=== PATIENT | male | born 1960 | race Caucasian/White ===

== ENCOUNTER 2017-07-22 11:44 | Emergency (ER) | payer SELFPAY ==
[2017-07-22 11:45] VITALS: BP 174/112; PULSE 94; RESP 16; TEMP 36.6; O2SAT 96; BMI 39.9
[2017-07-22 11:47] VITALS: O2SAT 98
--- NOTE | 2017-07-22 12:12 | RAD_ITS ---
STUDY: X-RAY CHEST REASON FOR EXAM: Male, 57 years old. Chest pain. TECHNIQUE: Frontal and lateral views of the chest. COMPARISON: April 05, 2012 FINDINGS: There is stable hyperexpansion of the left lung. There is right pleural thickening/scarring unchanged. Normal size heart. Normal mediastinum and pillo. Normal visualized pulmonary arteries. Normal visualized aortic arch and descending thoracic aorta. Normal visualized thoracic spine. Normal visualized ribs, clavicles, and shoulders. There is no demonstrated abnormality of the visualized soft tissue structures of the upper abdomen. RAD/Chest PA and Lateral IMPRESSION: Stable appearance of the chest with no new or acute findings. Electronically Signed: Reji Hutchinson MD at 14:06 EST , Service support ,
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
[2017-07-22] MEDS: HYDROcodone Bitartrate/Apap 5/325 Tablet PO (12:21)
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
[2017-07-22 15:02] VITALS: PULSE 88; RESP 16; O2SAT 100
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
== END 2017-07-22 15:02 | disposition home or self-care (01) ==
PROVIDERS: Emergency Provider Emergency Medicine; Family Provider Family Medicine; PCP Family Medicine
DX: S40.012A Contusion of left shoulder, initial encounter (principal); S80.01XA Contusion of right knee, initial encounter; S80.212A Abrasion, left knee, initial encounter; S80.211A Abrasion, right knee, initial encounter; M19.012 Primary osteoarthritis, left shoulder; E66.9 Obesity, unspecified; V43.52XA Car driver injured in collision with other type car in traffic accident, initial encounter; Y93.9 Activity, unspecified; Y92.9 Unspecified place or not applicable; Z72.0 Tobacco use
CPT/HCPCS: 71046; 73030; 73564; 99285

== ENCOUNTER → 2018-06-01 07:46 | Outpatient (CLI) | payer MEDICAID, SELFPAY ==
[2018-05-26 07:31] VITALS: BMI 45.1
--- NOTE | 2018-06-01 14:16 | PFT ---
INTRODUCTION: The patient is a 57-year-old male that presents for pulmonary function studies secondary to a diagnosis of. Respiratory therapy reports good patient effort. Bronchodilators were used during testing. INTERPRETATION: Forced expiration spirometry demonstrates the presence of a severe large airways obstructive ventilatory defect. There was a significant response to aerosolized bronchodilators. Spirograms are of good quality and do not plateau indicating slow emptying of the lungs. Body plethysmography was performed and revealed evidence of a mild restrictive ventilatory defect, with a symmetric reduction in ERV, likely the consequence of the patient's body habitus. Diffusing capacity by single breath CO is mildly reduced at 60% of predicted. IMPRESSION: These pulmonary function studies demonstrate the presence of a partially reversible severe mixed ventilatory defect with an associated mild reduction in diffusing capacity. There are no previous pulmonary function studies available for comparison.
== END ==
PROVIDERS: Family Provider Physician Assistant; PCP Physician Assistant; Referring Provider Internal Medicine Critical Care Medicine; Visit Provider Internal Medicine Critical Care Medicine
DX: J44.9 Chronic obstructive pulmonary disease, unspecified (principal)
CPT/HCPCS: 94060; 94726; 94729

== ENCOUNTER → 2018-06-03 12:17 | Outpatient (CLI) | payer MEDICAID, SELFPAY ==
[2018-05-26 07:31] VITALS: BMI 45.1
[2018-06-03 12:40] VITALS: PULSE 100; PULSE 101; PULSE 102; PULSE 78; PULSE 82; PULSE 90; PULSE 94; O2SAT 89; O2SAT 90; O2SAT 93; O2SAT 95
--- NOTE | 2018-06-04 10:57 | PCM.PSN.6M ---
PSN 6 Minute Walk Test - 6 Minute Walk Test 6 Minute Walk Test: 6 Minute Walk Test PSN:6-Minute Walk Test Start: 06/03/18 13:00 Freq: Status: Active Protocol: [id number].6MINW Document 06/03/18 12:40 [facility] (Rec: 06/03/18 13:03 [facility] [id number]) 6 Minute Walk Test Date Performed 06/03/18 Time Performed 12:40 Height 5 ft 8 in Weight: 287 lb Weight in Pounds 287.[address]: Enrrique Rincon Assistive device used: None Pre-test Oxygen Delivery Method Room Air Pulse Ox (%) 93 Pulse Rate (60-100 beats/min) 78 Dyspnea Andrei Scale (0-10) 1 Exertion Andrei Scale (6-20) 6 1st minute Oxygen Delivery Method Room Air Pulse Ox (%) 93 Pulse Rate (60-100 beats/min) 90 Number of Rests Taken 0 2nd minute Oxygen Delivery Method Room Air Pulse Ox (%) 89 Pulse Rate (60-100 beats/min) 94 Number of Rests Taken 0 3rd minute Oxygen Delivery Method Room Air Pulse Ox (%) 89 Pulse Rate (60-100 beats/min) 101 H Number of Rests Taken 0 4th minute Oxygen Delivery Method Room Air Pulse Ox (%) 90 Pulse Rate (60-100 beats/min) 100 Number of Rests Taken 0 5th minute Oxygen Delivery Method Room Air Pulse Ox (%) 90 Pulse Rate (60-100 beats/min) 101 H Number of Rests Taken 0 6th minute Oxygen Delivery Method Room Air Pulse Ox (%) 90 Pulse Rate (60-100 beats/min) 102 H Number of Rests Taken 0 Reported Symptoms Increased Work of Breathing Post-test Oxygen Delivery Method Room Air Pulse Ox (%) 95 Pulse Rate (60-100 beats/min) 82 Dyspnea Andrei Scale (0-10) 3 Exertion Andrei Scale (6-20) 12 Full Laps Walked 15 Partial Lap, Number of Tiles Walked 20 Total Distance Walked (ft) 905 - Interpretation Interpretation: The patient ambulated 905 feet over the course of 6 minutes beginning on room air without assistive devices or breaks. Pretesting oxygen saturation was noted to be 93% on room air. With ambulation, the angelia oxygen saturation was 89%. This represents a significant exertional oxygen desaturation. - Recommendations Recommendations: There is no indication for the use of supplemental oxygen at this time. However, close interval follow-up is recommended, given the degree of oxygen desaturation noted during this study.
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
== END ==
PROVIDERS: Family Provider Physician Assistant; PCP Physician Assistant; Referring Provider Internal Medicine Critical Care Medicine; Visit Provider Internal Medicine Critical Care Medicine
DX: J44.9 Chronic obstructive pulmonary disease, unspecified (principal)
CPT/HCPCS: 94618

== ENCOUNTER → 2018-07-13 07:43 | Outpatient (CLI) | payer MEDICAID, SELFPAY ==
[2018-07-07 16:06] VITALS: BMI 43.7
--- NOTE | 2018-07-13 07:48 | CT_ITS ---
STUDY: LOW DOSE CT LUNG CANCER SCREENING REASON FOR EXAM: Male, 57 years old. 30 pack-year smoking history. 3 day history of cough. RADIATION DOSAGE (If Supplied By Facility): CTDIvol = ( 3.40 ) mGy, DLP = ( 116.98 ) mGycm TECHNIQUE: No contrast was administered. Low dose technique was utilized (average mAS-38 and kVp 120). 1.25 mm axial source images with a slice interval of 1.25-mm were reconstructed in lung windows. 2.5 mm axial source images with a slice interval of 2.5-mm were reconstructed in lung windows. 5.0 mm axial source images with a slice interval of 5.0-mm were reconstructed in soft tissue windows. Nodule measured using lung windows on PACS and/or independent workstation with automated measurement of minimum and maximum diameter. Nodule measurement reported as average diameter rounded to the nearest whole number. Growth is defined as an increase ins size of greater than 1.5 mm. COMPARISON: None. NODULES: No suspicious nodules are seen. Emphysema: Emphysematous changes worse in the upper lobes. There is elevation of the right hemidiaphragm more prominent along its lateral aspect. There is evidence of pleural parenchymal changes at the right lung base laterally. I also suspect an element of rounded atelectasis along the lateral peripheral aspect of the right lower lobe. Aorta: Dilatation of the descending thoracic aorta. Maximum transverse dimension of 4.6 cm. Coronary arteries: Coronary artery calcification. CT/Low Dose CT Lung Screening IMPRESSION: Lung-RADS category 2 - Continue annual screening with LDCT in 12 months. IMPORTANT NOTES FOR USE: ACR Lung-RADS Version 1.0 Assessment Categories Release Date: September 12, 2013 Category: Coded 0-4 bases on nodule(s) with highest degree of suspicion. Negative screen is defined as categories 1 and 2; a positive screen is defined as categories 3 and 4. Category 3 and 4A nodules that are unchanged on interval CT should be coded as category 2, and individuals returned to screening in 12 months. Category 4X: Category 3 or 4 nodules with additional imaging findings that increase the suspicion of lung cancer, such as spiculation, GGN that doubles in size in 1 year, enlarged lymph notes, etc. Category Modifiers: S (significant finding unrelated to lung cancer) and C (prior history of treated lung cancer) may be added to the 0-4 Lung-RADS Electronically Signed: Ilir Forman, at 13:44 EST , Service support ,
== END ==
PROVIDERS: Family Provider Physician Assistant; PCP Physician Assistant; Referring Provider Internal Medicine Critical Care Medicine; Visit Provider Internal Medicine Critical Care Medicine
DX: F17.211 Nicotine dependence, cigarettes, in remission (principal)
CPT/HCPCS: G0297

== ENCOUNTER 2018-07-20 09:50 | Observation (INO) | payer MEDICAID, SELFPAY ==
[2018-07-07 16:06] VITALS: BMI 43.7
[2018-07-20] VITALS (10 sets, daily range): BP systolic 129–203; BP diastolic 72–114; PULSE 88–102; RESP 16–20; TEMP 36.1–36.9; O2SAT 86–97; BMI 45.8; BMI 45.9
--- NOTE | 2018-07-20 10:16 | EKG12_ITS ---
Test Reason : SOB Blood Pressure : / mmHG Vent. Rate : 085 BPM Atrial Rate : 085 BPM P-R Int : 164 ms QRS Dur : 094 ms QT Int : 400 ms P-R-T Axes : 042 042 068 degrees QTc Int : 476 ms Normal sinus rhythm Nonspecific ST abnormality Abnormal ECG Confirmed by ZINA PINEDA ([id number]), offline editor SAMANTHA PERRY ([id number]) on 07/23/2018 1:21:57 PM Referred By: PRASHANT Confirmed By:ZINA PINEDA
--- NOTE | 2018-07-20 10:17 | RAD_ITS ---
STUDY: X-RAY CHEST REASON FOR EXAM: Male, 57 years old. 4 day history of productive cough with hypoxia and wheezing. TECHNIQUE: PA and lateral views of the chest. COMPARISON: Comparison is made with prior study dated July 22, 2017. FINDINGS: Since prior study, there has been progressive right lower lobe infiltrate and effusion. Blunting of the posterior left costophrenic angle. Normal size heart. Normal mediastinum and pillo. Normal visualized pulmonary arteries. Normal visualized aortic arch and descending thoracic aorta. There are degenerative changes of the visualized thoracic spine. Normal visualized ribs, clavicles, and shoulders. There is no demonstrated abnormality of the visualized soft tissue structures of the upper abdomen. RAD/Chest PA and Lateral IMPRESSION: Progressive pleural parenchymal changes at the right lung base. Electronically Signed: Ilir Forman, at 12:31 EST , Service support ,
--- NOTE | 2018-07-20 10:18 | ED.VIS.GEN ---
History of Present Illness Chief Complaint: Shortness of Breath Detail of Chief Complaint: Dyspnea on exertion, low pulse ox Informant: Patient Onset: Days - Onset 4 days ago with respiratory-like symptoms. Context: Gradual Onset Timing: Continuous Quality: Shortness of breath at rest and increased shortness of breath with activity Location: Home Current Severity: Mild Maximum Severity: Severe Worsened by: Activity Relieved by: Nothing Associated Symptoms: Respiratory symptoms that started 4 days ago Narrative: Patient is a middle-aged male who quit smoking August 2017 who presents from urgent care because of low pulse ox and wheezing. Onset of illness 4 days ago. He reported a productive cough of brown colored sputum initially. He states his sputum is now white. He does complain of nasal congestion. He denies sore throat or change in voice. He denies chest discomfort. He denies orthopnea or PND. He does complain of ankle swelling. He has never been tested for obstructive sleep apnea. He does have symptoms are suggestive of obstructive sleep apnea. He states he was not immunized for influenza or pneumococcal infection. He denies history of PE or DVT. He denies leg pain or discoloration. Past Medical History - Allergies and Home Meds Allergies/Adverse Reactions: Allergies No Known Allergies Allergy (Verified 07/20/18 09:50) Primary Care Physician: Jeffrey Jones PA [Primary Care Provider] - Prior records reviewed: Yes Past Medical History: - - COPD Surgical History: noncontributory Lives: Alone Smoking Status: Former smoker Drugs: None Review of Systems General: Reports: Malaise. Denies: Chills, Fever, Sweats Eyes: Denies: Visual changes - bilaterally, Blurred Vision - bilaterally, Diplopia ENT: Denies: Bilateral ear pain, Rhinorrhea, Sore throat Cardiovascular: Denies: Chest pain, Palpitations Respiratory: Reports: Dyspnea, Cough, Sputum, Dyspnea on exertion. Denies: Orthopnea, Paroxysmal nocturnal dyspnea Gastrointestinal: Denies: Abdominal pain, Nausea, Vomiting, Diarrhea, Melena, Hematochezia Genitourinary: Denies: Dysuria, Hematuria, Frequency Musculoskeletal: Denies: Back pain, Extremity Pain Skin: Denies: Rash, Wounds Neurological: Denies: Headache, Weakness, Numbness Endocrine: Denies: Polyuria, Polydipsia, Cold intolerance Allergy: Denies: Uticaria, Swelling of the mouth, Swelling of the tongue Physical Exam Vital Signs/Narrative: Vital Signs Temp Pulse Resp BP Pulse Ox 07/20/18 09:51 97.5 F L 89 20 H 203/101 H 86 Inital Vital Signs reviewed: Yes General: Well nourished, Well developed, Obese, No Acute Distress Head: Normocephalic, Atraumatic Eyes: Perrl, EOMI. Negative for: Pale conjunctiva, Scleral icterus ENT: Moist mucous membranes, No rhinorrhea, Nasal congestion Neck: Supple, Nontender, No lymphadenopathy, No JVD Cardiovascular: Regular rate, Regular rhythm, No murmurs, Normal S1, Normal S2 Respiratory: No distress, Wheezing, Diminished, Decreased Air Movement. Negative for: CTA bilaterally Abdomen: Soft, Nontender, Nondistended, Normal bowel sounds, No masses Back: Nontender, Normal Inspection Extremities: Nontender. Negative for: No edema, Calf Tenderness - Done here honest call Verna [place] 2 5 to be uncooperative because I have all these patients call Verna at the office or Claritza she has a mole I emailed all of them to her so she is us Skin: Normal color, Rash - There is evidence of eczema. Negative for: Cyanosis, Diaphoresis, Jaundice Neurological: Alert, Oriented x3, Cranial nerves II-XII grossly intact, Normal Strength, Normal Sensation Psychological: Normal affect, Normal Mood Diagnostic/Tx/Re-eval Chest X-Ray - ED: 2 View, Normal, Heart, Mediastinum, Bony Structures, No Acute Disease, Chronic Changes CBC is unremarkable. Basic metabolic panel is remarkable for an elevated CO2. ABG on 2 L reveals increased AA gradient. PH is 7.39, PCO2 48.2, PaO2 77 base excess +4 bicarb 29.2 with 95% saturation which correlates with pulse ox. - Rhythm Strip Rhythm Strip: Sinus Rhythm Rate: 89 Ectopy: None - Medical Decision Making Since patient is hypoxic concern for pneumonia. Chest x-ray and appropriate blood work was obtained. If x-ray is unremarkable will need to entertain possibility of PE. Doubt suspect this is exacerbation of his COPD. Since he is not tachycardic, febrile or tachypnic lactate was not obtained. He was treated with DuoNeb followed by albuterol and 60 mg of prednisone. Patient was informed since his pulse ox is only 86% he will need to be admitted to the hospital. Since patient is hypoxic still wheezing will treat as exacerbation of COPD. Because he reported initially brown colored sputum will treat with antibiotics. Since CO2 is elevated on basic metabolic panel and patient is hypoxic requiring oxygen will obtain ABG to evaluate acid base status and specifically PCO2. ED Disposition - Plan for ED Patient: Disposition: Acute Care Hospital [facility] Diagnosis: Acute exacerbation of chronic obstructive pulmonary disease (COPD), Respiratory failure with hypoxia, Bronchospasm, acute Referrals: Jeffrey Jones PA [Primary Care Provider] -
[2018-07-20] MEDS: Ipratropium/Albuterol Sulfate 3 ML AMPUL.NEB INHALATION ×4 (10:33→23:25)
[2018-07-20] MEDS: Albuterol 2.5 MG/3 ML VIAL.NEB. INHALATION (10:33)
[2018-07-20 11:32] LABS: Absolute Lymphocyte Count 1.64 X10^3/ul (0.83-4.51); Absolute Neutrophil Count 6.9 X10^3/uL (2.0-7.7); Basophil# 0.04 X10^3/uL; Basophil% 0.4 % (0-1); Eosinophil# 0.68 X10^3/uL; Eosinophils% 6.8 % (0-5); Hematocrit 48.5 % (40-54); Hemoglobin 15.4 g/dl (13.0-16.5); Lymphocyte # 1.64 X10^3/ul (4.0); Lymphocyte % 16.4 % (19-41); Mean Corp Hgb Conc 31.8 g/gl (32-36); Mean Corpuscular Hgb 30.6 pg (27.0-32.0); Mean Corpuscular Volume 96.2 fL (80-94); Mean Platelet Vol. 9.2 fl (6.2-12.0); Monocyte# 0.66 X10^3/uL; Monocyte% 6.6 % (0-10); Neutrophil # 6.94 X10^3/uL (2.7-7.7); Neutrophil % 69.6 % (47-70); Platelet Count 283 K/mm3 (150-450); RBC Distribution Width CV 13.7 % (11.6-14.6); Red Blood Count 5.04 M/mm3 (4.6-6.2)
[2018-07-20 11:37] LABS: POSITIVE COUNT NO; POSITIVE DIFFERENTIAL NO; POSITIVE MORPHOLOGY NO
[2018-07-20 11:44] LABS: Anion Gap 8 (5-15); BUN 9 mg/dL (7-18); BUN/Creat Ratio 12.5 RATIO (10-20); Chloride 101 mmol/L (98-107); Creatinine, Serum 0.72 mg/dL (0.70-1.30); EST Glomerular Filtration Rate 120 mL/min (>60); Est Glom Filt Rate - Afr Amer 146 mL/min (>60); Estimated Creatinine Clearance 104.61 ml/min; Glucose 102 mg/dL (74-106); Potassium 3.9 mmol/L (3.5-5.1); Sodium Level 142 mmol/L (136-145)
[2018-07-20] MEDS: predniSONE 20 MG Tablet 60 MG PO (11:47)
[2018-07-20 12:51] LABS: Allen Test POS; Base Excess 4 mmol/L (-2 to +2); Bicarbonate 29.2 mmol/L (22-26); Blood Gas Specimen Type ART; O2 Delivery Device Nasal Can; PO2 77 mmHG (75-100); SITE R Radial; SO2 95 % (95-99); Time Given 1240; Total Carbon Dioxide 31 mmol/L; pCO2 48.2 mmHg (35-45); pH 7.39 (7.35-7.45)
--- NOTE | 2018-07-20 13:16 | NURSING ---
DR MELARA IN ER
[2018-07-20] MEDS: levoFLOXacin 750 MG Tablet PO (13:17)
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
--- NOTE | 2018-07-20 13:39 | NURSING ---
MED SURG EXAC COPD WITH BROCHOSPASM AND RESP FAIALURE WITH HYPOXIA SARITHA
--- NOTE | 2018-07-20 13:40 | CASEMGMT ---
RN CM Assessment Introduced role of RN CM to patient. Patient is alert, oriented and able to participate in RN CM Assessment. Care providers, pharmacy, and demographics verified. Presentation: CC: SOB, SOB persistent after Tx at [facility], 86%RA, Increased to 94%2LNC. Not on Home O2. PCP: Dr Tien Jones Specialists: Pulm- Dr Rincon Preferred Pharmacy: [facility] Medical Insurance: [email or web address] Prescription Benefit: Yes LNOK: Fide/Art Ludwig Living Arrangements: Unemployed, Lives alone in a House Trailer, 2 steps. Independent with ambulation and ADL's. Transportation: Patient drives, drove self to hospital and plans to drive on [place]. DME: Nebulizer, DME Per Insurance. HHC: None in past, HH per insurance. SNF: None in past, SNF Per insurance. DC PLAN: Home with possible Home O2. No other anticipated needs identified. Abraham [facility] RNCM
[2018-07-20] MEDS: Lisinopril 10 MG Tablet PO (15:32)
[2018-07-20] MEDS: Acetaminophen 325 MG Tablet 650 MG PO (22:32)
[2018-07-21] VITALS (10 sets, daily range): BP systolic 117–135; BP diastolic 75–90; PULSE 79–91; RESP 16–20; TEMP 36.5–36.6; O2SAT 91–96
[2018-07-21] MEDS: guaiFENesin 10 ML UDC (200MG/10ML) PO (01:11)
[2018-07-21 05:54] LABS: Absolute Lymphocyte Count 0.86 X10^3/ul (0.83-4.51); Absolute Neutrophil Count 9.5 X10^3/uL (2.0-7.7); Eosinophil# 0.01 X10^3/uL; Eosinophils% 0.1 % (0-5); Hematocrit 45.5 % (40-54); Hemoglobin 14.5 g/dl (13.0-16.5); Lymphocyte # 0.86 X10^3/ul (4.0); Mean Corp Hgb Conc 31.9 g/gl (32-36); Mean Corpuscular Hgb 30.7 pg (27.0-32.0); Mean Corpuscular Volume 96.2 fL (80-94); Mean Platelet Vol. 9.5 fl (6.2-12.0); Monocyte# 0.32 X10^3/uL; Neutrophil # 9.49 X10^3/uL (2.7-7.7); Neutrophil % 88.6 % (47-70); Platelet Count 280 K/mm3 (150-450); RBC Distribution Width SD 49.4 fl (35.1-43.9); Red Blood Count 4.73 M/mm3 (4.6-6.2); White Blood Count 10.7 K/mm3 (4.4-11.0)
[2018-07-21 06:05] LABS: Anion Gap 8 (5-15); BUN 12 mg/dL (7-18); BUN/Creat Ratio 15.3 RATIO (10-20); Calcium,Total 9.1 mg/dL (8.5-10.1); Chloride 102 mmol/L (98-107); Creatinine, Serum 0.78 mg/dL (0.70-1.30); EST Glomerular Filtration Rate 109 mL/min (>60); Est Glom Filt Rate - Afr Amer 131 mL/min (>60); Estimated Creatinine Clearance 96.56 ml/min; Glucose 160 mg/dL (74-106); Potassium 4.1 mmol/L (3.5-5.1); Sodium Level 139 mmol/L (136-145)
[2018-07-21 06:11] LABS: POSITIVE COUNT NO; POSITIVE DIFFERENTIAL NO; POSITIVE MORPHOLOGY NO
[2018-07-21] MEDS: Ipratropium/Albuterol Sulfate 3 ML AMPUL.NEB INHALATION ×5 (06:52→23:33)
[2018-07-21] MEDS: Enoxaparin 40 MG/0.4 ML Syringe SC (08:49)
[2018-07-21] MEDS: Acetaminophen 325 MG Tablet 650 MG PO ×2 (08:52→23:55)
[2018-07-21] MEDS: Lisinopril 10 MG Tablet PO (08:52)
--- NOTE | 2018-07-21 10:12 | PCM.PN.HOSP ---
Patient Problems: Active and Suspected Problems (Last Updated 07/20/18 @ 13:40 by Twin Núñez DO) Acute exacerbation of chronic obstructive pulmonary disease (COPD) (Acute) Respiratory failure with hypoxia (Acute) Bronchospasm, acute (Acute) Subjective: Feeling better today than when he came in. Still little bit short of breath and requiring some oxygen. Denies any chest pain. Vitals/I&O's: Vital Signs Temp Pulse Resp BP Pulse Ox 97.7 F L 86 18 133/81 H 93 07/21/18 08:50 07/21/18 08:50 07/21/18 08:50 07/21/18 08:50 07/21/18 08:50 Oxygen Flow Rate (L/min) 2 Oxygen Delivery Method Nasal Cannula Weight: 284 lb Body Mass Index (BMI) 45.8 Intake and Output for Last 24 Hours 07/19/18 07/20/18 07/21/18 23:59 23:59 23:59 Intake Total 400 / 400 880 / 880 Balance 400 / 400 880 / 880 General: Alert, Oriented x3, Cooperative, No apparent distress HEENT: Atraumatic, PERRLA, EOMI, Normocephalic Oral: Moist Mucosa Neck: Supple, No JVD, Trachea Midline Lungs: No rhonchi, No rales, Diminished, Wheezes Cardiovascular: Regular rate, Regular Rhythm, Normal S1, Normal S2, No murmurs Abdomen: Soft, Non Tender, Non-Distended, No Hepato-splenomegaly Extremities: No edema, Capillary Refill Less than 3 Seconds Skin: - - Psoriasis on his lower extremities, clean without signs of infection Neurological: Neuro grossly intact, Sensory exam intact to light touch and pain Psych/Mental Status: Normal Affect, Appropriate Laboratory Results 07/20/18 11:25: WBC 10.0, RBC 5.04, Hgb 15.4, Hct 48.5, MCV 96.2 H, MCH 30.6, MCHC 31.8 L, RDW 13.7, RDW Differential 47.0 H, Plt Count 283, MPV 9.2, Immature Gran % (Auto) 0.200, Neut % (Auto) 69.6, Lymph % (Auto) 16.4 L, [place] % (Auto) 6.6, Eos % (Auto) 6.8 H, Baso % (Auto) 0.4, Absolute Neuts (auto) 6.9, Absolute Lymphs (auto) 1.64, Total Counted Not Reportable 07/20/18 11:25: Sodium 142, Potassium 3.9, Chloride 101, Carbon Dioxide 33.0 H, Anion Gap 8, BUN 9, Creatinine 0.72, Estim Creat Clear Calc 104.61, Est GFR (MDRD) Af Amer 146, Est GFR (MDRD) Non-Af 120, BUN/Creatinine Ratio 12.5, Glucose 102, Calcium 9.0 07/20/18 12:45: Specimen Type ART, Sample Site R Radial, pH 7.39, Bicarbonate Actual 29.2 H, POC Total CO2 31, Base Excess 4 H, O2 Saturation 95, ABG pCO2 48.2 H, ABG pO2 77, Silver Test POS, O2 Delivery Device Nasal Can, Liter Flow 3.0, Blood Gas Notified Whom ED MD, Blood Gas Notified Time 1240 07/21/18 05:30: WBC 10.7, RBC 4.73, Hgb 14.5, Hct 45.5, MCV 96.2 H, MCH 30.7, MCHC 31.9 L, RDW 14.0, RDW Differential 49.4 H, Plt Count 280, MPV 9.5, Immature Gran % (Auto) 0.300, Neut % (Auto) 88.6 H, Lymph % (Auto) 8.0 L, [place] % (Auto) 3.0, Eos % (Auto) 0.1, Baso % (Auto) 0.0, Absolute Neuts (auto) 9.5 H, Absolute Lymphs (auto) 0.86, Total Counted Not Reportable 07/21/18 05:30: Sodium 139, Potassium 4.1, Chloride 102, Carbon Dioxide 29.0, Anion Gap 8, BUN 12, Creatinine 0.78, Estim Creat Clear Calc 96.56, Est GFR (MDRD) Af Amer 131, Est GFR (MDRD) Non-Af 109, BUN/Creatinine Ratio 15.3, Glucose 160 H, Calcium 9.1 Current Medications Acetaminophen (Tylenol) 650 mg PO Q6H PRN PRN PRN Reason: Mild Pain (1-3)/Temp > 100.7 F Last Admin: 07/21/18 08:52 Dose: 650 mg Albuterol Sulfate (Ventolin Aerosols) 2.5 mg INHALATION Q2H PRN PRN PRN Reason: SHORTNESS OF BREATH Albuterol/Ipratropium (Duoneb) 3 ml INHALATION Q4H.RT [facility] Last Admin: 07/21/18 06:52 Dose: 3 ml Clonidine 0.1 mg/ Clonidine 0. (2 mg) 0.3 mg PO TID PRN PRN Reason: SBP > 180 Enoxaparin Sodium (Lovenox) 40 mg SC DAILY@1000 [facility] Last Admin: 07/21/18 08:49 Dose: 40 mg Guaifenesin (Robitussin) 10 ml PO Q6H PRN PRN PRN Reason: COUGH Last Admin: 07/21/18 01:11 Dose: 10 ml Lisinopril (Zestril) 10 mg PO DAILY [facility] Last Admin: 07/21/18 08:52 Dose: 10 mg Magnesium Hydroxide (Milk Of Magnesia) 30 ml PO DAILY PRN PRN PRN Reason: Constipation Methylprednisolone (Solu-Medrol) 40 mg IV Q8 [facility] Last Admin: 07/21/18 06:16 Dose: 40 mg Ondansetron HCl (Zofran) 4 mg IV Q8H PRN PRN PRN Reason: NAUSEA Sodium Chloride () 5 - 15 ml IV UD PRN PRN Reason: SALINE FLUSH Medical Necessity - Tobacco Use Smoking Status: Former smoker Tobacco Use: Non-smoker Assessment/Plan All Active Problems (Last Updated 07/20/18 @ 13:40 by Twin Núñez DO) Acute exacerbation of chronic obstructive pulmonary disease (COPD) (Acute) Respiratory failure with hypoxia (Acute) Bronchospasm, acute (Acute) 1. Acute COPD exacerbation with acute hypoxic respiratory failure -On admission in the ER his oxygen saturation was 86% requiring oxygen via nasal cannula -Currently his oxygen saturation is 91% on 2 L -Wheezing in both lungs, continue with steroids and nebulizer treatment 2. HTN -Can have this diagnosis an outpatient however on admission he was extremely hypertensive with systolics greater than 200 -Continue with his lisinopril and plan on discharging him with it and follow-up with his primary care physician. 3. Psoriasis -Does not seem to have any outpatient medications for the psoriasis -Will likely improve with the steroids -Appreciate wound care assistance DVT: Lovenox Code Visit Inpatient E&M: 48225 Subs Hosp L2
--- NOTE | 2018-07-21 10:16 | PN_ITS ---
Patient Problems: Active and Suspected Problems (Last Updated 07/20/18 @ 13:40 by Twin Núñez DO) Acute exacerbation of chronic obstructive pulmonary disease (COPD) (Acute) Respiratory failure with hypoxia (Acute) Bronchospasm, acute (Acute) Subjective: Feeling better today than when he came in. Still little bit short of breath and requiring some oxygen. Denies any chest pain. Vitals/I&O's: Vital Signs Temp Pulse Resp BP Pulse Ox 97.7 F L 86 18 133/81 H 93 07/21/18 08:50 07/21/18 08:50 07/21/18 08:50 07/21/18 08:50 07/21/18 08:50 Oxygen Flow Rate (L/min) 2 Oxygen Delivery Method Nasal Cannula Weight: 284 lb Body Mass Index (BMI) 45.8 Intake and Output for Last 24 Hours 07/19/18 07/20/18 07/21/18 23:59 23:59 23:59 Intake Total 400 / 400 880 / 880 Balance 400 / 400 880 / 880 General: Alert, Oriented x3, Cooperative, No apparent distress HEENT: Atraumatic, PERRLA, EOMI, Normocephalic Oral: Moist Mucosa Neck: Supple, No JVD, Trachea Midline Lungs: No rhonchi, No rales, Diminished, Wheezes Cardiovascular: Regular rate, Regular Rhythm, Normal S1, Normal S2, No murmurs Abdomen: Soft, Non Tender, Non-Distended, No Hepato-splenomegaly Extremities: No edema, Capillary Refill Less than 3 Seconds Skin: - - Psoriasis on his lower extremities, clean without signs of infection Neurological: Neuro grossly intact, Sensory exam intact to light touch and pain Psych/Mental Status: Normal Affect, Appropriate Laboratory Results 07/20/18 11:25: WBC 10.0, RBC 5.04, Hgb 15.4, Hct 48.5, MCV 96.2 H, MCH 30.6, MCHC 31.8 L, RDW 13.7, RDW Differential 47.0 H, Plt Count 283, MPV 9.2, Immature Gran % (Auto) 0.200, Neut % (Auto) 69.6, Lymph % (Auto) 16.4 L, [place] % (Auto) 6.6, Eos % (Auto) 6.8 H, Baso % (Auto) 0.4, Absolute Neuts (auto) 6.9, Absolute Lymphs (auto) 1.64, Total Counted Not Reportable 07/20/18 11:25: Sodium 142, Potassium 3.9, Chloride 101, Carbon Dioxide 33.0 H, Anion Gap 8, BUN 9, Creatinine 0.72, Estim Creat Clear Calc 104.61, Est GFR (MDRD) Af Amer 146, Est GFR (MDRD) Non-Af 120, BUN/Creatinine Ratio 12.5, Glucose 102, Calcium 9.0 07/20/18 12:45: Specimen Type ART, Sample Site R Radial, pH 7.39, Bicarbonate Actual 29.2 H, POC Total CO2 31, Base Excess 4 H, O2 Saturation 95, ABG pCO2 48.2 H, ABG pO2 77, Silver Test POS, O2 Delivery Device Nasal Can, Liter Flow 3.0, Blood Gas Notified Whom ED MD, Blood Gas Notified Time 1240 07/21/18 05:30: WBC 10.7, RBC 4.73, Hgb 14.5, Hct 45.5, MCV 96.2 H, MCH 30.7, MCHC 31.9 L, RDW 14.0, RDW Differential 49.4 H, Plt Count 280, MPV 9.5, Immature Gran % (Auto) 0.300, Neut % (Auto) 88.6 H, Lymph % (Auto) 8.0 L, [place] % (Auto) 3.0, Eos % (Auto) 0.1, Baso % (Auto) 0.0, Absolute Neuts (auto) 9.5 H, Absolute Lymphs (auto) 0.86, Total Counted Not Reportable 07/21/18 05:30: Sodium 139, Potassium 4.1, Chloride 102, Carbon Dioxide 29.0, Anion Gap 8, BUN 12, Creatinine 0.78, Estim Creat Clear Calc 96.56, Est GFR (MDRD) Af Amer 131, Est GFR (MDRD) Non-Af 109, BUN/Creatinine Ratio 15.3, Glucose 160 H, Calcium 9.1 Current Medications Acetaminophen (Tylenol) 650 mg PO Q6H PRN PRN PRN Reason: Mild Pain (1-3)/Temp > 100.7 F Last Admin: 07/21/18 08:52 Dose: 650 mg Albuterol Sulfate (Ventolin Aerosols) 2.5 mg INHALATION Q2H PRN PRN PRN Reason: SHORTNESS OF BREATH Albuterol/Ipratropium (Duoneb) 3 ml INHALATION Q4H.RT [facility] Last Admin: 07/21/18 06:52 Dose: 3 ml Clonidine 0.1 mg/ Clonidine 0. (2 mg) 0.3 mg PO TID PRN PRN Reason: SBP > 180 Enoxaparin Sodium (Lovenox) 40 mg SC DAILY@1000 [facility] Last Admin: 07/21/18 08:49 Dose: 40 mg Guaifenesin (Robitussin) 10 ml PO Q6H PRN PRN PRN Reason: COUGH Last Admin: 07/21/18 01:11 Dose: 10 ml Lisinopril (Zestril) 10 mg PO DAILY [facility] Last Admin: 07/21/18 08:52 Dose: 10 mg Magnesium Hydroxide (Milk Of Magnesia) 30 ml PO DAILY PRN PRN PRN Reason: Constipation Methylprednisolone (Solu-Medrol) 40 mg IV Q8 [facility] Last Admin: 07/21/18 06:16 Dose: 40 mg Ondansetron HCl (Zofran) 4 mg IV Q8H PRN PRN PRN Reason: NAUSEA Sodium Chloride () 5 - 15 ml IV UD PRN PRN Reason: SALINE FLUSH Medical Necessity - Tobacco Use Smoking Status: Former smoker Tobacco Use: Non-smoker Assessment/Plan All Active Problems (Last Updated 07/20/18 @ 13:40 by Twin Núñez DO) Acute exacerbation of chronic obstructive pulmonary disease (COPD) (Acute) Respiratory failure with hypoxia (Acute) Bronchospasm, acute (Acute) 1. Acute COPD exacerbation with acute hypoxic respiratory failure -On admission in the ER his oxygen saturation was 86% requiring oxygen via nasal cannula -Currently his oxygen saturation is 91% on 2 L -Wheezing in both lungs, continue with steroids and nebulizer treatment 2. HTN -Can have this diagnosis an outpatient however on admission he was extremely hypertensive with systolics greater than 200 -Continue with his lisinopril and plan on discharging him with it and follow-up with his primary care physician. 3. Psoriasis -Does not seem to have any outpatient medications for the psoriasis -Will likely improve with the steroids -Appreciate wound care assistance DVT: Lovenox Code Visit Inpatient E&M: 16217 Subs Hosp L2
--- NOTE | 2018-07-21 11:32 | NURSING ---
Was asked to see patient for scattered patched of psoriasis. patient states he has been to the [facility] and has tried numerous treatments. the areas do not appear infected. the worst areas are to bilateral feet. pt is currently getting steroids for his COPD which may help with the psoriasis as well. no signs of infection noted. will monitor as needed. no wounds at present just dry patchy areas.
[2018-07-21] MEDS: 0.9% NaCl Peripheral Flush Adult/Peds IV (14:54)
[2018-07-22] VITALS (8 sets, daily range): BP systolic 120–150; BP diastolic 68–89; PULSE 64–84; RESP 16–22; TEMP 36.1–36.8; O2SAT 88–96
[2018-07-22] MEDS: Ipratropium/Albuterol Sulfate 3 ML AMPUL.NEB INHALATION ×3 (03:37→10:29)
--- NOTE | 2018-07-22 04:01 | RAD_ITS ---
STUDY: X-RAY CHEST REASON FOR EXAM: Male, 58 years old. Dyspnea TECHNIQUE: Frontal and lateral views of the chest. COMPARISON: 07/20/2018 FINDINGS: Subsegmental atelectases in the right and left lung bases. There is no demonstrated pleural abnormality. Normal size heart. Normal mediastinum and pillo. Normal visualized pulmonary arteries. Normal visualized aortic arch and descending thoracic aorta. Normal visualized thoracic spine. Normal visualized ribs, clavicles, and shoulders. There is no demonstrated abnormality of the visualized soft tissue structures of the upper abdomen. RAD/Chest PA and Lateral IMPRESSION: No demonstrated acute cardiopulmonary process. Electronically Signed: Sandra oSriano, at 4:34 EST Tel , Service support ,
[2018-07-22] MEDS: Lisinopril 10 MG Tablet PO (08:10)
[2018-07-22] MEDS: Enoxaparin 40 MG/0.4 ML Syringe SC (08:10)
--- NOTE | 2018-07-22 11:57 | DCINST_ITS ---
- Discharge Diagnoses Current Active Problems: Current Active and Chronic Problems (Last Updated 07/20/18 @ 13:40 by Twin Núñez DO) Acute exacerbation of chronic obstructive pulmonary disease (COPD) (Acute) Respiratory failure with hypoxia (Acute) Bronchospasm, acute (Acute) You will use the following diet at home:: Regular Your food should be the consistency of: Regular Your liquids should be the consistency of: Regular/Thin Discharge Activity: Return to Normal Activity, No Restrictions Call your doctor if you observe: Fever of 101 or Higher, Shortness of breath, Dizziness, Fainting spells, Swelling in the ankles, Chest pain, Increased palpitations (irregular heartbeat) Allergies/Adverse Reactions: Allergies No Known Allergies Allergy (Verified 07/20/18 09:50) Medications to take at Discharge umeclidinium 62.5 mcg-vilanterol 25 mcg/actuation powdr for inhalation 1 inh INHALATION Q24H #1 device 06/23/18 Albuterol Sulfate [Ventolin Hfa] 2 puff INHALATION Q6H PRN PRN 07/20/18 Ibuprofen 400 mg PO Q6H PRN PRN 07/20/18 Ipratropium/Albuterol Sulfate [Duoneb] 3 ml INHALATION Q4H.RT PRN #20 ampul.neb 07/22/18 Lisinopril [Zestril] 10 mg PO DAILY #30 tablet 07/22/18 Prednisone [Deltasone] 40 mg PO DAILY #14 tablet 07/22/18 The following prescriptions were given: Ipratropium/Albuterol Sulfate [Duoneb] 3 ml INHALATION Q4H.RT PRN #20 ampul.neb PRN Reason: Sob &/Or Wheezing Lisinopril [Zestril] 10 mg PO DAILY #30 tablet Prednisone [Deltasone] 40 mg PO DAILY #14 tablet Primary Care Physician: Jeffrey Jones PA [Primary Care Provider] - Please follow up with your Primary Care Physician in: 3-5 days Test Results: Test results from this visit will be discussed in further detail at your follow- up appointment, if applicable. Please Follow Up With: Enrrique Rincon DO When: 2-4 weeks
--- NOTE | 2018-07-22 12:28 | PCM.DC.SUM ---
Discharge Date and Diagnosis - Problem List Patient Problems: Active and Suspected Problems (Last Updated 07/20/18 @ 13:40 by Twin Núñez DO) Acute exacerbation of chronic obstructive pulmonary disease (COPD) (Acute) Respiratory failure with hypoxia (Acute) Bronchospasm, acute (Acute) Date of Admission: 07/20/18 Date of Discharge: 07/22/18 - Primary Discharge Diagnosis Active and Suspected Problems (Last Updated 07/20/18 @ 13:40 by Twin Núñez DO) Acute exacerbation of chronic obstructive pulmonary disease (COPD) (Acute) Respiratory failure with hypoxia (Acute) Bronchospasm, acute (Acute) - Secondary Discharge Diagnosis Chronic Problems (Last Updated 07/20/18 @ 13:40 by Twin Núñez DO) Obesity (Chronic) Nicotine dependence, cigarettes, in remission (Chronic) Chronic obstructive pulmonary disease (Chronic) Hospital Course and Treatment Imaging Results: 07/22/18 04:01 Chest PA and Lateral [RAD] Stat IMPRESSION: No demonstrated acute cardiopulmonary process. 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 Symptoms persisted though his cough was productive but eventually became over time. No overt fever or chills. Presented to an urgent care center today and was noted to be hypoxic and directed to the emergency room. Patient presented with hypoxia at 86% on room air. Patient was placed on oxygen, received bronchodilators, prednisone and Levaquin currently feeling better at this time. Similar to prior episodes of COPD exacerbation. Hospital Course: 1. Acute hypoxic rotatory failure secondary to acute COPD [id number]old male with a history of psoriasis who was who was just recently diagnosed with COPD presented after for 5 days of shortness of breath and dyspnea on exertion. He presented to the ER with a oxygen saturation of 86% on room air. He did 90s on 2 or 3 L nasal cannula. For the last visit he has been receiving steroids and nebulizer treatment and today he was 93% on room air and wanted to go home. We will discharge him with a prednisone course of 7 days, as well as DuoNeb therapy for his nebulizer per his request he is on a maintenance medication at home. 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 2. Hypertensive urgency-on admission his systolic blood pressure was in the low 200s and he was started on lisinopril 10 mg daily which seems to controlled his blood pressure. On the day of discharge she was in the 130s. Unsure of this is chronic hypertension or just a reaction to his COPD exacerbation his hypoxia, however we will send him home with a 30-day prescription, until he follows up with his primary care doctor at which point they can determine whether or not he needs to continue on it. 3. His other medical diagnoses were evaluated and his home medications were continued where appropriate Patient Problems: Active and Suspected Problems (Last Updated 07/20/18 @ 13:40 by Twin Núñez DO) Acute exacerbation of chronic obstructive pulmonary disease (COPD) (Acute) Respiratory failure with hypoxia (Acute) Bronchospasm, acute (Acute) Objective: General: Alert, Oriented x3, Cooperative, No apparent distress HEENT: Atraumatic, PERRLA, EOMI, Normocephalic Oral: Moist Mucosa Neck: Supple, No JVD, Trachea Midline Lungs: No rhonchi, No rales, Diminished, Wheezes Cardiovascular: Regular rate, Regular Rhythm, Normal S1, Normal S2, No murmurs Abdomen: Soft, Non Tender, Non-Distended, No Hepato-splenomegaly Extremities: No edema, Capillary Refill Less than 3 Seconds Skin: - - Psoriasis on his lower extremities, clean without signs of infection Neurological: Neuro grossly intact, Sensory exam intact to light touch and pain Psych/Mental Status: Normal Affect, Appropriate - Physical Exam Vital Signs Temp Pulse Resp BP Pulse Ox 97.9 F 68 18 135/80 H 91 07/22/18 10:45 07/22/18 10:45 07/22/18 10:45 07/22/18 10:45 07/22/18 10:59 Oxygen Flow Rate (L/min) 2 Oxygen Delivery Method Room Air Weight: 283 lb 15.992 oz Body Mass Index (BMI) 45.8 Intake and Output for Last 24 Hours 07/20/18 07/21/18 07/22/18 23:59 23:59 23:59 Intake Total 400 / 400 1780 / 1780 1100 / 1100 Balance 400 / 400 1780 / 1780 1100 / 1100 Microbiology Past 72 Hours 07/21/18 06:35 Respiratory Panel (PCR) - Final Mucosa - Nasopharyngeal Discharge Activity: Return to Normal Activity, No Restrictions Call your doctor if you observe: Fever of 101 or Higher, Shortness of breath, Dizziness, Fainting spells, Swelling in the ankles, Chest pain, Increased palpitations (irregular heartbeat) Home Medications: Medications to take at Discharge umeclidinium 62.5 mcg-vilanterol 25 mcg/actuation powdr for inhalation 1 inh INHALATION Q24H #1 device 06/23/18 Albuterol Sulfate [Ventolin Hfa] 2 puff INHALATION Q6H PRN PRN 07/20/18 Ibuprofen 400 mg PO Q6H PRN PRN 07/20/18 Ipratropium/Albuterol Sulfate [Duoneb] 3 ml INHALATION Q4H.RT PRN #20 ampul.neb 07/22/18 Lisinopril [Zestril] 10 mg PO DAILY #30 tablet 07/22/18 Prednisone [Deltasone] 40 mg PO DAILY #14 tablet 07/22/18 Following Prescrptions Were Given to Patient: Ipratropium/Albuterol Sulfate [Duoneb] 3 ml INHALATION Q4H.RT PRN #20 ampul.neb PRN Reason: Sob &/Or Wheezing Lisinopril [Zestril] 10 mg PO DAILY #30 tablet Prednisone [Deltasone] 40 mg PO DAILY #14 tablet Primary Care Physician: Jeffrey Jones PA [Primary Care Provider] - Please follow up with your Primary Care Physician in: 3-5 days Please Follow Up With: Enrrique Rincon DO When: 2-4 weeks Disposition: Home Minutes spent on discharge:: 35 Patient Condition:: Good Medical Necessity - Tobacco Use Smoking Status: Former smoker Tobacco Use: Non-smoker Meaningful Use Info Meaningful Use Diagnoses (Choose all that apply): None applicable Code Visit OBSV E&M: 04583 Observation care discharge
[2018-07-22] MEDS: 0.9% NaCl Peripheral Flush Adult/Peds IV (14:07)
== END 2018-07-22 14:50 | disposition home or self-care (01) ==
LOC: ED 12:06 → MS2 14:22
PROVIDERS: Emergency Provider Emergency Medicine; Family Provider Physician Assistant; PCP Physician Assistant; Visit Provider Family Medicine
DX: J44.1 Chronic obstructive pulmonary disease with (acute) exacerbation (principal); J96.01 Acute respiratory failure with hypoxia; I16.0 Hypertensive urgency; Z23 Encounter for immunization; Z87.891 Personal history of nicotine dependence; L40.9 Psoriasis, unspecified; E66.9 Obesity, unspecified; Z68.42 Body mass index [BMI] 45.0-49.9, adult; Z71.3 Dietary counseling and surveillance; I10 Essential (primary) hypertension
CPT/HCPCS: 36415; 36600; 71046; 80048; 82803; 85025; 87633; 93005; 94640; 94667; 96372; 96374; 96376; 99218; 99283; 90686; A4216; G0378

== ENCOUNTER → 2018-10-18 | Outpatient (CLI) | payer MEDICAID, SELFPAY ==
[2018-10-18 10:36] VITALS: BMI 44.1
[2018-10-18 11:52] LABS: Absolute Lymphocyte Count 1.89 X10^3/ul (0.83-4.51); Absolute Neutrophil Count 6.7 X10^3/uL (2.0-7.7); Basophil# 0.04 X10^3/uL; Basophil% 0.4 % (0-1); Eosinophil# 0.67 X10^3/uL; Eosinophils% 6.7 % (0-5); Hematocrit 43.8 % (40-54); Hemoglobin 14.4 g/dl (13.0-16.5); Lymphocyte # 1.89 X10^3/ul (4.0); Lymphocyte % 18.8 % (19-41); Mean Corp Hgb Conc 32.9 g/gl (32-36); Mean Corpuscular Hgb 30.8 pg (27.0-32.0); Mean Corpuscular Volume 93.6 fL (80-94); Mean Platelet Vol. 9.3 fl (6.2-12.0); Monocyte# 0.74 X10^3/uL; Monocyte% 7.3 % (0-10); Neutrophil % 66.5 % (47-70); Platelet Count 265 K/mm3 (150-450); RBC Distribution Width CV 13.6 % (11.6-14.6); Red Blood Count 4.68 M/mm3 (4.6-6.2); White Blood Count 10.1 K/mm3 (4.4-11.0)
[2018-10-18 11:54] LABS: POSITIVE COUNT NO; POSITIVE DIFFERENTIAL NO; POSITIVE MORPHOLOGY NO
[2018-10-24 03:06] LABS: Alternaria alternata <0.10 kU/L (Class 0); Aspirgillus flavus Negative (Neg:<1:1); Aspirgillus fumigatus Negative (Neg:<1:1); Aspirgillus niger Negative (Neg:<1:1); Bermuda Grass <0.10 kU/L (Class 0); Bluegrass, Kentucky <0.10 kU/L (Class 0); Cat Hair/Dander, Standard 0.31 kU/L (Class 0/I); D farinae Mite 0.63 kU/L (Class II); D pteronyssinus 0.12 kU/L (Class 0/I); Dog Epithelia <0.10 kU/L (Class 0); Elm, American White <0.10 kU/L (Class 0); Oak, White <0.10 kU/L (Class 0); Plantain, English 0.11 kU/L (Class 0/I); Ragweed, Short/Common 3.65 kU/L (Class III)
[2018-10-24 13:59] LABS: Immunoglobulin E 805 IU/mL (6-495)
[2018-10-24 14:00] LABS: Mouse Urine <0.10 kU/L (Class 0)
== END | disposition home or self-care (01) ==
PROVIDERS: Nurse Practitioner Acute Care; Family Provider Physician Assistant; PCP Physician Assistant; Referring Provider Internal Medicine Critical Care Medicine; Visit Provider Internal Medicine Critical Care Medicine
DX: R05 Cough (principal)
CPT/HCPCS: 36415; 82785; 85025; 86003; 86606

== ENCOUNTER 2018-10-22 21:56 | Inpatient (IN) | payer MEDICAID, SELFPAY ==
[2018-10-18 10:36] VITALS: BMI 44.1
[2018-10-22 21:57] VITALS: BP 137/82; PULSE 92; RESP 16; TEMP 36.8; O2SAT 93; BMI 47.0
[2018-10-22 22:26] VITALS: RESP 20
--- NOTE | 2018-10-22 22:58 | US_ITS ---
STUDY: VENOUS DOPPLER ULTRASOUND - LEFT LOWER EXTREMITY REASON FOR EXAM: Male, 58 years old. Redness x1 week with palpable knot left calf TECHNIQUE: Ultrasound evaluation of the deep vein system to include zhang-scale imaging and compression was performed. Zhang-scale imaging and Doppler sonographic evaluation, including duplex spectral analysis and qualitative color flow sonography, was performed. COMPARISON: None. FINDINGS: Bilateral Common Femoral Vein: Normal compression, spontaneity and augmentation. Normal color Doppler. Common Femoral Vein/Greater Saphenous Junction: Normal compression, spontaneity and augmentation. Normal color Doppler. Femoral Proximal: Normal compression. No internal echoes. Femoral Middle: Normal compression, spontaneity and augmentation. Normal color Doppler. Femoral Distal: Normal compression. No internal echoes. Popliteal Vein: Normal compression, spontaneity and augmentation. Normal color Doppler. Posterior Tibial Vein: Normal compression. No internal echoes. Peroneal Vein: Present compression. Poorly visualized. The left saphenous vein contains internal thrombus with noncompression from mid calf to ankle level. US/Venous Duplex Imag/Limited/Uni IMPRESSION: No evidence of deep venous thrombosis on submitted images. Thrombosis of the left infrapopliteal saphenous vein from mid calf to ankle level. Electronically Signed: Beth Clark MD at 23:44 EDT , Service support ,
[2018-10-22 23:40] VITALS: PULSE 74; RESP 18; TEMP 36.8; O2SAT 93
[2018-10-22 23:45] LABS: Absolute Lymphocyte Count 2.15 X10^3/ul (0.83-4.51); Absolute Neutrophil Count 6.3 X10^3/uL (2.0-7.7); Basophil# 0.05 X10^3/uL; Basophil% 0.5 % (0-1); Eosinophil# 0.95 X10^3/uL; Eosinophils% 9.2 % (0-5); Hematocrit 40.9 % (40-54); Hemoglobin 13.3 g/dl (13.0-16.5); Lymphocyte # 2.15 X10^3/ul (4.0); Lymphocyte % 20.8 % (19-41); Mean Corp Hgb Conc 32.5 g/gl (32-36); Mean Corpuscular Hgb 30.6 pg (27.0-32.0); Mean Corpuscular Volume 94.2 fL (80-94); Mean Platelet Vol. 9.2 fl (6.2-12.0); Monocyte# 0.86 X10^3/uL; Monocyte% 8.3 % (0-10); Neutrophil # 6.32 X10^3/uL (2.7-7.7); Platelet Count 259 K/mm3 (150-450); RBC Distribution Width CV 13.4 % (11.6-14.6); RBC Distribution Width SD 46.5 fl (35.1-43.9); Red Blood Count 4.34 M/mm3 (4.6-6.2); White Blood Count 10.4 K/mm3 (4.4-11.0)
[2018-10-22 23:46] LABS: POSITIVE COUNT NO; POSITIVE DIFFERENTIAL NO; POSITIVE MORPHOLOGY NO
[2018-10-22 23:53] LABS: Anion Gap 6 (5-15); BUN 14 mg/dL (7-18); BUN/Creat Ratio 15.9 RATIO (10-20); Calcium,Total 8.8 mg/dL (8.5-10.1); Chloride 107 mmol/L (98-107); Creatinine, Serum 0.88 mg/dL (0.70-1.30); EST Glomerular Filtration Rate 95 mL/min (>60); Est Glom Filt Rate - Afr Amer 115 mL/min (>60); Estimated Creatinine Clearance 84.58 ml/min; Glucose 111 mg/dL (74-106); Sodium Level 143 mmol/L (136-145)
--- NOTE | 2018-10-22 23:58 | ED.VISSUMM ---
- ER Visit Summary Date of Service: 10/22/18 Chief Complaint: [Redness and swelling to left leg] History of Present Illness: The patient is a 58 M [presents the emergency department with redness and swelling to his left leg that initially started 5 days ago. Patient was seen 3 days ago at urgent care and started on amoxicillin. Patient continues to have increased redness and discomfort. Patient also noted a knot to the medial calf. Patient has history of prior DVT. Patient not currently on blood thinners. He denies any trauma to his leg. He denies any fevers or chills.] Physical Examination: [HEENT-PERRLA, EOMI. Cranial nerves II through XII grossly intact. TMs clear. Mucous membranes moist. No adenopathy. Cardiovascular-regular rate and rhythm without murmur or ectopy Lungs-clear to auscultation, chest wall stable without crepitus or subcu emphysema Abdomen-normoactive bowel sounds, soft, nontender, no rebound or rigidity, no peritoneal signs. Extremities-intact ?4, normal range of motion, normal pulses, atraumatic. Left leg-patient has diffuse erythema and warmth to the lower extremity from below the knee to the ankle. Area is warm to touch. Patient does have some firmness to the medial aspect of the calf but slightly tender to palpation.] Test Results: [CBC with differential obtained showing a 10.4, hemoglobin 13, hematocrit 41, placed 259. Chemistries unremarkable.] Venous duplex of the left leg obtained showed superficial thrombophlebitis but no evidence of DVT. Emergency Department Course and Treatment: [Patient was started on clindamycin.] Treatment Plan: [Admit for IV antibiotics.] Disposition: [Admit] Impression: [Left leg cellulitis-failed outpatient therapy] This note was generated with [employer] dictation software. It may contain incorrect words, spelling, and punctuation that were not noted in review of the chart prior to signing ED Disposition - Plan for ED Patient: Referrals: Jeffrey Jones PA [Primary Care Provider] -
[2018-10-23] VITALS (12 sets, daily range): BP systolic 127–137; BP diastolic 76–83; PULSE 68–87; RESP 16–22; TEMP 36.4–36.6; O2SAT 91–97; BMI 45.7
[2018-10-23 00:02] LABS: Lactic Acid 1.4 mmol/L (0.4-2.0)
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
[2018-10-23] MEDS: 0.9% Normal Saline 1,000 ML 100 ML IV ×2 (01:25→10:08)
[2018-10-23] MEDS: Cefazolin 1 GM/50 ML BAG IV ×3 (06:38→20:56)
[2018-10-23] MEDS: Ipratropium/Albuterol Sulfate 3 ML AMPUL.NEB INHALATION ×3 (06:43→19:03)
[2018-10-23 07:48] LABS: Absolute Lymphocyte Count 1.68 X10^3/ul (0.83-4.51); Absolute Neutrophil Count 4.7 X10^3/uL (2.0-7.7); Basophil# 0.05 X10^3/uL; Basophil% 0.6 % (0-1); Eosinophil# 0.89 X10^3/uL; Hemoglobin 13.4 g/dl (13.0-16.5); Lymphocyte # 1.68 X10^3/ul (4.0); Lymphocyte % 20.8 % (19-41); Mean Corp Hgb Conc 31.9 g/gl (32-36); Mean Corpuscular Hgb 30.2 pg (27.0-32.0); Mean Corpuscular Volume 94.8 fL (80-94); Mean Platelet Vol. 9.9 fl (6.2-12.0); Monocyte# 0.74 X10^3/uL; Monocyte% 9.2 % (0-10); Neutrophil # 4.68 X10^3/uL (2.7-7.7); Platelet Count 276 K/mm3 (150-450); RBC Distribution Width CV 13.5 % (11.6-14.6); RBC Distribution Width SD 45.5 fl (35.1-43.9); Red Blood Count 4.43 M/mm3 (4.6-6.2); White Blood Count 8.1 K/mm3 (4.4-11.0)
[2018-10-23 07:59] LABS: POSITIVE COUNT NO; POSITIVE DIFFERENTIAL NO; POSITIVE MORPHOLOGY NO
[2018-10-23 08:07] LABS: Anion Gap 2 (5-15); BUN 13 mg/dL (7-18); BUN/Creat Ratio 15.3 RATIO (10-20); Calcium,Total 8.7 mg/dL (8.5-10.1); Chloride 108 mmol/L (98-107); Creatinine, Serum 0.85 mg/dL (0.70-1.30); EST Glomerular Filtration Rate 99 mL/min (>60); Est Glom Filt Rate - Afr Amer 120 mL/min (>60); Estimated Creatinine Clearance 87.57 ml/min; Glucose 97 mg/dL (74-106); Sodium Level 140 mmol/L (136-145)
--- NOTE | 2018-10-23 09:29 | PCM.PN.HOSP ---
Patient Problems: Active and Suspected Problems (Last Reviewed 10/18/18 @ 10:42 by MARGOT Nagel) Cellulitis (Acute) Superficial thrombophlebitis of leg (Acute) Subjective: Seen and examined. He was admitted with a complaint of redness of his left lower extremity and is been managed for cellulitis of the left lower extremity. He has no complaints today. Pain is well controlled he says redness is getting better. He denies any fever chills, palpitations or dizziness, chest pain, diarrhea vomiting. Review of systems otherwise negative. Labs and vitals reviewed. Vitals/I&O's: Vital Signs Temp Pulse Resp BP Pulse Ox 97.5 F L 68 16 137/80 H 91 10/23/18 06:35 10/23/18 06:43 10/23/18 06:43 10/23/18 06:35 10/23/18 06:43 Oxygen Delivery Method Room Air Weight: 283 lb 4.704 oz Body Mass Index (BMI) 45.7 Intake and Output for Last 24 Hours 10/21/18 10/22/18 10/23/18 23:59 23:59 23:59 Intake Total 732 / 732 Balance 732 / 732 General: Alert, Oriented x3, Cooperative, No apparent distress HEENT: Atraumatic, PERRLA, EOMI, Normocephalic Oral: Moist Mucosa Neck: Supple, No JVD, Negative Carotid Bruits Lungs: Clear to auscultation, Normal air movement, No wheeze, No rales Cardiovascular: Regular rate, Regular Rhythm, Normal S1, Normal S2, No murmurs Abdomen: Bowel Sounds Present, Soft, Non Tender, Non-Distended, No Hepato-splenomegaly Extremities: No clubbing, No cyanosis, No edema, Capillary Refill Less than 3 Seconds Skin: - - redness of LLE has improved, no tenderness, slight induration over anterior matos, due to superficial thrombophlebitis Musculoskeletal: No Tenderness to Palpation of Joints or Extremities Lymphatic: No Cervical, Supraclavicular, or Inguinal Adenopathy Neurological: Cranial nerves II-XII grossly intact, Neuro grossly intact, Motor Exam 5/5 strength throughout Psych/Mental Status: Normal Affect, Appropriate, Alert and oriented to time, place, person, mood and affect Laboratory Results 10/22/18 23:32: WBC 10.4, RBC 4.34 L, Hgb 13.3, Hct 40.9, MCV 94.2 H, MCH 30.6, MCHC 32.5, RDW 13.4, RDW Differential 46.5 H, Plt Count 259, MPV 9.2, Immature Gran % (Auto) 0.200, Neut % (Auto) 61.0, Lymph % (Auto) 20.8, [place] % (Auto) 8.3, Eos % (Auto) 9.2 H, Baso % (Auto) 0.5, Absolute Neuts (auto) 6.3, Absolute Lymphs (auto) 2.15, Total Counted Not Reportable 10/22/18 23:32: Sodium 143, Potassium 4.0, Chloride 107, Carbon Dioxide 30.0, Anion Gap 6, BUN 14, Creatinine 0.88, Estim Creat Clear Calc 84.58, Est GFR (MDRD) Af Amer 115, Est GFR (MDRD) Non-Af 95, BUN/Creatinine Ratio 15.9, Glucose 111 H, Calcium 8.8 10/22/18 23:32: Lactic Acid 1.4 10/23/18 06:21: WBC 8.1, RBC 4.43 L, Hgb 13.4, Hct 42.0, MCV 94.8 H, MCH 30.2, MCHC 31.9 L, RDW 13.5, RDW Differential 45.5 H, Plt Count 276, MPV 9.9, Immature Gran % (Auto) 0.400, Neut % (Auto) 58.0, Lymph % (Auto) 20.8, [place] % (Auto) 9.2, Eos % (Auto) 11.0 H, Baso % (Auto) 0.6, Absolute Neuts (auto) 4.7, Absolute Lymphs (auto) 1.68, Total Counted Not Reportable 10/23/18 06:21: Sodium 140, Potassium 4.0, Chloride 108 H, Carbon Dioxide 30.0, Anion Gap 2 L, BUN 13, Creatinine 0.85, Estim Creat Clear Calc 87.57, Est GFR (MDRD) Af Amer 120, Est GFR (MDRD) Non-Af 99, BUN/Creatinine Ratio 15.3, Glucose 97, Calcium 8.7 Diagnostic Data Venous Duplex 10/22/18 22:58 IMPRESSION: No evidence of deep venous thrombosis on submitted images. Thrombosis of the left infrapopliteal saphenous vein from mid calf to ankle level. Electronically Signed: Beth Clark MD at 23:44 EDT , Service support , Current Medications Acetaminophen (Tylenol) 650 mg PO Q6H PRN PRN PRN Reason: Non-cardiac pain (mod-severe) Hydrocodone Bitart/Acetaminophen ([place] 5mg-325mg) 1 - 2 tablet PO Q6H PRN PRN PRN Reason: MOD-SEVERE PAIN (4-02/24) Al Hydroxide/Mg Hydroxide (Mylanta Ii) 15 - 30 ml PO Q4H PRN PRN PRN Reason: INDIGESTION Albuterol Sulfate (Ventolin Aerosols) 2.5 mg INHALATION Q2H PRN PRN PRN Reason: dyspnea, wheezing Albuterol/Ipratropium (Duoneb) 3 ml INHALATION Q6HWA.RT [facility] Last Admin: 10/23/18 06:43 Dose: 3 ml Dextrose (D50w Syringe) 0 gm IV X1 PRN; Protocol PRN Reason: Hypoglycemia Enoxaparin Sodium (Lovenox) 40 mg SC DAILY@1000 BELLO Glucagon () 1 mg IM .X1 PRN PRN Reason: Hypoglycemia Hydralazine HCl (Apresoline Iv) 10 mg IV Q4H PRN PRN PRN Reason: SBP > 160 Sodium Chloride () 1,000 mls @ 100 mls/hr IV .Q10H [facility] Last Admin: 10/23/18 01:25 Dose: 100 mls/hr Cefazolin Sodium () 1 gm in 50 mls @ 150 mls/hr IV Q8 [facility] Last Admin: 10/23/18 06:38 Dose: 150 mls/hr Lisinopril (Zestril) 10 mg PO DAILY [facility] Morphine Sulfate () 1 - 2 mg IV Q4H PRN PRN PRN Reason: PAIN Nutritional Formula (Lactose Free) (Ensure Enlive) 120 ml PO 4X/DAY [facility] Ondansetron HCl (Zofran) 4 mg IV Q8H PRN PRN PRN Reason: NAUSEA/VOMITING Sodium Chloride () 5 - 15 ml IV UD PRN PRN Reason: SALINE FLUSH Temazepam (Restoril) 15 mg PO QHS PRN PRN PRN Reason: INSOMNIA Medical Necessity - Tobacco Use Smoking Status: Former smoker - Patient quit cigarette tobacco usage approximately 1 year prior. Prior to this he smoked proximally 1 pack/day cigarette tobacco usage for about 25 years. Tobacco Use: Non-smoker Assessment/Plan All Active Problems (Last Reviewed 10/18/18 @ 10:42 by Gina Romero, HUSSAIN-C) Cellulitis (Acute) Superficial thrombophlebitis of leg (Acute) Candidiasis of mouth (Acute) Cough (Acute) Acute exacerbation of chronic obstructive pulmonary disease (COPD) (Acute) Respiratory failure with hypoxia (Acute) Bronchospasm, acute (Acute) 1. LLE cellulitis has no fever or leucocytosis on IV cefazolin blood cultures pending keep LLE elevated. 2. SUperficial thrombosis of left saphenous vein Duplex of LLE showed thrombosis of left infrapopliteal saphenous vein from mid calf to ankle level though he has has history of DVT in 1996, this superficial thrombosis is likely precipitated by cellulitis. since it is also not close to femoral vein, there is less likelihood of it propagating to DVT discussed on phone with hematology- Dr Myers; will hold off on anticoagulation and apply warm compresses. GIve ibuprofen to help wiht pain and inflammation keep LLE wrapped up. 3. Chronic hypoxic respiratory failure due to COPD uses oxygen prn at home. Continue breathing treatments titrate oxygen prn to maintain sats>90% 4. COPD: as under 3. stable. 5. Hypertension: controlled. On lisinopril and prn hydralazine DVT prophylaxis: lovenox Code Visit Inpatient E&M: 72771 Subs Hosp L3
--- NOTE | 2018-10-23 09:39 | PN_ITS ---
Patient Problems: Active and Suspected Problems (Last Reviewed 10/18/18 @ 10:42 by MARGOT Nagel) Cellulitis (Acute) Superficial thrombophlebitis of leg (Acute) Subjective: Seen and examined. He was admitted with a complaint of redness of his left lower extremity and is been managed for cellulitis of the left lower extremity. He has no complaints today. Pain is well controlled he says redness is getting better. He denies any fever chills, palpitations or dizziness, chest pain, diarrhea vomiting. Review of systems otherwise negative. Labs and vitals reviewed. Vitals/I&O's: Vital Signs Temp Pulse Resp BP Pulse Ox 97.5 F L 68 16 137/80 H 91 10/23/18 06:35 10/23/18 06:43 10/23/18 06:43 10/23/18 06:35 10/23/18 06:43 Oxygen Delivery Method Room Air Weight: 283 lb 4.704 oz Body Mass Index (BMI) 45.7 Intake and Output for Last 24 Hours 10/21/18 10/22/18 10/23/18 23:59 23:59 23:59 Intake Total 732 / 732 Balance 732 / 732 General: Alert, Oriented x3, Cooperative, No apparent distress HEENT: Atraumatic, PERRLA, EOMI, Normocephalic Oral: Moist Mucosa Neck: Supple, No JVD, Negative Carotid Bruits Lungs: Clear to auscultation, Normal air movement, No wheeze, No rales Cardiovascular: Regular rate, Regular Rhythm, Normal S1, Normal S2, No murmurs Abdomen: Bowel Sounds Present, Soft, Non Tender, Non-Distended, No Hepato- splenomegaly Extremities: No clubbing, No cyanosis, No edema, Capillary Refill Less than 3 Seconds Skin: - - redness of LLE has improved, no tenderness, slight induration over anterior matos, due to superficial thrombophlebitis Musculoskeletal: No Tenderness to Palpation of Joints or Extremities Lymphatic: No Cervical, Supraclavicular, or Inguinal Adenopathy Neurological: Cranial nerves II-XII grossly intact, Neuro grossly intact, Motor Exam 5/5 strength throughout Psych/Mental Status: Normal Affect, Appropriate, Alert and oriented to time, place, person, mood and affect Laboratory Results 10/22/18 23:32: WBC 10.4, RBC 4.34 L, Hgb 13.3, Hct 40.9, MCV 94.2 H, MCH 30.6, MCHC 32.5, RDW 13.4, RDW Differential 46.5 H, Plt Count 259, MPV 9.2, Immature Gran % (Auto) 0.200, Neut % (Auto) 61.0, Lymph % (Auto) 20.8, [place] % (Auto) 8.3, Eos % (Auto) 9.2 H, Baso % (Auto) 0.5, Absolute Neuts (auto) 6.3, Absolute Lymphs (auto) 2.15, Total Counted Not Reportable 10/22/18 23:32: Sodium 143, Potassium 4.0, Chloride 107, Carbon Dioxide 30.0, Anion Gap 6, BUN 14, Creatinine 0.88, Estim Creat Clear Calc 84.58, Est GFR (MDRD) Af Amer 115, Est GFR (MDRD) Non-Af 95, BUN/Creatinine Ratio 15.9, Glucose 111 H, Calcium 8.8 10/22/18 23:32: Lactic Acid 1.4 10/23/18 06:21: WBC 8.1, RBC 4.43 L, Hgb 13.4, Hct 42.0, MCV 94.8 H, MCH 30.2, MCHC 31.9 L, RDW 13.5, RDW Differential 45.5 H, Plt Count 276, MPV 9.9, Immature Gran % (Auto) 0.400, Neut % (Auto) 58.0, Lymph % (Auto) 20.8, [place] % (Auto) 9.2, Eos % (Auto) 11.0 H, Baso % (Auto) 0.6, Absolute Neuts (auto) 4.7, Absolute Lymphs (auto) 1.68, Total Counted Not Reportable 10/23/18 06:21: Sodium 140, Potassium 4.0, Chloride 108 H, Carbon Dioxide 30.0, Anion Gap 2 L, BUN 13, Creatinine 0.85, Estim Creat Clear Calc 87.57, Est GFR (MDRD) Af Amer 120, Est GFR (MDRD) Non-Af 99, BUN/Creatinine Ratio 15.3, Glucose 97, Calcium 8.7 Diagnostic Data Venous Duplex 10/22/18 22:58 IMPRESSION: No evidence of deep venous thrombosis on submitted images. Thrombosis of the left infrapopliteal saphenous vein from mid calf to ankle level. Electronically Signed: Beth Clark MD at 23:44 EDT , Service support , Current Medications Acetaminophen (Tylenol) 650 mg PO Q6H PRN PRN PRN Reason: Non-cardiac pain (mod-severe) Hydrocodone Bitart/Acetaminophen ([place] 5mg-325mg) 1 - 2 tablet PO Q6H PRN PRN PRN Reason: MOD-SEVERE PAIN (4-02/24) Al Hydroxide/Mg Hydroxide (Mylanta Ii) 15 - 30 ml PO Q4H PRN PRN PRN Reason: INDIGESTION Albuterol Sulfate (Ventolin Aerosols) 2.5 mg INHALATION Q2H PRN PRN PRN Reason: dyspnea, wheezing Albuterol/Ipratropium (Duoneb) 3 ml INHALATION Q6HWA.RT [facility] Last Admin: 10/23/18 06:43 Dose: 3 ml Dextrose (D50w Syringe) 0 gm IV X1 PRN; Protocol PRN Reason: Hypoglycemia Enoxaparin Sodium (Lovenox) 40 mg SC DAILY@1000 BELLO Glucagon () 1 mg IM .X1 PRN PRN Reason: Hypoglycemia Hydralazine HCl (Apresoline Iv) 10 mg IV Q4H PRN PRN PRN Reason: SBP > 160 Sodium Chloride () 1,000 mls @ 100 mls/hr IV .Q10H [facility] Last Admin: 10/23/18 01:25 Dose: 100 mls/hr Cefazolin Sodium () 1 gm in 50 mls @ 150 mls/hr IV Q8 [facility] Last Admin: 10/23/18 06:38 Dose: 150 mls/hr Lisinopril (Zestril) 10 mg PO DAILY [facility] Morphine Sulfate () 1 - 2 mg IV Q4H PRN PRN PRN Reason: PAIN Nutritional Formula (Lactose Free) (Ensure Enlive) 120 ml PO 4X/DAY [facility] Ondansetron HCl (Zofran) 4 mg IV Q8H PRN PRN PRN Reason: NAUSEA/VOMITING Sodium Chloride () 5 - 15 ml IV UD PRN PRN Reason: SALINE FLUSH Temazepam (Restoril) 15 mg PO QHS PRN PRN PRN Reason: INSOMNIA Medical Necessity - Tobacco Use Smoking Status: Former smoker - Patient quit cigarette tobacco usage approximately 1 year prior. Prior to this he smoked proximally 1 pack/day cigarette tobacco usage for about 25 years. Tobacco Use: Non-smoker Assessment/Plan All Active Problems (Last Reviewed 10/18/18 @ 10:42 by Gina Romero, HUSSAIN-C) Cellulitis (Acute) Superficial thrombophlebitis of leg (Acute) Candidiasis of mouth (Acute) Cough (Acute) Acute exacerbation of chronic obstructive pulmonary disease (COPD) (Acute) Respiratory failure with hypoxia (Acute) Bronchospasm, acute (Acute) 1. LLE cellulitis * has no fever or leucocytosis * on IV cefazolin * blood cultures pending * keep LLE elevated. * 2. SUperficial thrombosis of left saphenous vein * Duplex of LLE showed thrombosis of left infrapopliteal saphenous vein from mid calf to ankle level * though he has has history of DVT in 1996, this superficial thrombosis is likely precipitated by cellulitis. since it is also not close to femoral vein, there is less likelihood of it propagating to DVT * discussed on phone with hematology- Dr Myers; will hold off on anticoagulation and apply warm compresses. GIve ibuprofen to help wiht pain and inflammation * keep LLE wrapped up. * 3. Chronic hypoxic respiratory failure due to COPD * uses oxygen prn at home. Continue breathing treatments * titrate oxygen prn to maintain sats>90% * 4. COPD: as under 3. stable. 5. Hypertension: controlled. On lisinopril and prn hydralazine DVT prophylaxis: lovenox Code Visit Inpatient E&M: 19374 Subs Hosp L3
[2018-10-23] MEDS: Lisinopril 10 MG Tablet PO (10:08)
[2018-10-23] MEDS: Enoxaparin 40 MG/0.4 ML Syringe SC (10:08)
--- NOTE | 2018-10-23 11:52 | CM.UR ---
Addendum entered by Joanne Gabriel 10/23/18 14:34: Noted I didn't address Advance directives. Patient does not have AD and declined education/additional information. Cynthia Gabriel RN, CCM. Original Note: RN CM Assessment Introduced role of RN CM to patient. Patient is alert, oriented and able to participate in RN CM Assessment. Care providers, pharmacy, and demographics verified. Presentation: Seen in urgent care 3 days ago for redness on left leg. Given po antibiotics-->failed OP treatment as continued to worsen so presented to ER. PCP: Dr Tien Jones Specialists: Pulm- Dr Rincon Preferred Pharmacy: [facility] Insurance: [employer] Prescription Benefit: Yes LNOK: Fide/Art Munroe, parents. Living Arrangements: Unemployed, Lives alone in a House Trailer, 2 steps. Independent with ambulation and ADL's. Transportation: Patient drives DME: Nebulizer and recently obtained Oxygen from [employer]. HHC/SNF: Denies DC PLAN: Home. No needs anticipated. Patient denies any needs. Cynthia Gabriel RN, CCM.
[2018-10-23] MEDS: Ibuprofen 400 MG Tablet PO ×2 (14:26→17:51)
[2018-10-23] MEDS: Albuterol 2.5 MG/3 ML VIAL.NEB. INHALATION ×2 (17:01→22:40)
[2018-10-23] MEDS: Budesonide Respules 0.5 MG/2 ML AMPUL.NEB. INHALATION (19:03)
--- NOTE | 2018-10-23 22:56 | RAD_ITS ---
HISTORY: SOB Short of Breath/Dyspnea ADDITIONAL HISTORY: None provided. COMPARISON: 07/22/2018. CT 07/13/2018 TECHNIQUE: Frontal and lateral chest radiographs. Number of images including paperwork: 2 FINDINGS: LUNGS AND PLEURA: Left basilar opacities have resolved. Right hemidiaphragm elevation and pleuroparenchymal opacity at the right base appear similar. No definite new infiltrate. CARDIAC SILHOUETTE: Unremarkable. MEDIASTINUM AND ELPIDIO: Unremarkable. UPPER ABDOMEN: Unremarkable. SKELETON AND SOFT TISSUES: No acute findings. OTHER DEVICES AND HARDWARE: None. RAD/Chest PA and Lateral IMPRESSION: No acute cardiopulmonary abnormality. at 0048 Reported and signed by: Jessy Caballero MD Electronically Signed: Jessy Caballero MD at 0:48 EDT Tel , Service support ,
[2018-10-23] MEDS: LORazepam 0.5 MG Tablet PO (23:09)
[2018-10-24] MEDS: MethylPREDNISolone 125 MG/2 ML Vial IV (00:24)
[2018-10-24] MEDS: 0.9% Normal Saline 1,000 ML 100 ML IV (00:25)
[2018-10-24] MEDS: Ibuprofen 400 MG Tablet PO ×2 (00:54→05:15)
[2018-10-24 04:00] VITALS: BP 160/88; PULSE 94; RESP 18; TEMP 36.6; O2SAT 94
[2018-10-24] MEDS: Cefazolin 1 GM/50 ML BAG IV (05:15)
[2018-10-24 05:45] LABS: Absolute Lymphocyte Count 0.67 X10^3/ul (0.83-4.51); Absolute Neutrophil Count 9.8 X10^3/uL (2.0-7.7); Basophil# 0.02 X10^3/uL; Basophil% 0.2 % (0-1); Eosinophil# 0.08 X10^3/uL; Eosinophils% 0.7 % (0-5); Hematocrit 43.7 % (40-54); Hemoglobin 14.2 g/dl (13.0-16.5); Lymphocyte # 0.67 X10^3/ul (4.0); Lymphocyte % 6.3 % (19-41); Mean Corp Hgb Conc 32.5 g/gl (32-36); Mean Corpuscular Hgb 30.7 pg (27.0-32.0); Mean Corpuscular Volume 94.6 fL (80-94); Mean Platelet Vol. 9.3 fl (6.2-12.0); Monocyte# 0.14 X10^3/uL; Monocyte% 1.3 % (0-10); Neutrophil # 9.75 X10^3/uL (2.7-7.7); Platelet Count 274 K/mm3 (150-450); RBC Distribution Width CV 13.6 % (11.6-14.6); RBC Distribution Width SD 47.3 fl (35.1-43.9); Red Blood Count 4.62 M/mm3 (4.6-6.2); White Blood Count 10.7 K/mm3 (4.4-11.0)
[2018-10-24 05:50] LABS: POSITIVE COUNT NO; POSITIVE DIFFERENTIAL NO; POSITIVE MORPHOLOGY NO
[2018-10-24 05:57] LABS: Anion Gap 7 (5-15); BUN 11 mg/dL (7-18); BUN/Creat Ratio 14.2 RATIO (10-20); Calcium,Total 8.9 mg/dL (8.5-10.1); Chloride 108 mmol/L (98-107); Creatinine, Serum 0.77 mg/dL (0.70-1.30); EST Glomerular Filtration Rate 110 mL/min (>60); Est Glom Filt Rate - Afr Amer 134 mL/min (>60); Estimated Creatinine Clearance 96.67 ml/min; Glucose 162 mg/dL (74-106); Potassium 4.5 mmol/L (3.5-5.1); Sodium Level 142 mmol/L (136-145)
[2018-10-24 06:55] VITALS: PULSE 95; RESP 18; O2SAT 94
[2018-10-24] MEDS: Budesonide Respules 0.5 MG/2 ML AMPUL.NEB. INHALATION (06:55)
[2018-10-24] MEDS: Ipratropium/Albuterol Sulfate 3 ML AMPUL.NEB INHALATION (06:55)
--- NOTE | 2018-10-24 09:19 | DCINST_ITS ---
- Discharge Diagnoses Current Active Problems: Current Active and Chronic Problems (Last Reviewed 10/18/18 @ 10:42 by MARGOT Nagel) Cellulitis (Acute) Morbid obesity (Chronic) Chronic respiratory failure with hypoxia (Chronic) HTN (hypertension) (Chronic) History of DVT (deep vein thrombosis) (Chronic) Superficial thrombophlebitis of leg (Acute) You will use the following diet at home:: Cardiac Your food should be the consistency of: Regular Your liquids should be the consistency of: Regular/Thin Discharge Activity: Return to Normal Activity Weight Bearing Status: Weight bearing as tolerated Call your doctor if you observe: Fever of 101 or Higher, Shortness of breath, Dizziness, Swelling in the ankles, Calf discomfort, Uncontrolled pain Instructions: Discharge Instructions for Cellulitis, ED Phlebitis Superficial Additional Instructions: warm compresses and ISABELLE wraps to left leg. To follow up with PCP for repeat DUplex of left leg within one week to ensure superficial thrombosis of Left leg has resolved. Take ibuprofen to reduce inflammation from superficial thrombosis. Famotidine for gastric protection with ibuprofen. Allergies/Adverse Reactions: Allergies No Known Allergies Allergy (Verified 10/22/18 22:30) Medications to take at Discharge Ibuprofen 400 mg PO Q6H PRN PRN 07/20/18 Lisinopril [Zestril] 10 mg PO DAILY #30 tab 07/22/18 budesonide-formoterol HFA 160 mcg-4.5 mcg/actuation aerosol inhaler 2 puff INHALATION BID #1 device 09/16/18 tiotropium bromide 2.5 mcg/actuation mist for inhalation 2 puff INHALATION QDAY #4 g 09/16/18 albuterol sulfate 2.5 mg/3 mL (0.083 %) solution for nebulization 2.5 mg INHALATION Q4H PRN #180 vial 10/12/18 albuterol sulfate HFA 90 mcg/actuation aerosol inhaler 2 puff INHALATION Q4H PRN #18 g 10/18/18 Cephalexin [Keflex] 500 mg PO Q8 #15 capsule 10/24/18 Famotidine 20 mg PO DAILY #20 tablet 10/24/18 Ibuprofen [Motrin] 400 mg PO Q6 #20 tablet 10/24/18 The following prescriptions were given: Cephalexin [Keflex] 500 mg PO Q8 #15 capsule Famotidine 20 mg PO DAILY #20 tablet Ibuprofen [Motrin] 400 mg PO Q6 #20 tablet Primary Care Physician: Jeffrey Jones PA [Primary Care Provider] - Please follow up with your Primary Care Physician in: one week Test Results: Test results from this visit will be discussed in further detail at your follow- up appointment, if applicable. Proposed Discharge Date: 10/24/18
[2018-10-24 09:22] VITALS: BP 131/77; PULSE 88; RESP 18; TEMP 36.7; O2SAT 95
--- NOTE | 2018-10-24 09:23 | DS.PCM_ITS ---
Discharge Date and Diagnosis Date of Admission: 10/23/18 Date of Discharge: 10/24/18 - Primary Discharge Diagnosis Active and Suspected Problems (Last Reviewed 10/18/18 @ 10:42 by MARGOT Nagel) Cellulitis (Acute) Superficial thrombophlebitis of leg (Acute) - Secondary Discharge Diagnosis Chronic Problems (Last Reviewed 10/18/18 @ 10:42 by MARGOT Nagel) Morbid obesity (Chronic) Chronic respiratory failure with hypoxia (Chronic) HTN (hypertension) (Chronic) History of DVT (deep vein thrombosis) (Chronic) Obesity (Chronic) Nicotine dependence, cigarettes, in remission (Chronic) Chronic obstructive pulmonary disease (Chronic) Hospital Course and Treatment Imaging Results: Diagnostic Data Venous Duplex 10/22/18 22:58 IMPRESSION: No evidence of deep venous thrombosis on submitted images. Thrombosis of the left infrapopliteal saphenous vein from mid calf to ankle level. Electronically Signed: Beth Clark MD at 23:44 EDT , Service support , Operations: None Procedures: None Summary of Care Provided: The patient is a 58 year old M with a past medical history as listed. He was admitted through the ED on 10/23/2018 with a complaint of left lower extremity redness, and pain which was worsening despite outpatient antibiotic therapy. Symptoms are started about 3 days prior to onset. He had gone to an urgent care center where he was started on amoxicillin for cellulitis. However redness of his leg worsened and extended up the leg. He therefore came into the ED. He was not tachycardic or tachypneic nor had elevated white cell count on admission. Duplex of the left lower extremity done was significant only for thrombosis of the left infrapopliteal of saphenous vein from mid calf to ankle. He was started on IV cefazolin for cellulitis. Patient remained stable her white cell count readout. Of note, superficial thrombus of left saphenous vein was discussed with Dr. Myers of hematology on the phone. Decision was made to hold off on anticoagulation and apply warm compresses as per standard/superficial thrombosis. Patient was also given ibuprofen to help with pain and inflammation. He is to follow-up with his primary care doctor for repeat duplex ultrasound within 1 week to assess for resolution. If superficial clot has not resolved adn there is propagation to deep veins, decision to be made then about whether to start patient on oral anticoagulants or not. Patient remained stable and was discharged home on 10/24/2018 with a prescription for p.o. Keflex. He was also given a prescription for p.o. ibuprofen and famotidine for GI protection. He is to follow-up with his primary care doctor within 1 week. Patient seen and examined prior to discharge. He felt well and had no complaints. He did have some shortness of breath during the night but this resolved with administration of breathing treatments. Pain and swelling in his leg had improved significantly. Review of systems otherwise negative. Labs and vitals reviewed. Home medications reviewed and reconciled. o/e: Vital Signs Height 5 ft 6 in Weight: 283 lb 4.704 oz Weight in Pounds 283.3 lbs Pulse Ox 95 Temperature 98.0 F Pulse Rate 88 Respiratory Rate 18 Blood Pressure 131/77 Blood Pressure Position Sitting [] General: Alert, Oriented x3, Cooperative, No apparent distress HEENT: Atraumatic, PERRLA, EOMI, Normocephalic Oral: Moist Mucosa Neck: Supple, No JVD, Negative Carotid Bruits Lungs: Clear to auscultation, Normal air movement, No wheeze, No rales Cardiovascular: Regular rate, Regular Rhythm, Normal S1, Normal S2, No murmurs Abdomen: Bowel Sounds Present, Soft, Non Tender, Non-Distended, No Hepato- splenomegaly Extremities: No clubbing, No cyanosis, No edema, Capillary Refill Less than 3 Seconds Skin: - - redness of LLE has improved markedly, no tenderness, Musculoskeletal: No Tenderness to Palpation of Joints or Extremities Lymphatic: No Cervical, Supraclavicular, or Inguinal Adenopathy Neurological: Cranial nerves II-XII grossly intact, Neuro grossly intact, Motor Exam 5/5 strength throughout Psych/Mental Status: Normal Affect, Appropriate, Alert and oriented to time, place, person, mood and affect Plan as above. - Physical Exam Vital Signs Temp Pulse Resp BP Pulse Ox 97.9 F 95 18 160/88 H 94 10/24/18 04:00 10/24/18 06:55 10/24/18 06:55 10/24/18 04:00 10/24/18 06:55 Oxygen Flow Rate (L/min) 2 Oxygen Delivery Method Nasal Cannula Weight: 283 lb 4.704 oz Body Mass Index (BMI) 45.7 Intake and Output for Last 24 Hours 10/22/18 10/23/18 10/24/18 23:59 23:59 23:59 Intake Total 732 / 732 Balance 732 / 732 Laboratory Tests Past 24 Hrs 10/24/18 10/24/18 05:07 05:07 WBC 10.7 RBC 4.62 Hgb 14.2 Hct 43.7 MCV 94.6 H MCH 30.7 MCHC 32.5 RDW 13.6 RDW Differential 47.3 H Plt Count 274 MPV 9.3 Immature Gran % (Auto) 0.500 Neut % (Auto) 91.0 H Lymph % (Auto) 6.3 L [place] % (Auto) 1.3 Eos % (Auto) 0.7 Baso % (Auto) 0.2 Absolute Neuts (auto) 9.8 H Absolute Lymphs (auto) 0.67 L Total Counted Not Reportable Sodium 142 Potassium 4.5 Chloride 108 H Carbon Dioxide 27.0 Anion Gap 7 BUN 11 Creatinine 0.77 Estim Creat Clear Calc 96.67 Est GFR (MDRD) Af Amer 134 Est GFR (MDRD) Non-Af 110 BUN/Creatinine Ratio 14.2 Glucose 162 H Calcium 8.9 Diagnostic Data Venous Duplex 10/22/18 22:58 IMPRESSION: No evidence of deep venous thrombosis on submitted images. Thrombosis of the left infrapopliteal saphenous vein from mid calf to ankle level. Electronically Signed: Beth Clark MD at 23:44 EDT , Service support , Discharge Diet: Low fat/ Low Cholesterol Discharge Activity: Return to Normal Activity Weight Bearing Status: Weight bearing as tolerated Call your doctor if you observe: Fever of 101 or Higher, Shortness of breath, Dizziness, Swelling in the ankles, Calf discomfort, Uncontrolled pain Home Medications: Medications to take at Discharge Ibuprofen 400 mg PO Q6H PRN PRN 07/20/18 Lisinopril [Zestril] 10 mg PO DAILY #30 tab 07/22/18 budesonide-formoterol HFA 160 mcg-4.5 mcg/actuation aerosol inhaler 2 puff INHALATION BID #1 device 09/16/18 tiotropium bromide 2.5 mcg/actuation mist for inhalation 2 puff INHALATION QDAY #4 g 09/16/18 albuterol sulfate 2.5 mg/3 mL (0.083 %) solution for nebulization 2.5 mg INHALATION Q4H PRN #180 vial 10/12/18 albuterol sulfate HFA 90 mcg/actuation aerosol inhaler 2 puff INHALATION Q4H PRN #18 g 10/18/18 Cephalexin [Keflex] 500 mg PO Q8 #15 capsule 10/24/18 Famotidine 20 mg PO DAILY #20 tablet 10/24/18 Ibuprofen [Motrin] 400 mg PO Q6 #20 tablet 10/24/18 Following Prescrptions Were Given to Patient: Cephalexin [Keflex] 500 mg PO Q8 #15 capsule Famotidine 20 mg PO DAILY #20 tablet Ibuprofen [Motrin] 400 mg PO Q6 #20 tablet Primary Care Physician: Jeffrey Jones PA [Primary Care Provider] - Please follow up with your Primary Care Physician in: one week Patient Instructions: Discharge Instructions for Cellulitis, ED Phlebitis Superficial Disposition: Home Minutes spent on discharge:: 40 Patient Condition:: Stable Medical Necessity - Tobacco Use Smoking Status: Former smoker - Patient quit cigarette tobacco usage approximately 1 year prior. Prior to this he smoked proximally 1 pack/day cigarette tobacco usage for about 25 years. Tobacco Use: Non-smoker Meaningful Use Info Meaningful Use Diagnoses (Choose all that apply): None applicable Code Visit Inpatient E&M: 37401 Disch Hosp
[2018-10-24] MEDS: Enoxaparin 40 MG/0.4 ML Syringe SC (09:50)
[2018-10-24] MEDS: Lisinopril 10 MG Tablet PO (09:51)
--- NOTE | 2018-10-26 15:22 | CASEMGMT ---
CAM ALDRIDGE Discharge Follow-Up Phone Call. Jayne:Steve Strata: 3 Discharge Date: 10/24/18 Adm Dx: Cellulitis. Call to pt to inquire about how he has been doing since being discharged from the hospital. Pt stated, i've been doing pretty good. He states he was able to get all his prescriptions, and has no questions about the discharge instructions or medications. He states he has an appt with Tien Jones next Thursday. Pt denies any needs or concerns. Pt advised to make sure he takes the antibiotic/Keflex until all are gone. He states he will make sure to do that. CAM ALDRIDGE thanked pt for choosing [facility]. Lola ANDERSEN RN, CM
== END 2018-10-24 09:57 | disposition home or self-care (01) | DRG 197 ==
LOC: ED 23:00 → MS3 10-23 00:14
PROVIDERS: Admitting Provider Family Medicine; Emergency Provider Emergency Medicine; Family Provider Physician Assistant; PCP Physician Assistant; Visit Provider Student in an Organized Health Care Education/Training Program
DX: I82.812 Embolism and thrombosis of superficial veins of left lower extremity (principal); L03.116 Cellulitis of left lower limb; E66.01 Morbid (severe) obesity due to excess calories; Z68.42 Body mass index [BMI] 45.0-49.9, adult; I10 Essential (primary) hypertension; J96.11 Chronic respiratory failure with hypoxia; F17.211 Nicotine dependence, cigarettes, in remission; J44.9 Chronic obstructive pulmonary disease, unspecified; L40.9 Psoriasis, unspecified; Z86.718 Personal history of other venous thrombosis and embolism; Z71.3 Dietary counseling and surveillance
CPT/HCPCS: 36415; 71046; 80048; 83605; 85025; 93971; 94640; 97802; 99284; J7030; J7050

== ENCOUNTER → 2019-06-21 08:45 | Outpatient (CLI) | payer MEDICAID, SELFPAY ==
[2019-06-20 08:37] VITALS: BMI 42.1
[2019-06-21 09:02] LABS: Absolute Lymphocyte Count 1.44 X10^3/uL (0.83-4.51); Absolute Neutrophil Count 6.9 X10^3/uL (2.0-7.7); Basophil# 0.06 X10^3/uL; Basophil% 0.6 % (0-1); Eosinophil# 1.26 X10^3/uL; Hematocrit 40.2 % (40-54); Hemoglobin 13.2 g/dL (13.0-16.5); Lymphocyte # 1.44 X10^3/ul (4.0); Lymphocyte % 13.7 % (19-41); Mean Corp Hgb Conc 32.8 g/dL (32-36); Mean Corpuscular Hgb 30.9 pg (27.0-32.0); Mean Corpuscular Volume 94.1 fL (80-94); Mean Platelet Vol. 9.2 fl (6.2-12.0); Monocyte# 0.82 X10^3/uL; Monocyte% 7.8 % (0-10); NRBC Flagged by Analyzer 0 % (0-5); Neutrophil # 6.86 X10^3/uL (2.7-7.7); Neutrophil % 65.5 % (47-70); Platelet Count 260 K/mm3 (150-450); RBC Distribution Width CV 13.5 % (11.6-14.6); RBC Distribution Width SD 46.6 fl (35.1-43.9); Red Blood Count 4.27 M/mm3 (4.6-6.2); White Blood Count 10.5 K/mm3 (4.4-11.0)
[2019-06-24 15:12] LABS: Immunoglobulin E 909 IU/mL (6-495)
== END ==
PROVIDERS: PCP Physician Assistant; Referring Provider Internal Medicine Critical Care Medicine; Visit Provider Internal Medicine Critical Care Medicine
DX: J44.9 Chronic obstructive pulmonary disease, unspecified (principal)
CPT/HCPCS: 36415; 82785; 85025

== ENCOUNTER → 2019-07-05 09:22 | Outpatient (CLI) | payer MEDICAID, SELFPAY ==
[2019-07-05 08:24] VITALS: BMI 42.1
[2019-07-07 16:08] LABS: Cytoplasmic Ab (C-ANCA) <1:20 titer (Neg:<1:20)
[2019-07-08 12:02] LABS: Perinuclear Ab (P-ANCA) <1:20 titer (Neg:<1:20)
== END ==
PROVIDERS: Nurse Practitioner Acute Care; PCP Physician Assistant; Referring Provider Internal Medicine Critical Care Medicine; Visit Provider Internal Medicine Critical Care Medicine
DX: J44.9 Chronic obstructive pulmonary disease, unspecified (principal); R05 Cough
CPT/HCPCS: 36415; 86256; 87070; 87205

== ENCOUNTER → 2020-01-12 | Outpatient (CLI) | payer MEDICAID, SELFPAY ==
[2019-12-15 09:08] VITALS: BMI 42.1
== END | disposition home or self-care (01) ==
LOC: LABSPEC 01-13 09:52
PROVIDERS: PCP Physician Assistant; Referring Provider Nurse Practitioner Acute Care; Visit Provider Nurse Practitioner Acute Care
DX: J45.50 Severe persistent asthma, uncomplicated (principal)
CPT/HCPCS: 87070; 87205

== ENCOUNTER → 2020-01-25 10:48 | Outpatient (CLI) | payer MEDICAID, SELFPAY ==
[2019-12-15 09:08] VITALS: BMI 42.1
--- NOTE | 2020-01-25 10:49 | RAD_ITS ---
STUDY: X-RAY CHEST REASON FOR EXAM: Male, 59 years old. INCREASED SHORTNESS OF BREATH, PT ON O2, HX ASTHMA TECHNIQUE: PA and lateral views of the chest. COMPARISON: Comparison is made with prior examination dated 10/23/2018. FINDINGS: Stable pleuroparenchymal changes at the right lung base. Normal size heart. Normal mediastinum and pillo. Normal visualized pulmonary arteries. There is atherosclerotic tortuosity of the aortic arch and descending thoracic aorta. There are mild degenerative changes of the visualized thoracic spine. Normal visualized ribs, clavicles, and shoulders. There is no demonstrated abnormality of the visualized soft tissue structures of the upper abdomen. RAD/Chest PA and Lateral IMPRESSION: Stable pleural parenchymal changes at the right lung base. Electronically Signed: Ilir Forman, at 15:15 EDT , Service support ,
== END ==
PROVIDERS: PCP Physician Assistant; Referring Provider Nurse Practitioner Acute Care; Visit Provider Nurse Practitioner Acute Care
DX: R06.02 Shortness of breath (principal)
CPT/HCPCS: 71046

== ENCOUNTER → 2020-03-12 08:20 | Outpatient (CLI) | payer MEDICAID, SELFPAY ==
[2020-03-12 08:34] LABS: Absolute Lymphocyte Count 1.93 X10^3/uL (0.83-4.51); Absolute Neutrophil Count 7.6 X10^3/uL (2.0-7.7); Basophil# 0.05 X10^3/uL; Basophil% 0.5 % (0-1); Eosinophil# 0.45 X10^3/uL; Eosinophils% 4.1 % (0-5); Hematocrit 41.1 % (40-54); Hemoglobin 12.5 g/dL (13.0-16.5); Lymphocyte # 1.93 X10^3/ul (4.0); Lymphocyte % 17.5 % (19-41); Mean Corp Hgb Conc 30.4 g/dL (32-36); Mean Corpuscular Hgb 28.7 pg (27.0-32.0); Mean Corpuscular Volume 94.3 fL (80-94); Mean Platelet Vol. 8.5 fl (6.2-12.0); Monocyte# 0.96 X10^3/uL; Monocyte% 8.7 % (0-10); NRBC Flagged by Analyzer 0 % (0-5); Neutrophil # 7.56 X10^3/uL (2.7-7.7); Neutrophil % 68.3 % (47-70); Platelet Count 315 K/mm3 (150-450); RBC Distribution Width CV 14.7 % (11.6-14.6); RBC Distribution Width SD 51.2 fl (35.1-43.9); Red Blood Count 4.36 M/mm3 (4.6-6.2); White Blood Count 11.1 K/mm3 (4.4-11.0)
[2020-03-12 16:30] LABS: Xtra Tube EP Lab EXTRA TUBE
[2020-03-13 15:40] LABS: ANTINUCLEAR ANTIBODIES DIRECT Negative (Negative)
== END ==
PROVIDERS: PCP Physician Assistant; Referring Provider Nurse Practitioner Acute Care; Visit Provider Nurse Practitioner Acute Care
DX: J45.50 Severe persistent asthma, uncomplicated (principal)
CPT/HCPCS: 36415; 85025; 86038; 86225; 86235

== ENCOUNTER → 2020-04-24 07:39 | Outpatient (CLI) | payer MEDICAID, SELFPAY ==
[2020-02-09 13:39] VITALS: BMI 42.1
--- NOTE | 2020-04-24 07:41 | CT_ITS ---
STUDY: LOW DOSE CT LUNG CANCER SCREENING REASON FOR EXAM: Male, 59 years old. TOBACCO USE, PREV SMOKER-QUIT 4 YRS AGO, 30YR SMOKER X 1PPD, QZ=868, COPD RADIATION DOSAGE (If Supplied By Facility): CTDIvol = ( 4.02 ) mGy, DLP = ( 142.95 ) mGycm TECHNIQUE: No contrast was administered. Low dose technique was utilized (average mAS-38 and kVp 120). 1.25 mm axial source images with a slice interval of 1.25-mm were reconstructed in lung windows. 2.5 mm axial source images with a slice interval of 2.5-mm were reconstructed in lung windows. 5.0 mm axial source images with a slice interval of 5.0-mm were reconstructed in soft tissue windows. Nodule measured using lung windows on PACS and/or independent workstation with automated measurement of minimum and maximum diameter. Nodule measurement reported as average diameter rounded to the nearest whole number. Growth is defined as an increase ins size of greater than 1.5 mm. COMPARISON: Comparison is made with prior study dated 07/13/2018. NODULES: No suspicious nodules are seen. Emphysema: Stable emphysematous changes worse in the upper lobes. Stable elevation of the right hemidiaphragm. Stable pleural parenchymal changes at the right lung base. Mild scarring at both lung bases. Endobronchial lesion: None Aorta: Stable dilatation of the ascending thoracic aorta. Coronary arteries: Coronary artery calcification. Mediastinal nodes: Benign appearing mediastinal lymph nodes. Other chest and abdominal findings: CT/Low Dose CT Lung Screening IMPRESSION: Lung-RADS category 2 - Continue annual screening with LDCT in 12 months. IMPORTANT NOTES FOR USE: ACR Lung-RADS Version 1.0 Assessment Categories Release Date: September 12, 2013 Category: Coded 0-4 bases on nodule(s) with highest degree of suspicion. Negative screen is defined as categories 1 and 2; a positive screen is defined as categories 3 and 4. Category 3 and 4A nodules that are unchanged on interval CT should be coded as category 2, and individuals returned to screening in 12 months. Category 4X: Category 3 or 4 nodules with additional imaging findings that increase the suspicion of lung cancer, such as spiculation, GGN that doubles in size in 1 year, enlarged lymph notes, etc. Category Modifiers: S (significant finding unrelated to lung cancer) and C (prior history of treated lung cancer) may be added to the 0-4 Lung-RADS Electronically Signed: Ilir Forman, at 8:28 EST , Service support ,
== END ==
PROVIDERS: PCP Physician Assistant; Referring Provider Internal Medicine Critical Care Medicine; Visit Provider Internal Medicine Critical Care Medicine
DX: F17.211 Nicotine dependence, cigarettes, in remission (principal)
CPT/HCPCS: G0297

== ENCOUNTER → 2020-06-22 | Outpatient (CLI) | payer MEDICAID, SELFPAY | END | disposition home or self-care (01) | PROVIDERS: PCP Physician Assistant; Referring Provider Nurse Practitioner Acute Care; Visit Provider Nurse Practitioner Acute Care | DX: R05 Cough (principal) | CPT/HCPCS: 87070; 87205 ==

== ENCOUNTER → 2020-08-17 07:48 | Outpatient (CLI) | payer MEDICAID, SELFPAY ==
[2020-08-16 13:15] VITALS: BMI 53.6
== END ==
PROVIDERS: PCP Physician Assistant; Referring Provider Internal Medicine Critical Care Medicine; Visit Provider Internal Medicine Critical Care Medicine
DX: J44.9 Chronic obstructive pulmonary disease, unspecified (principal)
CPT/HCPCS: 87070; 87205

== ENCOUNTER 2020-10-15 07:41 | Emergency (ER) | payer MEDICAID, SELFPAY ==
[2020-09-28 13:43] VITALS: BMI 53.6
[2020-10-15 07:42] VITALS: BP 141/76; PULSE 81; RESP 20; TEMP 36.6; O2SAT 95; BMI 40.7
--- NOTE | 2020-10-15 07:53 | EKG12_ITS ---
Test Reason : EDEMA Blood Pressure : / mmHG Vent. Rate : 069 BPM Atrial Rate : 069 BPM P-R Int : 202 ms QRS Dur : 100 ms QT Int : 416 ms P-R-T Axes : 084 -11 045 degrees QTc Int : 445 ms Normal sinus rhythm Low voltage QRS (Limb Leads) Poor R wave progression Confirmed by POONAM JONES, NAYLA ([id number]), scientific editor JORGE LUIS CARDENAS ([id number]) on 10/17/2020 12:49:53 PM Referred By: CL Confirmed By:NAYLA LEVIN MD
--- NOTE | 2020-10-15 07:53 | RAD_ITS ---
STUDY: X-RAY CHEST REASON FOR EXAM: Male, 60 years old. Chest pain TECHNIQUE: Single AP portable view of the chest. COMPARISON: 01/25/2020 FINDINGS: Chronic elevation and eventration of the right hemidiaphragm. The lungs are otherwise clear and expanded. There is no demonstrated pleural abnormality. Normal size heart. Normal mediastinum and pillo. Normal visualized pulmonary arteries. Normal visualized aortic arch and descending thoracic aorta. Normal visualized thoracic spine. Normal visualized ribs, clavicles, and shoulders. There is no demonstrated abnormality of the visualized soft tissue structures of the upper abdomen. RAD/Chest 1 View (Portable) IMPRESSION: No acute pulmonary process, no interval change Electronically Signed: Darryl Freeman MD at 8:35 EDT , Service support ,
--- NOTE | 2020-10-15 08:01 | EDS_ITS ---
HPI History of Present Illness Chief Complaint: Edema Narrative Narrative: 60-year-old male presents with concern for lower extremity edema. States is been persisting over the past 1 week. States he typically does not have significant swelling of his lower extremities. States that usually if he elevates his legs they improved. Patient is on chronic oxygen for COPD and asthma. States he has not had to increase his amount of oxygen and only wears it intermittently. Denies any cough, chest pain, worsening shortness of breath, fever, chills, abdominal pain, nausea, vomiting, diaphoresis. Patient quit smoking approximately 5 years ago. Follow[address] with Dr. Rincon sampler and test preparer. [facility] Medical History (Updated 10/15/20 @ 08:[address] Nile Wilson, DO) Acute exacerbation of chronic obstructive pulmonary disease (COPD) Bronchospasm, acute Candidiasis of mouth Chronic obstructive pulmonary disease Cough Nicotine dependence, cigarettes, in remission Obesity Psoriasis Respiratory failure with hypoxia Home Medications lisinopril 10 mg PO DAILY #30 tab 07/22/18 [Rx Last Taken 10/22/18 07:00] famotidine 20 mg PO DAILY #20 tab 10/24/18 [Rx Last Taken Unknown] ibuprofen 400 mg PO Q6 #20 tab 10/24/18 [Rx Last Taken Unknown] aspirin 81 mg tablet,delayed release 81 mg PO DAILY 11/01/18 [History Last Taken Unknown] albuterol sulfate 2.5 mg INHALATION Q4H PRN #180 vial 03/26/20 [Rx Last Taken Unknown] dupilumab 300 mg/2 mL subcutaneous syringe 300 mg SC Q2W #4 ml 06/25/20 [Rx Last Taken Unknown] doxycycline hyclate 100 mg tablet 100 mg PO BID #20 tablet 08/08/20 [Rx Last Taken Unknown] prednisone 10 mg tablet 10 mg PO QDAY #30 tab 08/08/20 [Rx Last Taken Unknown] cetirizine 10 mg capsule 10 mg PO HS #30 cap 08/09/20 [Rx Last Taken Unknown] guaifenesin 1,200 mg tablet, extended release 12 hr 1,200 mg PO Q12H #60 tab 08/09/20 [Rx Last Taken Unknown] montelukast 10 mg tablet 10 mg PO QPM #30 tab 08/09/20 [Rx Last Taken Unknown] albuterol sulfate 90 mcg/actuation breath activated powder inhaler,sensor 90 mcg INHALATION Q6H PRN 05/14/21 [History Last Taken Unknown] fluticasone fur. 200 mcg-umeclid 62.5 mcg-vilant 25 mcg inhalat.powder 1 inh INHALATION DAILY 09/28/20 [History Last Taken Unknown] Allergy/AdvReac Type Severity Reaction Status Date / Time No Known Allergies Allergy Verified 10/15/20 07:44 Surgical History H/O chest tube placement Social History Smoking Status: Former smoker how long ago did patient quit smokin, 1ppd second hand exposure: Yes ROS ROS ED Constitutional Constitutional ED: Denies chills, fever(s) or sweats Eyes Eyes: Denies blurry vision, change in vision or diplopia ENT ENT ED: Denies rhinorrhea or sore throat Cardiovascular Cardiovascular: Denies chest pain, orthopnea, palpitations or racing heartbeat Respiratory/Chest Respiratory/Chest: Denies cough, dyspnea, dyspnea on exertion, orthopnea or sputum Gastrointestinal Gastrointestinal: Denies abdominal pain, constipation, diarrhea, melena, nausea or vomiting Genitourinary Genitourinary ED: Denies dysuria, hematuria or urinary frequency Musculoskeletal Musculoskeletal: Reports other Details: Lower extremity edema. ; Denies arthralgias, myalgias or neck pain Integumentary Denies rash Neurologic Neurologic: Denies headache(s), paresthesias or weakness Psychiatric Psychiatric: Denies anxiety or depression Hematologic/Lymphatic Hematologic/Lymphatic: Denies easy bleeding or easy bruising Allergic/Immunologic Allergic/Immunologic ED: Denies mouth swelling or tongue swelling EXAM Physical Exam Const Vital Signs: 10/15/20 07:42 10/15/20 08:14 Temperature 98 F Temperature Source Temporal Pulse Rate 81 Respiratory Rate 20 H Blood Pressure 141/76 H Blood Pressure Mean 97 Pulse Ox 95 Oxygen Delivery Method Nasal Cannula Nasal Cannula Oxygen Flow Rate (L/min) 2 2 Positive well nourished and well developed General Appearance ED: well developed HEENT Reports TM's clear and moist mucous membranes normocephalic and atraumatic Tympanic Membrane ED: Yes TM's clear Eyes PERRL and EOMs intact bilaterally Neck no lymphadenopathy, supple and no JVD Chest Wall inspection of chest normal Resp normal respiratory effort and clear to auscultation bilaterally Cardio regular rate, S1 normal heart sound, S2 normal heart sound and no murmurs Peripheral Pulses: pulses 2+ throughout GI soft to palpation, non-tender and non-distended Back/Spine no CVA tenderness and no thoracic nor lumbar tenderness Extremity normal to inspection Extremity Narrative: 2+ pitting edema in the bilateral lower extremities. Strong palpable pulses. Sensation intact. General Extremety ED: Negative for tenderness Neuro oriented x3, CN's II-XII intact bilaterally and no sensory deficits noted Sensorium / Orientation: alert Motor Exam: strength 5/5 throughout Psych mental status grossly normal Skin no rashes or lesions noted MDM MDM MDM Narrative Medical decision making narrative: Patient appears well and nontoxic. On his baseline oxygen. Pitting edema bilaterally with strong palpable pulses. Chest x-ray interpreted by myself shows no acute process. Radiology concurs. EKG nonischemic. Troponin BNP negative. Slightly elevated potassium of 5.2. Patient has no EKG changes. Patient states that his swelling improves while he is lying in bed. It is already improved just while he is here at the emergency department. Advised on using his compression stockings and following up with his primary care physician. Asked to return for new or worsening symptoms. Patient agreeable and discharged home in stable condition. Lab Data Attestation: I reviewed the patient's lab results. Labs: Laboratory Results - last 24 hr 10/15/20 10/15/20 10/15/20 08:10 08:10 08:10 WBC 9.2 RBC 4.44 L Hgb 13.0 Hct 41.4 MCV 93.2 MCH 29.3 MCHC 31.4 L RDW Std Deviation 49.5 H RDW Coeff of Angie 14.6 Plt Count 290 MPV 9.8 Immature Gran % (Auto) 0.400 Neut % (Auto) 68.1 Lymph % (Auto) 13.8 L [place] % (Auto) 7.5 Eos % (Auto) 9.5 H Baso % (Auto) 0.7 Absolute Neuts (auto) 6.2 Absolute Lymphs (auto) 1.26 Nucleated RBC % 0 Sodium 138 Potassium 5.2 H Chloride 104 Carbon Dioxide 29.0 Anion Gap 5 BUN 13 Creatinine 0.88 Estim Creat Clear Calc 88.52 Est GFR (MDRD) Af Amer 115 Est GFR (MDRD) Non-Af 95 BUN/Creatinine Ratio 14.8 Glucose 129 H Calcium 9.2 Troponin I < 0.015 B-Natriuretic Peptide 20.7 Radiography Chest X-Ray - ED: 1 View, Read by ED Physician, Read by Radiologist and Normal Diagnostic Testing: Radiology Impression Chest X-Ray 10/15/20 07:53 IMPRESSION: No acute pulmonary process, no interval change Electronically Signed: Darryl Freeman MD at 8:35 EDT , Service support , Rhythm Strip Rhythm Strip: Sinus Rhythm Rate: 69 Ectopy: None EKG Initial EKG: Attestation: I personally reviewed and interpreted this EKG as follows: Interpretation: Sinus Rhythm Comments: Normal sinus rhythm at 69 bpm. OR interval 202 ms. QTC of 445 ms. No evidence of ST elevation or depression at this time. Discharge Plan Triage Chief Complaint: Edema ED Provider: Nile Wilson Dx/Rx/DC Orders Clinical Impression: Bilateral edema of lower extremity Instructions: ED Peripheral Edema, Bilateral Prescriptions: No Action aspirin [Aspir-81] 81 mg tablet,delayed release (DR/EC) 81 mg PO DAILY RF: 0 Proair Digihaler 90 mcg/actuation aero powdr breath act w/sensor 90 mcg inhalation Q6H PRNRF: 0 Trelegy Ellipta 200-62.5-25 mcg blister with device 1 inh inhalation DAILY RF: 0 lisinopril 10 MG tablet 10 mg PO DAILY Qty: 30 RF: 0 ibuprofen 400 MG tablet 400 mg PO Q6 Qty: 20 RF: 0 famotidine 20 MG tablet 20 mg PO DAILY Qty: 20 RF: 0 albuterol sulfate 2.5 mg /3 mL (0.083 %) solution for nebulization 2.5 mg inhalation Q4H PRN (Reason: shortness of breath or wheezing) Qty: 180 RF: 6 Dupixent Syringe 300 mg/2 mL syringe 300 mg SC Q2W Qty: 4 RF: 12 prednisone 10 mg tablet 10 mg PO QDAY Qty: 30 RF: 0 doxycycline hyclate 100 mg tablet 100 mg PO BID Qty: 20 RF: 0 cetirizine 10 mg capsule 10 mg PO HS Qty: 30 RF: 6 guaifenesin 1,200 mg tablet extended release 12hr 1,200 mg PO Q12H Qty: 60 RF: 6 montelukast 10 mg tablet 10 mg PO QPM Qty: 30 RF: 6 Primary Care Provider: Jeffrey Jones Referrals: Jeffrey Jones, FLAVIO [Primary Care Provider] - 2 Days Disposition Disposition: Home, self care
[2020-10-15 08:16] LABS: Absolute Lymphocyte Count 1.26 X10^3/uL (0.83-4.51); Absolute Neutrophil Count 6.2 X10^3/uL (2.0-7.7); Basophil# 0.06 X10^3/uL; Basophil% 0.7 % (0-1); Eosinophil# 0.87 X10^3/uL; Eosinophils% 9.5 % (0-5); Hematocrit 41.4 % (40-54); Lymphocyte # 1.26 X10^3/ul (0.83-4.51); Lymphocyte % 13.8 % (19-41); Mean Corp Hgb Conc 31.4 g/dL (32-36); Mean Corpuscular Hgb 29.3 pg (27.0-32.0); Mean Corpuscular Volume 93.2 fL (80-94); Mean Platelet Vol. 9.8 fl (6.2-12.0); Monocyte# 0.69 X10^3/uL; Monocyte% 7.5 % (0-10); NRBC Flagged by Analyzer 0 % (0-5); Neutrophil # 6.23 X10^3/uL (2.7-7.7); Neutrophil % 68.1 % (47-70); Platelet Count 290 K/mm3 (150-450); RBC Distribution Width CV 14.6 % (11.6-14.6); RBC Distribution Width SD 49.5 fl (35.1-43.9); Red Blood Count 4.44 M/mm3 (4.6-6.2); White Blood Count 9.2 K/mm3 (4.4-11.0)
[2020-10-15 08:32] LABS: BNP,B-Type NATRIURETIC PEPTIDE 20.7 pg/mL (0-100)
[2020-10-15 08:42] LABS: Anion Gap 5 (5-15); BUN 13 mg/dL (7-18); BUN/Creat Ratio 14.8 RATIO (10-20); Calcium,Total 9.2 mg/dL (8.5-10.1); Chloride 104 mmol/L (98-107); Creatinine, Serum 0.88 mg/dL (0.70-1.30); EST Glomerular Filtration Rate 95 mL/min (>60); Est Glom Filt Rate - Afr Amer 115 mL/min (>60); Estimated Creatinine Clearance 88.52 ml/min; Glucose 129 mg/dL (74-106); Potassium 5.2 mmol/L (3.5-5.1); Sodium Level 138 mmol/L (136-145)
[2020-10-15 08:54] VITALS: BP 126/69; PULSE 73; RESP 18; O2SAT 97
[2020-10-15 08:59] VITALS: BP 126/69; PULSE 73; RESP 17; RESP 18; TEMP 36.8; O2SAT 97
== END 2020-10-15 09:09 | disposition home or self-care (01) ==
PROVIDERS: Emergency Provider Emergency Medicine; PCP Physician Assistant
DX: R60.0 Localized edema (principal); E66.9 Obesity, unspecified; Z87.891 Personal history of nicotine dependence
CPT/HCPCS: 71045; 80048; 83880; 84484; 85025; 93005; 99285; A4216

== ENCOUNTER → 2020-11-22 09:22 | Outpatient (CLI) | payer MEDICAID, SELFPAY ==
[2020-11-22 07:40] VITALS: BMI 50.0
--- NOTE | 2020-11-22 09:45 | RAD_ITS ---
STUDY: X-RAY CHEST REASON FOR EXAM: Male, 60 years old. Shortness of breath TECHNIQUE: PA and lateral views of the chest. COMPARISON: Comparison is made with prior study dated 10/15/2020. FINDINGS: Stable pleural parenchymal changes at the right lung base. There is no demonstrated pleural abnormality. Normal size heart. Normal mediastinum and pillo. Normal visualized pulmonary arteries. There is atherosclerotic calcification of the aortic arch with tortuosity. There are diffuse degenerative changes of the visualized thoracic spine. Normal visualized ribs, clavicles, and shoulders. There is no demonstrated abnormality of the visualized soft tissue structures of the upper abdomen. RAD/Chest PA and Lateral IMPRESSION: Stable pleural parenchymal changes at the right lung base. Electronically Signed: Ilir Forman MD at 14:47 EDT , Service support ,
[2020-11-22 09:48] LABS: BNP,B-Type NATRIURETIC PEPTIDE 19.7 pg/mL (0-100)
[2020-11-22 09:53] LABS: Anion Gap 5 (5-15); BUN 14 mg/dL (7-18); BUN/Creat Ratio 18.9 RATIO (10-20); Calcium,Total 9.1 mg/dL (8.5-10.1); Chloride 102 mmol/L (98-107); Creatinine, Serum 0.74 mg/dL (0.70-1.30); EST Glomerular Filtration Rate 115 mL/min (>60); Est Glom Filt Rate - Afr Amer 139 mL/min (>60); Glucose 141 mg/dL (74-106); Potassium 4.2 mmol/L (3.5-5.1); Sodium Level 140 mmol/L (136-145)
== END ==
PROVIDERS: PCP Physician Assistant; Referring Provider Nurse Practitioner Acute Care; Visit Provider Nurse Practitioner Acute Care
DX: J45.50 Severe persistent asthma, uncomplicated (principal); R06.00 Dyspnea, unspecified
CPT/HCPCS: 36415; 71046; 80048; 83880

== ENCOUNTER 2020-12-09 09:03 | Observation (INO) | payer MEDICAID, SELFPAY ==
[2020-12-04 08:52] VITALS: BMI 50.3
[2020-12-09] VITALS (12 sets, daily range): BP systolic 133–163; BP diastolic 60–89; PULSE 71–88; RESP 16–21; TEMP 36.3–36.8; O2SAT 93–97; BMI 51.5; BMI 47.9
--- NOTE | 2020-12-09 09:23 | RAD_ITS ---
STUDY: X-RAY CHEST REASON FOR EXAM: Male, 60 years old. Substernal chest pain TECHNIQUE: Single AP portable view of the chest. COMPARISON: 11/22/2020 FINDINGS: EKG leads overlie the chest Chronic interstitial changes in both lung mazariegos with stable blunting of the right costophrenic angle. No interval change since the previous study. There is no demonstrated pleural abnormality. Normal size heart. Normal mediastinum and pillo. Normal visualized pulmonary arteries. Normal visualized aortic arch and descending thoracic aorta. There are diffuse degenerative changes of the visualized thoracic spine. Normal visualized ribs, clavicles, and shoulders. There is no demonstrated abnormality of the visualized soft tissue structures of the upper abdomen. RAD/Chest 1 View (Portable) IMPRESSION: No interval change Electronically Signed: Darryl Freeman MD at 9:47 EDT , Service support ,
--- NOTE | 2020-12-09 09:23 | EKG12_ITS ---
Test Reason : CP Blood Pressure : / mmHG Vent. Rate : 085 BPM Atrial Rate : 085 BPM P-R Int : 176 ms QRS Dur : 102 ms QT Int : 388 ms P-R-T Axes : 045 010 068 degrees QTc Int : 461 ms Normal sinus rhythm Normal ECG Confirmed by SUE FISHER MD ([id number]), makeup editor JORGE LUIS CARDENAS ([id number]) on 12/11/2020 9:43:52 AM Referred By: RAMEZ Confirmed By:SUE FISHER MD
--- NOTE | 2020-12-09 09:24 | EDS_ITS ---
HPI History of Present Illness Chief Complaint: Chest Pain Informant: patient Onset/Context/Timing Onset: Yesterday Quality: Positive for Aching and Pressure Location: Left Chest Current Severity: Mild Maximum Severity: Moderate Narrative Narrative: Patient present secondary to left-sided chest pain or shortness of breath. Patient was seen by cardiology 1.5 weeks ago secondary to progressive shortness of breath. It was felt at that time the patient would benefit from a heart cath. That was scheduled, however patient states his insurance company is wanting a stress test to be performed first. Yesterday patient developed pain around the left breast. It does seem to be worse with exertion and better with rest. He states he has had some numbness down his left arm as well. [facility] Medical History Acute exacerbation of chronic obstructive pulmonary disease (COPD) Ascending aortic aneurysm Bronchospasm, acute Candidiasis of mouth Cellulitis Chronic obstructive pulmonary disease Chronic respiratory failure with hypoxia Cough Essential hypertension History of DVT (deep vein thrombosis) Nicotine dependence, cigarettes, in remission Psoriasis Respiratory failure with hypoxia Superficial thrombophlebitis of leg (10/2018) Home Medications lisinopril 10 mg PO DAILY #30 tab 07/22/18 [Rx Last Taken 10/22/18 07:00] ibuprofen 400 mg PO Q6 #20 tab 10/24/18 [Rx Last Taken Unknown] aspirin 81 mg tablet,delayed release 81 mg PO DAILY 11/01/18 [History Last Taken Unknown] cetirizine 10 mg capsule 10 mg PO HS #30 cap 08/09/20 [Rx Last Taken Unknown] montelukast 10 mg tablet 10 mg PO QPM #30 tab 08/09/20 [Rx Last Taken Unknown] albuterol sulfate 90 mcg/actuation breath activated powder inhaler,sensor 90 mcg INHALATION Q6H PRN 09/28/20 [History Last Taken Unknown] albuterol sulfate 2.5 mg INHALATION Q4H PRN #180 vial 11/09/20 [Rx Last Taken Unknown] fluticasone fur. 200 mcg-umeclid 62.5 mcg-vilant 25 mcg inhalat.powder 1 inh INHALATION DAILY #60 ea 11/22/20 [Rx Last Taken Unknown] Allergy/AdvReac Type Severity Reaction Status Date / Time No Known Allergies Allergy Verified 11/28/20 07:16 Family History Other Diabetes Surgical History H/O chest tube placement Social History Smoking Status: Former smoker quit date: 08/16/17 pack-years: 10 how long ago did patient quit smokin, 1ppd second hand exposure: Yes alcohol intake: current details: beer daily substance use type: marijuana and other details: daily marijuana use ROS ROS ED Constitutional Constitutional ED: Denies chills or fever(s) Eyes Eyes: Denies change in vision ENT ENT ED: Denies sore throat Cardiovascular Cardiovascular: Reports chest pain Respiratory/Chest Respiratory/Chest: Reports dyspnea; Denies cough Gastrointestinal Gastrointestinal: Denies abdominal pain, diarrhea, nausea or vomiting Genitourinary Genitourinary ED: Denies dysuria Musculoskeletal Musculoskeletal: Denies back pain Integumentary Denies rash Neurologic Neurologic: Denies headache(s) or weakness Psychiatric Psychiatric: Denies anxiety or depression Endocrine Endocrinology: Denies polydipsia or polyuria Allergic/Immunologic Allergic/Immunologic ED: Denies urticaria EXAM Physical Exam Const Vital Signs: 12/09/20 09:03 12/09/20 09:08 12/09/20 09:37 Temperature 97.5 F L Temperature Source Temporal Pulse Rate 88 Respiratory Rate 21 H Respiratory Effort Short of Breath Labored Blood Pressure 163/89 H Blood Pressure Mean 113 Pulse Ox 94 95 Oxygen Delivery Method Nasal Cannula Nasal Cannula Oxygen Flow Rate (L/min) 2 2 12/09/20 10:01 Temperature Temperature Source Pulse Rate 75 Respiratory Rate 16 Respiratory Effort Blood Pressure 133/71 H Blood Pressure Mean 91 Pulse Ox 95 Oxygen Delivery Method Nasal Cannula Oxygen Flow Rate (L/min) 2 Positive well nourished and well developed General Appearance ED: well developed HEENT Reports normocephalic and head/scalp atraumatic Eyes PERRL and EOMs intact bilaterally Neck supple Chest Wall inspection of chest normal and palpation of chest normal Resp normal respiratory effort and clear to auscultation bilaterally Cardio regular rate and regular rhythm GI normal to inspection, nondistended, normoactive bowel sounds and non-tender Palpation: soft Extremity normal to inspection General Extremety ED: Yes edema General Extremity: edema Neuro oriented x3 Sensorium / Orientation: alert Psych mental status grossly normal Skin no rashes or lesions noted Heart Score History: Moderately Suspicious ECG: Normal Age: >45 - <65 years Risk Factors: >/= 3 Risk Factors or History of CAD Troponin: </= Normal Limit Score: 4 MDM MDM MDM Narrative Medical decision making narrative: Patient was given aspirin on arrival. EKG, chest x-ray, labs obtained. Lab Data Attestation: I reviewed the patient's lab results. Labs: Laboratory Results - last 24 hr 12/09/20 12/09/20 09:10 09:10 WBC 10.5 RBC 4.32 L Hgb 12.7 L Hct 40.4 MCV 93.5 MCH 29.4 MCHC 31.4 L RDW Std Deviation 50.0 H RDW Coeff of Angie 14.4 Plt Count 275 MPV 9.3 Immature Gran % (Auto) 0.700 Neut % (Auto) 65.8 Lymph % (Auto) 15.3 L [place] % (Auto) 8.1 Eos % (Auto) 9.5 H Baso % (Auto) 0.6 Absolute Neuts (auto) 7.0 Absolute Lymphs (auto) 1.61 Nucleated RBC % 0 Sodium 139 Potassium 4.0 Chloride 104 Carbon Dioxide 30.0 Anion Gap 5 BUN 17 Creatinine 0.75 Estim Creat Clear Calc 103.87 Est GFR (MDRD) Af Amer 137 Est GFR (MDRD) Non-Af 114 BUN/Creatinine Ratio 22.7 H Glucose 119 H Calcium 9.2 Troponin I High Sens 6.9 Radiography Chest X-Ray - ED: 1 View, Read by ED Physician and Chronic Changes Diagnostic Testing: Radiology Impression Chest X-Ray 12/09/20 09:23 IMPRESSION: No interval change Electronically Signed: Darryl Freeman MD at 9:47 EDT , Service support , EKG Initial EKG: Attestation: I personally reviewed and interpreted this EKG as follows: Interpretation: Sinus Rhythm (Sinus at 85 with no acute ischemia.) Treatment and Re-Evaluation Comments:: On repeat evaluation patient sitting in bedside chair. Symptoms improved. Patient is high risk and cardiology was already planning on getting a heart cath. Patient will be admitted. Discharge Plan Dx/Rx/DC Orders Clinical Impression: Chest pain Disposition Disposition: Acute Care Hospital [facility]
[2020-12-09 09:38] LABS: Absolute Lymphocyte Count 1.61 X10^3/uL (0.83-4.51); Basophil# 0.06 X10^3/uL; Basophil% 0.6 % (0-1); Eosinophils% 9.5 % (0-5); Hematocrit 40.4 % (40-54); Hemoglobin 12.7 g/dL (13.0-16.5); Lymphocyte # 1.61 X10^3/ul (0.83-4.51); Lymphocyte % 15.3 % (19-41); Mean Corp Hgb Conc 31.4 g/dL (32-36); Mean Corpuscular Hgb 29.4 pg (27.0-32.0); Mean Corpuscular Volume 93.5 fL (80-94); Mean Platelet Vol. 9.3 fl (6.2-12.0); Monocyte# 0.85 X10^3/uL; Monocyte% 8.1 % (0-10); NRBC Flagged by Analyzer 0 % (0-5); Neutrophil # 6.95 X10^3/uL (2.7-7.7); Neutrophil % 65.8 % (47-70); Platelet Count 275 K/mm3 (150-450); RBC Distribution Width CV 14.4 % (11.6-14.6); Red Blood Count 4.32 M/mm3 (4.6-6.2); White Blood Count 10.5 K/mm3 (4.4-11.0)
[2020-12-09] MEDS: Aspirin 81 MG TAB.CHEW 243 MG PO (09:43)
[2020-12-09 09:58] LABS: Anion Gap 5 (5-15); BUN 17 mg/dL (7-18); BUN/Creat Ratio 22.7 RATIO (10-20); Calcium,Total 9.2 mg/dL (8.5-10.1); Chloride 104 mmol/L (98-107); Creatinine, Serum 0.75 mg/dL (0.70-1.30); EST Glomerular Filtration Rate 114 mL/min (>60); Est Glom Filt Rate - Afr Amer 137 mL/min (>60); Estimated Creatinine Clearance 103.87 ml/min; Glucose 119 mg/dL (74-106); Sodium Level 139 mmol/L (136-145); Troponin-I HS 6.9 pg/mL (3.0-78.5)
--- NOTE | 2020-12-09 14:08 | PCM.HP.STD ---
HPI - General General Date of Admission: 12/09/20 HPI Narrative GASTON CUNHA, is a 60 M who presents with recurrent chest pain, that occurred yesterday. Per report he was supposed to have an outpatient heart cath performed however his insurance denied and stated that they wanted a stress test done first, however he re-presents to the hospital with chest pain. His initial troponin was unremarkable. EKG was nonischemic. He states that his shortness of breath and chest pain is worse with exertion and better at rest. He also with this episode had some numbness going down his left arm as well. [facility], [facility] Medical History Acute exacerbation of chronic obstructive pulmonary disease (COPD) Ascending aortic aneurysm Bronchospasm, acute Candidiasis of mouth Cellulitis Chronic obstructive pulmonary disease Chronic respiratory failure with hypoxia Cough Essential hypertension History of DVT (deep vein thrombosis) Nicotine dependence, cigarettes, in remission Psoriasis Respiratory failure with hypoxia Superficial thrombophlebitis of leg (10/2018) Home Medications lisinopril 10 mg PO DAILY #30 tab 07/22/18 [Rx Last Taken 10/22/18 07:00] ibuprofen 400 mg PO Q6 #20 tab 10/24/18 [Rx Last Taken Unknown] aspirin 81 mg tablet,delayed release 81 mg PO DAILY 11/01/18 [History Last Taken Unknown] cetirizine 10 mg capsule 10 mg PO HS #30 cap 08/09/20 [Rx Last Taken Unknown] montelukast 10 mg tablet 10 mg PO QPM #30 tab 08/09/20 [Rx Last Taken Unknown] albuterol sulfate 90 mcg/actuation breath activated powder inhaler,sensor 90 mcg INHALATION Q6H PRN 09/28/20 [History Last Taken Unknown] albuterol sulfate 2.5 mg INHALATION Q4H PRN #180 vial 11/09/20 [Rx Last Taken Unknown] fluticasone fur. 200 mcg-umeclid 62.5 mcg-vilant 25 mcg inhalat.powder 1 inh INHALATION DAILY #60 ea 11/22/20 [Rx Last Taken Unknown] Allergy/AdvReac Type Severity Reaction Status Date / Time No Known Allergies Allergy Verified 11/28/20 07:16 Family History Other Diabetes Surgical History H/O chest tube placement Social History (Reviewed 12/09/20 @ 09: by Dr. Joanne Srivastava MD) Smoking Status: Former smoker quit date: 08/16/17 pack-years: 10 how long ago did patient quit smokin, 1ppd second hand exposure: Yes alcohol intake: current details: beer daily substance use type: marijuana and other details: daily marijuana use ROS Constitutional Constitutional: Denies chills, fatigue, fever(s) or malaise Eyes Eyes: Denies blurry vision ENT HEENT: Denies headache(s) or nasal discharge Cardiovascular Cardiovascular: Reports chest pain and dyspnea on exertion; Denies syncope Respiratory/Chest Respiratory/Chest: Denies cough, shortness of breath at rest or shortness of breath with exertion Gastrointestinal Gastrointestinal: Denies constipation, diarrhea, nausea or vomiting Genitourinary Genitourinary: Denies dysuria Neurologic Neurologic: Denies focal weakness, numbness or tremor(s) Psychiatric Psychiatric: Denies anxiety or depression Vital Signs Vital Signs Vital Signs: 12/09/20 09:03 12/09/20 09:08 12/09/20 09:37 Temperature 97.5 F L Temperature Source Temporal Pulse Rate 88 Respiratory Rate 21 H Respiratory Effort Short of Breath Labored Blood Pressure 163/89 H Blood Pressure [BP] Blood Pressure Mean 113 Blood Pressure Mean [BP] Blood Pressure Source [BP] Blood Pressure Position [BP] Blood Pressure Location [BP] Pulse Ox 94 95 Oxygen Delivery Method Nasal Cannula Nasal Cannula Oxygen Flow Rate (L/min) 2 2 12/09/20 10:01 12/09/20 12:22 12/09/20 13:42 Temperature 97.5 F L Temperature Source Oral Pulse Rate 75 78 71 Respiratory Rate 16 19 H 18 Respiratory Effort Blood Pressure 133/71 H 133/84 H Blood Pressure [BP] 136/71 H Blood Pressure Mean 91 100 Blood Pressure Mean [BP] 92 Blood Pressure Source [BP] Monitor Blood Pressure Position [BP] Sitting Blood Pressure Location [BP] Left Arm Pulse Ox 95 93 97 Oxygen Delivery Method Nasal Cannula Nasal Cannula Nasal Cannula Oxygen Flow Rate (L/min) 2 2 2 12/09/20 13:51 Temperature Temperature Source Pulse Rate 75 Respiratory Rate 18 Respiratory Effort Normal Blood Pressure Blood Pressure [BP] Blood Pressure Mean Blood Pressure Mean [BP] Blood Pressure Source [BP] Blood Pressure Position [BP] Blood Pressure Location [BP] Pulse Ox 97 Oxygen Delivery Method Nasal Cannula Oxygen Flow Rate (L/min) 2 Weight Weight: 315 lb Body Mass Index (BMI) 47.9 Physical Exam Const alert, oriented x3 and no apparent distress General Appearance: cooperative HEENT normocephalic and moist oral mucous membranes Eyes PERRL, EOMs intact bilaterally and conjunctivae normal Neck supple and no JVD Resp normal respiratory effort, no retractions, no use of accessory muscles and clear to auscultation bilaterally Auscultation: Negative for crackles, rales, rhonchi or wheezes Cardio regular rate, regular rhythm, S1 normal heart sound, S2 normal heart sound and no murmurs GI soft to palpation, non-tender and non-distended; Negative for hepatosplenomegaly Extremity General Extremity: edema; Negative for clubbing or cyanosis Skin no rashes or lesions noted Neuro no focal motor deficits and no sensory deficits noted Psych affect normal Appearance: appropriate Results Lab / Micro Data Result Diagrams: 12/09/20 09:10 12/09/20 09:10 Labs: Laboratory Results - last 24 hr 12/09/20 09:10: WBC 10.5, RBC 4.32 L, Hgb 12.7 L, Hct 40.4, MCV 93.5, MCH 29.4, MCHC 31.4 L, RDW Std Deviation 50.0 H, RDW Coeff of Angie 14.4, Plt Count 275, MPV 9.3, Immature Gran % (Auto) 0.700, Neut % (Auto) 65.8, Lymph % (Auto) 15.3 L, [place] % (Auto) 8.1, Eos % (Auto) 9.5 H, Baso % (Auto) 0.6, Absolute Neuts (auto) 7.0, Absolute Lymphs (auto) 1.61, Nucleated RBC % 0 12/09/20 09:10: Sodium 139, Potassium 4.0, Chloride 104, Carbon Dioxide 30.0, Anion Gap 5, BUN 17, Creatinine 0.75, Estim Creat Clear Calc 103.87, Est GFR (MDRD) Af Amer 137, Est GFR (MDRD) Non-Af 114, BUN/Creatinine Ratio 22.7 H, Glucose 119 H, Calcium 9.2, Troponin I High Sens 6.9 Radiology Impression Chest X-Ray 12/09/20 09:23 IMPRESSION: No interval change Electronically Signed: Darryl Freeman MD at 9:47 EDT , Service support , Assessment & Plan Assessment/Plan (1) Chest pain: PLAN: 1. Chest pain/hypertension/hyperlipidemia/morbid obesity/ascending aortic aneurysm -Initial troponin is unremarkable, will obtain a series -EKG was nonischemic -We will consult cardiology for heart cath -Continue with his home blood pressure medications -Discussed lifestyle modifications -BMI over 45 -I anticipate based on his body habitus and the symptoms that he describes that he has a combination of obstructive sleep apnea as well as pulmonary hypertension -On review of [facility] echo from 2019, his EF was normal and his RVSP was normal but he did have a 4.6cm ascending aorta 2. COPD?asthma overlap -Not in exacerbation -Continue with duo nebs while here, he can restart his home meds on discharge DVT: Ambulation Charges/Coding Visit Charges OBSV E&M: 75242 Initial observation care L3
[2020-12-09 14:53] LABS: Troponin-I HS 7.8 pg/mL (3.0-78.5)
--- NOTE | 2020-12-09 16:05 | CON.PCM.CA_ITS ---
Assessment & Plan Assessment/Plan (1) Chest pain: (2) Coronary artery calcification of [place] artery: PLAN: 60-year-old patient presented with dyspnea on minimal exertion and symptoms of chest pain Patient evidently scheduled for cardiac cath as an elective outpatient left and right heart cath and now presented over here to the hospital complaining of chest pain, he has multiple risk factor for CAD with history of hypertension, hyperlipidemia, history of smoking, morbidly obese with BMI 47.[address] chest showing evidence of coronary artery calcification and ascending aorta measuring 4.6 cm. Based on this clinical presentation recommendation is the following 1. I will schedule him for left and right heart catheterization by his primary roofing plant supervisor Dr. Maldonado 2. I reviewed and discussed all the current medication with the nursing staff and patient 3. Primary roofing plant supervisor Dr. Caal will resume care (3) Edema: (4) Dyspnea on minimal exertion: (5) Ascending aortic aneurysm: (6) Essential hypertension: (7) Bilateral edema of lower extremity: (8) Morbid obesity: (9) Asthma-chronic obstructive pulmonary disease overlap syndrome: (10) Nicotine dependence, cigarettes, in remission: (11) Smoking greater than 20 pack years: HPI Consult Data Date of Consult: 12/09/20 HPI Narrative Reason for Consultation: Dyspnea on minimal exertion with chest pain HPI Narrative: GASTON CUNHA, is a 60 M who presents [facility] Medical History Acute exacerbation of chronic obstructive pulmonary disease (COPD) Ascending aortic aneurysm Bronchospasm, acute Candidiasis of mouth Cellulitis Chronic obstructive pulmonary disease Chronic respiratory failure with hypoxia Cough Essential hypertension History of DVT (deep vein thrombosis) Nicotine dependence, cigarettes, in remission Psoriasis Respiratory failure with hypoxia Superficial thrombophlebitis of leg (10/2018) Home Medications lisinopril 10 mg PO DAILY #30 tab 07/22/18 [Rx Last Taken 10/22/18 07:00] ibuprofen 400 mg PO Q6 #20 tab 10/24/18 [Rx Last Taken Unknown] aspirin 81 mg tablet,delayed release 81 mg PO DAILY 11/01/18 [History Last Taken Unknown] cetirizine 10 mg capsule 10 mg PO HS #30 cap 08/09/20 [Rx Last Taken Unknown] montelukast 10 mg tablet 10 mg PO QPM #30 tab 08/09/20 [Rx Last Taken Unknown] albuterol sulfate 90 mcg/actuation breath activated powder inhaler,sensor 90 mcg INHALATION Q6H PRN 09/28/20 [History Last Taken Unknown] albuterol sulfate 2.5 mg INHALATION Q4H PRN #180 vial 11/09/20 [Rx Last Taken Unknown] fluticasone fur. 200 mcg-umeclid 62.5 mcg-vilant 25 mcg inhalat.powder 1 inh INHALATION DAILY #60 ea 11/22/20 [Rx Last Taken Unknown] Allergy/AdvReac Type Severity Reaction Status Date / Time No Known Allergies Allergy Verified 11/28/20 07:16 Family History Other Diabetes Surgical History H/O chest tube placement Social History Smoking Status: Former smoker quit date: 08/16/17 pack-years: 10 how long ago did patient quit smokin, 1ppd second hand exposure: Yes alcohol intake: current details: beer daily substance use type: marijuana and other details: daily marijuana use Physical Exam Narrative 60-year-old patient seen and evaluated today at bedside along with the nursing staff Sitting out in a chair, no active chest pain at time of evaluation His presentation is dyspnea on minimal exertion with chest pain egg caser showed underlying normal sinus Cardiovascular examination S1-S2 is normal, no murmur no systolic or diastolic murmur, no pericardial rub Chest exam; clear to auscultation bilateral Examination abdomen soft Examination lower extremity no clubbing no cyanosis no lower extremity edema Examination of central nervous system no focal neurological deficit. Objective Data Vital Signs: Vital Signs Temp Pulse Resp BP Pulse Ox 97.4 F L 77 18 138/60 H 96 12/09/20 15:49 12/09/20 15:49 12/09/20 15:49 12/09/20 15:49 12/09/20 15:49 Oxygen Flow Rate (L/min) 2 Oxygen Delivery Method Room Air Weight: 315 lb Body Mass Index (BMI) 47.9 Lab / Micro Data Result Diagrams: 12/09/20 09:10 12/09/20 09:10 Labs: Laboratory Results - last 24 hr 12/09/20 09:10: WBC 10.5, RBC 4.32 L, Hgb 12.7 L, Hct 40.4, MCV 93.5, MCH 29.4, MCHC 31.4 L, RDW Std Deviation 50.0 H, RDW Coeff of Angie 14.4, Plt Count 275, MPV 9.3, Immature Gran % (Auto) 0.700, Neut % (Auto) 65.8, Lymph % (Auto) 15.3 L, [place] % (Auto) 8.1, Eos % (Auto) 9.5 H, Baso % (Auto) 0.6, Absolute Neuts (auto) 7.0, Absolute Lymphs (auto) 1.61, Nucleated RBC % 0 12/09/20 09:10: Sodium 139, Potassium 4.0, Chloride 104, Carbon Dioxide 30.0, Anion Gap 5, BUN 17, Creatinine 0.75, Estim Creat Clear Calc 103.87, Est GFR (MDRD) Af Amer 137, Est GFR (MDRD) Non-Af 114, BUN/Creatinine Ratio 22.7 H, Glucose 119 H, Calcium 9.2, Troponin I High Sens 6.9 12/09/20 14:27: Troponin I High Sens 7.8 Cardiology Labs/Tests 12/09/20 09:10: WBC 10.5, RBC 4.32 L, Hgb 12.7 L, Hct 40.4, MCV 93.5, MCH 29.4, MCHC 31.4 L, Plt Count 275, MPV 9.3, Immature Gran % (Auto) 0.700, Neut % (Auto) 65.8, Lymph % (Auto) 15.3 L, [place] % (Auto) 8.1, Eos % (Auto) 9.5 H, Baso % (Auto) 0.6, Absolute Neuts (auto) 7.0, Nucleated RBC % 0 12/09/20 09:10: Sodium 139, Potassium 4.0, Chloride 104, Carbon Dioxide 30.0, Anion Gap 5, BUN 17, Creatinine 0.75, Est GFR (MDRD) Af Amer 137, Est GFR (MDRD) Non-Af 114, BUN/Creatinine Ratio 22.7 H, Glucose 119 H, Calcium 9.2 Rhythm: Normal sinus. EKG: Normal sinus rhythm nonspecific ST change in the lateral lead V4 to be 6 : Radiography Diagnostic Testing: Radiology Impression Chest X-Ray 12/09/20 09:23 IMPRESSION: No interval change Electronically Signed: Darryl Freeman MD at 9:47 EDT , Service support ,
[2020-12-09 16:10] LABS: Troponin-I HS 7.6 pg/mL (3.0-78.5)
[2020-12-09] MEDS: MELATONIN 3 MG TABLET PO (20:58)
[2020-12-09] MEDS: Loratadine 10 MG Tablet PO (20:58)
[2020-12-10] VITALS (9 sets, daily range): BP systolic 120–133; BP diastolic 67–80; PULSE 74–85; RESP 18; TEMP 36.9; O2SAT 93–95
[2020-12-10] MEDS: Aspirin E.C. 81 MG Tablet PO (05:39)
[2020-12-10] MEDS: Lisinopril 10 MG Tablet PO (05:39)
[2020-12-10 06:14] LABS: Absolute Lymphocyte Count 1.33 X10^3/uL (0.83-4.51); Absolute Neutrophil Count 6.3 X10^3/uL (2.0-7.7); Basophil# 0.04 X10^3/uL; Basophil% 0.4 % (0-1); Eosinophil# 0.83 X10^3/uL; Eosinophils% 9.1 % (0-5); Hematocrit 39.4 % (40-54); Hemoglobin 12.3 g/dL (13.0-16.5); Lymphocyte # 1.33 X10^3/ul (0.83-4.51); Lymphocyte % 14.5 % (19-41); Mean Corp Hgb Conc 31.2 g/dL (32-36); Mean Corpuscular Hgb 29.3 pg (27.0-32.0); Mean Corpuscular Volume 93.8 fL (80-94); Mean Platelet Vol. 9.1 fl (6.2-12.0); Monocyte# 0.66 X10^3/uL; Monocyte% 7.2 % (0-10); NRBC Flagged by Analyzer 0 % (0-5); Neutrophil # 6.26 X10^3/uL (2.7-7.7); Neutrophil % 68.3 % (47-70); Platelet Count 265 K/mm3 (150-450); RBC Distribution Width CV 14.8 % (11.6-14.6); RBC Distribution Width SD 51.2 fl (35.1-43.9); White Blood Count 9.2 K/mm3 (4.4-11.0)
[2020-12-10 06:41] LABS: Anion Gap 5 (5-15); BUN 16 mg/dL (7-18); BUN/Creat Ratio 22.3 RATIO (10-20); Calcium,Total 8.9 mg/dL (8.5-10.1); Chloride 102 mmol/L (98-107); Creatinine, Serum 0.72 mg/dL (0.70-1.30); EST Glomerular Filtration Rate 119 mL/min (>60); Est Glom Filt Rate - Afr Amer 144 mL/min (>60); Estimated Creatinine Clearance 108.19 ml/min; Glucose 131 mg/dL (74-106); Sodium Level 139 mmol/L (136-145)
--- NOTE | 2020-12-10 08:23 | CASEMGMT ---
According to the [employer] website, the following are in-network tertiary facilities: [facility], [facility], [facility], [facility], [facility], and . Kay LEVY CM
[2020-12-10 08:56] LABS: Blood Gas Specimen Type VEN; VBG BASE EXCESS 1 mmol/L (-1.0-3.5); VBG Bicarbonate 26 mmol/L (22-26); VBG PO2 38 mmHg (25-40); VBG SO2 71 % (50-70); VBG TCO2 27 mmol/L (23-33); VBG pCO2 43.4 mmHg (41-51); VBG pH 7.38 (7.32-7.42)
[2020-12-10 09:00] LABS: Blood Gas Specimen Type VEN; VBG BASE EXCESS 2 mmol/L (-1.0-3.5); VBG Bicarbonate 27 mmol/L (22-26); VBG PO2 38 mmHg (25-40); VBG SO2 71 % (50-70); VBG TCO2 29 mmol/L (23-33); VBG pCO2 44.9 mmHg (41-51); VBG pH 7.39 (7.32-7.42)
[2020-12-10 09:05] LABS: Blood Gas Specimen Type VEN; VBG BASE EXCESS 2 mmol/L (-1.0-3.5); VBG Bicarbonate 27 mmol/L (22-26); VBG PO2 36 mmHg (25-40); VBG SO2 68 % (50-70); VBG TCO2 28 mmol/L (23-33); VBG pCO2 43.5 mmHg (41-51)
--- NOTE | 2020-12-10 09:05 | CL.D_ITS ---
Patient Name: GASTON CUNHA Study Date: 12/10/2020 Performing: Booker Maldonado MD Ht: 68.11 inches 173 cm : 1960 Wt: 315.26 lbs 143 kg Age: 60 Gender: male BSA: 2.48 PROCEDURE(S) PERFORMED LA51-URF/LHC/COR/LV CLINICAL PROFILE AND INDICATIONS Indications: Suspected CAD Heart Failure: None Stress/Imaging Stress/Image Study Performed: No CAD Presentations: Other: SOB CONCLUSIONS Normal coronary arteries Normal LV size, wall motion,and systolic function Right heart pressures - mildly elevated RECOMMENDATIONS Medical therapy DESCRIPTION OF PROCEDURE The patient arrived to the procedure lab. The risks and benefits of the procedure as well as a full d escription of our services here and current unavailability of surgical backup were fully explained to the patient and/or their significant other prior to the catheterization. The Timeout was completed, verifying the correct patient and procedure. The patient's procedural site was prepped and draped in the usual fashion. Local anesthetic was given subcutaneously to right radial region with Lidocaine 2% . Using a modified Seldinger technique, arterial access was obtained via the right radial artery, a 6 Fr sheath was inserted. Left Coronary Artery selective angiography was performed in multiple views u sing a 5 Fr. 4.0 [place] catheter. Right Coronary Artery selective angiography was then performed in mu ltiple views using a 5 Fr. 4.0 [place] catheter. Left Ventriculography was performed in JAMES projection using a 5 Fr. Pig[place] catheter. LV to AO pullback pressures were then recorded. A 7Fr thermal dilution catheter was inserted and right heart pressures were recorded, it was then advanced to PA position for cardiac outputs. O2 saturations were then obtained. Thermal dilution cardiac outpu ts were then recorded. The Thermal dilution catheter was then removed.The arterial sheath was pulled and a TR Band was applied for hemostasis - 10cc air. The venous sheath was then pulled and manual com pression applied until hemostasis achieved CORONARY ANGIOGRAPHY DOMINANCE: Right Dominant LEFT HEART ASSESSMENT Left Ventricular Ejection Fraction: by LV Gram 60 % Normal LV wall motion Normal Left Ventricular systolic function RIGHT HEART ASSESSMENT Thermal CO: 11.56 Thermal CI: 4.66 PW: 14/13 13 PA: 31/12 25 RV: 41/0 7 RA: 6/9 4 PVR: 83 SVR: 706 Right Heart pressures - elevated LEFT MAIN: Angiographically normal LEFT ANTERIOR DESCENDING ARTERY: Angiographically normal CIRCUMFLEX ARTERY: Angiographically normal RIGHT CORONARY ARTERY: Angiographically normal AORTIC ROOT: Dilated COMPLICATIONS PROCEDURE MEDICATIONS Fentanyl 50 mcg IV Versed 1 mg IV Versed 1 mg IV Oxygen: 2 L/min via nasal cannula Oxygen: Discontinued Heparin given IA 12/10/2020 08:36:37 Verapamil 2.5mg, Ntg 100mcgs, 3000 units of Heparin given IA 12/10/2020 08:36:37 SUMMARY OF HEMODYNAMIC DATA Time AIR REST ECG 08:25:34 AO 126/90 (106) SA 08:39:18 LV 113/-1, 12 08:45:18 LV 113/0, 12 08:45:24 LV 97/3, 18 08:45:57 LV 102/5, 13 08:46:04 LVp 106/2, 22 08:46:09 AOp 109/66 (86) 08:46:14 PW 14/13 (13) PV 08:50:16 PA 31/12 (25) PA 08:50:32 RV 41/0, 7 08:55:08 RA 6/9 (4) SV 08:56:48 Type SV CO (l/m) CI (l/m/ HR Time AIR REST Thermal 142.70 11.56 4.66 81 08:16:18 Signed By Booker Maldonado MD On 12/10/2020 9:04:20 AM Booker Maldonado MD
--- NOTE | 2020-12-10 09:06 | PCM.PN.CARD ---
Subjective Subjective Patient seen and evaluated. Appears to be stable. Underwent cardiac catheterization today Objective Data Vital Signs: Vital Signs Temp Pulse Resp BP Pulse Ox 98.5 F 80 18 131/67 H 95 12/10/20 02:30 12/10/20 07:00 12/10/20 02:30 12/10/20 02:30 12/10/20 02:30 Oxygen Flow Rate (L/min) 2 Oxygen Delivery Method Room Air Weight: 315 lb Body Mass Index (BMI) 47.9 Intake & Output: Intake and Output for Last 24 Hours 12/08/20 12/09/20 12/10/20 23:59 23:59 23:59 Intake Total 300 / 400 100 / 100 Balance 300 / 400 100 / 100 Lab / Micro Data Result Diagrams: 12/10/20 05:55 12/10/20 05:55 Labs: Laboratory Results - last 24 hr 12/09/20 09:10: WBC 10.5, RBC 4.32 L, Hgb 12.7 L, Hct 40.4, MCV 93.5, MCH 29.4, MCHC 31.4 L, RDW Std Deviation 50.0 H, RDW Coeff of Angie 14.4, Plt Count 275, MPV 9.3, Immature Gran % (Auto) 0.700, Neut % (Auto) 65.8, Lymph % (Auto) 15.3 L, Routt % (Auto) 8.1, Eos % (Auto) 9.5 H, Baso % (Auto) 0.6, Absolute Neuts (auto) 7.0, Absolute Lymphs (auto) 1.61, Nucleated RBC % 0 12/09/20 09:10: Sodium 139, Potassium 4.0, Chloride 104, Carbon Dioxide 30.0, Anion Gap 5, BUN 17, Creatinine 0.75, Estim Creat Clear Calc 103.87, Est GFR (MDRD) Af Amer 137, Est GFR (MDRD) Non-Af 114, BUN/Creatinine Ratio 22.7 H, Glucose 119 H, Calcium 9.2, Troponin I High Sens 6.9 12/09/20 14:27: Troponin I High Sens 7.8 12/09/20 15:49: Troponin I High Sens 7.6 12/10/20 05:55: WBC 9.2, RBC 4.20 L, Hgb 12.3 L, Hct 39.4 L, MCV 93.8, MCH 29.3, MCHC 31.2 L, RDW Std Deviation 51.2 H, RDW Coeff of Angie 14.8 H, Plt Count 265, MPV 9.1, Immature Gran % (Auto) 0.500, Neut % (Auto) 68.3, Lymph % (Auto) 14.5 L, Routt % (Auto) 7.2, Eos % (Auto) 9.1 H, Baso % (Auto) 0.4, Absolute Neuts (auto) 6.3, Absolute Lymphs (auto) 1.33, Nucleated RBC % 0 12/10/20 05:55: Sodium 139, Potassium 4.0, Chloride 102, Carbon Dioxide 32.0, Anion Gap 5, BUN 16, Creatinine 0.72, Estim Creat Clear Calc 108.19, Est GFR (MDRD) Af Amer 144, Est GFR (MDRD) Non-Af 119, BUN/Creatinine Ratio 22.3 H, Glucose 131 H, Calcium 8.9 ABG Data ABG results: ABG 12/10/20 12/10/20 12/10/20 08:51 08:55 08:58 Specimen Type DAPHNIE DAPHNIE DAPHNIE VBG pH 7.38 7.39 7.40 VBG pO2 38 38 36 VBG HCO3 26 27 H 27 H VBG Total CO2 27 29 28 VBG O2 Sat (Calc) 71 H 71 H 68 VBG Base Excess 1 2 2 POC Mix VBG pCO2 Pt Tmp 43.4 44.9 43.5 Cardiology Labs/Tests 12/09/20 09:10: WBC 10.5, RBC 4.32 L, Hgb 12.7 L, Hct 40.4, MCV 93.5, MCH 29.4, MCHC 31.4 L, Plt Count 275, MPV 9.3, Immature Gran % (Auto) 0.700, Neut % (Auto) 65.8, Lymph % (Auto) 15.3 L, Routt % (Auto) 8.1, Eos % (Auto) 9.5 H, Baso % (Auto) 0.6, Absolute Neuts (auto) 7.0, Nucleated RBC % 0 12/09/20 09:10: Sodium 139, Potassium 4.0, Chloride 104, Carbon Dioxide 30.0, Anion Gap 5, BUN 17, Creatinine 0.75, Est GFR (MDRD) Af Amer 137, Est GFR (MDRD) Non-Af 114, BUN/Creatinine Ratio 22.7 H, Glucose 119 H, Calcium 9.2 12/10/20 05:55: WBC 9.2, RBC 4.20 L, Hgb 12.3 L, Hct 39.4 L, MCV 93.8, MCH 29.3, MCHC 31.2 L, Plt Count 265, MPV 9.1, Immature Gran % (Auto) 0.500, Neut % (Auto) 68.3, Lymph % (Auto) 14.5 L, Routt % (Auto) 7.2, Eos % (Auto) 9.1 H, Baso % (Auto) 0.4, Absolute Neuts (auto) 6.3, Nucleated RBC % 0 12/10/20 05:55: Sodium 139, Potassium 4.0, Chloride 102, Carbon Dioxide 32.0, Anion Gap 5, BUN 16, Creatinine 0.72, Est GFR (MDRD) Af Amer 144, Est GFR (MDRD) Non-Af 119, BUN/Creatinine Ratio 22.3 H, Glucose 131 H, Calcium 8.9 12/10/20 08:51: VBG pH 7.38, VBG pO2 38, VBG HCO3 26, VBG O2 Sat (Calc) 71 H, VBG Base Excess 1 12/10/20 08:55: VBG pH 7.39, VBG pO2 38, VBG HCO3 27 H, VBG O2 Sat (Calc) 71 H, VBG Base Excess 2 12/10/20 08:58: VBG pH 7.40, VBG pO2 36, VBG HCO3 27 H, VBG O2 Sat (Calc) 68, VBG Base Excess 2 Rhythm: EKG: ECHO: Stress Test: Cardiac Cath: PCI: CT Surgery: Holter monitor: EPS: PPM: CXR: Chest CT Scan: Radiography Diagnostic Testing: Radiology Impression Chest X-Ray 12/09/20 09:23 IMPRESSION: No interval change Electronically Signed: Darryl Freeman MD at 9:47 EDT , Service support , Physical Exam Const oriented x3 and healthy appearing Orientation / Consciousness: awake HEENT normocephalic Eyes PERRL and conjunctivae normal Neck supple, no JVD and no carotid bruits Chest inspection of chest normal Resp normal respiratory effort and clear to auscultation bilaterally Cardio Palpation: normal PMI Rate: regular rate Rhythm: regular rhythm Heart Sounds: S1 normal and S2 normal Peripheral Pulses: pulses 2+ throughout GI normal to inspection, nondistended, normoactive bowel sounds Extremity normal to inspection and no clubbing, cyanosis or edema Psych mental status grossly normal Assessment & Plan Assessment/Plan (1) Chest pain: PLAN: He presented with chest pain. His cardiac catheterization today demonstrated normal coronary arteries. His ejection fraction was also normal. I suspect the above is therefore noncoronary. (2) Dyspnea on minimal exertion: PLAN: He does have dyspnea on exertion. His right heart catheterization demonstrated only mildly elevated pulmonary pressures. It is likely that his dyspnea is secondary to his obesity and possibly obstructive sleep apnea. Would recommend measures to intervene thank you
[2020-12-10 09:11] LABS: Base Excess 2 mmol/L (-2 to +2); Bicarbonate 26.4 mmol/L (22-26); Blood Gas Specimen Type ART; PO2 56 mmHG (75-100); SO2 88 % (95-99); Total Carbon Dioxide 28 mmol/L; pCO2 42.5 mmHg (35-45)
--- NOTE | 2020-12-10 09:13 | DCINST_ITS ---
Discharge Instructions Diet Discharge Diet: Low fat / Low cholesterol and 1800 Calorie Control Diet Dressing / Incision Call your doctor if you observe: Fever of 101 or Higher, Shortness of breath, Dizziness, Swelling in the ankles, Chest pain and Increased palpitations (irreg ular heartbeat) Follow Up Care Test Results: Test results from this visit will be discussed in further detail at your follow-up appointment, if applicable. Discharge Plan Admission Admit Date/Time: 12/09/20 12:16 Attending Provider: Jhonatan Titus Primary Care Provider: Jeffrey Jones Consulting Providers: Iris Voss Discharge Orders/Prescriptions Prescriptions: New furosemide [Lasix] 20 mg tablet 20 mg PO DAILY Qty: 30 RF: 0 Continued aspirin [Aspir-81] 81 mg tablet,delayed release (DR/EC) 81 mg PO DAILY RF: 0 Trelegy Ellipta 200-62.5-25 mcg blister with device 1 inh inhalation DAILY Qty: 60 RF: 6 Proair Digihaler 90 mcg/actuation aero powdr breath act w/sensor 90 mcg inhalation Q6H PRN (Reason: Wheezing) RF: 0 lisinopril 10 MG tablet 10 mg PO DAILY Qty: 30 RF: 0 ibuprofen 400 MG tablet 400 mg PO Q6 Qty: 20 RF: 0 cetirizine 10 mg capsule 10 mg PO HS Qty: 30 RF: 6 montelukast 10 mg tablet 10 mg PO QPM Qty: 30 RF: 6 albuterol sulfate 2.5 mg /3 mL (0.083 %) solution for nebulization 2.5 mg inhalation Q4H PRN (Reason: shortness of breath or wheezing) Qty: 180 RF: 6 Referrals / Follow Up: Booker Maldonado MD [STAFF PHYSICIAN] - Enrrique Rincon DO [STAFF PHYSICIAN] - Jeffrey Jones PA [Primary Care Provider] - In 1 Week Disposition Disposition (needs filled in before D/C Order can be placed): Home, Self Care
[2020-12-10] MEDS: 0.9% Normal Saline 1,000 ML 60 ML IV (09:42)
--- NOTE | 2020-12-10 12:15 | PCM.DC.SUM ---
Providers Date of Admission: 12/09/20 Primary Care Physician: FLAVIO Jordan Consultations 12/09/20 13:41 Consult: Cardiology Routine Consulting Provider: Iris Voss Reason for Consult: Chest pain EMERGENT Consult: No MD Notified: Yes Date Notified: 12/09/20 Time Notified: 12:15 Method of Notification: Page Comments:: to have an outpatient cath but insurance demanded stres Reason For Visit: CHEST PAIN Diagnosis Discharge Diagnosis (1) Chest pain: Status: Acute Code(s): R07.9 - Chest pain, unspecified (2) Dyspnea on minimal exertion: Status: Acute Code(s): R06.00 - Dyspnea, unspecified Medications at Discharge Home Medications lisinopril 10 mg PO DAILY #30 tab 07/22/18 ibuprofen 400 mg PO Q6 #20 tab 10/24/18 aspirin 81 mg tablet,delayed release 81 mg PO DAILY 11/01/18 cetirizine 10 mg capsule 10 mg PO HS #30 cap 08/09/20 montelukast 10 mg tablet 10 mg PO QPM #30 tab 08/09/20 albuterol sulfate 90 mcg/actuation breath activated powder inhaler,sensor 90 mcg INHALATION Q6H PRN 09/28/20 albuterol sulfate 2.5 mg INHALATION Q4H PRN #180 vial 11/09/20 fluticasone fur. 200 mcg-umeclid 62.5 mcg-vilant 25 mcg inhalat.powder 1 inh INHALATION DAILY #60 ea 11/22/20 furosemide [Lasix] 20 mg PO DAILY #30 tab 12/10/20 Hospital Course Operations None Procedures Cardiac catheterization Summary of Care Provided Minutes Spent on Discharge: 45 Hospital Course: Per HPI: GASTON CUNHA, is a 60 M who presents with recurrent chest pain, that occurred yesterday. Per report he was supposed to have an outpatient heart cath performed however his insurance denied and stated that they wanted a stress test done first, however he re-presents to the hospital with chest pain. His initial troponin was unremarkable. EKG was nonischemic. He states that his shortness of breath and chest pain is worse with exertion and better at rest. He also with this episode had some numbness going down his left arm as well. Hospital Course: 1. Chest pain/mild pulmonary hypertension/HTN/HLD/morbid obesity/ascending aortic [id number]-old male with a BMI of 47 presented to the hospital with chest pain shortness of breath. He has chronically been shortness of breath because he has a COPD asthma overlap syndrome and is on chronic oxygen which she is not need to go up on. He was scheduled for an outpatient heart cath however his insurance denied it and said that he should have a stress test first however he had repeat episode of chest pain therefore he was admitted for monitoring and a heart cath while here in the hospital. Heart cath today demonstrated mild pulmonary hypertension with an elevation in the RVSP, he has normal coronary arteries. We will continue with his home asthma medications as well as his home blood pressure medications however will add Lasix 20 mg daily and monitor. 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 I would also suspect that he has a component of obstructive sleep apnea and would benefit from a sleep study and home CPAP. Discussed the plan for discharge today and he expressed understanding of the risk benefits of going home and would like to go home today. Physical Exam Const alert, oriented x3 and no apparent distress General Appearance: cooperative HEENT normocephalic and moist oral mucous membranes Eyes PERRL, EOMs intact bilaterally and conjunctivae normal Neck supple and no JVD Resp normal respiratory effort, no retractions and clear to auscultation bilaterally Auscultation: Negative for crackles, rales, rhonchi or wheezes Cardio regular rate, regular rhythm, S1 normal heart sound, S2 normal heart sound and no murmurs GI soft to palpation, non-tender and non-distended; Negative for hepatosplenomegaly Extremity General Extremity: edema; Negative for clubbing or cyanosis Skin no rashes or lesions noted Neuro no focal motor deficits and no sensory deficits noted Psych affect normal Appearance: appropriate Weight / BMI Weight Weight: 315 lb Body Mass Index (BMI) 47.9 ABG / Lab / Microbiology Data Result Diagrams: 12/10/20 05:55 12/10/20 05:55 Laboratory: Laboratory Results - last 24 hr 12/09/20 14:27: Troponin I High Sens 7.8 12/09/20 15:49: Troponin I High Sens 7.6 12/10/20 05:55: WBC 9.2, RBC 4.20 L, Hgb 12.3 L, Hct 39.4 L, MCV 93.8, MCH 29.3, MCHC 31.2 L, RDW Std Deviation 51.2 H, RDW Coeff of Angie 14.8 H, Plt Count 265, MPV 9.1, Immature Gran % (Auto) 0.500, Neut % (Auto) 68.3, Lymph % (Auto) 14.5 L, Gosper % (Auto) 7.2, Eos % (Auto) 9.1 H, Baso % (Auto) 0.4, Absolute Neuts (auto) 6.3, Absolute Lymphs (auto) 1.33, Nucleated RBC % 0 12/10/20 05:55: Sodium 139, Potassium 4.0, Chloride 102, Carbon Dioxide 32.0, Anion Gap 5, BUN 16, Creatinine 0.72, Estim Creat Clear Calc 108.19, Est GFR (MDRD) Af Amer 144, Est GFR (MDRD) Non-Af 119, BUN/Creatinine Ratio 22.3 H, Glucose 131 H, Calcium 8.9 ABG: ABG 12/10/20 12/10/20 12/10/20 08:51 08:55 08:58 Specimen Type DAPHNIE DAPHNIE DAPHNIE pH Bicarbonate Actual Total CO2 Base Excess O2 Saturation ABG pCO2 ABG pO2 VBG pH 7.38 7.39 7.40 VBG pO2 38 38 36 VBG HCO3 26 27 H 27 H VBG Total CO2 27 29 28 VBG O2 Sat (Calc) 71 H 71 H 68 VBG Base Excess 1 2 2 POC Mix VBG pCO2 Pt Tmp 43.4 44.9 43.5 12/10/20 09:03 Specimen Type ART pH 7.40 Bicarbonate Actual 26.4 H Total CO2 28 Base Excess 2 O2 Saturation 88 L ABG pCO2 42.5 ABG pO2 56 L VBG pH VBG pO2 VBG HCO3 VBG Total CO2 VBG O2 Sat (Calc) VBG Base Excess POC Mix VBG pCO2 Pt Tmp D/C Instructions Discharge Diet: Low fat / Low cholesterol and 1800 Calorie Control Diet Call your doctor if you observe: Fever of 101 or Higher, Shortness of breath, Dizziness, Swelling in the ankles, Chest pain and Increased palpitations (irregular heartbeat) Meaningful Use Info Meaningful Use Diagnoses (Choose all that apply): None applicable Discharge Plan Admission Admit Date/Time: 12/09/20 12:16 Attending Provider: Jhonatan Titus Primary Care Provider: Jeffrey Jones Consulting Providers: Iris Voss Discharge Orders/Prescriptions Prescriptions: New furosemide [Lasix] 20 mg tablet 20 mg PO DAILY Qty: 30 RF: 0 Continued aspirin [Aspir-81] 81 mg tablet,delayed release (DR/EC) 81 mg PO DAILY RF: 0 Trelegy Ellipta 200-62.5-25 mcg blister with device 1 inh inhalation DAILY Qty: 60 RF: 6 Proair Digihaler 90 mcg/actuation aero powdr breath act w/sensor 90 mcg inhalation Q6H PRN (Reason: Wheezing) RF: 0 lisinopril 10 MG tablet 10 mg PO DAILY Qty: 30 RF: 0 ibuprofen 400 MG tablet 400 mg PO Q6 Qty: 20 RF: 0 cetirizine 10 mg capsule 10 mg PO HS Qty: 30 RF: 6 montelukast 10 mg tablet 10 mg PO QPM Qty: 30 RF: 6 albuterol sulfate 2.5 mg /3 mL (0.083 %) solution for nebulization 2.5 mg inhalation Q4H PRN (Reason: shortness of breath or wheezing) Qty: 180 RF: 6 Referrals / Follow Up: Booker Maldonado MD [STAFF PHYSICIAN] - Enrrique Rincon DO [STAFF PHYSICIAN] - Jeffrey Jones PA [Primary Care Provider] - In 1 Week Disposition Disposition (needs filled in before D/C Order can be placed): Home, Self Care Charges/Coding Visit Charges OBSV E&M: 47527 Observation care discharge
== END 2020-12-10 09:17 | disposition home or self-care (01) ==
LOC: ED 12:09 → PCU 12:53
PROVIDERS: Admitting Provider Family Medicine; Emergency Provider Emergency Medicine; PCP Physician Assistant; Visit Provider Family Medicine
DX: R07.89 Other chest pain (principal); R20.0 Anesthesia of skin; J44.9 Chronic obstructive pulmonary disease, unspecified; J96.11 Chronic respiratory failure with hypoxia; I10 Essential (primary) hypertension; L40.9 Psoriasis, unspecified; E66.01 Morbid (severe) obesity due to excess calories; Z68.42 Body mass index [BMI] 45.0-49.9, adult; E78.5 Hyperlipidemia, unspecified; I27.20 Pulmonary hypertension, unspecified; Z86.718 Personal history of other venous thrombosis and embolism; Z79.82 Long term (current) use of aspirin; Z79.899 Other long term (current) drug therapy; Z87.891 Personal history of nicotine dependence
CPT/HCPCS: 36415; 71045; 80048; 82803; 84484; 85025; 93005; 93460; 99152; 99153; 99218; 99283; J7030; J7040; A4216; C1751; C1769; C1894; G0378; Q9967

== ENCOUNTER → 2020-12-25 09:35 | Outpatient (CLI) | payer MEDICAID, SELFPAY ==
[2020-12-13 07:45] VITALS: BMI 50.5
--- NOTE | 2020-12-26 09:42 | PFT ---
INTRODUCTION: The patient is a 60-year-old male who presents for pulmonary function studies secondary to a diagnosis of dyspnea. Respiratory therapy reported good patient effort. Bronchodilators were used during testing. INTERPRETATION: Forced expiration spirometry demonstrates the presence of a severe large airways obstructive ventilatory defect. There was a significant response to aerosolized bronchodilators noted. Spirograms are of good quality but do not plateau indicating slow emptying of the lungs. Body plethysmography was performed and revealed a decreased TLC to 4.59 L, 74% of predicted, indicative of a mild restrictive ventilatory impairment. Diffusing capacity by single breath CO is severely reduced at 35% of predicted. IMPRESSION: Partially reversible severe mixed ventilatory defect with symmetric reduction in diffusing capacity.
== END ==
PROVIDERS: PCP Physician Assistant; Referring Provider Nurse Practitioner Acute Care; Visit Provider Nurse Practitioner Acute Care
DX: R06.00 Dyspnea, unspecified (principal)
CPT/HCPCS: 94060; 94726; 94729

== ENCOUNTER → 2020-12-27 10:56 | Outpatient (CLI) | payer MEDICAID, SELFPAY ==
[2020-12-13 07:45] VITALS: BMI 50.5
[2020-12-27 09:03] VITALS: BMI 50.5
[2020-12-27 11:15] VITALS: PULSE 101; PULSE 102; PULSE 103; PULSE 106; PULSE 82; PULSE 93; PULSE 95; PULSE 96; O2SAT 87; O2SAT 89; O2SAT 90; O2SAT 91; O2SAT 92
--- NOTE | 2020-12-27 11:57 | CPS ---
Pt was placed on his 6lpm pulse dosed tank at 1 minute. At 3rd minute pt was placed on 3 lpm continuous oxygen. Pt was able to maintain his saturation on 3 lpm continuous for remainder of walk,
--- NOTE | 2020-12-28 13:35 | PCM.PSN.6M ---
PSN 6 Minute Walk Test 6 Minute Walk Test 6 Minute Walk Test: 6 Minute Walk Test PSN:6-Minute Walk Test Start: 12/27/20 11:50 Freq: Status: Active Protocol: [id number] Document 12/27/20 11:15 [facility] (Rec: 12/27/20 11:59 [facility] [id number]) 6 Minute Walk Test Date Performed 12/27/20 Time Performed 11:15 Height 5 ft 8 in Weight: 136.078 kg Weight in Pounds 300.[address]: HUSSAIN Silva Assistive device used: None Pre-test Oxygen Delivery Method Room Air Pulse Ox (%) 90 Pulse Rate (60-100 beats/min) 82 Dyspnea Andrei Scale (0-10) 2 Exertion Andrei Scale (6-20) 6 1st minute Oxygen Delivery Method Room Air Pulse Ox (%) 87 Pulse Rate (60-100 beats/min) 96 Dyspnea Andrei Scale (0-10) 3 Reported Symptoms Increased Work of Breathing 2nd minute Oxygen Flow Rate (L/min) (L/min) 6 Oxygen Delivery Method Nasal Cannula Pulse Ox (%) 89 Pulse Rate (60-100 beats/min) 102 H 3rd minute Oxygen Flow Rate (L/min) (L/min) 6 Oxygen Delivery Method Nasal Cannula Pulse Ox (%) 87 Pulse Rate (60-100 beats/min) 101 H Dyspnea Andrei Scale (0-10) 4 Reported Symptoms Increased Work of Breathing 4th minute Oxygen Flow Rate (L/min) (L/min) 3 Oxygen Delivery Method Nasal Cannula Pulse Ox (%) 92 Pulse Rate (60-100 beats/min) 95 5th minute Oxygen Flow Rate (L/min) (L/min) 3 Oxygen Delivery Method Nasal Cannula Pulse Ox (%) 91 Pulse Rate (60-100 beats/min) 106 H 6th minute Oxygen Flow Rate (L/min) (L/min) 3 Oxygen Delivery Method Nasal Cannula Pulse Ox (%) 90 Pulse Rate (60-100 beats/min) 103 H Dyspnea Andrei Scale (0-10) 5 Exertion Andrei Scale (6-20) 11 Reported Symptoms Increased Work of Breathing Post-test Oxygen Flow Rate (L/min) (L/min) 3 Oxygen Delivery Method Nasal Cannula Pulse Rate (60-100 beats/min) 93 Dyspnea Andrei Scale (0-10) 94 Full Laps Walked 13 Partial Lap, Number of Tiles Walked 21 Total Distance Walked (ft) 788 12/27/20 11:57 Cardiopulmonary Services by Dina Benitez Pt was placed on his 6lpm pulse dosed tank at 1 minute. At 3rd minute pt was placed on 3 lpm continuous oxygen. Pt was able to maintain his saturation on 3 lpm continuous for remainder of walk, Initialized on 12/27/20 11:57 - END OF NOTE Interpretation Interpretation: The patient ambulated 788 feet over the course of 6 minutes beginning on room air without assistive devices. Pretesting oxygen saturation was noted to be 90% on room air. With ambulation, the patient desaturated on several occasions requiring the initiation and subsequent escalation in flow rate to 3 L/min to maintain appropriate oxygen saturations with exertion. Recommendations Recommendations: 3 L/min of continuous flow supplemental oxygen should be utilized with exertion.
== END ==
PROVIDERS: PCP Physician Assistant; Referring Provider Nurse Practitioner Acute Care; Visit Provider Nurse Practitioner Acute Care
DX: R06.00 Dyspnea, unspecified (principal)
CPT/HCPCS: 94618

== ENCOUNTER → 2021-04-30 13:11 | Outpatient (CLI) | payer MEDICAID, SELFPAY ==
--- NOTE | 2021-04-30 13:13 | CT_ITS ---
STUDY: LOW DOSE CT LUNG CANCER SCREENING REASON FOR EXAM: Male, 60 years old. Tobacco use. Patient smoked 1 pack per day for 30 years. RADIATION DOSAGE (If Supplied By Facility): CTDIvol = ( 3.18 ) mGy, DLP = ( 114.37 ) mGycm TECHNIQUE: No contrast was administered. Low dose technique was utilized (average mAS-38 and kVp 120). 1.25 mm axial source images with a slice interval of 1.25-mm were reconstructed in lung windows. 2.5 mm axial source images with a slice interval of 2.5-mm were reconstructed in lung windows. 5.0 mm axial source images with a slice interval of 5.0-mm were reconstructed in soft tissue windows. Nodule measured using lung windows on PACS and/or independent workstation with automated measurement of minimum and maximum diameter. Nodule measurement reported as average diameter rounded to the nearest whole number. Growth is defined as an increase ins size of greater than 1.5 mm. COMPARISON: Comparison is made with prior examination dated 04/24/2020. NODULES: No suspicious nodules are seen. Emphysema: Mild degree of emphysematous changes. Stable elevation of the right hemidiaphragm. Stable mild degree of scarring at the lung bases. Endobronchial lesion: None Aorta: Stable dilatation of the ascending thoracic aorta. Coronary arteries: Coronary artery calcification. Heart: Unremarkable Pulmonary artery: Unremarkable Mediastinal nodes: Stable small benign-appearing mediastinal lymph nodes. Other chest and abdominal findings: CT/Low Dose CT Lung Screening IMPRESSION: Lung-RADS category 2 - Continue annual screening with LDCT in 12 months. IMPORTANT NOTES FOR USE: ACR Lung-RADS Version 1.1 Assessment Categories Release Date: 2018 Category: Coded 0-4 bases on nodule(s) with highest degree of suspicion. Negative screen is defined as categories 1 and 2; a positive screen is defined as categories 3 and 4. Category 3 and 4A nodules that are unchanged on interval CT should be coded as category 2, and individuals returned to screening in 12 months. Category 4X: Category 3 or 4 nodules with additional imaging findings that increase the suspicion of lung cancer, such as spiculation, GGN that doubles in size in 1 year, enlarged lymph notes, etc. Category Modifiers: S (significant finding unrelated to lung cancer) Electronically Signed: Ilir Forman MD at 14:06 EST , Service support ,
== END ==
PROVIDERS: PCP Physician Assistant; Referring Provider Nurse Practitioner Acute Care; Visit Provider Nurse Practitioner Acute Care
DX: F17.210 Nicotine dependence, cigarettes, uncomplicated (principal)
CPT/HCPCS: 71271

== ENCOUNTER → 2021-05-02 13:06 | Outpatient (CLI) | payer MEDICAID, SELFPAY | PROVIDERS: PCP Physician Assistant; Visit Provider Physician Assistant | DX: Z11.52 Encounter for screening for COVID-19 (principal) | CPT/HCPCS: 87635; U0005; U0003 ==

== ENCOUNTER → 2021-05-03 09:01 | Outpatient (CLI) | payer MEDICAID, SELFPAY ==
[2021-05-03 09:26] LABS: Anion Gap 4 (5-15); BUN 14 mg/dL (7-18); BUN/Creat Ratio 18.8 RATIO (10-20); Calcium,Total 9.5 mg/dL (8.5-10.1); Chloride 106 mmol/L (98-107); Creatinine, Serum 0.75 mg/dL (0.70-1.30); EST Glomerular Filtration Rate 114 mL/min (>60); Est Glom Filt Rate - Afr Amer 138 mL/min (>60); Glucose 135 mg/dL (74-106); Potassium 4.2 mmol/L (3.5-5.1); Sodium Level 141 mmol/L (136-145)
[2021-05-03 09:27] LABS: BNP,B-Type NATRIURETIC PEPTIDE 39.7 pg/mL (0-100)
== END ==
PROVIDERS: PCP Physician Assistant; Referring Provider Nurse Practitioner Acute Care; Visit Provider Nurse Practitioner Acute Care
DX: R06.00 Dyspnea, unspecified (principal)
CPT/HCPCS: 36415; 80048; 83880

== ENCOUNTER 2021-07-12 10:12 | Outpatient (CLI) | payer MEDICAID, SELFPAY ==
[2021-07-12 10:58] LABS: Anion Gap 4 (5-15); BUN 20 mg/dL (7-18); BUN/Creat Ratio 26.2 RATIO (10-20); Calcium,Total 9.4 mg/dL (8.5-10.1); Chloride 105 mmol/L (98-107); Creatinine, Serum 0.76 mg/dL (0.70-1.30); EST Glomerular Filtration Rate 111 mL/min (>60); Est Glom Filt Rate - Afr Amer 134 mL/min (>60); Glucose 122 mg/dL (74-106); Potassium 4.2 mmol/L (3.5-5.1); Sodium Level 138 mmol/L (136-145)
[2021-07-12 11:06] LABS: BNP,B-Type NATRIURETIC PEPTIDE 29.5 pg/mL (0-100)
== END 2021-07-12 23:59 | disposition home or self-care (01) ==
PROVIDERS: PCP Physician Assistant; Referring Provider Nurse Practitioner Family; Visit Provider Nurse Practitioner Family
DX: I71.2 Thoracic aortic aneurysm, without rupture (principal); I10 Essential (primary) hypertension; R60.0 Localized edema; R06.00 Dyspnea, unspecified
CPT/HCPCS: 36415; 80048; 83880

== ENCOUNTER 2021-07-26 12:54 | Outpatient (CLI) | payer MEDICAID, SELFPAY ==
--- NOTE | 2021-07-26 12:58 | ECHOCS_ITS ---
Reason For Study: Dyspnea/SOB Procedure This was a 2D Doppler, Color Flow transthoracic echocardiogram. Contrast injection was performed. Exam performed in department. Left Ventricle Normal LV size. Left ventricular systolic function is normal. The estimated ejection fraction is 55 %. Stage 1 diastolic dysfunction. No regional wall motion abnormalities noted. Right Ventricle Normal RV size. Normal systolic function. Atria Normal left atrium. Normal right atrium. Mitral Valve Normal mitral valve. Tricuspid Valve The tricuspid valve is not well visualized. Aortic Valve The aortic valve is not well visualized. Pulmonic Valve The pulmonic valve is not well visualized. Great Vessels Normal aortic root. Pericardium/Pleural No pericardial effusion. Medication Diluted definity 3ml given slow IV push to enhance endocardial definition. MMode/2D Measurements & Calculations LVIDd: 4.8 cm IVSd: 1.1 cm Ao root diam: 4.6 cm LVIDs: 3.0 cm LVPWd: 1.2 cm FS: 37.5 % LAV(MOD-sp4): 56.8 ml LVAd ap4: 38.1 cm2 LVAs ap2: 19.5 cm2 LVLd ap4: 8.2 cm LVLs ap2: 6.3 cm EDV(MOD-sp4): 146.9 ml ESV(MOD-sp2): 49.7 ml EDV(sp4-el): 150.4 ml ESV(sp2-el): 51.3 ml LVAs ap4: 21.8 cm2 LVLs ap4: 7.1 cm ESV(MOD-sp4): 54.8 ml ESV(sp4-el): 56.7 ml EF(MOD-sp4): 62.7 % EF(sp4-el): 62.3 % SV(MOD-sp4): 92.0 ml SV(sp4-el): 93.6 ml LA A4 area: 20.4 cm2 RA A4 area: 18.1 cm2 Doppler Measurements & Calculations MV E max manolo: 61.0 cm/sec Lat Peak E' Manolo: 4.3 cm/sec Med Peak E' Manolo: 6.9 cm/sec MV A max manolo: 79.5 cm/sec E/E' lat: 14.1 E/E' med: 8.8 MV E/A: 0.77 Ao V2 max: 133.4 cm/sec LV V1 max: 105.6 cm/sec PA V2 max: 93.9 cm/sec Ao max P.1 mmHg LV V1 max P.5 mmHg Ao V2 mean: 87.5 cm/sec Ao mean P.5 mmHg Ao V2 VTI: 23.4 cm ECHO/Echo Complete W/ Contrast Interpretation Summary Normal LV size. Left ventricular systolic function is normal. The estimated ejection fraction is 55 %. Stage 1 diastolic dysfunction. Contrast injection was performed. The study was technically limited. Ordering Physician: Cesar Mckinney Referring Physician: Tien Jones Performed By: Kanika Goss RDCS
== END 2021-07-26 23:59 | disposition home or self-care (01) ==
LOC: CVS 12:55
PROVIDERS: PCP Physician Assistant; Referring Provider Nurse Practitioner Family; Visit Provider Nurse Practitioner Family
DX: I71.2 Thoracic aortic aneurysm, without rupture (principal)
CPT/HCPCS: 93306; Q9957; A4216; C8929

== ENCOUNTER → 2023-03-24 | Outpatient (CLI) | payer MEDICAID, SELFPAY ==
--- NOTE | 2023-03-24 14:20 | CT_ITS ---
EXAM: CT CHEST, LUNG CANCER SCREENING WITHOUT INTRAVENOUS CONTRAST CLINICAL INDICATION: smoker and gt; 20 pack years quit 2014 TECHNIQUE: Helically acquired images were obtained of the chest without intravenous contrast using low dose (LDCT) lung cancer screening protocol. This CT exam was performed using one or more of the following dose reduction techniques: automated exposure control, adjustment of the mA and/or kV according to patient size, and/or use of iterative reconstruction technique. COMPARISON: 04/30/2021 FINDINGS: LUNGS AND PLEURAL SPACES: There is scarring in the lung bases. There are minimal emphysematous changes in the lung apices. No mass. No pleural effusion or thickening. No pneumothorax. HEART: There are minimal coronary artery calcifications. Heart size is normal. No pericardial effusion. MEDIASTINUM: Unremarkable. No mediastinal or hilar adenopathy. Esophagus is unremarkable. No hiatal hernia. THYROID: Unremarkable. No thyroid lesions. BONES/JOINTS: Unremarkable. No suspicious lytic or blastic abnormality. VASCULATURE: See above. LYMPH NODES: Unremarkable. No enlarged lymph nodes. CT/Low Dose CT Lung Screening IMPRESSION: No acute pulmonary abnormality. There are minimal emphysematous changes in lung apices with scarring bases. There has been no change from the reference exam. Lung-RADS score: 1 - Recommend continued annual screening with a low-dose CT (LDCT) in 12 months. Electronically Signed: John Holder MD at 23:[address] [facility] ,
== END | disposition home or self-care (01) ==
LOC: CT 14:13
PROVIDERS: PCP Physician Assistant; Visit Provider Nurse Practitioner Acute Care
DX: F17.210 Nicotine dependence, cigarettes, uncomplicated (principal)
CPT/HCPCS: 71271

== ENCOUNTER → 2024-03-30 | Outpatient (CLI) | payer MEDICAID, SELFPAY ==
--- NOTE | 2024-03-30 07:07 | CT_ITS ---
STUDY: LOW DOSE CT LUNG CANCER SCREENING REASON FOR EXAM: Male, 63 years old. Smoker, quit 2014. Patient smoked 1 pack per day for 30 years. RADIATION DOSAGE (If Supplied By Facility): CTDIvol = ( 4.02 ) mGy, DLP = ( 144.96 ) mGycm TECHNIQUE: No contrast was administered. Low dose technique was utilized (average mAS-38 and kVp 120). 1.25 mm axial source images with a slice interval of 1.25-mm were reconstructed in lung windows. 2.5 mm axial source images with a slice interval of 2.5-mm were reconstructed in lung windows. 5.0 mm axial source images with a slice interval of 5.0-mm were reconstructed in soft tissue windows. COMPARISON: Comparison is made with prior study of March 24, 2023. NODULES: No suspicious nodules are seen. Emphysema: Stable emphysematous changes. Stable pleural thickening along the right hemithorax. Stable linear densities at the lung bases suggestive of scarring. Endobronchial lesion: None Aorta: Atherosclerotic plaque formation of the aortic arch. CORONARY ARTERIES: Coronary artery calcification is seen. Heart: Unremarkable Pulmonary artery: Unremarkable Mediastinal nodes: Small mediastinal lymph nodes. Other chest and abdominal findings: CT/Low Dose CT Lung Screening IMPRESSION: Lung-RADS category 2 - Continue annual screening with LDCT in 12 months. IMPORTANT NOTES FOR USE: ACR Lung-RADS Version 1.1 Assessment Categories Release Date: 2018 Category: Coded 0-4 bases on nodule(s) with highest degree of suspicion. Negative screen is defined as categories 1 and 2; a positive screen is defined as categories 3 and 4. Category 3 and 4A nodules that are unchanged on interval CT should be coded as category 2, and individuals returned to screening in 12 months. Category 4X: Category 3 or 4 nodules with additional imaging findings that increase the suspicion of lung cancer, such as spiculation, GGN that doubles in size in 1 year, enlarged lymph notes, etc. Category Modifiers: S (significant finding unrelated to lung cancer) Electronically Signed: Ilir Forman MD at 10:45 EST ,
== END | disposition home or self-care (01) ==
LOC: CT 07:07
PROVIDERS: PCP Registered Nurse; Referring Provider Nurse Practitioner Acute Care; Visit Provider Nurse Practitioner Acute Care
DX: F17.210 Nicotine dependence, cigarettes, uncomplicated (principal)
CPT/HCPCS: 71271

== ENCOUNTER → 2024-06-28 | Outpatient (CLI) | payer MEDICAID, SELFPAY | END | disposition home or self-care (01) | PROVIDERS: PCP Registered Nurse; Referring Provider Nurse Practitioner Family; Visit Provider Nurse Practitioner Family | DX: R05.9 Cough, unspecified (principal) | CPT/HCPCS: 87070; 87205; 87631 ==

== ENCOUNTER → 2024-08-01 | Outpatient (CLI) | payer MEDICAID, SELFPAY ==
--- NOTE | 2024-08-01 10:01 | CPS ---
Pt attempted to do DLCO x 2. After second attempt but did not wish to try again. Pt was unable to perform proper technique either time. No data was obtainable.
== END | disposition home or self-care (01) ==
LOC: PSN 09:19
PROVIDERS: PCP Registered Nurse; Referring Provider Nurse Practitioner Family; Visit Provider Nurse Practitioner Family
DX: J45.50 Severe persistent asthma, uncomplicated (principal)
CPT/HCPCS: 94060; 94726; 94729

== ENCOUNTER → 2024-08-02 | Outpatient (CLI) | payer MEDICAID, SELFPAY ==
[2024-08-02 10:56] VITALS: PULSE 100; PULSE 103; PULSE 80; PULSE 94; PULSE 95; PULSE 98; O2SAT 85; O2SAT 87; O2SAT 89; O2SAT 90; O2SAT 91; O2SAT 92; O2SAT 96
--- NOTE | 2024-08-02 11:03 | CPS ---
pt was placed on room air. sats 90% walked for 1 min. Sats dropped to 85% placed on 2L nc . At min 3 was 87% so increased to 3L for the remainder of the walk.
--- NOTE | 2024-08-10 11:15 | PCM.PSN.6M ---
PSN 6 Minute Walk Test 6 Minute Walk Test 6 Minute Walk Test: 6 Minute Walk Test PSN:6-Minute Walk Test Start: 08/02/24 10:56 Freq: Status: Discharge Protocol: [id number] Document 08/02/24 10:56 EW (Rec: 08/02/24 11:09 EW [id number]) 6 Minute Walk Test Date Performed 08/02/24 Time Performed 10:30 Height 5 ft 6 in Weight: 320 lb Weight in Pounds 320.0 lbs Assistive device None used: Pre-test Oxygen Delivery Room Air Method Pulse Ox (%) 90 Pulse Rate (60-100 80 beats/min) Dyspnea Andrei Scale ( 1 0-10) Exertion Andrei Scale 6 (6-20) 1st minute Oxygen Delivery Room Air Method Pulse Ox (%) 85 Pulse Rate (60-100 100 beats/min) 2nd minute Oxygen Flow Rate (L/ 2 min) (L/min) Oxygen Delivery Nasal Cannula Method Pulse Ox (%) 92 Pulse Rate (60-100 95 beats/min) 3rd minute Oxygen Flow Rate (L/ 2 min) (L/min) Oxygen Delivery Nasal Cannula Method Pulse Ox (%) 87 Pulse Rate (60-100 98 beats/min) 4th minute Oxygen Flow Rate (L/ 3 min) (L/min) Oxygen Delivery Nasal Cannula Method Pulse Ox (%) 91 Pulse Rate (60-100 100 beats/min) 5th minute Oxygen Flow Rate (L/ 3 min) (L/min) Oxygen Delivery Nasal Cannula Method Pulse Ox (%) 90 Pulse Rate (60-100 103 H beats/min) 6th minute Oxygen Flow Rate (L/ 3 min) (L/min) Oxygen Delivery Nasal Cannula Method Pulse Ox (%) 89 Pulse Rate (60-100 100 beats/min) Post-test Oxygen Flow Rate (L/ 3 min) (L/min) Oxygen Delivery Nasal Cannula Method Pulse Ox (%) 96 Pulse Rate (60-100 94 beats/min) Dyspnea Andrei Scale ( 4 0-10) Exertion Andrei Scale 14 (6-20) Full Laps Walked 19 Partial Lap, Number 40 of Tiles Walked Total Distance 1161 Walked (ft) 08/02/24 11:03 Cardiopulmonary Services by Tayler Basilio pt was placed on room air. sats 90% walked for 1 min. Sats dropped to 85% placed on 2L nc . At min 3 was 87% so increased to 3L for the remainder of the walk. Initialized on 08/02/24 11:03 - END OF NOTE Interpretation Interpretation: The patient ambulated 1161 feet over the course of 6 minutes beginning on room air without assistive devices. Pretesting oxygen saturation was noted to be 90% on room air. With ambulation, the patient desaturated on several occasions, requiring the initiation of supplemental oxygen at 3 L/min to maintain appropriate saturations. Recommendations Recommendations: 3 L/min of supplemental oxygen should utilized with exertion.
== END | disposition home or self-care (01) ==
LOC: PSN 10:17
PROVIDERS: PCP Registered Nurse; Referring Provider Nurse Practitioner Family; Visit Provider Nurse Practitioner Family
DX: J45.50 Severe persistent asthma, uncomplicated (principal)
CPT/HCPCS: 94618

== ENCOUNTER → 2024-09-01 | Outpatient (CLI) | payer MEDICAID, SELFPAY ==
[2024-09-01 08:39] LABS: Basophil# 0.07 X10^3/uL; Basophil% 0.6 % (0-1); Eosinophil# 0.38 X10^3/uL; Eosinophils% 3.2 % (0-5); Hematocrit 39.4 % (40-54); Hemoglobin 12.7 g/dL (13.0-16.5); Lymphocyte % 19.4 % (19-41); Mean Corp Hgb Conc 32.2 g/dL (32-36); Mean Corpuscular Hgb 29.2 pg (27.0-32.0); Mean Corpuscular Volume 90.6 fL (80-94); Mean Platelet Vol. 9.1 fl (6.2-12.0); Monocyte% 8.4 % (0-10); NRBC Flagged by Analyzer 0 % (0-5); Neutrophil # 8.01 X10^3/uL (2.7-7.7); Neutrophil % 67.6 % (47-70); Platelet Count 310 K/mm3 (150-450); RBC Distribution Width CV 14.2 % (11.6-14.6); RBC Distribution Width SD 47.3 fl (35.1-43.9); Red Blood Count 4.35 M/mm3 (4.6-6.2); White Blood Count 11.9 K/mm3 (4.4-11.0)
[2024-09-01 09:18] LABS: Pro- Brain NATRIURETIC PEPTIDE 180 pg/mL (<=900)
== END | disposition home or self-care (01) ==
LOC: PAVLAB 08:25
PROVIDERS: PCP Registered Nurse; Referring Provider Nurse Practitioner Family; Visit Provider Nurse Practitioner Family
DX: R06.09 Other forms of dyspnea (principal)
CPT/HCPCS: 36415; 83880; 85025

== ENCOUNTER → 2024-09-07 | Outpatient (CLI) | payer MEDICAID, SELFPAY ==
--- NOTE | 2024-09-07 07:20 | CPS ---
In OP setting, this RT Explained Pep Therapy Device to patient, had him demonstrate. Explained how to use with his nebulized aerosol and how to clean and store device. Pt did not have any questions. Gave him a bag to take PEP home in.
== END | disposition home or self-care (01) ==
LOC: PSN 07:14
PROVIDERS: PCP Registered Nurse; Referring Provider Nurse Practitioner Family; Visit Provider Nurse Practitioner Family
DX: Z46.89 Encounter for fitting and adjustment of other specified devices (principal)

== ENCOUNTER → 2024-09-16 | Outpatient (CLI) | payer MEDICAID, SELFPAY ==
--- NOTE | 2024-09-16 06:44 | CT_ITS ---
PROCEDURE: CTA CHEST W/ CONTRAST, 09/16/2024 REASON FOR EXAM: DILATED AORTIC ROOT HISTORY TECHNIQUE: CTA chest was performed with IV contrast. Multiplanar reformats and on the fly post-processed MIP reconstructions were generated. IV contrast: Isovue 370 VOLUME: 100mL RADIATION DOSE SUMMARY: CTDlvol: 14.25+ 20.72 mGy DLP: 799.24 mGycm One or more dose reduction techniques were used (e.g., Automated exposure control, adjustment of the mA and/or kV according to patient size, use of iterative reconstruction technique). COMPARISON: 03/30/2024 FINDINGS: Heart/pericardium: Trace to mild aortic and mitral annular calcification.. Aorta: Similar fusiform ectasia of the ascending aorta to 4.4 x 4.3 cm. Mild atherosclerosis.. Pulmonary arteries: Enlarged, which may indicate pulmonary arterial hypertension.. Lymph nodes: No overt lymphadenopathy. Mediastinal lipomatosis.. Lungs/pleura: Elevated RIGHT hemidiaphragm. Similar bibasilar atelectasis/scarring. Similar 4 mm LEFT apical nodule since 04/30/2021 (series 2, image 28). Similar prominent epicardial fat pads and RIGHT extrapleural fat. Similar subpleural cystic changes along the paramediastinal lingula. Airways: Unremarkable. Chest wall: Similar gynecomastia.. Upper abdomen: Possible hepatic steatosis although the appearance may be related to the phase of contrast. Musculoskeletal: Multilevel spondylosis. Trace thoracolumbar levoscoliosis may be positional.. CT/CTA Chest W/WO Contrast IMPRESSION: 1. Similar fusiform ectasia of the ascending aorta to 4.4 cm. 2. Possible hepatic steatosis although the appearance may be technical. Correl ate for clinical and laboratory evidence of chronic liver disease. 3. Additional description as above. Reading Location: [id number]
[2024-09-16 07:12] LABS: CREATININE FINGERSTICK < 1.0 mg/dL (0.70-1.30); EGFR FINGERSTICK > 60.0000 mL/min (>60)
== END | disposition home or self-care (01) ==
LOC: CT 06:44
PROVIDERS: PCP Registered Nurse; Referring Provider Nurse Practitioner Family; Visit Provider Nurse Practitioner Family
DX: I71.20 Thoracic aortic aneurysm, without rupture, unspecified (principal)
CPT/HCPCS: 71275; Q9967

== ENCOUNTER 2024-10-19 08:16 | Outpatient (CLI) | payer MEDICAID, SELFPAY ==
[2024-10-19 08:26] VITALS: BP 145/66; PULSE 87; RESP 18; TEMP 35.9; O2SAT 94; BMI 56.5
[2024-10-19] MEDS: tezepelumab-ekko 210 MG/1.91 ML SYRINGE SC (08:41)
== END 2024-10-19 23:59 | disposition home or self-care (01) ==
LOC: MEDOUTP 08:17
PROVIDERS: PCP Registered Nurse; Referring Provider Nurse Practitioner Family; Visit Provider Nurse Practitioner Family
DX: J45.50 Severe persistent asthma, uncomplicated (principal)
CPT/HCPCS: 96372; J2356

== ENCOUNTER 2024-11-16 08:19 | Outpatient (CLI) | payer MEDICAID, SELFPAY ==
[2024-11-16 08:41] VITALS: BP 138/70; PULSE 78; RESP 18; TEMP 36.2; O2SAT 95; BMI 54.8
== END 2024-11-16 23:59 | disposition home or self-care (01) ==
LOC: MEDOUTP 08:20
PROVIDERS: PCP Registered Nurse; Referring Provider Nurse Practitioner Family; Visit Provider Nurse Practitioner Family
DX: J45.50 Severe persistent asthma, uncomplicated (principal)
CPT/HCPCS: 96372; J2356

== ENCOUNTER 2024-12-16 10:51 | Outpatient (CLI) | payer MEDICAID, SELFPAY ==
[2024-12-16 10:58] VITALS: BP 142/66; PULSE 85; RESP 16; TEMP 35.7; O2SAT 96; BMI 54.8
== END 2024-12-16 23:59 | disposition home or self-care (01) ==
LOC: MEDOUTP 10:51
PROVIDERS: PCP Registered Nurse; Referring Provider Nurse Practitioner Family; Visit Provider Nurse Practitioner Family
DX: J45.50 Severe persistent asthma, uncomplicated (principal)
CPT/HCPCS: 96372; J2356

== ENCOUNTER 2025-01-13 10:54 | Outpatient (CLI) | payer MEDICAID, SELFPAY ==
[2025-01-13 11:02] VITALS: BP 145/78; PULSE 89; RESP 18; TEMP 35.9; O2SAT 92; BMI 51.6
== END 2025-01-13 23:59 | disposition home or self-care (01) ==
LOC: MEDOUTP 10:54
PROVIDERS: PCP Registered Nurse; Referring Provider Nurse Practitioner Family; Visit Provider Nurse Practitioner Family
DX: J45.50 Severe persistent asthma, uncomplicated (principal)
CPT/HCPCS: 96372; J2356

== ENCOUNTER 2025-02-10 10:50 | Outpatient (CLI) | payer MEDICAID, SELFPAY ==
[2025-02-10 10:57] VITALS: BP 146/72; PULSE 83; RESP 18; TEMP 35.8; O2SAT 93; BMI 51.6
--- OUTSIDE RECORDS SUMMARY | 2025-02-10 11:17 | XMS RPT_ITS | CCD ---
Author Organization [facility] Care Team Providers Care First Coat Operator Name Role Phone Jeffrey Jones PA-C Primary Care Provider [phone] FLAVIO Da Silva Primary Care Provider FLAVIO Da Silva Referring Provider [phone] Nick NIXON BOAT CARPENTER MECHANIC-C Gina Attending Provider [phone] Dr. Darek Vences Attending Provider [phone] Jeffrey Jones PA-C Primary Care Provider [phone] Jeffrey Jones PA-C Primary Care Provider [phone] Haagen RECIPROCATING DRILL OPERATOR.Raquel HASTINGS Primary Care Provider Haagen RECIPROCATING DRILL OPERATOR.Raquel HASTINGS Primary Care Provider Haagen BOAT CARPENTER MECHANIC-C, Raquel Primary Care Provider Haagen BOAT CARPENTER MECHANIC-C, Raquel Referring Provider Nick NIXON-CGina Attending Provider Jeffrey Da Silva Referring Provider Tommy BOAT CARPENTER MECHANIC-CGaby Attending Provider Tommy NIXON-CGaby Referring Provider Suppan RECIPROCATING DRILL OPERATOR.Mary HASTINGS Unavailable Farhan Starr MD Unavailable Haagen BOAT CARPENTER MECHANIC-CRaquel Primary Care Provider Haagen BOAT CARPENTER MECHANIC-C, Raquel Referring Provider Tommy NIXON-CGaby Attending Provider Nick NIXON-C, Gina Attending Provider Rufener BOAT CARPENTER MECHANIC-C, Gaby Murphy Other Provider Dr. Enrrique Rincon DO Attending Provider Roof BOAT CARPENTER MECHANIC-C, Blanquita Jacome Attending Provider Roof BOAT CARPENTER MECHANIC-C, Blanquita Jacome Referring Provider Heart BOAT CARPENTER MECHANIC-C, Amber Attending Provider Haagen BOAT CARPENTER MECHANIC-C, Raquel Primary Care Provider Haagen BOAT CARPENTER MECHANIC-C, Raquel Referring Provider Rufener BOAT CARPENTER MECHANIC-C, Gaby Murphy Attending Provider Haagen BOAT CARPENTER MECHANIC-C, Raquel Primary Care Provider Haagen BOAT CARPENTER MECHANIC-C, Raquel Referring Provider Rufener BOAT CARPENTER MECHANIC-C, Gaby Murphy Attending Provider Haagen BOAT CARPENTER MECHANIC-C, Raquel Primary Care Provider Rufener BOAT CARPENTER MECHANIC-C, Gaby Murphy Attending Provider Rufener BOAT CARPENTER MECHANIC-C, Gaby Murphy Referring Provider Dr. Enrrique Rincon DO Attending Provider Haagen BOAT CARPENTER MECHANIC-C, Raquel Referring Provider Romero BOAT CARPENTER MECHANIC-C, Gina Attending Provider Haagen BOAT CARPENTER MECHANIC-C, Raquel Primary Care Provider Haagen BOAT CARPENTER MECHANIC-C, Raquel Referring Provider Romero BOAT CARPENTER MECHANIC-C, Gina Attending Provider Rufener BOAT CARPENTER MECHANIC-C, Gaby Murphy Attending Provider Tommy BOAT CARPENTER MECHANIC-C, Gaby Murphy Referring Provider Dr. Enrrique Rincon DO Attending Provider Haagen BOAT CARPENTER MECHANIC-C, Raquel Primary Care Provider Haagen BOAT CARPENTER MECHANIC-C, Raquel Referring Provider Rufener BOAT CARPENTER MECHANIC-C, Gaby M Attending Provider Nick BOAT CARPENTER MECHANIC-C, Gina Attending Provider Tommy BOAT CARPENTER MECHANIC-CGaby Referring Provider HAAGEN, RAQUEL Referring Unavailable HAAGEN, RAQUEL Primary Care Unavailable HAAGEN, RAQUEL Referring Unavailable HAAGEN, RAQUEL Primary Care Unavailable HAAGEN, RAQUEL Referring Unavailable HAAGEN, RAQUEL Primary Care Unavailable HAAGEN, RAQUEL Primary Care Unavailable HAAGEN, RAQUEL Referring Unavailable HAAGEN, RAQUEL Primary Care Unavailable HAAGEN, RAQUEL Attending Unavailable KAUSHALAGEN, RAQUEL Attending Unavailable HAAGEN, RAQUEL Primary Care Unavailable SCOUT PERRY Attending Unavailable HAAGEN, RAQUEL Primary Care Unavailable HAAGEN, RAQUEL Primary Care Unavailable CHERYL MEHTA Referring Unavailable HAAGEN, RAQUEL Primary Care Unavailable CHERYL MEHTA Attending Unavailable HAAGEN, RAQUEL Referring Unavailable HAAGEN, RAQUEL Primary Care Unavailable HAAGEN, RAQUEL Referring Unavailable HAAGEN, RAQUEL Primary Care Unavailable HAAGEN, RAQUEL Attending Unavailable HAAGEN, RAQUEL Primary Care Unavailable Gaby Sanders Attending Unavailable Haagen BOAT CARPENTER MECHANIC, Raquel Referring Unavailable Haagen BOAT CARPENTER MECHANIC, Raquel Primary Care Unavailable Haagen BOAT CARPENTER MECHANIC, Raquel Referring Unavailable Amber Heart Attending Unavailable Haagen BOAT CARPENTER MECHANIC, [facility] Primary Care Unavailable Gaby Sanders Attending Unavailable Haagen BOAT CARPENTER MECHANIC, Raquel Referring Unavailable Haagen BOAT CARPENTER MECHANIC, Raquel Primary Care Unavailable Gaby Sanders Consulting Unavailable Haagen BOAT CARPENTER MECHANIC, [facility] Primary Care Unavailable Enrrique Rincon Attending Unavailable Gaby Sanders Referring Unavailable Romero BOAT CARPENTER MECHANIC, Gina Attending Unavailable Haagen BOAT CARPENTER MECHANIC, Raquel Primary Care Unavailable Jeffrey Da Silva Referring Unavailable Haagen BOAT CARPENTER MECHANIC, Raquel Referring Unavailable Haagen BOAT CARPENTER MECHANIC, Raquel Primary Care Unavailable Nick NIXON, Gina Attending Unavailable Gaby Sanders Referring Unavailable Gaby Sanders Attending Unavailable Haagen BOAT CARPENTER MECHANIC, Raquel Primary Care Unavailable Gaby Sanders Referring Unavailable Haagen BOAT CARPENTER MECHANIC, Raquel Primary Care Unavailable Gaby Sanders Attending Unavailable Gaby Sanders Attending Unavailable Gaby Sanders Referring Unavailable Haagen BOAT CARPENTER MECHANIC, Raquel Primary Care Unavailable Haagen BOAT CARPENTER MECHANIC, Raquel Referring Unavailable Romero BOAT CARPENTER MECHANIC, Gina Attending Unavailable Haagen BOAT CARPENTER MECHANIC, [facility] Primary Care Unavailable Haagen BOAT CARPENTER MECHANIC, Raquel Referring Unavailable Nick BOAT CARPENTER MECHANIC, Gina Attending Unavailable Haagen BOAT CARPENTER MECHANIC, [facility] Primary Care Unavailable Nick BOAT CARPENTER MECHANIC, Gina Attending Unavailable Jeffrey Da Silva Referring Unavailable Jeffrey Da Silva [place] Primary Care Unavailable Jeffrey Da Silva [place] Primary Care Unavailable Jeffrey Da Silva Referring Unavailable Enrrique Rincon Attending Unavailable Nick BOAT CARPENTER MECHANIC, Gina Attending Unavailable Jeffrey Da Silva [place] Primary Care Unavailable Jeffrey Da Silva Referring Unavailable Gaby Sanders Attending Unavailable Haagen BOAT CARPENTER MECHANIC, Raquel Referring Unavailable Haagen BOAT CARPENTER MECHANIC, [facility] Primary Care Unavailable Gaby Sanders Attending Unavailable Haagen BOAT CARPENTER MECHANIC, Raquel Referring Unavailable Haagen BOAT CARPENTER MECHANIC, [facility] Primary Care Unavailable Gaby Sanders Attending Unavailable Gaby Sanders Referring Unavailable Haagen BOAT CARPENTER MECHANIC, [facility] Care Unavailable Gaby Sanders Referring Unavailable Haagen BOAT CARPENTER MECHANIC, [facility] Primary Care Unavailable Gaby Sanders Attending Unavailable Gaby Sanders Attending Unavailable Haagen BOAT CARPENTER MECHANIC, Raquel Referring Unavailable Haagen BOAT CARPENTER MECHANIC, [facility] Primary Care Unavailable Haagen BOAT CARPENTER MECHANIC, [facility] Primary Care Unavailable Nick BOAT CARPENTER MECHANIC, Gina Attending Unavailable Jeffrey Da Silva Referring Unavailable Haagen BOAT CARPENTER MECHANIC, Raquel Referring Unavailable Haagen BOAT CARPENTER MECHANIC, [facility] Primary Care Unavailable Nick BOAT CARPENTER MECHANIC, Gina Attending Unavailable Haagen BOAT CARPENTER MECHANIC, Raquel Referring Unavailable Nick BOAT CARPENTER MECHANIC, Gina Attending Unavailable Haagen BOAT CARPENTER MECHANIC, [facility] Primary Care Unavailable Gaby Sanders Attending Unavailable Haagen BOAT CARPENTER MECHANIC, [facility] Primary Care Unavailable Gaby Sanders Referring Unavailable Gaby Sanders Attending Unavailable Gaby Sanders Referring Unavailable Haagen BOAT CARPENTER MECHANIC, [facility] Primary Care Unavailable Gaby Sanders Referring Unavailable Enrrique Rincon Attending Unavailable Haagen BOAT CARPENTER MECHANIC, [facility] Primary Care Unavailable Gaby Sanders Attending Unavailable Haagen BOAT CARPENTER MECHANIC, [facility] Referring Unavailable Haagen BOAT CARPENTER MECHANIC, [facility] Primary Care Unavailable Gaby Sanders Attending Unavailable Haagen BOAT CARPENTER MECHANIC, [facility] Referring Unavailable Haagen BOAT CARPENTER MECHANIC, [facility] Primary Care Unavailable Gaby Sanders Attending Unavailable Haagen BOAT CARPENTER MECHANIC, Raquel Referring Unavailable Haagen BOAT CARPENTER MECHANIC, [facility] Primary Care Unavailable Haagen BOAT CARPENTER MECHANIC, Raquel Referring Unavailable Enrrique Rincon Attending Unavailable Haagen BOAT CARPENTER MECHANIC, [facility] Primary Care Unavailable Haagen BOAT CARPENTER MECHANIC, Raquel Referring Unavailable Haagen BOAT CARPENTER MECHANIC, [facility] Primary Care Unavailable Nick BOAT CARPENTER MECHANIC, Gnia Attending Unavailable Haagen BOAT CARPENTER MECHANIC, Raquel Referring Unavailable Haagen BOAT CARPENTER MECHANIC, [facility] Primary Care Unavailable Nick BOAT CARPENTER MECHANIC, Gina Attending Unavailable Gaby Sanders Attending Unavailable Jerman BOAT CARPENTER MECHANIC, [facility] Care Unavailable Gaby Sanders Referring Unavailable Haagen BOAT CARPENTER MECHANIC, [facility] Care Unavailable Roof, Blanquita H Attending Unavailable Roof, Blanquita H Referring Unavailable Romero BOAT CARPENTER MECHANIC, Gina Attending Unavailable Romero BOAT CARPENTER MECHANIC, Gina Referring Unavailable Haagen BOAT CARPENTER MECHANIC, [facility] Care Unavailable Gaby Sanders Attending Unavailable Gaby Sanders Referring Unavailable Haagen BOAT CARPENTER MECHANIC, [facility] Care Unavailable Gaby Sanders Attending Unavailable Gaby Sanders Referring Unavailable Haagen BOAT CARPENTER MECHANIC, [facility] Care Unavailable Haagen BOAT CARPENTER MECHANIC, Raquel Referring Unavailable Romero BOAT CARPENTER MECHANIC, Gina Attending Unavailable Haagen BOAT CARPENTER MECHANIC, [facility] Care Unavailable Allergies Allergy Classification Reported Allergen(s) Allergy Type Date of Onset Reaction(s) Facility (20 sources) Ragweed pollen; Translations: [RAGWEED POLLEN] Drug Allergy 0 Other: See Comments [facility] Work Phone: (20 sources) Cat Dander; Translations: [CAT DANDER] Drug Allergy 0 Other: See Comments [facility] Work Phone: Comment on above: allergy testing (11 sources) [place] pollen; Translations: [weed pollen] Allergy to substance 5 Other [facility] Comment on above: allergy testing Medications Current Medications Medication Drug Class(es) Dates Sig (Normalized) Sig (Original) Air Purifier (11 sources) Start: 04-28-2022 Air Purifier A ctive 0 .Route .MEDSUPPLY 1 0 April 28, 2022 1:00am As directed Start: 04-28-2022 Air Purifier A ctive 0 .Route .MEDSUPPLY April 28, 2022 1:00am As directed Start: 04-28-2022 Air Purifier A ctive 0 .Route .MEDSUPPLY April 28, 2022 12:00am As directed aspirin 81 mg delayed release oral tablet (20 sources) Platelet Aggregation Inhibitor, Nonsteroidal Anti-inflammatory Drug Start: 11-01-2018 take 1 tablet by mouth once daily Aspirin (Aspir-81) 81 mg tablet,delayed release (DR/EC) Active 81 mg PO DAILY November 01, 2018 12:00am aspirin (ASPIR-8 1 ORAL) Take by mouth. Active aspirin (ASPIR-8 1 ORAL) Take by mouth. 0 Active Comment on above: Take by mouth. Blood Glucose Control, Normal soln (2 sources) Start: 04-07-2023 End: 04-08-2023 Blood Glucose Control, Normal soln Indications: Uncontrolled type 2 diabetes mellitus with hyperglycemia (HCC) Check monitor as instructed with ppackaging 1 Each 0 04/07/2023 04/08/2023 Active Comment on above: Check monitor as ins tructed with ppackaging Blood-Glucose Meter (2 sources) Start: 04-07-2023 End: 04-08-2023 Blood-Glucose Meter Indications: Uncontrolled type 2 diabetes mellitus with hyperglycemia (HCC) Test Two times a day. Insulin Dep? Yes E11.9 DM 2 1 Each 0 04/07/2023 04/08/2023 Active Comment on above: Test Two times a day . Insulin Dep? Yes E11.9 DM 2 cetirizine hydrochloride 10 mg oral tablet (20 sources) Histamine-1 Receptor Antagonist Start: 11-01-2018 cetirizine (ZYRTEC) 10 mg tablet 11/01/2018 Active Start: 11-01-2018 End: 11-24-2024 take 1 capsule by mouth at bedtime Cetirizine 10 mg capsule Discontinued 10 mg PO BEDTIME 90 3 November 27, 2023 9:09am November 24, 2024 9:10am clobetasol propionate 0.0005 mg/mg topical ointment (1 source) Corticosteroid Start: 01-25-2025 clobetasol (TEMOVATE) 0.05 % ointment Indications: Psoriasis Apply 1 application to affected area two times a day. 60 g 1 01/25/2025 Active fluticasone propionate 0.05 mg/actuat metered dose nasal spray (20 sources) Corticosteroid Start: 06-21-2023 take 2 spray(s) by mouth once daily fluticasone (FLONASE) 50 mcg/actuation nasal spray Indications: Bacterial sinusitis Use 2 Sprays in each nostril once daily. Rinse mouth after use. 1 Each 06/21/2023 Active Start: 07-12-2021 End: 11-24-2024 Fluticasone Propionate 50 mc g/actuation spray,suspension Discontinued 2 NMA INTRANASAL DAILY 16 July 25, 2024 3:31pm November 24, 2024 9:10am Start: 07-12-2021 End: 02-17-2023 Fluticasone Propionate Activ e 2 SPRAY INTRANASAL DAILY February 17, 2023 9:40am Comment on above: Use 2 Sprays in each nostril once daily. Rinse mouth after use. Fluticasone-Umeclidin -Vilanter (20 sources) Start: 10-25-2024 Ddzsowsgiej-Kydzxfeve-Bmbay ter (Trelegy Ellipta) 200-62.5-25 mcg blister with device Active 1 NMA INHALATION DAILY 60 October 25, 2024 11:34am Severe persistent asthma Severe persistent asthma, uncomplicated Start: 05-16-2024 End: 10-25-2024 Rlvjmbakakb-Zcdtrsvej-Fchoum er (Trelegy Ellipta) 200-62.5-25 mcg blister with device Discontinued 1 NMA INHALATION DAILY 60 May 16, 2024 9:41am October 25, 2024 11:34am Severe persistent asthma Severe persistent asthma, uncomplicated Start: 05-16-2024 Fluticasone-Um eclidin-Vilanter (Trelegy Ellipta) 200-62.5-25 mcg blister with device Active 1 NMA INHALATION DAILY 60 May 16, 2024 9:41am Start: 10-28-2023 End: 05-16-2024 Vgybvegdxmf-Ezbbinltx-Xcaazy er (Trelegy Ellipta) 200-62.5-25 mcg blister with device Discontinued 1 NMA INHALATION DAILY 60 October 28, 2023 11:15am May 16, 2024 9:41am Severe persistent asthma Severe persistent asthma, uncomplicated Start: 10-28-2023 End: 05-16-2024 Uvleevvidpx-Lsgcbpxpw-Svfsrr er (Trelegy Ellipta) 200-62.5-25 mcg blister with device Discontinued 1 NMA INHALATION DAILY 60 October 28, 2023 11:15am May 16, 2024 9:41am Start: 03-31-2023 End: 10-28-2023 Lodzpvfbgia-Yhuddsgro-Pmoudq er (Trelegy Ellipta) 200-62.5-25 mcg blister with device Discontinued 1 NMA INHALATION DAILY 60 March 31, 2023 12:43pm October 28, 2023 11:15am Severe persistent asthma Severe persistent asthma, uncomplicated Start: 03-31-2023 End: 10-28-2023 Gxytojgeixd-Zhgdsvhfh-Ibnicg er (Trelegy Ellipta) 200-62.5-25 mcg blister with device Discontinued 1 NMA INHALATION DAILY 60 March 31, 2023 12:43pm October 28, 2023 11:15am Start: 09-02-2022 End: 03-31-2023 Dbxbpcatwxa-Nlhhyeeok-Tiwzdk er (Trelegy Ellipta) 200-62.5-25 mcg blister with device Discontinued 1 NMA INHALATION DAILY 60 September 02, 2022 4:34pm March 31, 2023 12:43pm Severe persistent asthma Severe persistent asthma, uncomplicated Start: 09-02-2022 End: 03-31-2023 Waufnmncpub-Mnkiluwmz-Muvsid er (Trelegy Ellipta) 200-62.5-25 mcg blister with device Discontinued 1 NMA INHALATION DAILY 60 September 02, 2022 4:34pm March 31, 2023 12:43pm Start: 09-02-2022 Fluticasone-Um eclidin-Vilanter (Trelegy Ellipta) 200-62.5-25 mcg blister with device Active 1 INH INHALATION DAILY 60 September 02, 2022 3:34pm Start: 02-07-2022 End: 09-02-2022 Donjivobtbq-Zuwlxexor-Otciaa er (Trelegy Ellipta) 200-62.5-25 mcg blister with device Discontinued 1 NMA INHALATION DAILY 60 February 07, 2022 1:29pm September 02, 2022 4:34pm Severe persistent asthma Severe persistent asthma, uncomplicated Start: 02-07-2022 End: 09-02-2022 Mizhjgbfsli-Kasdbxfbu-Whebhr er (Trelegy Ellipta) 200-62.5-25 mcg blister with device Discontinued 1 NMA INHALATION DAILY 60 February 07, 2022 1:29pm September 02, 2022 4:34pm Start: 02-07-2022 End: 09-02-2022 Jfipumvpnec-Actottsji-Zhqrny er (Trelegy Ellipta) 200-62.5-25 mcg blister with device Discontinued 1 INH INHALATION DAILY 60 February 07, 2022 12:29pm September 02, 2022 3:34pm Start: 07-05-2021 End: 02-07-2022 Lllimugiqpc-Umptjxhuv-Xlodts er (Trelegy Ellipta) 200-62.5-25 mcg blister with device Discontinued 1 NMA INHALATION DAILY 60 July 05, 2021 2:38pm February 07, 2022 1:29pm Severe persistent asthma Severe persistent asthma, uncomplicated Start: 07-05-2021 End: 02-07-2022 Wmoieovbxyu-Sunelsqhm-Odutzn er (Trelegy Ellipta) 200-62.5-25 mcg blister with device Discontinued 1 NMA INHALATION DAILY 60 July 05, 2021 2:38pm February 07, 2022 1:29pm Start: 07-05-2021 End: 02-07-2022 Fidqpkxyqzn-Xgzbkswvl-Nthrpy er (Trelegy Ellipta) 200-62.5-25 mcg blister with device Discontinued 1 INH INHALATION DAILY 60 July 05, 2021 1:38pm February 07, 2022 12:29pm Start: 11-22-2020 End: 07-05-2021 Bhcryrpwmuk-Yrldxpmyp-Dcxvqf er (Trelegy Ellipta) 200-62.5-25 mcg blister with device Discontinued 1 NMA INHALATION DAILY 60 November 22, 2020 9:10am July 05, 2021 2:38pm Severe persistent asthma Severe persistent asthma, uncomplicated Start: 11-22-2020 End: 07-05-2021 Qdgpwhbtkhl-Ngpvhjnjl-Grprxk er (Trelegy Ellipta) 200-62.5-25 mcg blister with device Discontinued 1 NMA INHALATION DAILY 60 November 22, 2020 9:10am July 05, 2021 2:38pm Start: 11-22-2020 End: 07-05-2021 Gcaxscailcm-Ypmdvbcwy-Slbfcy er (Trelegy Ellipta) 200-62.5-25 mcg blister with device Discontinued 1 INH INHALATION DAILY 60 November 22, 2020 8:10am July 05, 2021 1:38pm Start: 09-28-2020 End: 11-22-2020 Zfaihukjhxy-Beeaayqxn-Qdkavt er (Trelegy Ellipta) 200-62.5-25 mcg blister with device Discontinued 1 NMA INHALATION DAILY September 28, 2020 12:00am November 22, 2020 9:10am Start: 09-28-2020 End: 11-22-2020 Drpufopiscp-Wheqogipm-Cognfg er (Trelegy Ellipta) 200-62.5-25 mcg blister with device Discontinued 1 INH INHALATION DAILY September 27, 2020 11:00pm November 22, 2020 8:10am xdsrrkumbcp-mgngwrvgs-kbqmhk er (TRELEGY ELLIPTA) 200-62.5-25 mcg dsdv (20 sources) fluticasone-umec lidin-vilanter (TRELEGY ELLIPTA) 200-62.5-25 mcg dsdv Inhale as instructed. Active fluticasone-umec lidin-vilanter (TRELEGY ELLIPTA) 200-62.5-25 mcg dsdv Inhale as instructed. 0 Active Comment on above: Inhale as instructed . furosemide 40 mg oral tablet (20 sources) Loop Diuretic Start: 06-27-2024 take 1 tablet by mouth once furosemide (LASIX) 40 mg tablet Take 40 mg by mouth once daily. PER [facility] (CARDIOLOGY) 06/27/2024 Active Start: 05-27-2021 End: 04-22-2024 take 1 tablet by mouth once daily Furosemide 40 mg tablet Discontinued 40 mg PO DAILY April 30, 2023 5:10pm April 22, 2024 5:31pm Start: 05-14-2021 End: 05-27-2021 take 2 tablets by mouth once daily Furosemide (Lasix) 20 mg tablet Discontinued 20 mg PO .COMPLEX 90 May 14, 2021 1:57pm May 27, 2021 2:02pm 20 mg PO; 40 mg p.o. daily x3 days Start: 12-10-2020 End: 08-31-2024 take 1 tablet by mouth once daily Furosemide (Lasix) 20 mg tablet Discontinued 20 mg PO DAILY 90 January 09, 2021 8:48am May 14, 2021 1:58pm Comment on above: Take 1 tablet by madeleine th once daily. 12 hr guaiFENesin 1200 mg extended release oral tablet (20 sources) Start: 10-28-2022 take 1 tablet by mouth every twelve hours Guaifenesin 1,200 mg tablet extended release 12hr Active 1200 mg PO Q12H 60 October 28, 2022 12:00am Start: 04-15-2019 End: 11-28-2020 take 1 tablet by mouth every twelve hours Guaifenesin 1,200 mg tablet extended release 12hr Discontinued 1200 mg PO Q12H 60 August 09, 2020 10:01am November 28, 2020 9:18am Severe persistent asthma, uncomplicated lisinopril 40 mg oral tablet (20 sources) Angiotensin Converting Enzyme Inhibitor Start: 08-31-2024 take 1 tablet by mouth once daily lisinopril (ZESTRIL) 40 mg tablet Take 1 tablet by mouth once daily. 30 tablet 1 08/31/2024 Active Start: 04-24-2022 End: 09-01-2024 take 1 tablet by mouth once daily Lisinopril 20 mg tablet Discontinued 20 mg PO DAILY 90 April 22, 2024 5:31pm September 01, 2024 2:16pm Start: 07-12-2021 End: 04-24-2022 take 2 tablets by mouth once daily Lisinopril 20 mg tablet Discontinued 40 mg PO DAILY July 12, 2021 10:32am April 24, 2022 12:07pm Start: 07-12-2021 End: 04-24-2022 take 40 mg by mouth once daily Lisinopril Discontinued 40 MG PO DAILY July 12, 2021 9:32am April 24, 2022 11:07am Start: 05-27-2021 End: 07-12-2021 take 1 tablet by mouth once daily Lisinopril 20 mg tablet Discontinued 20 mg PO DAILY 90 May 27, 2021 1:00am July 12, 2021 10:33am Start: 05-14-2021 End: 05-27-2021 take 2 tablets by mouth once daily Lisinopril 10 mg tablet Discontinued 20 mg PO DAILY 30 May 14, 2021 1:56pm May 27, 2021 2:02pm blood pressure Start: 05-14-2021 End: 05-27-2021 take 20 mg by mouth once daily Lisinopril Discontinued 20 MG PO DAILY May 14, 2021 12:56pm May 27, 2021 1:02pm blood pressure Start: 2018 End: 08-31-2024 take 1 tablet by mouth once daily Lisinopril 10 MG tablet Discontinued 10 mg PO DAILY 2018 1:00am May 14, 2021 1:58pm blood pressure Comment on above: Take 1 tablet by madeleine th once daily. 24 hr metFORMIN hydrochloride 500 mg extended release oral tablet (20 sources) Biguanide Start: 4 End: 6 take 2 tablets by mouth twice daily metFORMIN ER (GLUCOPHAGE XR) 500 mg 24 hr tablet Take 2 tablets by mouth two times a day. 360 tablet 3 12/05/2024 12/05/2025 Active Start: 04-07-2023 End: 11-25-2023 take 1 tablet by mouth twice daily at mealtime metFORMIN ER (FORTAMET) 1,000 mg 24 hr tablet Take 1 tablet by mouth two times a day with meals. 180 tablet 1 04/07/2023 11/24/2023 Discontinued Comment on above: Take 1 tablet by madeleine th two times a day with meals. montelukast 10 mg oral tablet (20 sources) Leukotriene Receptor Antagonist Start: 9 End: 5 take 1 tablet by mouth once daily at bedtime montelukast (SINGULAIR) 10 mg tablet Take 1 tablet by mouth daily at bedtime. 08/06/2023 Active Comment on above: Take 1 tablet by madeleine th daily at bedtime. OXYGEN-AIR DELIVERY SYSTEMS MISC (20 sources) OXYGEN-AIR DELIV SHALA SYSTEMS MISC 2L Active OXYGEN-AIR DELIV SHALA SYSTEMS MISC 2L 0 Active Comment on above: 2L pep device with training (8 sources) Start: 09-06-2024 pep device wit h training Active 0 .ROUTE .MEDSUPPLY 1 0 September 06, 2024 12:00am As directed Start: 09-06-2024 pep device wit h training Active 0 .ROUTE .MEDSUPPLY 1 September 065 12:00am As directed predniSONE 10 mg oral tablet (20 sources) Start: 09-27-2024 take 4 tablets by mouth once daily, then take 3 tablets by mouth once daily, then take 2 tablets by mouth once daily, then take 1 tablet by mouth once daily predniSONE (DELTASONE) 10 mg tablet TAKE 4 TABLETS BY MOUTH DAILY FOR 3 DAYS, then TAKE 3 TABLETS DAILY FOR 3 DAYS, then TAKE 2 TABLETS DAILY FOR 3 DAYS, then TAKE 1 TABLET DAILY FOR 3 DAYS 09/27/2024 Active Start: 08-02-2024 End: 08-14-2024 Prednisone 10 mg tablet Disc ontinued 10 mg PO daily 30 August 02, 2024 12:00am August 13, 2024 12:00am August 14, 2024 6:34am take 4 tabs for three days, then 3 tabs for three days, then 2 tabs for three days, then 1 tab for 3 days Start: 06-28-2024 End: 07-19-2024 take 2 tablets by mouth once daily, then take 1 tablet by mouth once daily Prednisone 20 mg tablet Discontinued 20 mg PO daily 10 June 28, 2024 1:00am July 19, 2024 9:44am Stage 3 severe COPD by GOLD classification Chronic obstructive pulmonary disease, unspecified Take 2 tablets daily for 4 days then 1 tablet daily for 2 days. Start: 05-10-2024 End: 06-28-2024 Prednisone 10 mg tablet Disc ontinued 10 mg PO daily 30 May 10, 2024 1:00am June 28, 2024 10:16am take 4 tabs for three days, then 3 tabs for three days, then 2 tabs for three days, then 1 tab for 3 days Start: 07-01-2022 End: 07-06-2022 take 2 tablets by mouth once daily predniSONE (DELTASONE) 20 mg tablet Indications: Sinobronchitis Take 2 tablets by mouth once daily for 5 days. 10 tablet 0 07/01/2022 07/06/2022 Active Start: 05-13-2022 End: 05-25-2022 predniSONE (DELTASONE) 10 mg tablet Indications: COPD with exacerbation (HCC) Take 4 tabs daily x 3 days, then 3 tabs x 3 days, 2 tabs x 3 days, then 1 tab x3 days with food. 30 tablet 0 05/13/2022 05/25/2022 Active Start: 04-10-2020 End: 04-15-2020 take 2 tablets by mouth once daily Prednisone 20 mg tablet Discontinued 40 mg PO DAILY 10 5 April 10, 2020 1:00am April 14, 2020 1:00am April 15, 2020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 8:39AM [employer] - US THYROID/PARATHYROID / PROCEDURE REASON: Dysphagia, unspecified type * * * * Physician Interpretation * * * * EXAMINATION: THYROID ULTRASOUND CLINICAL HISTORY: 64 years old Male with Dysphagia, unspecified type TECHNIQUE: Sonography and Doppler imaging of the thyroid was performed. Images were obtained and stored in a permanent archive. MQ: UST_1 COMPARISON: None. RESULT: Suboptimal visualization due to poor acoustic penetration secondary to patient's body habitus. Right Lobe: 4.0 cm x 1.4 cm x 1.9 cm; homogeneous echogenicity, expected vascular flow. Left Lobe: 4.3 cm x 1.6 cm x 1.6 cm; homogeneous echogenicity, expected vascular flow. Isthmus: 0.4 cm The most suspicious thyroid nodule(s) (up to four) as below: Nodules: None DIVISION OF RADIOLOGY Provider, Boston Whittington - 09/07/2024 * * *Final Report* * * DATE OF EXAM: Sep 05 2024 8:39AM U 1048 - US THYROID/PARATHYROID / PROCEDURE REASON: Dysphagia, unspecified type * * * * Physician Interpretation * * * * EXAMINATION: THYROID ULTRASOUND CLINICAL HISTORY: 64 years old Male with Dysphagia, unspecified type TECHNIQUE: Sonography and Doppler imaging of the thyroid was performed. Images were obtained and stored in a permanent archive. MQ: UST_1 COMPARISON: None. RESULT: Suboptimal visualization due to poor acoustic penetration secondary to patient's body habitus. Right Lobe: 4.0 cm x 1.4 cm x 1.9 cm; homogeneous echogenicity, expected vascular flow. Left Lobe: 4.3 cm x 1.6 cm x 1.6 cm; homogeneous echogenicity, expected vascular flow. Isthmus: 0.4 cm The most suspicious thyroid nodule(s) (up to four) as below: Nodules: None IMPRESSION IMPRESSION: Suboptimal visualization. No apparent sonographic abnormality in the thyroid. Field Marketing Representative: WILY Transcribe Date/Time: Sep 07 2024 6:14A Dictated by : INA VILLARREAL DO This examination was interpreted and the report reviewed and electronically signed by: INA VILLARREAL DO on Sep 07 2024 6:16AM EST [facility] US Thyroid glandOrdered By: [place] Provider on 09-07-2024 [facility] Pulmonary Visit Reporton Pulmonary Visit Report [facility] of [address] [place] [address] OFFICE VISIT Date of Service: 09/06/24 MR#: [id number] Acct: [id number] Name: ABDOUL MUNROE Rep #: [id number] : 1960 Provider: Gaby Sanders NP Age/Sex: 64/M Location: [facility].PMW Status: Signed Assessment and Plan Assessment and Plan (1) Asthma-chronic obstructive pulmonary disease overlap syndrome: Status: Chronic Comment: On Dupixent Plan: Improved from last treatment for asthma COPD exacerbation. He still has suboptimal control of symptoms but I am not convinced that this is due to suboptimal control of asthma as his NIOX is within normal limits and he does not have significant reversibility with use of beta agonist seen on the recent PFT. I have recommended that he continue with his maintenance medications, which include Dupixent injections, Trelegy, cetirizine, Flonase and Singulair. I recommend pulmonary rehab as FEV1 is at 45% predicted. (2) Severe persistent asthma: Status: Acute Qualifiers: Asthma complication type: unspecified Qualified Code(s): J45.50 - Severe persistent asthma, uncomplicated Plan: In 2020 his total is eosinophilic count was 837. His recent eosinophil count has been significantly reduced when compared to the prior one from 2020 and is now at 380. For now continue with Dupixent. I believe that the patient would benefit from returning to ENT at this time for further management of what I am suspecting is chronic sinus disease. I have recommended that he continue with his pulmonary toilet regimen of albuterol nebulized and guaifenesin and that he also implement Pep therapy twice daily after nebulized therapy. (3) Chronic hypoxemic respiratory failure: Status: Chronic Plan: The patient understands that his goal is to maintain an oxygen saturation of 89-92%. He is using and benefiting from supplemental oxygen. The patient is now requiring 3 L/min supplemental oxygen consistently. Despite continued presence of orthopnea and pedal edema patient does not have an elevated BNP. There is a plan to obtain an echocardiogram and I have asked for the patient to fax these results to this practice. (4) Obesity: Status: Chronic Qualifiers: Body mass index: BMI 45.0-49.9 Obesity classification: adult class 3 (BMI gt;= 40) Obesity type: due to excess calories Serious obesity comorbidity presence: with serious comorbidity Qualified Code(s): E66.01 - Morbid (severe) obesity due to excess calories; Z68.42 - Body mass index [BMI] 45.0-49.9, adult Comment: STOP BANG = 6, high risk Plan: Complicates exam, plan, care and prognosis. Weight loss is warranted. I have recommended a PSG due to the worsening shortness of breath, poor sleep quality, respiratory symptoms, high STOPBANG. Patient reports I'm not doing that damn shit, I will not wear it. (5) Smoking greater than 20 pack years: Status: Chronic Comment: 25 pack year history, quit 08/16/2014 Plan: LDCT is due in March 2025, previously ordered. Continue with complete smoking cessation. Medications: New [pep device with training] As directed 1 ea 0RF Plan Details Follow Up: 8 Weeks (DMB) HPI HPI Comments Details: Patient is a 64-year-old male who presents to the office today for follow-up of his severe asthma/COPD overlap syndrome with chronic hypoxic respiratory failure and to follow-up for recent exacerbation. He is ambulatory and currently on supplemental oxygen. He denies ED visit or urgent care visit for any respiratory illness. He is seeing Raquel Abdi as PCP through [facility]. He reports she is following his LDCT scan. If you recall, he is utilizing Dupixent injections biweekly along with Trelegy 1 puff daily. He does report rinsing his mouth out after each use. He denies any medication side effect such as sore throat or thrush. He is also reporting use of Flonase, cetirizine and Singulair daily. Already in this calendar year has required 2 rounds of oral prednisone. It improved symptoms 90% and now he is worsening again. He can take prednisone and 8 hours later he can lay flat and is able to breath. He reports prednisone fixes everything. He is currently using 3 L/min of supplemental oxygen at all times. He does have shortness of breath on exertion, especially in the warmer weather. He feels like he cannot get his air in, like he is not able to move air. He also reports that he is unable to lay down for an hour. Then he begins to fill up and have wheeze and he will get up and do a nebulizer treatment. These are beneficial. He continues with a cough that is productive of very thick white sputum. He has chronic throat clearing today. He is unable to complete a sentence without clearing his throat. He denies any hemoptysis. He has not been having wheezing. He denies any chest pain, chest tightn (more content not included)... Normal [facility] US THYROID/PARATHYROIDon US THYROID/PARATHYROID * * *Final Report * * * DATE OF EXAM: Sep 05 2024 8:39AM [facility] 1048 - US THYROID/PARATHYROID / PROCEDURE REASON: Dysphagia, unspecified type * * * * Physician Interpretation * * * * EXAMINATION: THYROID ULTRASOUND CLINICAL HISTORY: 64 years old Male with Dysphagia, unspecified type TECHNIQUE: Sonography and Doppler imaging of the thyroid was performed. Images were obtained and stored in a permanent archive. MQ: UST_1 COMPARISON: None. RESULT: Suboptimal visualization due to poor acoustic penetration secondary to patient's body habitus. Right Lobe: 4.0 cm x 1.4 cm x 1.9 cm; homogeneous echogenicity, expected vascular flow. Left Lobe: 4.3 cm x 1.6 cm x 1.6 cm; homogeneous echogenicity, expected vascular flow. Isthmus: 0.4 cm The most suspicious thyroid nodule(s) (up to four) as below: Nodules: None IMPRESSION: Suboptimal visualization. No apparent sonographic abnormality in the thyroid. Field Marketing Representative: PSCB Transcribe Date/Time: Sep 07 2024 6:14A Dictated by : INA VILLARREAL DO This examination was interpreted and the report reviewed and electronically signed by: INA VILLARREAL DO on Sep 07 2024 6:16AM EST [id number] N Normal [facility] Thyroid glandon Radiology Study observation (narrative) [facility] Absolute lymphocyte countOrd ered By: HUSSAIN Sandres on 09-01-2024 Lymphocytes Auto (Unsp spec) [#/Vol] 2.30 10*3/uL 0.83-4.51 [facility] Absolute neutrophil countOrd ered By: HUSSAIN Sanders on 09-01-2024 Neutrophils (Bld) [#/Vol] 8.0 10*3/uL High 2.0-7.7 [facility] Automated lymphocyte count a s percentage of total leukocytesOrdered By: HUSSAIN Sanders on 09-01-2024 Lymphocytes/100 WBC Auto (Unsp spec) 19.4 % 19-41 [facility] Basophil percentageOrdered B y: HUSSAIN Sanders on 09-01-2024 Basophils/100 WBC (Bld) 0.6 % 0-1 [facility] CBC W/Diff, Automatedon 08-16 Absolute Lymph 2.30 X10 3/uL Normal 0.83-4.51 [facility] Comment on above: Performed By: #### L 503.7505, L100.0100 ####[facility] [address] [place], [place], [id number] Absolute Neut 8.0 X10 3/uL High 2.0-7.7 [facility] Comment on above: Performed By: #### L 503.7505, L100.0100 ####[facility] [address] [place], [address] Basophils/100 WBC (Bld) 0.6 % Normal 0-1 [facility] Comment on above: Performed By: #### L 503.7505, L100.0100 ####[facility] [address] [place], [address] Eosinophils/100 WBC (Bld) 3.2 % Normal 0-5 [facility] Comment on above: Performed By: #### L 503.7505, L100.0100 ####[facility] [address] [place], [address] Erythrocyte distribution width (RBC) [Ratio] 14.2 % Normal 11.6-14.6 [facility] Comment on above: Performed By: #### L 503.7505, L100.0100 ####[facility] [address] [place], [address] Hematocrit (Bld) [Volume fraction] 39.4 % Low 40-54 [facility] Comment on above: Performed By: #### L 503.7505, L100.0100 ####[facility] [address] [place], [address] Hemoglobin (Bld) [Mass/Vol] 12.7 g/dL Low 13.0-16.5 [facility] Comment on above: Performed By: #### L 503.7505, L100.0100 ####[facility] [address] [place], [address] IG% 0.800 Normal 0.0-0.9 [facility] Comment on above: Result Comment: IG% - Immature Granulocytes (promyelocytes, myelocytes and metamyelocytes) > 1% indicates that a LEFT SHIFT is Present. Performed By: #### L 503.7505, L100.0100 ####[facility] [address] [place], [address] Lymphocytes/100 WBC (Bld) 19.4 % Normal 19-41 [facility] Comment on above: Performed By: #### L 503.7505, L100.0100 ####[facility] [address] [place], [address] MCH (RBC) [Entitic mass] 29.2 pg Normal 27.0-32.0 [facility] Comment on above: Performed By: #### L 503.7505, L100.0100 ####[facility] [address] [place], [address] MCHC (RBC) [Mass/Vol] 32.2 g/dL Normal 32-36 [facility] Comment on above: Performed By: #### L 503.7505, L100.0100 ####[facility] [address] [place], [address] MCV (RBC) [Entitic vol] 90.6 fL Normal 80-94 [facility] Comment on above: Performed By: #### L 503.7505, L100.0100 ####[facility] [address] [place], [address] Monocytes/100 WBC (Bld) 8.4 % Normal 0-10 [facility] Comment on above: Performed By: #### L 503.7505, L100.0100 ####[facility] [address] [place], [address] Neutrophils/100 WBC (Bld) 67.6 % Normal 47-70 [facility] Comment on above: Performed By: #### L 503.7505, L100.0100 ####[facility] [address] [place], [address] Nucleated RBC (Bld) [#/Vol] 0 10*3/uL Normal 0-5 [facility] Comment on above: Performed By: #### L 503.7505, L100.0100 ####[facility] [address] [place], [address] Platelet mean volume (Bld) [Entitic vol] 9.1 fL Normal 6.2-12.0 [facility] Comment on above: Performed By: #### L 503.7505, L100.0100 ####[facility] [address] [place], [address] Platelets (Bld) [#/Vol] 310 10*3/uL Normal 150-450 [facility] Comment on above: Performed By: #### L 503.7505, L100.0100 ####[facility] [address] [place], [address] RBC (Bld) [#/Vol] 4.35 10*6/uL Low 4.6-6.2 [facility] Comment on above: Performed By: #### L 503.7505, L100.0100 ####[facility] [address] [place], [address] RDW SD 47.3 fl High 35.1-43.9 [facility] Comment on above: Performed By: #### L 503.7505, L100.0100 ####[facility] [address] [place], [address] WBC (Bld) [#/Vol] 11.9 10*3/uL High 4.4-11.0 [facility] Comment on above: Performed By: #### L 503.7505, L100.0100 ####[facility] [address] [place], [address] Eosinophil percentageOrdered By: HUSSAIN Sanders on 09-01-2024 Eosinophils/100 WBC (Bld) 3.2 % 0-5 [facility] Erythrocyte distribution wid th ratioOrdered By: HUSSAIN Sanders on 09-01-2024 Erythrocyte distribution width (RBC) [Ratio] 14.2 % 11.6-14.6 [facility] Erythrocyte distribution wid th standard deviationOrdered By: HUSSAIN Sanders on 09-01-2024 Erythrocyte distribution width (RBC) [Ratio] 47.3 fl High 35.1-43.9 [facility] Hematocrit Auto (Bld) [Volum e fraction]Ordered By: HUSSAIN Sanders on 09-01-2024 Hematocrit (Bld) [Volume fraction] 39.4 % Low 40-54 [facility] Hemoglobin measurementOrdere d By: HUSSAIN Sanders on 09-01-2024 Hemoglobin (Bld) [Mass/Vol] 12.7 g/dL Low 13.0-16.5 [facility] Immature granulocytes/100 WB C Auto (Bld)Ordered By: HUSSAIN Sanders on 09-01-2024 Immature granulocytes/100 WBC (Bld) 0.800 % 0.0-0.9 [facility] Comment on above: IG% - Immature Granu locytes (promyelocytes, myelocytes and metamyelocytes) > 1% indicates that a LEFT SHIFT is Present. L503.7505on 09-01-2024 Natriuretic peptide B (Bld) [Mass/Vol] 180 pg/mL Normal <=900 [facility] Comment on above: Result Comment: Hear t Failure Unlikely: < 300 pg/mL Heart Failure Likely < 50 Years: > 450 pg/mL 50-75 Years: > 900 pg/mL >75 Years: > 1800 pg/mL Performed By: #### L 503.7505, L100.0100 ####[facility] [address] [place], [address] MCV (mean corpuscular volume ) determinationOrdered By: HUSSAIN Sanders on 09-01-2024 MCV (RBC) [Entitic vol] 90.6 fL 80-94 [facility] Mean corpuscular hemoglobin (MCH) determinationOrdered By: HUSSAIN Sanders on 09-01-2024 MCH (RBC) [Entitic mass] 29.2 pg 27.0-32.0 [facility] Mean corpuscular hemoglobin concentration (MCHC) determinationOrdered By: HUSSAIN Sanders on 09-01-2024 MCHC (RBC) [Mass/Vol] 32.2 g/dL 32-36 [facility] Mean platelet volume determi nationOrdered By: HUSSAIN Sanders on 09-01-2024 Platelet mean volume (Bld) [Entitic vol] 9.1 fL 6.2-12.0 [facility] Monocyte percentageOrdered B y: HUSSAIN Sanders on 09-01-2024 Monocytes/100 WBC (Bld) 8.4 % 0-10 [facility] Natriuretic peptide.B prohor christopher N-Terminal [Mass/volume] in Serum or PlasmaOrdered By: HUSSAIN Sanders on 09-01-2024 Natriuretic peptide.B prohormone N-Terminal [Mass/Vol] 180 pg/mL <900 [facility] Comment on above: Heart Failure Unlike ly: < 300 pg/mLHeart Failure Likely< 50 Years: > 450 pg/mL50-75 Years: > 900 pg/mL>75 Years: > 1800 pg/mL Neutrophil percentageOrdered By: HUSSAIN Sanders on 09-01-2024 Neutrophils/100 WBC (Bld) 67.6 % 47-70 [facility] Nucleated red blood cell per centageOrdered By: HUSSAIN Sanders on 09-01-2024 Nucleated RBC/100 WBC (Bld) [Ratio] 0 % 0-5 [facility] Platelet countOrdered By: HUSSAIN Sanders on 09-01-2024 Platelets (Bld) [#/Vol] 310 10*3/uL 150-450 [facility] RBC Auto (Bld) [#/Vol]Ordere d By: HUSSAIN Sanders on 09-01-2024 RBC (Bld) [#/Vol] 4.35 10*6/uL Low 4.6-6.2 [facility] White blood cell (WBC) count Ordered By: HUSSAIN Sanders on 09-01-2024 WBC (Bld) [#/Vol] 11.9 10*3/uL High 4.4-11.0 [facility] CBC W Auto Differential pane l (Bld)on 08-31-2024 Basophils (Bld) [#/Vol] 0.06 10*3/uL [facility] Basophils/100 WBC (Bld) 0.6 % C [facility] Differential cell count method Nom (Bld) Auto [facility] Eosinophils (Bld) [#/Vol] 0.63 10*3/uL High [facility] Eosinophils/100 WBC (Bld) 6.4 % [facility] Erythrocyte distribution width (RBC) [Ratio] 14.5 % 11.5 - 15.0 % [facility] Hematocrit (Bld) [Volume fraction] 39.6 % 39.0 - 51.0 % [facility] Hemoglobin (Bld) [Mass/Vol] 12.4 g/dL Low 13.0 - 17.0 g/dL [facility] Immature granulocytes (Bld) [#/Vol] 0.05 10*3/uL [facility] Immature granulocytes/100 WBC (Bld) 0.5 % [facility] Interpretation and review of laboratory results Abnormal [facility] Lymphocytes (Bld) [#/Vol] 1.51 10*3/uL [facility] Lymphocytes/100 WBC (Bld) 15.3 % [facility] MCH (RBC) [Entitic mass] 28.8 pg 26. 0 - 34.0 pg [facility] MCHC (RBC) [Mass/Vol] 31.3 g/dL 30.5 - 36.0 g/dL [facility] MCV (RBC) [Entitic vol] 92.1 fL 80.0 - 100.0 fL [facility] Monocytes (Bld) [#/Vol] 0.74 10*3/uL [facility] Monocytes/100 WBC (Bld) 7.5 % C [facility] Neutrophils (Bld) [#/Vol] 6.91 10*3/uL [facility] Neutrophils/100 WBC (Bld) 69.7 % [facility] Nucleated RBC (Bld) [#/Vol] [facility] Nucleated RBC/100 WBC (Bld) [Ratio] 0 % /100 WBC [facility] Platelet mean volume (Bld) [Entitic vol] 9.8 fL 9.0 - 12.7 fL [facility] Platelets (Bld) [#/Vol] 315 10*3/uL [facility] RBC (Bld) [#/Vol] 4.3 10*6/uL 4.20 - 6.0 0 m/uL [facility] WBC (Bld) [#/Vol] 9.9 10*3/uL [facility] Basophils (Bld) [#/Vol] 0.06 10*3/uL Normal <0.11 [facility] Comment on above: Order Comment: Speci men Type: BLOOD SPECIMENOrdering Facility: [facility] Address: [address] [place] [address] Performed By: #### 5 7021-8 ####[facility] LABCLIA [id number] [place] [address] [place] Basophils/100 WBC (Bld) 0.6 % Normal C [facility] Comment on above: Order Comment: Speci men Type: BLOOD SPECIMENOrdering Facility: [facility] Address: [address] [place] [address] Performed By: #### 5 7021-8 ####[facility] LABCLIA [id number] [place] [address] [place] Differential cell count method Nom (Bld) Auto Normal [facility] Comment on above: Order Comment: Speci men Type: BLOOD SPECIMENOrdering Facility: [facility] Address: [address] [place] [address] Performed By: #### 5 7021-8 ####[facility] LABCLIA [id number] [place] [address] [place] Eosinophils (Bld) [#/Vol] 0.63 10*3/uL High <0.46 [facility] Comment on above: Order Comment: Speci men Type: BLOOD SPECIMENOrdering Facility: [facility] Address: [address] [place] [address] Performed By: #### 5 7021-8 ####[facility] LABCLIA [id number] [place] [id number] [place] Eosinophils/100 WBC (Bld) 6.4 % Normal [facility] Comment on above: Order Comment: Speci men Type: BLOOD SPECIMENOrdering Facility: [facility] Address: [address] [place] [address] Performed By: #### 5 7021-8 ####[facility] LABCLIA [id number] [place] [address] [place] Erythrocyte distribution width (RBC) [Ratio] 14.5 % Normal 11.5-15.0 [facility] Comment on above: Order Comment: Speci men Type: BLOOD SPECIMENOrdering Facility: [facility] Address: [address] [place] [address] Performed By: #### 5 7021-8 ####[facility] LABCLIA [id number] [place] [address] [place] Hematocrit (Bld) [Volume fraction] 39.6 % Normal 39.0-51.0 [facility] Comment on above: Order Comment: Speci men Type: BLOOD SPECIMENOrdering Facility: [facility] Address: [address] [place] [address] Performed By: #### 5 7021-8 ####[facility] LABCLIA [id number] [place] [address] [place] Hemoglobin (Bld) [Mass/Vol] 12.4 g/dL Low 13.0-17.0 [facility] Comment on above: Order Comment: Speci men Type: BLOOD SPECIMENOrdering Facility: [facility] Address: [address] [place] [address] Performed By: #### 5 7021-8 ####[facility] LABCLIA [id number] [place] [address] [place] Immature granulocytes (Bld) [#/Vol] 0.05 10*3/uL Normal <0.10 [facility] Comment on above: Order Comment: Speci men Type: BLOOD SPECIMENOrdering Facility: [facility] [facility] Address: [address] [place] [address] Performed By: #### 5 7021-8 ####[facility] LABCLIA [id number] [address] STATES [facility] Immature granulocytes/100 WBC (Bld) 0.5 % Normal [facility] Comment on above: Order Comment: Speci men Type: BLOOD SPECIMENOrdering Facility: [facility] Address: [address] [place] [address] Performed By: #### 5 7021-8 ####[facility] LABCLIA [id number] [place] [address] [place] Lymphocytes (Bld) [#/Vol] 1.51 10*3/uL Normal 1.00-4.00 [facility] Comment on above: Order Comment: Speci men Type: BLOOD SPECIMENOrdering Facility: [facility] Address: [address] [place] [address] Performed By: #### 5 7021-8 ####[facility] LABCLIA [id number] [address] [place] Lymphocytes/100 WBC (Bld) 15.3 % Normal [facility] Comment on above: Order Comment: Speci men Type: BLOOD SPECIMENOrdering Facility: [facility] Address: [address] [place] [address] Performed By: #### 5 7021-8 ####[facility] LABCLIA [id number] [place] [address] [place] MCH (RBC) [Entitic mass] 28.8 pg Normal 26.0-34.0 [facility] Comment on above: Order Comment: Speci men Type: BLOOD SPECIMENOrdering Facility: [facility] Address: [address] [place] [address] Performed By: #### 5 7021-8 ####[facility] LABCLIA [id number] [place] [address] [place] MCHC (RBC) [Mass/Vol] 31.3 g/dL Normal 30.5-36.0 [facility] Comment on above: Order Comment: Speci men Type: BLOOD SPECIMENOrdering Facility: [facility] Address: [address] [place] [address] Performed By: #### 5 7021-8 ####[facility] LABCLIA [id number] [place] [address] [place] MCV (RBC) [Entitic vol] 92.1 fL Normal 80.0-100.0 C [facility] Comment on above: Order Comment: Speci men Type: BLOOD SPECIMENOrdering Facility: [facility] Address: [address] [place] [address] Performed By: #### 5 7021-8 ####[facility] LABCLIA [id number] [place] [address] [place] Monocytes (Bld) [#/Vol] 0.74 10*3/uL Normal <0.87 [facility] Comment on above: Order Comment: Speci men Type: BLOOD SPECIMENOrdering Facility: [facility] Address: [address] [place] [address] Performed By: #### 5 7021-8 ####[facility] LABCLIA [id number] [place] [address] [place] Monocytes/100 WBC (Bld) 7.5 % Normal [facility] Comment on above: Order Comment: Speci men Type: BLOOD SPECIMENOrdering Facility: [facility] Address: [address] [place] [address] Performed By: #### 5 7021-8 ####[facility] LABCLIA [id number] [place] [address] [place] Neutrophils (Bld) [#/Vol] 6.91 10*3/uL Normal 1.45-7.50 [facility] Comment on above: Order Comment: Speci men Type: BLOOD SPECIMENOrdering Facility: [facility] Address: [address] [place] [address] Performed By: #### 5 7021-8 ####[facility] LABCLIA [id number] [place] [id number] [place] Neutrophils/100 WBC (Bld) 69.7 % Normal [facility] Comment on above: Order Comment: Speci men Type: BLOOD SPECIMENOrdering Facility: [facility] Address: [address] [place] [address] Performed By: #### 5 7021-8 ####[facility] LABCLIA [id number] [place] [address] [place] Nucleated RBC (Bld) [#/Vol] 10*3/uL Normal <0.01 [facility] Comment on above: Order Comment: Speci men Type: BLOOD SPECIMENOrdering Facility: [facility] Address: [address] [place] [address] Performed By: #### 5 7021-8 ####[facility] LABCLIA [id number] [place] [address] [place] Nucleated RBC/100 WBC (Bld) [Ratio] 0.0 /100 WBC Normal [facility] Comment on above: Order Comment: Speci men Type: BLOOD SPECIMENOrdering Facility: [facility] Address: [address] [place] [address] Performed By: #### 5 7021-8 ####[facility] LABCLIA [id number] [place] [id number] [place] Platelet mean volume (Bld) [Entitic vol] 9.8 fL Normal 9.0-12.7 [facility] Comment on above: Order Comment: Speci men Type: BLOOD SPECIMENOrdering Facility: [facility] Address: [address] [place] [address] Performed By: #### 5 7021-8 ####[facility] LABCLIA [id number] [place] [address] [place] Platelets (Bld) [#/Vol] 315 10*3/uL Normal 150-400 [facility] Comment on above: Order Comment: Speci men Type: BLOOD SPECIMENOrdering Facility: [facility] Address: [address] [place] [address] Performed By: #### 5 7021-8 ####[facility] [id number] [place] [address] [place] RBC (Bld) [#/Vol] 4.30 10*6/uL Normal 4.20-6.00 [facility] Comment on above: Order Comment: Speci men Type: BLOOD SPECIMENOrdering Facility: [facility] Address: [address] [place] [address] Performed By: #### 5 7021-8 ####[facility] [id number] [place] [address] [place] WBC (Bld) [#/Vol] 9.90 10*3/uL Normal 3.70-11.00 [facility] Comment on above: Order Comment: Speci men Type: BLOOD SPECIMENOrdering Facility: [facility] Address: [address] [place] [address] Performed By: #### 5 7021-8 ####[facility] [id number] [place] [id number] [place] CNOVon 08-31-2024 CNOV Office Visit (FAMPWS ) ABDOUL MUNROE ([id number]) 1960 Date Time Provider Department 08/31/24 8:20 AM RAQUEL STOLL During your visit today, we recorded the following information about you: Pulse Respiration Blood pressure Weight 88/minute 16/minute 158/77 162.4 kg Raquel Stoll APRN.CNP 08/31/2024 12:13 PM Signed This is a 64 year old male who presents today with: Abdoul is a 64-year-old male with a history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 J45.50 - Severe persistent asthma, uncomplicated 08/16/24 1004 Date Gina Romero NP [employer]CH[employer]IC-C Cosigner Signature: Date (if applicable) CC: Normal [facility] 6 Minute Walk Teston 08-10-2 025 6 Minute Walk Test y [facility]Neurology [address] [place] [address] MR#: [id number] Acct: [id number] Name: ABDOUL MUNROE Rep #: [id number] : 1960 64 From: Enrrique Rincon DO Referring Dr: Gaby Sanders [employer]PENTER MECH[employer]IC-C Status: REG CLI Location: PS Date: Sex: M C PSN 6 Minute Walk Test 6 Minute Walk Test 6 Minute Walk Test: 6 Minute Walk Test PSN:6-Minute Walk Test Start: 08/02/24 10:56 Freq: Status: Discharge Protocol: [id number] Document 08/02/24 10:56 EW (Rec: 08/02/24 11:09 EW [id number]) 6 Minute Walk Test Date Performed 08/02/24 Time Performed 10:30 Height 5 ft 6 in Weight: 320 lb Weight in Pounds 320.0 lbs Assistive device None used: Pre-test Oxygen Delivery Room Air Method Pulse Ox (%) 90 Pulse Rate (60-100 80 beats/min) Dyspnea Andrei Scale ( 1 0-10) Exertion Andrei Scale 6 (6-20) 1st minute Oxygen Delivery Room Air Method Pulse Ox (%) 85 Pulse Rate (60-100 100 beats/min) 2nd minute Oxygen Flow Rate (L/ 2 min) (L/min) Oxygen Delivery Nasal Cannula Method Pulse Ox (%) 92 Pulse Rate (60-100 95 beats/min) 3rd minute Oxygen Flow Rate (L/ 2 min) (L/min) Oxygen Delivery Nasal Cannula Method Pulse Ox (%) 87 Pulse Rate (60-100 98 beats/min) 4th minute Oxygen Flow Rate (L/ 3 min) (L/min) Oxygen Delivery Nasal Cannula Method Pulse Ox (%) 91 Pulse Rate (60-100 100 beats/min) 5th minute Oxygen Flow Rate (L/ 3 min) (L/min) Oxygen Delivery Nasal Cannula Method Pulse Ox (%) 90 Pulse Rate (60-100 103 H beats/min) 6th minute Oxygen Flow Rate (L/ 3 min) (L/min) Oxygen Delivery Nasal Cannula Method Pulse Ox (%) 89 Pulse Rate (60-100 100 beats/min) Post-test Oxygen Flow Rate (L/ 3 min) (L/min) Oxygen Delivery Nasal Cannula Method Pulse Ox (%) 96 Pulse Rate (60-100 94 beats/min) Dyspnea Andrei Scale ( 4 0-10) Exertion Andrei Scale 14 (6-20) Full Laps Walked 19 Partial Lap, Number 40 of Tiles Walked Total Distance 1161 Walked (ft) 08/02/24 11:03 Cardiopulmonary Services by Tayler Basilio pt was placed on room air. sats 90% walked for 1 min. Sats dropped to 85% placed on 2L nc . At min 3 was 87% so increased to 3L for the remainder of the walk. Initialized on 08/02/24 11:03 - END OF NOTE Interpretation Interpretation: The patient ambulated 1161 feet over the course of 6 minutes beginning on room air without assistive devices. Pretesting oxygen saturation was noted to be 90% on room air. With ambulation, the patient desaturated on several occasions, requiring the initiation of supplemental oxygen at 3 L/min to maintain appropriate saturations. Recommendations Recommendations: 3 L/min of supplemental oxygen should utilized with exertion. 08/10/24 1116 Date Enrrique Rincon DO CC: Date Dictated: 08/10/24 1115 Date Transcribed: 08/10/241114 Field Marketing Representative: Dr. Enrrique Rincon DO Signed Normal [facility] Office Visit Reporton 2024 Office Visit Report [facility] [address] [place] [address] OFFICE VISIT Date of Service: 08/02/24 MR#: [id number] Acct: [id number] Patient: ABDOUL MUNROE Rep #: [id number] : 1960 Provider: MARGOT Romero Age/Sex: 64/M Location: [facility] Status: Signed Intake Vital Signs 04/12/24 08:46 07/19/24 07:48 08/02/24 10:56 Height 5 ft 8 in 5 ft 8 in 5 ft 6 in BP 143/81 H Blood Pressure Location Lt brachial Position Sitting Respiration 20 H Pulse 81 Pulse Source Monitor Temp 97.7 F L Temp Source Temporal Pulse Oximetry (%) 94 Oxygen Delivery Method nasal canula Oxygen Flow Rate (L/min) 3 Intake Visit Reasons: Asthma- Severe Persistent Asthma Chief Complaint: Dupixent for Severe Persistent Asthma Allergies cat dander Allergy (Mild, Verified 08/02/24 11:47) Other weed pollen Allergy (Mild, Verified 08/02/24 11:47) Other Medications ???Medication ???Instructions ???Recorded ???Confirmed ???Type aspirin 81 mg tablet,delayed 81 mg PO DAILY 11/01/18 08/02/24 H istory release (Aspir-) Air Purifier #1 ea 04/28/22 08/02/24 Rx dupilumab 300 mg/2 mL subcutaneous 300 mg (2 mL) subcut Q2W #4 mL 0 09/02/22 08/02/24 Rx syringe (Dupixent) guaifenesin 1,200 mg tablet, 1,200 mg PO Q12H #60 tabs 10/28/22 08/02/24 Rx extended release 12 hr rosuvastatin 5 mg tablet 5 mg PO HS 05/26/23 08/02/24 Histo ry metformin 500 mg tablet,extended 1,000 mg PO BID 10/13/23 08/02/24 History release 24 hr cetirizine 10 mg capsule 10 mg PO HS #90 caps 11/27/2307/16 Rx montelukast 10 mg tablet 10 mg PO QPM #90 tabs 11/27/23 Rx albuterol sulfate 2.5 mg/3 mL 2.5 mg (3 mL) inhalation Q4H PRN 0 02/15/24 08/02/24 Rx (0.083 %) solution for nebulization shortness of breath or wheezing #180 vials albuterol sulfate 90 mcg/actuation 2 puff inhalation Q6H PRN 08/02/24 Rx aerosol inhaler shortness of breath or wheezing #8.5 grams furosemide 40 mg tablet 40 mg PO DAILY #90 tabs 04/22/24 0 08/02/24 Rx lisinopril 20 mg tablet 20 mg PO DAILY #90 tabs 04/22/24 0 08/02/24 Rx blood sugar diagnostic (True #10 ea 05/10/24 08/02/24 History Metrix Glucose Test Strip) lancets 33 gauge (Unilet Lancet) #100 ea 05/10/24 08/02/24 History fluticasone fur. 200 mcg-umeclid 1 inh inhalation DAILY #60 ea 04/1908/02/24 Rx 62.5 mcg-vilant 25 mcg inhalat.powder (Trelegy Ellipta) fluticasone propionate 50 2 spray intranasal DAILY #16 grams 07/25/24 08/02/24 Rx mcg/actuation nasal spray,suspension amoxicillin 875 mg-potassium 1 tab PO BID #20 tabs 08/02/24 Rx clavulanate 125 mg tablet prednisone 10 mg tablet 10 mg PO QDAY 12 days #30 tabs 08/02/24 Rx Office Procedures Asthma Injection Procedure: Details:: Patient presented for Dupixent injection. Patient tolerated treatment well. The patient was monitored for 15 minutes after treatment. Patient shows no signs of adverse reaction. Reviewed signs and symptoms of reaction. Patient instructed to call the office with new or worsening symptoms. Patient advised to report to the emergency department during after hours if necessary. Patient departed from the office with no signs of distress. Injections Is this a patient provided medication?: No Additional Details: Sample administered. Office Meds Dupixent Pen 300 mg/2 mL subcutaneous pen injector Performing Provider: Gina Romero BOAT CARPENTER MECHANIC, BOAT CARPENTER MECHANIC-C Performing Location: [facility] Administered by: Cheryl Brink on 08/02/24 11:48 Dose Route Admin Location Dispensed Lot Number Expiration Date [facility] ufacturer 300 mg subcut left arm 2 mL [id number] 01/15/26 8865-8046-83 [address] [employer] Assessment and Plan Assessment and Plan (1) Severe persistent asthma: Status: Acute Qualifiers: Asthma complication type: unspecified Qualified Code(s): J45.50 - Severe persistent asthma, uncomplicated Orders: Orders Dupixent Injection (Patient Provided) 08/02/24 J45.50 - Severe persistent asthma, uncomplicated Medications: New amoxicillin-pot clavulanate 875-125 mg 1 TAB PO BID 20 tabs 0RF prednisone take 4 tabs for three days, then 3 tabs for three days, then 2 tabs for three days, then 1 tab for 3 days 10 mg PO QDAY 30 tabs 0RF 12 days 08/03/24 0824 Date Gina Romero BOAT CARPENTER MECHANIC BOAT CARPENTER MECHANICWayne Montgomery Signature: Date (if applicable) CC: Normal [facility] Pulmonary Visit Reporton Pulmonary Visit Report [facility] [place] [address] [place] [address] OFFICE VISIT Date of Service: 07/19/24 MR#: [id number] Acct: [id number] Name: ABDOUL MUNROE Rep #: [id number] : 1960 Provider: Gaby Sanders NP Age/Sex: 63/M Location: [facility] Status: Signed Assessment and Plan Assessment and Plan (1) Asthma-chronic obstructive pulmonary disease overlap syndrome: Status: Chronic Comment: On Dupixent Plan: Improved from last treatment for asthma COPD exacerbation. He still has suboptimal control of symptoms. I have recommended repeating the PFT and 6-minute walk test. no change in maintenance medications, which include Dupixent injections, Trelegy, cetirizine, Flonase and Singulair. 4-week follow-up. (2) Severe persistent asthma: Status: Acute Qualifiers: Asthma complication type: unspecified Qualified Code(s): J45.50 - Severe persistent asthma, uncomplicated Plan: On follow-up I will consider transitioning him from Dupixent to Tezspire as he is not convinced that Dupixent has been beneficial to him. Already in this calendar year he has required 2 rounds of oral prednisone on Dupixent. In 2020 his total is eosinophilic count was 837. Repeat CBC with differential. (3) Chronic hypoxemic respiratory failure: Status: Chronic Plan: The patient understands that his goal is to maintain an oxygen saturation of 89-92%. He is using and benefiting from supplemental oxygen. The patient is now requiring 3 L/min supplemental oxygen consistently. I have recommended obtaining a BNP today as he does have pedal edema and orthopnea present. The patient does report that he has been following with [facility] for cardiology. I have asked for his recent echocardiogram and cardiac visit reports be released so that they can be reviewed for follow-up. (4) Obesity: Status: Chronic Qualifiers: Body mass index: BMI 45.0-49.9 Obesity classification: adult class 3 (BMI gt;= 40) Obesity type: due to excess calories Serious obesity comorbidity presence: with serious comorbidity Qualified Code(s): E66.01 - Morbid (severe) obesity due to excess calories; Z68.42 - Body mass index [BMI] 45.0-49.9, adult Plan: Complicates exam, plan, care and prognosis. Weight loss is warranted. (5) Smoking greater than 20 pack years: Status: Chronic Comment: 25 pack year history, quit 08/16/2014 Plan: LDCT is due in March 2025, previously ordered. Continue with complete smoking cessation. Orders: Orders NIOX Today J45.50 - Severe persistent asthma, uncomplicated, R05 - Cough CBC W/Diff, Automated Today R06.00 - Dyspnea, unspecified Pro- Brain NATRIURETIC PEPTIDE Today R06.00 - Dyspnea, unspecified PFT Complete - DLCO, Spirometry b/a bronchodilators, lung volumes Today J45.50 - Severe persistent asthma, uncomplicated Simple Pulmonary Exercise Test Today J45.50 - Severe persistent asthma, uncomplicated Dupixent Injection (Patient Provided) Today J45.50 - Severe persistent asthma, uncomplicated Plan Details Follow Up: 4 Weeks (LMR) HPI HPI Comments Details: Patient is a 63-year-old male who presents to the office today for follow-up of his severe asthma/COPD overlap syndrome with chronic hypoxic respiratory failure and to follow-up for recent exacerbation. He is ambulatory and currently on supplemental oxygen. He was given doxycycline and prednisone at last visit. It improved symptoms 90% and now he is worsening again. He can take prednisone and 8 hours later he can lay flat and is able to breath. He reports prednisone fixes everything. He denies ED visit or urgent care visit for any respiratory illness. He is seeing Raquel Abdi as PCP through [facility]. He reports she is following his LDCT scan. If you recall, he is utilizing Dupixent injections biweekly along with Trelegy 1 puff daily. He does report rinsing his mouth out after each use. He denies any medication side effect such as sore throat or thrush. He is also reporting use of Flonase, cetirizine and Singulair daily. He is currently using 3 L/min of supplemental oxygen at all times. He does have shortness of breath on exertion. He also reports that he is unable to lay down for an hour. Then he begins to have wheeze and he will get up and do a nebulizer treatment. These are beneficial. He continues with a cough that is productive of very thick white sputum. He denies any hemoptysis. He has been having wheezing. He denies any chest pain, chest tightness, or palpitations. He also denies any fever, chills or body aches. He continues with complete smoking cessation. If you recall, he quit smoking back in 2014. Low-dose CT lung screening completed on March 30, 2024. No suspicious nodules are seen. Stable emphysematous changes. Recommendation is continue screening with LDCT in 12 months. Niox 14 today (more content not included)... Normal [facility] Office Visit Reporton [address] [facility] [address] [place] [address] OFFICE VISIT Date of Service: 07/05/24 MR#: [id number] Acct: [id number] Patient: ABDOUL MUNROE Rep #: [id number] : 1960 Provider: MARGOT Romero Age/Sex: 63/M Location: [facility] Status: Signed Intake Vital Signs 04/12/24 08:46 07/05/24 07:53 Height 5 ft 8 in 5 ft 8 in BP 163/76 H Blood Pressure Location Rt brachial Position Sitting Respiration 20 H Pulse 89 Pulse Source Monitor Temp 97.4 F L Temp Source Temporal Pulse Oximetry (%) 95 Oxygen Delivery Method nasal canula Oxygen Flow Rate (L/min) 3 Intake Visit Reasons: Asthma- Severe Persistent Asthma Chief Complaint: Dupixent for Severe Persistent Asthma Plugman Required: No DME Vendor: [employer] Accompanied by: Self Is patient in pain?: No Allergies cat dander Allergy (Mild, Verified 07/05/24 07:53) Other weed pollen Allergy (Mild, Verified 07/05/24 07:53) Other Medications ???Medication ???Instructions ???Recorded ???Confirmed ???Type aspirin 81 mg tablet,delayed 81 mg PO DAILY 11/01/18 07/05/24 H istory release (Aspir-) Air Purifier #1 ea 04/28/22 07/05/24 Rx dupilumab 300 mg/2 mL subcutaneous 300 mg (2 mL) subcut Q2W #4 mL 0 09/02/22 07/05/24 Rx syringe (Dupixent) guaifenesin 1,200 mg tablet, 1,200 mg PO Q12H #60 tabs 10/28/22 07/05/24 Rx extended release 12 hr rosuvastatin 5 mg tablet 5 mg PO HS 05/26/23 07/05/24 Histo ry metformin 500 mg tablet,extended 1,000 mg PO BID 10/13/23 07/05/24 History release 24 hr cetirizine 10 mg capsule 10 mg PO HS #90 caps 11/27/2306/18 Rx montelukast 10 mg tablet 10 mg PO QPM #90 tabs 11/27/23 Rx albuterol sulfate 2.5 mg/3 mL 2.5 mg (3 mL) inhalation Q4H PRN 0 02/15/24 07/05/24 Rx (0.083 %) solution for nebulization shortness of breath or wheezing #180 vials albuterol sulfate 90 mcg/actuation 2 puff inhalation Q6H PRN 07/05/24 Rx aerosol inhaler shortness of breath or wheezing #8.5 grams fluticasone propionate 50 2 spray intranasal DAILY #16 grams 03/17/24 07/05/24 Rx mcg/actuation nasal spray,suspension furosemide 40 mg tablet 40 mg PO DAILY #90 tabs 04/22/24 0 07/05/24 Rx lisinopril 20 mg tablet 20 mg PO DAILY #90 tabs 04/22/24 0 07/05/24 Rx blood sugar diagnostic (True #10 ea 05/10/24 07/05/24 History Metrix Glucose Test Strip) lancets 33 gauge (Unilet Lancet) #100 ea 05/10/24 07/05/24 History fluticasone fur. 200 mcg-umeclid 1 inh inhalation DAILY #60 ea 12/3 07/05/24 Rx 62.5 mcg-vilant 25 mcg inhalat.powder (Trelegy Ellipta) prednisone 20 mg tablet 20 mg PO QDAY #10 tabs 06/28/24 Rx Office Procedures Asthma Injection Procedure: Details:: Patient presented for DUpixent injection. Patient tolerated treatment well. The patient was monitored for 15 minutes after treatment. Patient shows no signs of adverse reaction. Reviewed signs and symptoms of reaction. Patient instructed to call the office with new or worsening symptoms. Patient advised to report to the emergency department during after hours if necessary. Patient departed from the office with no signs of distress. Injections Is this a patient provided medication?: Yes Office Meds Dupixent Pen 300 mg/2 mL subcutaneous pen injector Performing Provider: Gina Romero NP, [employer]C Performing Location: [facility] Administered by: Faviola Cabezas on 07/05/24 08:55 Dose Route Admin Location Dispensed Lot Number Expiration Date [facility] Man ufacturer 300 mg subcut Right arm 2 mL [id number] 07/16/26 7715-8655-65 [employer] Assessment and Plan Assessment and Plan Orders: Orders Dupixent Injection (Patient Provided) Today J45.50 - Severe persistent asthma, uncomplicated Medications: New Dupixent Pen (dupilumab) 300 mg (2 mL) subcut Q2W 2 mL 0RF NS J45.50 - Severe persistent asthma, uncomplicated 07/05/24 1054 Date Gina Romero NP [employer] Cosigner Signature: Date (if applicable) CC: Normal [facility] Respiratory Cultureon 2024 RESPC Mixed normal respiratory eagle. No Haemophilus, Streptococcus pneumoniae, beta-hemolytic Streptococcus or Staphylococcus aureus isolated. Normal [facility] Comment on above: Performed By: #### M 100.2000, M100.5010 ####[facility] [address] [place], [place], [id number] Gram Stainon 06-29-2024 GS Acceptable Specimen? Yes (<25 Epithelial cells per/lpf) Gram Stain 3+ Gram positive cocci 2+ Gram positive rods 1+ Epithelial cells 3+ White Blood Cells 1+ Red Blood Cells Normal [facility] Comment on above: Performed By: #### M 100.2000, M100.2400 ####[facility] [address] [place], [place], [id number] Gram stainOrdered By: HUSSAIN Sanders on 06-28-2024 Microscopic observation Gram stain Nom (Unsp spec) [facility] Influenza virus A and B and SARS-CoV-2 (COVID-19) and Respiratory syncytial virus RNAOrdered By: HUSSAIN Sanders on 06-28-2024 SARS-CoV-2 (COVID-19) RNA ADDIS+probe Ql (Unsp spec) [facility] M100.678on 06-28-2024 M100.678 SARS-CoV-2 (COVID 19 ) Negative INFLUENZA A Negative INFLUENZA B Negative RSV PCR Negative Normal [facility] Comment on above: Performed By: #### M 100.678 ####[facility] [address] [place], [place], [id number] Microbial respiratory cultur eOrdered By: HUSSAIN Sanders on 06-28-2024 Microorganism identified Cx Nom (Unsp spec) [facility] Microorganism identified Cx Nom (Unsp spec)Ordered By: HUSSAIN Sanders on 06-28-2024 Respiratory Culture [facility] Pulmonary Visit Reporton Pulmonary Visit Report [facility] [address] [place] [address] OFFICE VISIT Date of Service: 06/28/24 MR#: [id number] Acct: [id number] Name: ABDOUL MUNROE Rep #: [id number] : 1960 Provider: Gaby Sanders NP Age/Sex: 63/M Location: [facility] Status: Signed Assessment and Plan Assessment and Plan (1) Asthma-chronic obstructive pulmonary disease overlap syndrome: Status: Chronic Comment: On Dupixent Plan: Deteriorated with signs of exacerbation of asthma/COPD overlap syndrome today. COVID, flu, RSV by PCR swab now. Sputum for smear and culture now. treating with doxycycline and prednisone burst as his symptoms have been present for 3 days. No change in maintenance medications, which include Dupixent injections, Trelegy, cetirizine, Flonase and Singulair. On follow-up I will consider repeating PFT. If his respiratory symptoms worsen he should report to the ER and/or notify this practice. follow-up in 3 to 4 weeks. (2) Severe persistent asthma: Status: Acute Qualifiers: Asthma complication type: unspecified Qualified Code(s): J45.50 - Severe persistent asthma, uncomplicated Plan: On follow-up I will consider transitioning him from Dupixent to Tezspire as he is not convinced that Dupixent has been beneficial to him. Already in this calendar year he has required 2 rounds of oral prednisone on Dupixent. In 2020 his total is eosinophilic count was 837. I will consider repeating a CBC with differential to reevaluate on follow-up once he has been off of oral prednisone for at least 2 weeks. (3) Chronic hypoxemic respiratory failure: Status: Chronic Plan: The patient understands that his goal is to maintain an oxygen saturation of 89-92%. He is using and benefiting from supplemental oxygen. (4) Obesity: Status: Chronic Qualifiers: Body mass index: BMI 45.0-49.9 Obesity classification: adult class 3 (BMI gt;= 40) Obesity type: due to excess calories Serious obesity comorbidity presence: with serious comorbidity Qualified Code(s): E66.01 - Morbid (severe) obesity due to excess calories; Z68.42 - Body mass index [BMI] 45.0-49.9, adult Plan: Complicates exam, plan, care and prognosis. Weight loss is warranted. (5) Smoking greater than 20 pack years: Status: Chronic Comment: 25 pack year history, quit 08/16/2014 Plan: LDCT is due in March 2025, previously ordered. Continue with complete smoking cessation. Orders: Orders COV + FLU + RSV PCR Today Culture, Sputum Today R05 - Cough Medications: New doxycycline hyclate 100 mg PO BID 14 caps 0RF prednisone Take 2 tablets daily for 4 days then 1 tablet daily for 2 days. 20 mg PO QDAY 10 tabs 0RF J44.9 - Chronic obstructive pulmonary disease, unspecified Plan Details Follow Up: 3-4 weeks (LMR) HPI HPI Comments Details: Patient is a 63-year-old male who presents to the office today for follow-up of his severe asthma/COPD overlap syndrome with chronic hypoxic respiratory failure and to discuss test results. He is ambulatory and currently on supplemental oxygen. He denies ED visit or urgent care visit for any respiratory illness. He has not required any antibiotics or prednisone for respiratory illness. If you recall, he is utilizing Dupixent injections biweekly along with Trelegy 1 puff daily. He does report rinsing his mouth out after each use. He denies any medication side effect such as sore throat or thrush. He is also reporting use of Flonase, cetirizine and Singulair daily. He is currently using 2-3 L/min of supplemental oxygen at all times. He does have shortness of breath on exertion. For the last 1.5 weeks he has had a cough productive of very thick white sputum. He denies any hemoptysis. He has been having wheezing and chest tightness for the past week and a half. He denies any chest pain or palpitations. He also denies any fever, chills or body aches. He continues with complete smoking cessation. If you recall, he quit smoking back in 2014. Low-dose CT lung screening completed on March 30, 2024. No suspicious nodules are seen. Stable emphysematous changes. Recommendation is continue screening with LDCT in 12 months. last moe eugene, nothing like this though... started in 2017 with bronchitis chest feels full covid was negatvie and no nausea or diarrhea sx started yang. sx worsen last 3 days. cough productive brown/yellow sputum, chest and sinus congestion, wheezing and SOB and headache. nebulizer every 3 hours and albuterol inhaler prior to nebs. Vicks chest rub. ribs and stomach muscle pain from cough. monster in chest no fever or chills. Former smoker. did neb and albuterol nurse yesterday and blood pressure was fine. Intake Vital Signs 05/10/24 07:36 06/28/24 07:29 Height 5 ft 8 in 5 ft 8 in Weight: 249 lb BMI 37 (more content not included)... Normal [facility] Office Visit Reporton [address] [facility] [address] [place] [address] OFFICE VISIT Date of Service: 06/21/24 MR#: [id number] Acct: [id number] Patient: ABDOUL MUNROE Rep #: [id number] : 1960 Provider: Gaby Sanders NP Age/Sex: 63/M Location: [facility] Status: Signed Intake Vital Signs 04/12/24 08:46 06/07/24 09:00 06/21/24 09:03 Height 5 ft 8 in 5 ft 8 in 5 ft 8 in BP 134/78 H 145/78 H Blood Pressure Location Lt brachial Rt brachial Position Sitting Sitting Respiration 22 H 22 H Pulse 78 75 Pulse Source Monitor Monitor Temp 97.4 F L 97.4 F L Temp Source Temporal Temporal Pulse Oximetry (%) 95 90 Oxygen Delivery Method nasal canula nasal canula Oxygen Flow Rate (L/min) 3 3 Intake Visit Reasons: Asthma- Severe Persistent Asthma Chief Complaint: Dupixent for Severe Persistent Asthma Plugman Required: No DME Vendor: [employer] Accompanied by: Self Is patient in pain?: No Allergies cat dander Allergy (Mild, Verified 06/21/24 09:04) Other weed pollen Allergy (Mild, Verified 06/21/24 09:04) Other Have you fallen in the past year?: No Office Procedures Asthma Injection Procedure: Details:: Patient presented for Dupixent injection. Patient tolerated treatment well. The patient was monitored for 15 minutes after treatment. Patient shows no signs of adverse reaction. Reviewed signs and symptoms of reaction. Patient instructed to call the office with new or worsening symptoms. Patient advised to report to the emergency department during after hours if necessary. Patient departed from the office with no signs of distress. Injections Is this a patient provided medication?: Yes Office Meds Dupixent Pen 300 mg/2 mL subcutaneous pen injector Performing Provider: YENNI HallC Performing Location: [facility] Administered by: Faviola Cabezas on 06/21/24 09:00 Dose Route Admin Location Dispensed Lot Number Expiration Date [place] Man ufacturer 300 mg subcut right arm 2 mL [id number] 06/18/26 7959-7904-42 [employer]ANC[employer] Assessment and Plan Assessment and Plan Orders: Orders Dupixent Injection (Patient Provided) Today J45.50 - Severe persistent asthma, uncomplicated Clinical Quality Measures Falls Risk Screening/Assistive Devices Have you fallen in the past year?: No 06/21/24 1640 Date Gaby Montgomery Signature: Date (if applicable) CC: Normal [facility] Office Visit Reporton 2024 Office Visit Report [facility] [address] [place] [address] OFFICE VISIT Date of Service: 06/07/24 MR#: [id number] Acct: [id number] Patient: ABDOUL MUNROE Rep #: [id number] : 1960 Provider: Gaby Sanders NP Age/Sex: 63/M Location: [facility] Status: Signed Intake Vital Signs 04/12/24 08:46 05/10/24 07:36 06/07/24 09:00 Height 5 ft 8 in 5 ft 8 in 5 ft 8 in BP 134/78 H Blood Pressure Location Lt brachial Position Sitting Respiration 22 H Pulse 78 Pulse Source Monitor Temp 97.4 F L Temp Source Temporal Pulse Oximetry (%) 95 Oxygen Delivery Method nasal canula Oxygen Flow Rate (L/min) 3 Intake Visit Reasons: Asthma- Severe Persistent Asthma Chief Complaint: Dupixent for Severe Persistent Asthma Plugman Required: No DME Vendor: [employer] Accompanied by: Self Is patient in pain?: No Allergies cat dander Allergy (Mild, Verified 06/07/24 09:00) Other weed pollen Allergy (Mild, Verified 06/07/24 09:00) Other Office Procedures Asthma Injection Procedure: Details:: Patient presented for Dupixent injection. Patient tolerated treatment well. The patient was monitored for 15 minutes after treatment. Patient shows no signs of adverse reaction. Reviewed signs and symptoms of reaction. Patient instructed to call the office with new or worsening symptoms. Patient advised to report to the emergency department during after hours if necessary. Patient departed from the office with no signs of distress. Injections Is this a patient provided medication?: Yes Office Meds Dupixent Pen 300 mg/2 mL subcutaneous pen injector Performing Provider: MARGOT Hall Performing Location: [facility] Administered by: Faviola Cabezas on 06/07/24 08:45 Dose Route Admin Location Dispensed Lot Number Expiration Date [facility] Man ufacturer 300 mg subcut left arm 2 mL [id number] 06/18/26 2108-1338-09 [employer]ENTIS Assessment and Plan Assessment and Plan Orders: Orders Dupixent Injection (Patient Provided) Today J45.50 - Severe persistent asthma, uncomplicated 06/07/24 1439 Date Gaby Montgomery Signature: Date (if applicable) CC: Normal [facility] Office Visit Reporton 2024 Office Visit Report [facility] [address] [place] [address] OFFICE VISIT Date of Service: 05/24/24 MR#: [id number] Acct: [id number] Patient: ABDOUL MUNROE Rep #: [id number] : 1960 Provider: Gaby Sanders NP Age/Sex: 63/M Location: [facility] Status: Signed Intake Vital Signs 04/12/24 08:46 05/10/24 07:36 05/24/24 09:06 Height 5 ft 8 in 5 ft 8 in Weight: 337 lb 8 oz BMI 51.2 BP 148/76 H 152/85 H Blood Pressure Location Lt brachial Rt brachial Position Sitting Sitting Respiration 18 20 H Pulse 78 78 Pulse Source Monitor Monitor Temp 97.5 F L 97.5 F L Temp Source Temporal Pulse Oximetry (%) 96 94 Oxygen Delivery Method nasal canula nasal canula Oxygen Flow Rate (L/min) 3 3 Intake Visit Reasons: Asthma- Severe Persistent Asthma Chief Complaint: Dupixent for Severe Persistent Asthma Accompanied by: Self Allergies cat dander Allergy (Mild, Verified 05/24/24 09:07) Other weed pollen Allergy (Mild, Verified 05/24/24 09:07) Other Medications ???Medication ???Instructions ???Recorded ???Confirmed ???Type aspirin 81 mg tablet,delayed 81 mg PO DAILY 11/01/18 05/24/24 History release (Aspir-) Air Purifier #1 ea 04/28/22 05/24/24 Rx dupilumab 300 mg/2 mL subcutaneous 300 mg (2 mL) subcut Q2W #4 mL 09/02/22 05/24/24 Rx syringe (Dupixent) guaifenesin 1,200 mg tablet, 1,200 mg PO Q12H #60 tabs 10/28/22 05/24/24 Rx extended release 12 hr rosuvastatin 5 mg tablet 5 mg PO HS 05/26/23 05/24/24 History metformin 500 mg tablet,extended 1,000 mg PO BID 10/13/23 05/24/24 History release 24 hr cetirizine 10 mg capsule 10 mg PO HS #90 caps 11/27/23 05/24/24 Rx montelukast 10 mg tablet 10 mg PO QPM #90 tabs 11/27/23 05/24/24 Rx albuterol sulfate 2.5 mg/3 mL 2.5 mg (3 mL) inhalation Q4H PRN 02/15/24 05/24/24 Rx (0.083 %) solution for nebulization shortness of breath or wheezing #180 vials albuterol sulfate 90 mcg/actuation 2 puff inhalation Q6H PRN 03/07/24 05/24/24 Rx aerosol inhaler shortness of breath or wheezing #8.5 grams fluticasone propionate 50 2 spray intranasal DAILY #16 grams 03/17/24 05/24/24 Rx mcg/actuation nasal spray,suspension furosemide 40 mg tablet 40 mg PO DAILY #90 tabs 04/22/24 05/24/24 Rx lisinopril 20 mg tablet 20 mg PO DAILY #90 tabs 04/22/24 05/24/24 Rx azithromycin 250 mg tablet See Rx Instructions PO .COMPLEX #6 05/10/24 05/24/24 Rx tabs blood sugar diagnostic (True #10 ea 05/10/24 05/24/24 History Metrix Glucose Test Strip) lancets 33 gauge (Unilet Lancet) #100 ea 05/10/24 05/24/24 History prednisone 10 mg tablet 10 mg PO QDAY #30 tabs 05/10/24 05/24/24 Rx fluticasone fur. 200 mcg-umeclid 1 inh inhalation DAILY #60 ea 05/16/24 05/24/24 Rx 62.5 mcg-vilant 25 mcg inhalat.powder (Trelegy Ellipta) Have you fallen in the past year?: No Office Procedures Asthma Injection Procedure: Details:: Patient presented for Dupixent injection. Patient tolerated treatment well. The patient was monitored for 15 minutes after treatment. Patient shows no signs of adverse reaction. Reviewed signs and symptoms of reaction. Patient instructed to call the office with new or worsening symptoms. Patient advised to report to the emergency department during after hours if necessary. Patient departed from the office with no signs of distress. Injections Procedure performed by: Christy Cormier Is this a patient provided medication?: Yes Office Meds Dupixent Pen 300 mg/2 mL subcutaneous pen injector Performing Provider: MARGOT Hall Performing Location: [facility] Administered by: Christy Cormier on 05/24/24 09:10 Dose Route Admin Location Dispensed Lot Number Expiration Date [facility] Man ufacturer 300 mg subcut 2 mL [id number] 04/16/26 4871-9030-56 SANOFI/REGENERO Assessment and Plan Assessment and Plan Orders: Orders Dupixent Injection (Patient Provided) Today J45.50 - Severe persistent asthma, uncomplicated Clinical Quality Measures Falls Risk Screening/Assistive Devices Have you fallen in the past year?: No 05/24/24 1632 Date Gaby FROST Cosigner Signature: Date (if applicable) CC: Normal [facility] Pulmonary Visit Reporton Pulmonary Visit Report [facility] [address] [place] [address] OFFICE VISIT Date of Service: 05/10/24 MR#: [id number] Acct: [id number] Name: ABDOUL MUNROE Rep #: [id number] : 1960 Provider: MARGOT Romero Age/Sex: 63/M Location: [facility] Status: Signed Assessment and Plan Assessment and Plan (1) Asthma-chronic obstructive pulmonary disease overlap syndrome: Status: Chronic Comment: On Dupixent Plan: Deteriorated with signs of exacerbation of asthma/COPD overlap syndrome today. Treating with azithromycin and prednisone taper. No change in maintenance medications, which include Dupixent injections, Trelegy, cetirizine, Flonase and Singulair. No additional testing at this time. Contact the office with any signs of new or worsening symptoms, or if he does not improve after 3 days of steroids. Follow-up in 6 months. (2) Chronic hypoxemic respiratory failure: Status: Chronic Plan: The patient is using and benefiting from oxygen. Continue to utilize to maintain a saturation of 89-92%. (3) Obesity: Status: Chronic Qualifiers: Body mass index: BMI 45.0-49.9 Obesity classification: adult class 3 (BMI gt;= 40) Obesity type: due to excess calories Serious obesity comorbidity presence: with serious comorbidity Qualified Code(s): E66.01 - Morbid (severe) obesity due to excess calories; Z68.42 - Body mass index [BMI] 45.0-49.9, adult Plan: Complicates exam, plan, care and prognosis. Continue to encourage weight loss. (4) Smoking greater than 20 pack years: Status: Chronic Comment: 25 pack year history, quit 08/16/2014 Plan: Encourage ongoing smoking cessation. This patient remains appropriate for repeat LDCT which will be due in March 2025. Ordered accordingly. Orders: Orders Low Dose CT Lung Screening 03/18/25 F17.200 - Nicotine dependence, unspecified, uncomplicated, F17.210 - Nicotine dependence, cigarettes, uncomplicated Dupixent Injection (Patient Provided) Today J44.9 - Chronic obstructive pulmonary disease, unspecified Medications: New azithromycin take 500 mg today (day 1), then 250 mg for 4 days (days 2-5) PO 6 tabs 0RF prednisone take 4 tabs for three days, then 3 tabs for three days, then 2 tabs for three days, then 1 tab for 3 days 10 mg PO QDAY 30 tabs 0RF Dupixent Pen (dupilumab) 300 mg (2 mL) subcut Q2W 2 mL 0RF NS J44.9 - Chronic obstructive pulmonary disease, unspecified Plan Details Follow Up: 6 Months ([facility]) HPI 11 m fu/Injection Chief Complaint: cough HPI Comments Details: This patient presents to the office today for follow-up of his severe asthma/COPD overlap syndrome with chronic hypoxic respiratory failure and to discuss test results. He is ambulatory and currently on supplemental oxygen. He has not recently been seen in the ED or urgent care for any respiratory illness. He has not required any antibiotics or prednisone for any breathing problems. He is compliant with the use of Dupixent injections biweekly. He continues with Trelegy 1 puff daily. He does report rinsing his mouth out after each use. He denies any medication side effect such as sore throat or thrush. He is also compliant with Flonase, cetirizine and Singulair daily. He is currently using 2-3 L/min of supplemental oxygen at all times. He does have shortness of breath on exertion. For the last 1.5 weeks he has had a cough productive of very thick white sputum. He denies any hemoptysis. He has been having wheezing and chest tightness for the past week and a half. He denies any chest pain or palpitations. He also denies any fever, chills or body aches. He continues with complete smoking cessation. If you recall, he quit smoking back in 2014. Test results personally reviewed with patient: Low-dose CT lung screening completed on March 30, 2024. No suspicious nodules are seen. Stable emphysematous changes. Recommendation is continue screening with LDCT in 12 months. Intake Vital Signs 05/26/23 07:59 02/17/24 14:09 04/26/24 08:58 05/10/24 07:36 Height 5 ft 8 in 5 ft 8 in 5 ft 8 in 5 ft 8 in Weight: 337 lb 8 oz BMI 51.2 BP 148/76 H Blood Pressure Location Lt brachial Position Sitting Respiration 18 Pulse 78 Pulse Source Monitor Temp 97.5 F L Temperature Source Temporal Artery Pulse Oximetry (%) 96 Oxygen Delivery Method nasal canula Oxygen Flow Rate (L/min) 3 Intake Visit Reasons: 11 m fu/Injection Chief Complaint: Dupixent for Severe Persistent Asthma DME Vendor: [employer] Accompanied by: Self Allergies cat dander Allergy (Mild, Verified 05/10/24 08:12) Other weed pollen Allergy (Mild, Verified 05/10/24 08:12) Other Medications ???Medication ???Instructions ???Recorded ???Confirmed ???Type aspirin 81 mg tablet,del (more content not included)... Normal [facility] Office Visit Reporton 2023 Office Visit Report [facility] [address] [place] [address] OFFICE VISIT Date of Service: 04/26/24 MR#: [id number] Acct: [id number] Patient: ABDOUL MUNROE Rep #: [id number] : 1960 Provider: MARGOT Romero Age/Sex: 63/M Location: [facility] Status: Signed Intake Vital Signs 03/29/24 08:47 04/12/24 08:46 04/26/24 08:58 Height 5 ft 8 in 5 ft 8 in 5 ft 8 in Weight: 337 lb BMI 51.2 BP 145/82 H Blood Pressure Location Rt brachial Position Sitting Respiration 20 H Pulse 80 Pulse Source Monitor Temp 97.5 F L Temp Source Temporal Pulse Oximetry (%) 92 Oxygen Delivery Method nasal canula Oxygen Flow Rate (L/min) 3 Intake Visit Reasons: Asthma- Severe Persistent Asthma Chief Complaint: Dupixent for Severe Persistent Asthma Plugman Required: No DME Vendor: [employer] Accompanied by: Self Is patient in pain?: No Allergies No Known Allergies Allergy (Verified 04/12/24 08:46) Office Procedures Asthma Injection Procedure: Details:: Patient presented for Dupixent injection. Patient tolerated treatment well. The patient was monitored for 15 minutes after treatment. Patient shows no signs of adverse reaction. Reviewed signs and symptoms of reaction. Patient instructed to call the office with new or worsening symptoms. Patient advised to report to the emergency department during after hours if necessary. Patient departed from the office with no signs of distress. Injections Is this a patient provided medication?: Yes Office Meds Dupixent Pen 300 mg/2 mL subcutaneous pen injector Performing Provider: MARGOT Nagel NP Performing Location: [facility] Administered by: Faviola Cabezas on 04/26/24 09:00 Dose Route Admin Location Dispensed Lot Number Expiration Date [facility] Man ufacturer 300 mg subcut left arm 2 mL [id number] 04/17/26 5237-0297-88 [facility]ENPop[employer] [facility] [employer] Assessment and Plan Assessment and Plan Orders: Orders Dupixent Injection (Patient Provided) Today J45.50 - Severe persistent asthma, uncomplicated Medications: New Dupixent Pen (dupilumab) 300 mg (2 mL) subcut Q2W 2 mL 0RF NS J45.50 - Severe persistent asthma, uncomplicated 04/26/24 1142 Date Gina FROST Cosigner Signature: Date (if applicable) [facility] [facility] Office Visit Reporton 2023 Office Visit Report [facility] [address] [place] [address] OFFICE VISIT Date of Service: 04/12/24 MR#: [id number] Acct: [id number] Patient: ABDOUL MUNROE Rep #: [id number] : 1960 Provider: MARGOT Romero Age/Sex: 63/M Location: [facility].PMW Status: Signed Intake Vital Signs 03/15/24 09:05 03/29/24 08:47 04/12/24 08:46 Height 5 ft 8 in 5 ft 8 in 5 ft 8 in BP 156/76 H Blood Pressure Location Rt brachial Position Sitting Respiration 20 H Pulse 76 Pulse Source Monitor Temp 97.3 F L Temp Source Temporal Pulse Oximetry (%) 92 Oxygen Delivery Method nasal canula Oxygen Flow Rate (L/min) 3 Intake Visit Reasons: Asthma- Severe Persistent Asthma Chief Complaint: Dupixent for Severe Persistent Asthma Plugman Required: No DME Vendor: [employer] Accompanied by: Self Is patient in pain?: No Allergies No Known Allergies Allergy (Verified 04/12/24 08:46) Office Procedures Asthma Injection Procedure: Details:: Patient presented for Dupixent injection. Patient tolerated treatment well. The patient was monitored for 15 minutes after treatment. Patient shows no signs of adverse reaction. Reviewed signs and symptoms of reaction. Patient instructed to call the office with new or worsening symptoms. Patient advised to report to the emergency department during after hours if necessary. Patient departed from the office with no signs of distress. Injections Is this a patient provided medication?: Yes Office Meds Dupixent Pen 300 mg/2 mL subcutaneous pen injector Performing Provider: Gina Romero NP, HUSSAIN-C Performing Location: [facility] Administered by: Faviola Cabezas on 04/12/24 09:05 Dose Route Admin Location Dispensed Lot Number Expiration Date NDC Man ufacturer 300 mg subcut left arm 2 mL [id number] 04/17/26 1720-3561-18 [employer]ACE[employer] Assessment and Plan Assessment and Plan Orders: Orders Dupixent Injection (Patient Provided) Today J45.50 - Severe persistent asthma, uncomplicated 04/12/24 1443 Date Gina FROST Cosigner Signature: Date (if applicable) CC: [facility] 04-06-2024 [facility]OM[facility] Telephone ([facility]) ABDOUL MUNROE ([id number]) 1960 M Date Time Provider Department 04/06/24 RAQUEL STOLL During your visit today, we recorded the following information about you: Raquel Stoll APRN.VENKATA 04/06/2024 10:36 PM Signed Can please let patient know that I received his lab results. He is still just minimally anemic, but it is stable. He iron stores is normal, but his intake was on the lower side. Please increase the iron rich foods in the diet. Lets have him recheck his blood count in another 1-2 months. The order is in. Raquel Stoll APRN.Julia Shetty LPN 04/07/2024 3:01 PM Signed Phoned patient went over results, notes from Raquel Stoll [employer] with understanding. Allergies As of Date: 04/06/2024 Noted Allergy Reaction CAT DANDER 06/03/2019 14 - Other: See Comments Comments: sneezing nasal congestion RAGWEED POLLEN 06/03/2019 14 - Other: See Comments Comments: sneezing nasal congestion Date Reviewed: 03/02/2024 Reviewed by: Rosa Maria Villa LPN - Fully Assessed Reason for Visit: Results [95] Primary Visit Diagnosis:Anemia, unspecified type [D64.9] Order(s):COMPLETE BLOOD COUNT AND DIFFERENTIAL [SQCBCDIF] Order #: [id number] FUTURE Prescriptions as of 04/07/2024 - blood sugar diagnostic (BLOOD GLUCOSE TEST) test strip Test blood sugar(s) 4 times daily. Dx: Type 2 DM - Uncontrolled E11.65 Insulin: Yes - Lancets Test blood sugar(s) 4 times daily. Dx: Type 2 DM - Uncontrolled E11.65 Insulin: Yes - rosuvastatin (CRESTOR) 5 mg tablet Take 1 tablet by mouth daily at bedtime. - metFORMIN ER (GLUCOPHAGE XR) 500 mg 24 hr tablet Take 2 tablets by mouth two times a day. - montelukast (SINGULAIR) 10 mg tablet Take 1 tablet by mouth daily at bedtime. - fluticasone (FLONASE) 50 mcg/actuation nasal spray Use 2 Sprays in each nostril once daily. Rinse mouth after use. - OXYGEN-AIR DELIVERY SYSTEMS MISC 2L - DUPIXENT SYRINGE 300 mg/2 mL injection - furosemide (LASIX) 20 mg tablet Take 1 tablet by mouth once daily. - albuterol (PROVENTIL) 2.5 mg /3 mL (0.083 %) nebulizer solution Use 3 mL via nebulizer every 4 hours as needed for wheezing/shortness of breath. Use over 5-15minutes. - lisinopril (ZESTRIL, PRINIVIL) 10 mg tablet Take 1 tablet by mouth once daily. - fluticasone-umeclidin -vilanter (TRELEGY ELLIPTA) 200-62.5-25 mcg dsdv Inhale as instructed. - cetirizine (ZYRTEC) 10 mg tablet - aspirin (ASPIR-81 ORAL) Take by mouth. - albuterol HFA (PROAIR HFA) 90 mcg/actuation inhaler Inhale 2 Puffs as instructed every 4 hours as needed for Wheezing/Shortness of Breath. Problem List As Of Date 04/06/2024 Noted Resolved Abdominal pain [R10.9] 04/09/2011 03/01/2018 Abdominal pain, unspecified site [R10.9] 04/17/2011 03/01/2018 Trauma [T14.90XA] 09/02/2011 03/01/2018 Depression [F32.A] 09/02/2011 03/01/2018 Onychia and paronychia of toe [L03.039] 01/09/2012 03/01/2018 COPD with hypoxia (HCC) [J44.9] 10/30/2017 Mild concentric left ventricular hypertrophy (L*11/05/2017 Stasis edema of both lower extremities [I87.303]03/15/2018 Venous stasis dermatitis of both lower extremit*03/15/2018 Psoriasis [L40.9] 06/02/2018 Encounter for screening for lung cancer [Z12.2] 07/14/2018 Acute mastoiditis of right side [H70.001] 06/10/2019 Sensorineural hearing loss (SNHL) of both ears *06/10/2019 Elevated IgE level [R76.8] 06/30/2019 Perinuclear antineutrophil cytoplasmic antibody*07/12/2019 Thrombophlebitis of superficial veins of lower *03/13/2020 Tobacco dependence in remission [F17.201] 07/14/2018 Morbid obesity (HCC) [E66.01] 03/13/2020 Hypertensive disorder [I10] 03/13/2020 Cough [R05.9] 03/13/2020 Cellulitis [L03.90] 03/13/2020 Candidiasis of mouth [B37.0] 03/13/2020 Bronchospasm, acute [J98.01] 03/13/2020 Pulmonary fibrosis (HCC) [J84.10] 03/13/2020 Severe persistent asthma, uncomplicated [J45.50]10/07/2020 Encounter for support and coordination of trans*12/12/2020 Aortic root dilation (HCC) [I77.810] 12/28/2020 Other chest pain [R07.89] 07/13/2021 Encounter Status:Closed by JULIA PEREZ on 04/07/24 Normal [facility] CBC W Auto Differential pane l (Bld)on 04-04-2024 Basophils (Bld) [#/Vol] 0.06 10*3/uL Normal <0.11 [facility] Comment on above: Order Comment: Speci men Type: BLOOD SPECIMENOrdering Facility: [facility] Address: [address] [place] [address] Performed By: #### 1 4196-0, 73260-3 ####[facility] LABCLIA [id number] [place] [address] [place] Basophils/100 WBC (Bld) 0.7 % Normal C [facility] Comment on above: Order Comment: Speci men Type: BLOOD SPECIMENOrdering Facility: [facility] Address: [address] [place] [address] Performed By: #### 1 4196-0, 43137-5 ####[facility] LABCLIA [id number] [place] [address] [place] Differential cell count method Nom (Bld) Auto Normal [facility] Comment on above: Order Comment: Speci men Type: BLOOD SPECIMENOrdering Facility: [facility] Address: [address] [place] [address] Performed By: #### 1 4196-0, 58532-8 ####[facility] LABCLIA [id number] [place] [address] [place] Eosinophils (Bld) [#/Vol] 0.71 10*3/uL High <0.46 [facility] Comment on above: Order Comment: Speci men Type: BLOOD SPECIMENOrdering Facility: [facility] Address: [address] [place] [address] Performed By: #### 1 4196-0, 23090-1 ####[facility] LABCLIA [id number] [place] [address] [place] Eosinophils/100 WBC (Bld) 7.8 % Normal [facility] Comment on above: Order Comment: Speci men Type: BLOOD SPECIMENOrdering Facility: [facility] Address: [address] [place] [address] Performed By: #### 1 4196-0, 93390-5 ####[facility] LABCLIA [id number] [place] [address] [place] Erythrocyte distribution width (RBC) [Ratio] 14.9 % Normal 11.5-15.0 [facility] Comment on above: Order Comment: Speci men Type: BLOOD SPECIMENOrdering Facility: [facility] Address: [address] [place] [address] Performed By: #### 1 4196-0, 61683-5 ####[facility] LABCLIA [id number] [place] [address] [place] Hematocrit (Bld) [Volume fraction] 38.7 % Low 39.0-51.0 [facility] Comment on above: Order Comment: Speci men Type: BLOOD SPECIMENOrdering Facility: [facility] Address: [address] [place] [address] Performed By: #### 1 4196-0, 02965-7 ####[facility] LABCLIA [id number] [place] [address] [place] Hemoglobin (Bld) [Mass/Vol] 12.1 g/dL Low 13.0-17.0 [facility] Comment on above: Order Comment: Speci men Type: BLOOD SPECIMENOrdering Facility: [facility] Address: [address] [place] [address] Performed By: #### 1 4196-0, 72534-7 ####[facility] LABCLIA [id number] [place] [address] [place] Immature granulocytes (Bld) [#/Vol] 0.03 10*3/uL Normal <0.10 [facility] Comment on above: Order Comment: Speci men Type: BLOOD SPECIMENOrdering Facility: [facility] Address: [address] [place] [address] Performed By: #### 1 4196-0, 19187-3 ####[facility] LABCLIA [id number] [place] [address] [place] Immature granulocytes/100 WBC (Bld) 0.3 % Normal [facility] Comment on above: Order Comment: Speci men Type: BLOOD SPECIMENOrdering Facility: [facility] Address: [address] [place] [address] Performed By: #### 1 4196-0, 62856-0 ####[facility] LABCLIA [id number] [place] [address] [place] Lymphocytes (Bld) [#/Vol] 1.79 10*3/uL Normal 1.00-4.00 [facility] Comment on above: Order Comment: Speci men Type: BLOOD SPECIMENOrdering Facility: [facility] Address: [address] [place] [address] Performed By: #### 1 4196-0, 58477-0 ####[facility] LABCLIA [id number] [place] [address] [place] Lymphocytes/100 WBC (Bld) 19.8 % Normal [facility] Comment on above: Order Comment: Speci men Type: BLOOD SPECIMENOrdering Facility: [facility] Address: [address] [place] [address] Performed By: #### 1 4196-0, 98397-5 ####[facility] LABIA [id number] [place] [address] [place] MCH (RBC) [Entitic mass] 29.5 pg Normal 26.0-34.0 [facility] Comment on above: Order Comment: Speci men Type: BLOOD SPECIMENOrdering Facility: [facility] Address: [address] [place] [address] Performed By: #### 1 4196-0, 84644-8 ####[facility] [id number] [place] [address] [place] MCHC (RBC) [Mass/Vol] 31.3 g/dL Normal 30.5-36.0 [facility] Comment on above: Order Comment: Speci men Type: BLOOD SPECIMENOrdering Facility: [facility] Address: [address] [place] [address] Performed By: #### 1 4196-0, 52265-3 ####[facility] LABIA [id number] [place] [address] [place] MCV (RBC) [Entitic vol] 94.4 fL Normal 80.0-100.0 [facility] Comment on above: Order Comment: Speci men Type: BLOOD SPECIMENOrdering Facility: [facility] Address: [address] [place] [address] Performed By: #### 1 4196-0, 34827-2 ####[facility] LABIA [id number] [place] [address] [place] Monocytes (Bld) [#/Vol] 0.81 10*3/uL Normal <0.87 [facility] Comment on above: Order Comment: Speci men Type: BLOOD SPECIMENOrdering Facility: [facility] Address: [address] [place] [address] Performed By: #### 1 4196-0, 27815-1 ####[facility] LABCLIA [id number] [place] [address] [place] Monocytes/100 WBC (Bld) 9.0 % Normal [facility] Comment on above: Order Comment: Speci men Type: BLOOD SPECIMENOrdering Facility: [facility] Address: [address] [place] [address] Performed By: #### 1 4196-0, 88482-0 ####[facility] LABCLIA [id number] [place] [address] [place] Neutrophils (Bld) [#/Vol] 5.65 10*3/uL Normal 1.45-7.50 [facility] Comment on above: Order Comment: Speci men Type: BLOOD SPECIMENOrdering Facility: [facility] Address: [address] [place] [address] Performed By: #### 1 4196-0, 29521-7 ####[facility] LABCLIA [id number] [place] [address] [place] Neutrophils/100 WBC (Bld) 62.4 % Normal [facility] Comment on above: Order Comment: Speci men Type: BLOOD SPECIMENOrdering Facility: [facility] Address: [address] [place] [address] Performed By: #### 1 4196-0, 88202-4 ####[facility] LABCLIA [id number] [place] [address] [place] Nucleated RBC (Bld) [#/Vol] 10*3/uL Normal <0.01 [facility] Comment on above: Order Comment: Speci men Type: BLOOD SPECIMENOrdering Facility: [facility] Address: [address] [place] [address] Performed By: #### 1 4196-0, 10230-1 ####[facility] LABIA [id number] [place] [address] [place] Nucleated RBC/100 WBC (Bld) [Ratio] 0.0 /100 WBC Normal [facility] Comment on above: Order Comment: Speci men Type: BLOOD SPECIMENOrdering Facility: [facility] Address: [address] [place] [address] Performed By: #### 1 4196-0, 63082-4 ####[facility] LABIA [id number] [place] [address] [place] Platelet mean volume (Bld) [Entitic vol] 9.4 fL Normal 9.0-12.7 [facility] Comment on above: Order Comment: Speci men Type: BLOOD SPECIMENOrdering Facility: [facility] Address: [address] [place] [address] Performed By: #### 1 4196-0, 47297-8 ####[facility] LABIA [id number] [place] [address] [place] Platelets (Bld) [#/Vol] 249 10*3/uL Normal 150-400 [facility] Comment on above: Order Comment: Speci men Type: BLOOD SPECIMENOrdering Facility: [facility] Address: [address] [place] [address] Performed By: #### 1 4196-0, 13775-3 ####[facility] LABIA [id number] [place] [address] [place] RBC (Bld) [#/Vol] 4.10 10*6/uL Low 4.20-6.00 [facility] Comment on above: Order Comment: Speci men Type: BLOOD SPECIMENOrdering Facility: [facility] Address: [address] [place] [address] Performed By: #### 1 4196-0, 41967-9 ####[facility] LABIA [id number] [place] [id number] [place] WBC (Bld) [#/Vol] 9.05 10*3/uL Normal 3.70-11.00 [facility] Comment on above: Order Comment: Speci men Type: BLOOD SPECIMENOrdering Facility: [facility] Address: [address] [place] [address] Performed By: #### 1 4196-0, 43912-3 ####[facility] LABCLIA [id number] [address] [place] CNPClarissa [facility]-04-[facility] ABDOUL MUNROE ([id number]) 1960 M Date Time Provider Department 04/04/24 RAQUEL STOLL [facility] During your visit today, we recorded the following information about you: Shauna Ramos RN 04/04/2024 9:00 AM Signed Pt called in to get his DM testing strips and lancets reordered to [facility] in [place]. I let him know they were ordered on 03/02/24. I let him know he needs to call the pharmacy and have them refill them for him. Allergies As of Date: 04/04/2024 Noted Allergy Reaction CAT DANDER 06/03/2019 14 - Other: See Comments Comments: sneezing nasal congestion RAGWEED POLLEN 06/03/2019 14 - Other: See Comments Comments: sneezing nasal congestion Date Reviewed: 03/02/2024 Reviewed by: Rosa Maria Villa LPN - Fully Assessed Reason for Visit: Patient Question [4287] Prescriptions as of 04/04/2024 - blood sugar diagnostic (BLOOD GLUCOSE TEST) test strip Test blood sugar(s) 4 times daily. Dx: Type 2 DM - Uncontrolled E11.65 Insulin: Yes - Lancets Test blood sugar(s) 4 times daily. Dx: Type 2 DM - Uncontrolled E11.65 Insulin: Yes - rosuvastatin (CRESTOR) 5 mg tablet Take 1 tablet by mouth daily at bedtime. - metFORMIN ER (GLUCOPHAGE XR) 500 mg 24 hr tablet Take 2 tablets by mouth two times a day. - montelukast (SINGULAIR) 10 mg tablet Take 1 tablet by mouth daily at bedtime. - fluticasone (FLONASE) 50 mcg/actuation nasal spray Use 2 Sprays in each nostril once daily. Rinse mouth after use. - OXYGEN-AIR DELIVERY SYSTEMS MIS 2L - DUPIXENT SYRINGE 300 mg/2 mL injection - furosemide (LASIX) 20 mg tablet Take 1 tablet by mouth once daily. - albuterol (PROVENTIL) 2.5 mg /3 mL (0.083 %) nebulizer solution Use 3 mL via nebulizer every 4 hours as needed for wheezing/shortness of breath. Use over 5-15minutes. - lisinopril (ZESTRIL, PRINIVIL) 10 mg tablet Take 1 tablet by mouth once daily. - fluticasone-umeclidin -vilanter (TRELEGY ELLIPTA) 200-62.5-25 mcg dsdv Inhale as instructed. - cetirizine (ZYRTEC) 10 mg tablet - aspirin (ASPIR-81 ORAL) Take by mouth. - albuterol HFA (PROAIR HFA) 90 mcg/actuation inhaler Inhale 2 Puffs as instructed every 4 hours as needed for Wheezing/Shortness of Breath. Problem List As Of Date 04/04/2024 Noted Resolved Abdominal pain [R10.9] 04/09/2011 03/01/2018 Abdominal pain, unspecified site [R10.9] 04/17/2011 03/01/2018 Trauma [T14.90XA] 09/02/2011 03/01/2018 Depression [F32.A] 09/02/2011 03/01/2018 Onychia and paronychia of toe [L03.039] 01/09/2012 03/01/2018 COPD with hypoxia (HCC) [J44.9] 10/30/2017 Mild concentric left ventricular hypertrophy (L*11/05/2017 Stasis edema of both lower extremities [I87.303]03/15/2018 Venous stasis dermatitis of both lower extremit*03/15/2018 Psoriasis [L40.9] 06/02/2018 Encounter for screening for lung cancer [Z12.2] 07/14/2018 Acute mastoiditis of right side [H70.001] 06/10/2019 Sensorineural hearing loss (SNHL) of both ears *06/10/2019 Elevated IgE level [R76.8] 06/30/2019 Perinuclear antineutrophil cytoplasmic antibody*07/12/2019 Thrombophlebitis of superficial veins of lower *03/13/2020 Tobacco dependence in remission [F17.201] 07/14/2018 Morbid obesity (HCC) [E66.01] 03/13/2020 Hypertensive disorder [I10] 03/13/2020 Cough [R05.9] 03/13/2020 Cellulitis [L03.90] 03/13/2020 Candidiasis of mouth [B37.0] 03/13/2020 Bronchospasm, acute [J98.01] 03/13/2020 Pulmonary fibrosis (HCC) [J84.10] 03/13/2020 Severe persistent asthma, uncomplicated [J45.50]10/07/2020 Encounter for support and coordination of trans*12/12/2020 Aortic root dilation (HCC) [I77.810] 12/28/2020 Other chest pain [R07.89] 07/13/2021 Encounter Status:Closed by SHAUNA RAMOS on 04/04/24 Normal [facility] Ferritin SerPl-mCncon 2023 Ferritin [Mass/Vol] 470.0 ng/mL Normal 30.3-565.7 [facility] Comment on above: Order Comment: Speci men Type: BLOOD SPECIMENOrdering Facility: [facility] Address: [address] [place] [address] Performed By: #### 5 0190-8, 2276-4, 2132-9, 2284-8 ####[facility] LABCLIA [id number] [place] [address] [place] Folate SerPl-mCncon 04-04-20 24 Folate [Mass/Vol] ng/mL Normal >4.7 [facility] Comment on above: Order Comment: Speci men Type: BLOOD SPECIMENOrdering Facility: [facility] Address: [address] [place] [address] Result Comment: A re sult of > 20 ng/mL is not necessarily indicative of a pathologic or treatable condition: it reflects a limitation of the test methodology. Assay reference range: 4.8 to 24.2 ng/mL. Suitable for detection of folate deficiency. Reference: Folate III (Folate III) [package insert V 1.0 Pakistani]. [facility], [place], [place]: March 2015. Performed By: #### 5 0190-8, 2275-4, 2132-01, 2283-12 ####[facility] LABCLIA [id number] [place] [address] [place] Hemoccult Stl Ql IAon 2023 Lower GI hemoglobin IA Ql (Stl) Negative Normal Negative [facility] Comment on above: Order Comment: Speci men Type: STOOL SPECIMENOrdering Facility: [facility] Address: [address] [place] [address] Performed By: #### 2 9771-3 ####[facility] LABIA [id number] [place] [address] [place] Iron and Iron binding capaci ty panelon 04-04-2024 Iron [Mass/Vol] 48 ug/dL Normal 41-186 [facility] Comment on above: Order Comment: Speci men Type: BLOOD SPECIMENOrdering Facility: [facility] Address: [address] [place] [address] Performed By: #### 5 0190-8, 2275-08, 2132-01, 2283-12 ####[facility] LABCLIA [id number] [place] [address] [place] Iron binding capacity [Mass/Vol] 263 ug/dL Normal 232-386 [facility] Comment on above: Order Comment: Speci men Type: BLOOD SPECIMENOrdering Facility: [facility] Address: [address] [place] [address] Performed By: #### 5 0190-8, 4, 2132-01, 2283-12 ####[facility]CLIA [id number] [place] [address] [place] Iron/TIBC [Molar ratio] 18.3 % Normal 15.0-57.0 C [facility] Comment on above: Order Comment: Speci men Type: BLOOD SPECIMENOrdering Facility: [facility] Address: [address] [place] [address] Performed By: #### 5 0190-8, 2275-08, 2132-01, 2283-12 ####[facility] LABCLIA [id number] [place] [address] [place] Retics #on 04-04-2024 Reticulocytes (Bld) [#/Vol] 0.89108 10*3/uL Normal 0.018-0.100 [facility] Comment on above: Order Comment: Speci men Type: BLOOD SPECIMENOrdering Facility: [facility] Address: [address] [place] [address] Performed By: #### 1 4196-0, 25489-7 ####[facility] LABCLIA [id number] [place] [address] [place] Reticulocytes (Bld) [#/Vol]o n 04-04-2024 Reticulocytes/100 RBC (Bld) 1.8 % Normal 0.4-2.0 [facility] Comment on above: Order Comment: Speci men Type: BLOOD SPECIMENOrdering Facility: [facility] Address: [address] [place] [address] Performed By: #### 1 4196-0, 24441-6 ####[facility] LABCLIA [id number] [address] [place] Vit B12 SerPl-mCncon 11-18-2 024 Cobalamin (Vitamin B12) [Mass/Vol] 346 pg/mL Normal 232-1245 [facility] Comment on above: Order Comment: Speci men Type: BLOOD SPECIMENOrdering Facility: [facility] Address: [address] [place] [address] Performed By: #### 5 0190-8, 2276-4, 2132-9, 2284-8 ####[facility] LABCLIA [id number] [facility] [address] [facility] Low Dose CT Lung Screeningon 03-30-[address] Lung Screening [facility] [address] [place] [id number] Lung Screening MR#: [id number] Acct: [id number] Name: ABDOUL MUNROE Rep #: [id number] : 1960 M 63 From: Ilir jimenez MD PCP: MARGOT Bustillo Status: [facility] Study: Low Dose CT Lung Screening Date of Exam: 03/30 Exam# [id number] Ordering Dr: Gina Romero NP [employer]-C [id number] STUDY: LOW DOSE CT LUNG CANCER SCREENING REASON FOR EXAM: Male, 63 years old. Smoker, quit 2014. Patient smoked 1 pack per day for 30 years. RADIATION DOSAGE (If Supplied By Facility): CTDIvol = ( 4.02 ) mGy, DLP = ( 144.96 ) mGycm TECHNIQUE: No contrast was administered. Low dose technique was utilized (average mAS-38 and kVp 120). 1.25 mm axial source images with a slice interval of 1.25-mm were reconstructed in lung windows. 2.5 mm axial source images with a slice interval of 2.5-mm were reconstructed in lung windows. 5.0 mm axial source images with a slice interval of 5.0-mm were reconstructed in soft tissue windows. COMPARISON: Comparison is made with prior study of March 24, 2023. NODULES: No suspicious nodules are seen. Emphysema: Stable emphysematous changes. Stable pleural thickening along the right hemithorax. Stable linear densities at the lung bases suggestive of scarring. Endobronchial lesion: None Aorta: Atherosclerotic plaque formation of the aortic arch. CORONARY ARTERIES: Coronary artery calcification is seen. Heart: Unremarkable Pulmonary artery: Unremarkable Mediastinal nodes: Small mediastinal lymph nodes. Other chest and abdominal findings: CT/Low Dose CT Lung Screening IMPRESSION: Lung-RADS category 2 - Continue annual screening with LDCT in 12 months. IMPORTANT NOTES FOR USE: ACR Lung-RADS Version 1.1 Assessment Categories Release Date: 2018 Category: Coded 0-4 bases on nodule(s) with highest degree of suspicion. Negative screen is defined as categories 1 and 2; a positive screen is defined as categories 3 and 4. Category 3 and 4A nodules that are unchanged on interval CT should be coded as category 2, and individuals returned to screening in 12 months. Category 4X: Category 3 or 4 nodules with additional imaging findings that increase the suspicion of lung cancer, such as spiculation, GGN that doubles in size in 1 year, enlarged lymph notes, etc. Category Modifiers: S (significant finding unrelated to lung cancer) Electronically Signed: Ilir Forman MD at 10:45 EST Reading Location ID and State: [address] [place] [address] , Service support , CC: MARGOT Romero; MARGOT Stoll Field Marketing Representative: Signed Normal [facility] Office Visit Reporton 2023 Office Visit Report [facility] [address] [place] [address] OFFICE VISIT Date of Service: 03/29/24 MR#: [id number] Acct: [id number] Patient: ABDOUL MUNROE Rep #: [id number] : 1960 Provider: MARGOT Romero Age/Sex: 63/M Location: [facility].PMW Status: Signed Intake Vital Signs 03/01/24 08:57 03/15/24 09:05 03/29/24 08:47 Height 5 ft 8 in 5 ft 8 in 5 ft 8 in Weight: 330 lb BMI 50.1 BP 140/76 H 144/70 H 141/71 H Blood Pressure Location Rt brachial Rt brachial Lt radial Position Sitting Sitting Sitting Respiration 20 H 20 H 22 H Pulse 83 77 74 Pulse Source Monitor Monitor Monitor Temp 97.4 F L 97.3 F L 97.4 F L Temp Source Temporal Temporal Temporal Pulse Oximetry (%) 95 93 92 Oxygen Delivery Method nasal canula nasal canula nasal canula Oxygen Flow Rate (L/min) 2 2 2 Intake Visit Reasons: Asthma- Severe Persistent Asthma, Injection Administration Chief Complaint: Dupixent for Severe Persistent Asthma Plugman Required: No Accompanied by: Self Allergies No Known Allergies Allergy (Verified 03/29/24 08:50) Medications ???Medication ???Instructions ???Recorded ???Confirmed ???Type aspirin 81 mg tablet,delayed 81 mg PO DAILY 11/01/18 03/29/24 History release (Aspir-) Air Purifier #1 ea 04/28/22 03/29/24 Rx dupilumab 300 mg/2 mL subcutaneous 300 mg (2 mL) subcut Q2W #4 mL 09/02/22 03/29/24 Rx syringe (Dupixent) guaifenesin 1,200 mg tablet, 1,200 mg PO Q12H #60 tabs 10/28/22 03/29/24 Rx extended release 12 hr furosemide 40 mg tablet 40 mg PO DAILY #90 tabs 04/30/23 03/29/24 Rx lisinopril 20 mg tablet 20 mg PO DAILY #90 tabs 04/30/23 03/29/24 Rx rosuvastatin 5 mg tablet 5 mg PO HS 05/26/23 03/29/24 History metformin 500 mg tablet,extended 1,000 mg PO BID 10/13/23 03/29/24 History release 24 hr fluticasone fur. 200 mcg-umeclid 1 inh inhalation DAILY #60 ea 10/28/23 03/29/24 Rx 62.5 mcg-vilant 25 mcg inhalat.powder (Trelegy Ellipta) cetirizine 10 mg capsule 10 mg PO HS #90 caps 11/27/23 03/29/24 Rx montelukast 10 mg tablet 10 mg PO QPM #90 tabs 11/27/23 03/29/24 Rx albuterol sulfate 2.5 mg/3 mL 2.5 mg (3 mL) inhalation Q4H PRN 02/15/24 03/29/24 Rx (0.083 %) solution for nebulization shortness of breath or wheezing #180 vials albuterol sulfate 90 mcg/actuation 2 puff inhalation Q6H PRN 03/07/24 03/29/24 Rx aerosol inhaler shortness of breath or wheezing #8.5 grams fluticasone propionate 50 2 spray intranasal DAILY #16 grams 03/17/24 03/29/24 Rx mcg/actuation nasal spray,suspension Office Procedures Asthma Injection Procedure: Details:: Patient presented for Dupixent injection. Patient tolerated treatment well. The patient was monitored for 15 minutes after treatment. Patient shows no signs of adverse reaction. Reviewed signs and symptoms of reaction. Patient instructed to call the office with new or worsening symptoms. Patient advised to report to the emergency department during after hours if necessary. Patient departed from the office with no signs of distress. Patient provided medication via specialty pharmacy. Injections Procedure performed by: Kajal Buitrago Lot number: [id number] Employment Assistant: [employer] date: 04/16/26 Dose of injection: 2 mL Site of injection: Sub-Q Medication Given: Yes Is this a patient provided medication?: Yes Office Meds Dupixent Pen 300 mg/2 mL subcutaneous pen injector Performing Provider: Gina Romero NP, YENNIC Performing Location: [facility] Administered by: Kajal Buitrago LPN on 03/29/24 08:58 Dose Route Admin Location Dispensed Lot Number Expiration Date [facility] Man ufacturer 300 mg subcut left arm 2 mL [id number] 04/16/26 6688-3568-68 [facility] Assessment and Plan Assessment and Plan Orders: Orders Dupixent Injection (Patient Provided) Today J45.50 - Severe persistent asthma, uncomplicated 03/29/24 1020 Date Gina HYMANC Cosigner Signature: Date (if applicable) CC: [facility] 03-25-2024 VENKATAN Telephone ([place]) ABDOUL MUNROE ([id number]) 1960 M Date Time Provider Department 03/25[facility] your visit today, we recorded the following information about you: Raquel Stoll APRN.CNP 03/25/2024 5:27 PM Signed Can please let patient know that I received his lab results. His blood count is stable, but still just minimally anemia. I went ahead and put in some additional labs and an ifob (I know he did a cologuard back in August, but we need to make sure that the stool sample continues to be negative for blood since this mild anemia is a newer finding). Raquel Stoll APRN.Joie Pennington MA 03/28/2024 10:00 AM Signed Pt notified. TITA Rubio Cheyenne Lee 03/28/2024 10:02 AM Signed Patient calling in, under the impression he is supposed to see cardiology. I do not see an order for this, I did inform patient of the labs he needs to complete. Please review. Leesa Carmichael March 28, 2024 10:02 AM Mary Jimenez APRN.CNP 03/28/2024 11:47 AM Signed It looks like Aaliyah wanted to get the echo (ultrasound) of heart and check his valves first. Allergies As of Date: 03/25/2024 Noted Allergy Reaction CAT DANDER 06/03/2019 14 - Other: See Comments Comments: sneezing nasal congestion RAGWEED POLLEN 06/03/2019 14 - Other: See Comments Comments: sneezing nasal congestion Date Reviewed: 03/02/2024 Reviewed by: Rosa Maria Villa LPN - Fully Assessed Reason for Visit: Results [95] Orders [681] Primary Visit Diagnosis:Anemia, unspecified type [D64.9] Order(s):FERRITIN [SQFERR] Order #: [id number] FUTURE IRON AND TIBC [SQIRON] Order #: [id number] FUTURE VITAMIN B12 [SQB12] Order #: [id number] FUTURE IMMUNOCHEMICAL FECAL OCCULT BLOOD TEST [SQIFOBT] Order #: [id number] FUTURE FOLATE, SERUM [SQSERFOL] Order #: [id number] FUTURE RETICULOCYTE COUNT [SQRETIC] Order #: [id number] FUTURE COMPLETE BLOOD COUNT AND DIFFERENTIAL [SQCBCDIF] Order #: [id number] FUTURE Prescriptions as of 03/28/2024 - blood sugar diagnostic (BLOOD GLUCOSE TEST) test strip Test blood sugar(s) 4 times daily. Dx: Type 2 DM - Uncontrolled E11.65 Insulin: Yes - Lancets Test blood sugar(s) 4 times daily. Dx: Type 2 DM - Uncontrolled E11.65 Insulin: Yes - rosuvastatin (CRESTOR) 5 mg tablet Take 1 tablet by mouth daily at bedtime. - metFORMIN ER (GLUCOPHAGE XR) 500 mg 24 hr tablet Take 2 tablets by mouth two times a day. - montelukast (SINGULAIR) 10 mg tablet Take 1 tablet by mouth daily at bedtime. - fluticasone (FLONASE) 50 mcg/actuation nasal spray Use 2 Sprays in each nostril once daily. Rinse mouth after use. - OXYGEN-AIR DELIVERY SYSTEMS MISC 2L - DUPIXENT SYRINGE 300 mg/2 mL injection - furosemide (LASIX) 20 mg tablet Take 1 tablet by mouth once daily. - albuterol (PROVENTIL) 2.5 mg /3 mL (0.083 %) nebulizer solution Use 3 mL via nebulizer every 4 hours as needed for wheezing/shortness of breath. Use over 5-15minutes. - lisinopril (ZESTRIL, PRINIVIL) 10 mg tablet Take 1 tablet by mouth once daily. - fluticasone-umeclidin -vilanter (TRELEGY ELLIPTA) 200-62.5-25 mcg dsdv Inhale as instructed. - cetirizine (ZYRTEC) 10 mg tablet - aspirin (ASPIR-81 ORAL) Take by mouth. - albuterol HFA (PROAIR HFA) 90 mcg/actuation inhaler Inhale 2 Puffs as instructed every 4 hours as needed for Wheezing/Shortness of Breath. Problem List As Of Date 03/25/2024 Noted Resolved Abdominal pain [R10.9] 04/09/2011 03/01/2018 Abdominal pain, unspecified site [R10.9] 04/17/2011 03/01/2018 Trauma [T14.90XA] 09/02/2011 03/01/2018 Depression [F32.A] 09/02/2011 03/01/2018 Onychia and paronychia of toe [L03.039] 01/09/2012 03/01/2018 COPD with hypoxia (HCC) [J44.9] 10/30/2017 Mild concentric left ventricular hypertrophy (L*11/05/2017 Stasis edema of both lower extremities [I87.303]03/15/2018 Venous stasis dermatitis of both lower extremit*03/15/2018 Psoriasis [L40.9] 06/02/2018 Encounter for screening for lung cancer [Z12.2] 07/14/2018 Acute mastoiditis of right side [H70.001] 06/10/2019 Sensorineural hearing loss (SNHL) of both ears *06/10/2019 Elevated IgE level [R76.8] 06/30/2019 Perinuclear antineutrophil cytoplasmic antibody*07/12/2019 Thrombophlebitis of superficial veins of lower *03/13/2020 Tobacco dependence in remission [F17.201] 07/14/2018 Morbid obesity (HCC) [E66.01] 03/13/2020 Hypertensive disorder [I10] 03/13/2020 Cough [R05.9] 03/13/2020 Cellulitis [L03.90] 03/13/2020 Candidiasis of mouth [B37.0] 03/13/2020 Bronchospasm, acute [J98.01] 03/13/2020 Pulmonary fibrosis (HCC) [J84.10] 03/13/2020 Severe persistent asthma, uncomplicated [J45.50]10/07/2020 Encounter for support and coordination of trans*12/12/2020 Aortic root dilation (HCC) [I77.810] 12/28/2020 Other chest pain [R07.89] 07/13/2021 (more content not included)... Normal [facility] CBC W Auto Differential pane l (Bld)on 03-22-2024 Basophils (Bld) [#/Vol] 0.06 10*3/uL [facility] Basophils/100 WBC (Bld) 0.5 % C [facility] Differential cell count method Nom (Bld) Auto [facility] Eosinophils (Bld) [#/Vol] 0.78 10*3/uL High [facility] Eosinophils/100 WBC (Bld) 6.8 % [facility] Erythrocyte distribution width (RBC) [Ratio] 15.7 % High 11.5 - 15.0 % [facility] Hematocrit (Bld) [Volume fraction] 39.6 % 39.0 - 51.0 % [facility] Hemoglobin (Bld) [Mass/Vol] 12.3 g/dL Low 13.0 - 17.0 g/dL [facility] Immature granulocytes (Bld) [#/Vol] 0.04 10*3/uL [facility] Immature granulocytes/100 WBC (Bld) 0.3 % [facility] Interpretation and review of laboratory results Abnormal [facility] Lymphocytes (Bld) [#/Vol] 2.08 10*3/uL [facility] Lymphocytes/100 WBC (Bld) 18 % [facility] MCH (RBC) [Entitic mass] 28.9 pg 26. 0 - 34.0 pg [facility] MCHC (RBC) [Mass/Vol] 31.1 g/dL 30.5 - 36.0 g/dL [facility] MCV (RBC) [Entitic vol] 93.2 fL 80.0 - 100.0 fL [facility] Monocytes (Bld) [#/Vol] 0.81 10*3/uL [facility] Monocytes/100 WBC (Bld) 7 % C [facility] Neutrophils (Bld) [#/Vol] 7.77 10*3/uL High [facility] Neutrophils/100 WBC (Bld) 67.4 % [facility] Nucleated RBC (Bld) [#/Vol] [facility] Nucleated RBC/100 WBC (Bld) [Ratio] 0 % /100 WBC [facility] Platelet mean volume (Bld) [Entitic vol] 9.3 fL 9.0 - 12.7 fL [facility] Platelets (Bld) [#/Vol] 276 10*3/uL [facility] RBC (Bld) [#/Vol] 4.25 10*6/uL 4.20 - 6.0 0 m/uL [facility] WBC (Bld) [#/Vol] 11.54 10*3/uL High [facility] Basophils (Bld) [#/Vol] 0.06 10*3/uL Normal <0.11 [facility] Comment on above: Order Comment: Speci men Type: BLOOD SPECIMENOrdering Facility: [facility] Address: [address] [place] [address] Performed By: #### 5 7021-8 ####[facility] LABCLIA [id number] [place] [address] [place] Basophils/100 WBC (Bld) 0.5 % Normal C [facility] Comment on above: Order Comment: Speci men Type: BLOOD SPECIMENOrdering Facility: [facility] Address: [address] [place] [address] Performed By: #### 5 7021-8 ####[facility] LABCLIA [id number] [place] [address] [place] Differential cell count method Nom (Bld) Auto Normal [facility] Comment on above: Order Comment: Speci men Type: BLOOD SPECIMENOrdering Facility: [facility] Address: [address] [place] [address] Performed By: #### 5 7021-8 ####[facility] LABCLIA [id number] [place] [address] [place] Eosinophils (Bld) [#/Vol] 0.78 10*3/uL High <0.46 [facility] Comment on above: Order Comment: Speci men Type: BLOOD SPECIMENOrdering Facility: [facility] Address: [address] [place] [address] Performed By: #### 5 7021-8 ####[facility] LABCLIA [id number] [place] [address] [place] Eosinophils/100 WBC (Bld) 6.8 % Normal [facility] Comment on above: Order Comment: Speci men Type: BLOOD SPECIMENOrdering Facility: [facility] Address: [address] [place] [address] Performed By: #### 5 7021-8 ####[facility] LABCLIA [id number] [place] [address] [place] Erythrocyte distribution width (RBC) [Ratio] 15.7 % High 11.5-15.0 [facility] Comment on above: Order Comment: Speci men Type: BLOOD SPECIMENOrdering Facility: [facility] Address: [address] [place] [address] Performed By: #### 5 7021-8 ####[facility] LABIA [id number] [place] [address] [place] Hematocrit (Bld) [Volume fraction] 39.6 % Normal 39.0-51.0 [facility] Comment on above: Order Comment: Speci men Type: BLOOD SPECIMENOrdering Facility: [facility] Address: [address] [place] [address] Performed By: #### 5 7021-8 ####[facility] LABIA [id number] [place] [address] [place] Hemoglobin (Bld) [Mass/Vol] 12.3 g/dL Low 13.0-17.0 [facility] Comment on above: Order Comment: Speci men Type: BLOOD SPECIMENOrdering Facility: [facility] Address: [address] [place] [address] Performed By: #### 5 7021-8 ####[facility] LABCLIA [id number] [place] [address] [place] Immature granulocytes (Bld) [#/Vol] 0.04 10*3/uL Normal <0.10 [facility] Comment on above: Order Comment: Speci men Type: BLOOD SPECIMENOrdering Facility: [facility] Address: [address] [place] [address] Performed By: #### 5 7021-8 ####[facility] LABCLIA [id number] [place] [address] [place] Immature granulocytes/100 WBC (Bld) 0.3 % Normal [facility] Comment on above: Order Comment: Speci men Type: BLOOD SPECIMENOrdering Facility: [facility] Address: [address] [place] [address] Performed By: #### 5 7021-8 ####[facility] LABCLIA [id number] [place] [address] [place] Lymphocytes (Bld) [#/Vol] 2.08 10*3/uL Normal 1.00-4.00 [facility] Comment on above: Order Comment: Speci men Type: BLOOD SPECIMENOrdering Facility: [facility] Address: [address] [place] [address] Performed By: #### 5 7021-8 ####[facility] LABCLIA [id number] [place] [address] [place] Lymphocytes/100 WBC (Bld) 18.0 % Normal [facility] Comment on above: Order Comment: Speci men Type: BLOOD SPECIMENOrdering Facility: [facility] Address: [address] [place] [address] Performed By: #### 5 7021-8 ####[facility] LABCLIA [id number] [place] [address] [place] MCH (RBC) [Entitic mass] 28.9 pg Normal 26.0-34.0 [facility] Comment on above: Order Comment: Speci men Type: BLOOD SPECIMENOrdering Facility: [facility] Address: [address] [place] [address] Performed By: #### 5 7021-8 ####[facility] LABCLIA [id number] [place] [address] [place] MCHC (RBC) [Mass/Vol] 31.1 g/dL Normal 30.5-36.0 [facility] Comment on above: Order Comment: Speci men Type: BLOOD SPECIMENOrdering Facility: [facility] Address: [address] [place] [address] Performed By: #### 5 7021-8 ####[facility] LABCLIA [id number] [place] [address] [place] MCV (RBC) [Entitic vol] 93.2 fL Normal 80.0-100.0 C [facility] Comment on above: Order Comment: Speci men Type: BLOOD SPECIMENOrdering Facility: [facility] Address: [address] [place] [address] Performed By: #### 5 7021-8 ####[facility] LABIA [id number] [place] [address] [place] Monocytes (Bld) [#/Vol] 0.81 10*3/uL Normal <0.87 [facility] Comment on above: Order Comment: Speci men Type: BLOOD SPECIMENOrdering Facility: [facility] Address: [address] [place] [address] Performed By: #### 5 7021-8 ####[facility] LABCLIA [id number] [place] [address] [place] Monocytes/100 WBC (Bld) 7.0 % Normal C [facility] Comment on above: Order Comment: Speci men Type: BLOOD SPECIMENOrdering Facility: [facility] Address: [address] [place] [address] Performed By: #### 5 7021-8 ####[facility] LABIA [id number] [place] [address] [place] Neutrophils (Bld) [#/Vol] 7.77 10*3/uL High 1.45-7.50 [facility] Comment on above: Order Comment: Speci men Type: BLOOD SPECIMENOrdering Facility: [facility] Address: [address] [place] [address] Performed By: #### 5 7021-8 ####[facility] LABCLIA [id number] [place] [address] [place] Neutrophils/100 WBC (Bld) 67.4 % Normal [facility] Comment on above: Order Comment: Speci men Type: BLOOD SPECIMENOrdering Facility: [facility] Address: [address] [place] [address] Performed By: #### 5 7021-8 ####[facility] LABCLIA [id number] [place] [address] [place] Nucleated RBC (Bld) [#/Vol] 10*3/uL Normal <0.01 [facility] Comment on above: Order Comment: Speci men Type: BLOOD SPECIMENOrdering Facility: [facility] Address: [address] [place] [address] Performed By: #### 5 7021-8 ####[facility] LABCLIA [id number] [place] [address] [place] Nucleated RBC/100 WBC (Bld) [Ratio] 0.0 /100 WBC Normal [facility] Comment on above: Order Comment: Speci men Type: BLOOD SPECIMENOrdering Facility: [facility] Address: [address] [place] [address] Performed By: #### 5 7021-8 ####[facility] LABCLIA [id number] [place] [address] [place] Platelet mean volume (Bld) [Entitic vol] 9.3 fL Normal 9.0-12.7 [facility] Comment on above: Order Comment: Speci men Type: BLOOD SPECIMENOrdering Facility: [facility] Address: [address] [place] [address] Performed By: #### 5 7021-8 ####[facility] LABCLIA [id number] [place] [id number] [place] Platelets (Bld) [#/Vol] 276 10*3/uL Normal 150-400 [facility] Comment on above: Order Comment: Speci men Type: BLOOD SPECIMENOrdering Facility: [facility] Address: [address] [place] [address] Performed By: #### 5 7021-8 ####[facility] LABIA [id number] [place] [address] [place] RBC (Bld) [#/Vol] 4.25 10*6/uL Normal 4.20-6.00 [facility] Comment on above: Order Comment: Speci men Type: BLOOD SPECIMENOrdering Facility: [facility] Address: [address] [place] [address] Performed By: #### 5 7021-8 ####[facility] LABIA [id number] [place] [address] [place] WBC (Bld) [#/Vol] 11.54 10*3/uL High 3.70-11.00 [facility] Comment on above: Order Comment: Speci men Type: BLOOD SPECIMENOrdering Facility: [facility] Address: [address] [place] [address] Performed By: #### 5 7021-8 ####[facility] LABIA [id number] [place] [id number] [place] Office Visit Reporton 2023 Office Visit Report [facility] [address] [place] [address] OFFICE VISIT Date of Service: 03/15/24 MR#: [id number] Acct: [id number] Patient: ABDOUL MUNROE RUCHI Rep #: [id number] : 1960 Provider: MARGOT Romero Age/Sex: 63/M Location: [facility].PMW Status: Signed Intake Vital Signs 02/17/24 14:09 03/01/24 08:57 03/15/24 09:05 Height 5 ft 8 in 5 ft 8 in 5 ft 8 in Weight: 328 lb BMI 49.8 BP 129/79 H 140/76 H 144/70 H Blood Pressure Location Rt brachial Rt brachial Rt brachial Position Sitting Sitting Sitting Respiration 20 H 20 H 20 H Pulse 89 83 77 Pulse Source Monitor Monitor Monitor Temp 96.0 F L 97.4 F L 97.3 F L Temp Source Temporal Temporal Temporal Pulse Oximetry (%) 94 95 93 Oxygen Delivery Method nasal canula nasal canula nasal canula Oxygen Flow Rate (L/min) 3 2 2 Intake Visit Reasons: Asthma- Severe Persistent Asthma Chief Complaint: Dupixent for Severe Persistent Asthma Plugman Required: No DME Vendor: [employer] Accompanied by: Self Is patient in pain?: No Allergies No Known Allergies Allergy (Verified 03/15/24 08:34) Office Procedures Asthma Injection Procedure: Details:: Patient presented for dupixent injection. Patient tolerated treatment well. The patient was monitored for 15 minutes after treatment. Patient shows no signs of adverse reaction. Reviewed signs and symptoms of reaction. Patient instructed to call the office with new or worsening symptoms. Patient advised to report to the emergency department during after hours if necessary. Patient departed from the office with no signs of distress. Injections Is this a patient provided medication?: Yes Office Meds Dupixent Pen 300 mg/2 mL subcutaneous pen injector Performing Provider: Gina Romero [employer] MECHANIC, BOAT CARPENTER MECHANIC-C Performing Location: [facility] Administered by: Faviola Cabezas on 03/15/24 09:06 Dose Route Admin Location Dispensed Lot Number Expiration Date NDC Man ufacturer 300 mg subcut left arm 2 mL [id number] 03/18/26 [id number] [facility] Assessment and Plan Assessment and Plan Orders: Orders Dupixent Injection (Patient Provided) Today J45.50 - Severe persistent asthma, uncomplicated Medications: New Dupixent Pen (dupilumab) 300 mg (2 mL) subcut Q2W 2 mL 0RF NS J45.50 - Severe persistent asthma, uncomplicated 03/15/24 1309 Date Gina Montgomery Signature: Date (if applicable) CC: [facility] 03-09-2024 [facility] ABDOUL MUNROE ([id number]) 1960 M Date Time Provider Department 03/09/24 RAQUEL STOLL [facility] During your visit today, we recorded the following information about you: Raquel Stoll APRN.VENKATA 03/09/2024 4:17 PM Signed Can please let patient know that I received his labs. His labwork looked okay, except he was just mildly anemic. I would like to have him recheck this in 1-2 weeks to ensure that it is stable and not continuing to drop. The order is in. His echo showed that the aortic dilation is just a little larger than previously. I would like to have him see vascular to get their input on this. I put the referral in. Can we please get him scheduled? Rosa Maria Villa LPN 03/09/2024 4:30 PM Signed Pt notified. He verbalized understanding. Please assist pt with scheduling appt with Vascular. EDUAR Ibarra Christy, APRN.CMO & PRESIDENT 08/15/2024 7:17 PM Signed Has he ever set up with vascular? Marina Burleson 08/18/2024 8:55 AM Signed Spoke with patient and scheduled appt on 08/23/24. Raquel Stoll APRN.CNP 08/19/2024 9:43 AM Signed Can please let patient know that I heard from vascular and they recommend that she follows with cardiology for the dilated aorta. Does he still follow with cardiology? I went ahead and put a new referral in. Can we please get him set up. Raquel Stoll APRN.CMO & PRESIDENT 08/19/2024 9:43 AM Signed Addended by: RAQUEL STOLL on: 08/19/2024 09:43 AM Modules accepted: Orders Rosa Maria Villa LPN 08/19/2024 9:55 AM Signed Phoned pt, notified of providers response. Pt states he does not follow with Cardiology. Pt prefers to stay local. He would like referral to go to [facility]. Referral faxed per pt request. Allergies As of Date: 03/09/2024 Noted Allergy Reaction CAT DANDER 06/03/2019 14 - Other: See Comments Comments: sneezing nasal congestion RAGWEED POLLEN 06/03/2019 14 - Other: See Comments Comments: sneezing nasal congestion Date Reviewed: 03/02/2024 Reviewed by: Rosa Maria Villa LPN - Fully Assessed Reason for Visit: Results [95] Primary Visit Diagnosis:Anemia, unspecified type [D64.9] Other Visit Diagnosis:Aortic root dilation (HCC) [I77.810] Order(s):[] COMPLETE BLOOD COUNT AND DIFFERENTIAL [SQCBCDIF] Order #: [id number] FUTURE CONSULT TO VASCULAR SURGERY [9042] Order #: [id number]: 1 FUTURE CONSULT TO CARDIOLOGY [9004] Order #: [id number]: 1 FUTURE Prescriptions as of 08/19/2024 - blood sugar diagnostic (BLOOD GLUCOSE TEST) test strip Test blood sugar(s) 4 times daily. Dx: Type 2 DM - Uncontrolled E11.65 Insulin: Yes - Lancets Test blood sugar(s) 4 times daily. Dx: Type 2 DM - Uncontrolled E11.65 Insulin: Yes - rosuvastatin (CRESTOR) 5 mg tablet Take 1 tablet by mouth daily at bedtime. - metFORMIN ER (GLUCOPHAGE XR) 500 mg 24 hr tablet Take 2 tablets by mouth two times a day. - montelukast (SINGULAIR) 10 mg tablet Take 1 tablet by mouth daily at bedtime. - fluticasone (FLONASE) 50 mcg/actuation nasal spray Use 2 Sprays in each nostril once daily. Rinse mouth after use. - OXYGEN-AIR DELIVERY SYSTEMS MISC 2L - DUPIXENT SYRINGE 300 mg/2 mL injection - furosemide (LASIX) 20 mg tablet Take 1 tablet by mouth once daily. - albuterol (PROVENTIL) 2.5 mg /3 mL (0.083 %) nebulizer solution Use 3 mL via nebulizer every 4 hours as needed for wheezing/shortness of breath. Use over 5-15minutes. - lisinopril (ZESTRIL, PRINIVIL) 10 mg tablet Take 1 tablet by mouth once daily. - fluticasone-umeclidin -vilanter (TRELEGY ELLIPTA) 200-62.5-25 mcg dsdv Inhale as instructed. - cetirizine (ZYRTEC) 10 mg tablet - aspirin (ASPIR-81 ORAL) Take by mouth. - albuterol HFA (PROAIR HFA) 90 mcg/actuation inhaler Inhale 2 Puffs as instructed every 4 hours as needed for Wheezing/Shortness of Breath. Problem List As Of Date 03/09/2024 Noted Resolved Abdominal pain [R10.9] 04/09/2011 03/01/2018 Abdominal pain, unspecified site [R10.9] 04/17/2011 03/01/2018 Trauma [T14.90XA] 09/02/2011 03/01/2018 Depression [F32.A] 09/02/2011 03/01/2018 Onychia and paronychia of toe [L03.039] 01/09/2012 03/01/2018 COPD with hypoxia (HCC) [J44.9] 10/30/2017 Mild concentric left ventricular hypertrophy (L*11/05/2017 Stasis edema of both lower extremities [I87.303]03/15/2018 Venous stasis dermatitis of both lower extremit*03/15/2018 Psoriasis [L40.9] 06/02/2018 Encounter for screening for lung cancer [Z12.2] 07/14/2018 Acute mastoiditis of right side [H70.001] 06/10/2019 Sensorineural hearing loss (SNHL) of both ears *06/10/2019 Elevated IgE level [R76.8] 06/30/2019 Perinuclear antineutrophil cytoplasmic antibody*07/12/2019 Thrombophlebitis of superficial veins of lower *03/13/2020 Tobacco dependence in remission [F17.201] 07/14/2018 Morbid obesity (HCC) [E66.01] 03/13/2020 Hypertensive disorder [I10] 03/13/2020 Cough [R05 (more content not included)... Normal [facility] ALBUMIN/CREATININE RATIO, UR INEon 03-07-2024 Albumin DL <= 20 mg/L (U) [Mass/Vol] mg/dL Normal [facility] Comment on above: Order Comment: Speci men Type: URINE SPECIMENOrdering Facility: [facility] Address: [address] [place] [address] Performed By: #### U ACR ####[facility] LABCLIA [id number] [place] [address] [place] Albumin/Creatinine (U) [Mass ratio] <26 Normal <30 [facility] Comment on above: Order Comment: Speci men Type: URINE SPECIMENOrdering Facility: [facility] Address: [address] [place] [address] Result Comment: Adul t Male and Female Nephrotic Criteria: <30 mg/g is considered normal to mildly increased 30-300 mg/g is considered moderately increased >300 mg/g is considered severely increased KDIGO. (2013). KDIGO 2012 Clinical Practice Guideline for the Evaluation and Management of Chronic Kidney Disease. Official Journal of the International Society of Nephrology, 3(1), 1-150. Performed By: #### U ACR ####[facility] LABCLIA [id number] [place] [address] [place] Creatinine (U) [Mass/Vol] 45.6 mg/dL Normal 20.0-300.0 [facility] Comment on above: Order Comment: Speci men Type: URINE SPECIMENOrdering Facility: [facility] Address: [address] [place] [address] Performed By: #### U ACR ####[facility] LABCLIA [id number] [place] [address] [place] CBC W Auto Differential pane l (Bld)on 03-07-2024 Basophils (Bld) [#/Vol] 0.06 10*3/uL Normal <0.11 [facility] Comment on above: Order Comment: Speci men Type: BLOOD SPECIMENOrdering Facility: [facility] Address: [address] [place] [address] Performed By: #### 5 7021-8 ####[facility] LABCLIA [id number] [facility] [place] [address] [place] Basophils/100 WBC (Bld) 0.6 % Normal C [facility] Comment on above: Order Comment: Speci men Type: BLOOD SPECIMENOrdering Facility: [facility] Address: [address] [place] [address] Performed By: #### 5 7021-8 ####[facility] LABCLIA [id number] [place] [address] [place] Differential cell count method Nom (Bld) Auto Normal [facility] Comment on above: Order Comment: Speci men Type: BLOOD SPECIMENOrdering Facility: [facility] Address: [address] [place] [address] Performed By: #### 5 7021-8 ####[facility] LABCLIA [id number] [place] [address] [place] Eosinophils (Bld) [#/Vol] 0.77 10*3/uL High <0.46 [facility] Comment on above: Order Comment: Speci men Type: BLOOD SPECIMENOrdering Facility: [facility] Address: [address] [place] [address] Performed By: #### 5 7021-8 ####[facility] LABCLIA [id number] [place] [address] [place] Eosinophils/100 WBC (Bld) 8.3 % Normal [facility] Comment on above: Order Comment: Speci men Type: BLOOD SPECIMENOrdering Facility: [facility] Address: [address] [place] [address] Performed By: #### 5 7021-8 ####[facility] LABIA [id number] [place] [address] [place] Erythrocyte distribution width (RBC) [Ratio] 15.4 % High 11.5-15.0 [facility] Comment on above: Order Comment: Speci men Type: BLOOD SPECIMENOrdering Facility: [facility] Address: [address] [place] [address] Performed By: #### 5 7021-8 ####[facility] LABIA [id number] [place] [address] [place] Hematocrit (Bld) [Volume fraction] 39.3 % Normal 39.0-51.0 [facility] Comment on above: Order Comment: Speci men Type: BLOOD SPECIMENOrdering Facility: [facility] Address: [address] [place] [address] Performed By: #### 5 7021-8 ####[facility] LABIA [id number] [place] [address] [place] Hemoglobin (Bld) [Mass/Vol] 12.0 g/dL Low 13.0-17.0 [facility] Comment on above: Order Comment: Speci men Type: BLOOD SPECIMENOrdering Facility: [facility] Address: [address] [place] [address] Performed By: #### 5 7021-8 ####[facility] LABIA [id number] [place] [address] [place] Immature granulocytes (Bld) [#/Vol] 0.05 10*3/uL Normal <0.10 [facility] Comment on above: Order Comment: Speci men Type: BLOOD SPECIMENOrdering Facility: [facility] Address: [address] [place] [address] Performed By: #### 5 7021-8 ####[facility] LABIA [id number] [place] [address] [place] Immature granulocytes/100 WBC (Bld) 0.5 % Normal [facility] Comment on above: Order Comment: Speci men Type: BLOOD SPECIMENOrdering Facility: [facility] Address: [address] [place] [address] Performed By: #### 5 7021-8 ####[facility] LABCLIA [id number] [place] [address] [place] Lymphocytes (Bld) [#/Vol] 1.81 10*3/uL Normal 1.00-4.00 [facility] Comment on above: Order Comment: Speci men Type: BLOOD SPECIMENOrdering Facility: [facility] Address: [address] [place] [address] Performed By: #### 5 7021-8 ####[facility] LABCLIA [id number] [place] [address] [place] Lymphocytes/100 WBC (Bld) 19.5 % Normal [facility] Comment on above: Order Comment: Speci men Type: BLOOD SPECIMENOrdering Facility: [facility] Address: [address] [place] [address] Performed By: #### 5 7021-8 ####[facility] LABCLIA [id number] [place] [address] [place] MCH (RBC) [Entitic mass] 28.2 pg Normal 26.0-34.0 [facility] Comment on above: Order Comment: Speci men Type: BLOOD SPECIMENOrdering Facility: [facility] Address: [address] [place] [address] Performed By: #### 5 7021-8 ####[facility] LABCLIA [id number] [place] [address] [place] MCHC (RBC) [Mass/Vol] 30.5 g/dL Normal 30.5-36.0 [facility] Comment on above: Order Comment: Speci men Type: BLOOD SPECIMENOrdering Facility: [facility] Address: [address] [place] [address] Performed By: #### 5 7021-8 ####[facility] LABCLIA [id number] [place] [address] [place] MCV (RBC) [Entitic vol] 92.5 fL Normal 80.0-100.0 C [facility] Comment on above: Order Comment: Speci men Type: BLOOD SPECIMENOrdering Facility: [facility] Address: [address] [place] [address] Performed By: #### 5 7021-8 ####[facility] LABCLIA [id number] [place] [address] [place] Monocytes (Bld) [#/Vol] 0.72 10*3/uL Normal <0.87 [facility] Comment on above: Order Comment: Speci men Type: BLOOD SPECIMENOrdering Facility: [facility] Address: [address] [place] [address] Performed By: #### 5 7021-8 ####[facility] LABCLIA [id number] [place] [address] [place] Monocytes/100 WBC (Bld) 7.8 % Normal C [facility] Comment on above: Order Comment: Speci men Type: BLOOD SPECIMENOrdering Facility: [facility] Address: [address] [place] [address] Performed By: #### 5 7021-8 ####[facility] LABCLIA [id number] [place] [address] [place] Neutrophils (Bld) [#/Vol] 5.88 10*3/uL Normal 1.45-7.50 [facility] Comment on above: Order Comment: Speci men Type: BLOOD SPECIMENOrdering Facility: [facility] Address: [address] [place] [address] Performed By: #### 5 7021-8 ####[facility] LABCLIA [id number] [place] [address] [place] Neutrophils/100 WBC (Bld) 63.3 % Normal [facility] Comment on above: Order Comment: Speci men Type: BLOOD SPECIMENOrdering Facility: [facility] Address: [address] [place] [address] Performed By: #### 5 7021-8 ####[facility] LABCLIA [id number] [place] [address] [place] Nucleated RBC (Bld) [#/Vol] 10*3/uL Normal <0.01 [facility] Comment on above: Order Comment: Speci men Type: BLOOD SPECIMENOrdering Facility: [facility] Address: [address] [place] [address] Performed By: #### 5 7021-8 ####[facility] LABCLIA [id number] [place] [address] [place] Nucleated RBC/100 WBC (Bld) [Ratio] 0.0 /100 WBC Normal [facility] Comment on above: Order Comment: Speci men Type: BLOOD SPECIMENOrdering Facility: [facility] Address: [address] [place] [address] Performed By: #### 5 7021-8 ####[facility] LABCLIA [id number] [place] [address] [place] Platelet mean volume (Bld) [Entitic vol] 9.7 fL Normal 9.0-12.7 [facility] Comment on above: Order Comment: Speci men Type: BLOOD SPECIMENOrdering Facility: [facility] Address: [address] [place] [address] Performed By: #### 5 7021-8 ####[facility] LABCLIA [id number] [place] [address] [place] Platelets (Bld) [#/Vol] 261 10*3/uL Normal 150-400 [facility] Comment on above: Order Comment: Speci men Type: BLOOD SPECIMENOrdering Facility: [facility] Address: [address] [place] [address] Performed By: #### 5 7021-8 ####[facility] LABIA [id number] [place] [address] [place] RBC (Bld) [#/Vol] 4.25 10*6/uL Normal 4.20-6.00 [facility] Comment on above: Order Comment: Speci men Type: BLOOD SPECIMENOrdering Facility: [facility] Address: [address] [place] [address] Performed By: #### 5 7021-8 ####[facility] LABIA [id number] [place] [address] [place] WBC (Bld) [#/Vol] 9.29 10*3/uL Normal 3.70-11.00 [facility] Comment on above: Order Comment: Speci men Type: BLOOD SPECIMENOrdering Facility: [facility] Address: [address] [place] [address] Performed By: #### 5 7021-8 ####[facility] LABIA [id number] [place] [address] [place] CNOVon 03-07-2024 CNOV Office Visit (CARDWS ) ABDOUL MUNROE ([id number]) 1960 M Date Time Provider Department 03/07/24 8:50 AM ECHOCARDIOGRAM WSTR CARDWS During your visit today, we recorded the following information about you: Marlen Tate, CAM 03/07/2024 9:41 AM Signed 24 ga angio started to Right AC. Good blood return. Flushed easily with NSS. Dressing applied. Pt tolerated procedure well. No C/o's, Hep lock D/c'd and dressing applied. Patient discharged ambulatory with Engineering Tech. Marlen Tate RN Referring Provider: RAQUEL STOLL [[id number]] Allergies As of Date: 03/07/2024 Noted Allergy Reaction CAT TESSIE 06/03/2019 14 - Other: See Comments Comments: sneezing nasal congestion RAGWEED POLLEN 06/03/2019 14 - Other: See Comments Comments: sneezing nasal congestion Date Reviewed: 03/02/2024 Reviewed by: Rosa Maria Villa LPN - Fully Assessed Visit Diagnosis:Aortic root dilation (HCC) [I77.810] Order(s):ECHO [656323] Order #: [id number]: 1 [] perflutren lipid microspheres 1.3 mL in NaCl (PF) 0.9% 10 mL injection (DEFINITY)Disp: Rfl: [] sodium chloride 0.9 % (flush) 10 mL (BD POSIFLUSH)Disp: Rfl: Prescriptions as of 03/07/2024 - blood sugar diagnostic (BLOOD GLUCOSE TEST) test strip Test blood sugar(s) 4 times daily. Dx: Type 2 DM - Uncontrolled E11.65 Insulin: Yes - Lancets Test blood sugar(s) 4 times daily. Dx: Type 2 DM - Uncontrolled E11.65 Insulin: Yes - rosuvastatin (CRESTOR) 5 mg tablet Take 1 tablet by mouth daily at bedtime. - metFORMIN ER (GLUCOPHAGE XR) 500 mg 24 hr tablet Take 2 tablets by mouth two times a day. - montelukast (SINGULAIR) 10 mg tablet Take 1 tablet by mouth daily at bedtime. - fluticasone (FLONASE) 50 mcg/actuation nasal spray Use 2 Sprays in each nostril once daily. Rinse mouth after use. - OXYGEN-AIR DELIVERY SYSTEMS [facility] 2L - DUPIXENT SYRINGE 300 mg/2 mL injection - furosemide (LASIX) 20 mg tablet Take 1 tablet by mouth once daily. - albuterol (PROVENTIL) 2.5 mg /3 mL (0.083 %) nebulizer solution Use 3 mL via nebulizer every 4 hours as needed for wheezing/shortness of breath. Use over 5-15minutes. - lisinopril (ZESTRIL, PRINIVIL) 10 mg tablet Take 1 tablet by mouth once daily. - fluticasone-umeclidin -vilanter (TRELEGY ELLIPTA) 200-62.5-25 mcg dsdv Inhale as instructed. - cetirizine (ZYRTEC) 10 mg tablet - aspirin (ASPIR-81 ORAL) Take by mouth. - albuterol HFA (PROAIR HFA) 90 mcg/actuation inhaler Inhale 2 Puffs as instructed every 4 hours as needed for Wheezing/Shortness of Breath. Problem List As Of Date 03/07/2024 Noted Resolved Abdominal pain [R10.9] 04/09/2011 03/01/2018 Abdominal pain, unspecified site [R10.9] 04/17/2011 03/01/2018 Trauma [T14.90XA] 09/02/2011 03/01/2018 Depression [F32.A] 09/02/2011 03/01/2018 Onychia and paronychia of toe [L03.039] 01/09/2012 03/01/2018 COPD with hypoxia (HCC) [J44.9] 10/30/2017 Mild concentric left ventricular hypertrophy (L*11/05/2017 Stasis edema of both lower extremities [I87.303]03/15/2018 Venous stasis dermatitis of both lower extremit*03/15/2018 Psoriasis [L40.9] 06/02/2018 Encounter for screening for lung cancer [Z12.2] 07/14/2018 Acute mastoiditis of right side [H70.001] 06/10/2019 Sensorineural hearing loss (SNHL) of both ears *06/10/2019 Elevated IgE level [R76.8] 06/30/2019 Perinuclear antineutrophil cytoplasmic antibody*07/12/2019 Thrombophlebitis of superficial veins of lower *03/13/2020 Tobacco dependence in remission [F17.201] 07/14/2018 Morbid obesity (HCC) [E66.01] 03/13/2020 Hypertensive disorder [I10] 03/13/2020 Cough [R05.9] 03/13/2020 Cellulitis [L03.90]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 Persistent Asthma Plugman Required: No DME Vendor: [employer] Accompanied by: Self Is patient in pain?: No Allergies No Known Allergies Allergy (Verified 03/01/24 08:56) Office Procedures Asthma Injection Procedure: Details:: Patient presented for Dupixent injection. Patient tolerated treatment well. The patient was monitored for 15 minutes after treatment. Patient shows no signs of adverse reaction. Reviewed signs and symptoms of reaction. Patient instructed to call the office with new or worsening symptoms. Patient advised to report to the emergency department during after hours if necessary. Patient departed from the office with no signs of distress. Injections Is this a patient provided medication?: Yes Office Meds Dupixent Pen 300 mg/2 mL subcutaneous pen injector Performing Provider: Enrrique Rincon DO Performing Location: [facility] Administered by: Faviola Cabezas on 03/01/24 08:57 Dose Route Admin Location Dispensed Lot Number Expiration Date NDC [employer] 300 mg subcut left arm 2 mL [id number] 12/16/25 6169-9178-29 [employer] [employer] Assessment and Plan Assessment and Plan Orders: Orders Dupixent Injection (Patient Provided) Today J45.50 - Severe persistent asthma, uncomplicated Medications: New Dupixent Pen (dupilumab) 300 mg (2 mL) subcut Q2W 2 mL 0RF NS J45.50 - Severe persistent asthma, uncomplicated 03/01/24 0901 Date Enrrique Boucher Signature: Date (if applicable) CC: Normal [facility] Office Visit Reporton 2023 Office Visit Report [facility] [address] [place] [address] OFFICE VISIT Date of Service: 02/17/24 MR#: [id number] Acct: [id number] Patient: ABDOUL MUNROE Rep #: [id number] : 1960 Provider: MARGOT Romero Age/Sex: 63/M Location: [facility] Status: Signed Intake Vital Signs 01/05/24 08:51 02/02/24 09:10 02/17/24 14:09 Height 5 ft 8 in 5 ft 8 in 5 ft 8 in Weight: 328 lb BMI 49.8 BP 142/74 H 129/79 H Blood Pressure Location Lt brachial Rt brachial Position Sitting Sitting Respiration 20 H 20 H Pulse 85 89 Pulse Source Monitor Monitor Temp 97.4 F L 96.0 F L Temp Source Temporal Temporal Pulse Oximetry (%) 95 94 Oxygen Delivery Method nasal canula nasal canula Oxygen Flow Rate (L/min) 3 3 Intake Visit Reasons: Asthma- Severe Persistent Asthma Chief Complaint: Dupixent for Severe Persistent Asthma Plugman Required: No DME Vendor: [employer] Accompanied by: Self Is patient in pain?: No Allergies No Known Allergies Allergy (Verified 02/17/24 13:57) Office Procedures Asthma Injection Procedure: Details:: Patient presented for Dupixent injection. Patient tolerated treatment well. The patient was monitored for 15 minutes after treatment. Patient shows no signs of adverse reaction. Reviewed signs and symptoms of reaction. Patient instructed to call the office with new or worsening symptoms. Patient advised to report to the emergency department during after hours if necessary. Patient departed from the office with no signs of distress. Injections Is this a patient provided medication?: Yes Office Meds Dupixent Pen 300 mg/2 mL subcutaneous pen injector Performing Provider: Gina Romero NP, [employer]AT [employer] MECHANICDavidC Performing Location: [facility] Administered by: Faviola Cabezas on 02/17/24 14:13 Dose Route Admin Location Dispensed Lot Number Expiration Date [facility] Man ufacturer 300 mg subcut left arm 2 mL [id number] 12/16/25 0588-0208-80 [facility] Assessment and Plan Assessment and Plan Orders: Orders Dupixent Injection (Patient Provided) Today J45.50 - Severe persistent asthma, uncomplicated Medications: New Dupixent Pen (dupilumab) 300 mg (2 mL) subcut Q2W 2 mL 0RF NS J45.50 - Severe persistent asthma, uncomplicated 02/18/24 0846 Date Gina Romero NP [employer] Cosigner Signature: Date (if applicable) CC: Normal [facility] XR Foot - left AP and Latera l and obliqueon 10-19-2023 IMPRESSION: Nondisplaced fracture of the base of the distal phalanx of the left first toe Field Marketing Representative: WILY Transcribe Date/Time: Oct 19 2023 8:28A Dictated by : KAJAL BILLS MD This examination was interpreted and the report reviewed and electronically signed by: KAJAL BILLS MD on Oct 19 2023 8:30AM EST DIVISION OF RADIOLOGY * * *Final Report* * * DATE OF EXAM: Oct 19 2023 8:18AM WOX [id number] - XR FOOT 3V AP/LAT/OBL LT / PROCEDURE REASON: multiple diagnoses * * * * Physician Interpretation * * * * EXAMINATION: XR FOOT 3V AP/LAT/OBL LT CLINICAL HISTORY: Pain in left toes after fall Technique: XR FOOT 3V AP/LAT/OBL LT -- LEFT with 3 views on 3 images Comparison: None RESULT: Nondisplaced fracture of the base of the distal phalanx of the left first toe. No dislocation. Joint spaces are maintained. Plantar calcaneal spur. DIVISION OF RADIOLOGY Provider, [facility] - 10/19/2023 * * *Final Report* * * DATE OF EXAM: Oct 19 2023 8:18AM WOX [id number] - XR FOOT 3V AP/LAT/OBL LT / PROCEDURE REASON: multiple diagnoses * * * * Physician Interpretation * * * * EXAMINATION: XR FOOT 3V AP/LAT/OBL LT CLINICAL HISTORY: Pain in left toes after fall Technique: XR FOOT 3V AP/LAT/OBL LT -- LEFT with 3 views on 3 images Comparison: None RESULT: Nondisplaced fracture of the base of the distal phalanx of the left first toe. No dislocation. Joint spaces are maintained. Plantar calcaneal spur. IMPRESSION IMPRESSION: Nondisplaced fracture of the base of the distal phalanx of the left first toe Field Marketing Representative: [facility] Transcribe Date/Time: Oct 19 2023 8:28A Dictated by : KAJAL BILLS MD This examination was interpreted and the report reviewed and electronically signed by: KAJAL BILLS MD on Oct 19 2023 8:30AM [facility] Radiology Study observation (narrative) [facility] XR Foot - left AP and Latera l and obliqueOrdered By: Ccf Provider on 10-19-2023 [facility] US LEG VEIN DVT UNL VAS LABo n 04-02-2023 [facility] GLUCOSE, BLOOD (POC)on 03-31 Glucose [Mass/Vol] 323 mg/dL Abnormal 74 - 99 mg/dL [facility] UA DIP, URINE (POC)on 2022 BILIRUBIN UA (POCT) Negative Negative [facility] CLARITY UA (POCT) Clear [facility] COLOR UA (POCT) Yellow [facility] GLUCOSE UA (POCT) >=1000 Abnormal Negative mg/dL [facility] Hemoglobin Ql (U) Negative [facility] KETONE UA (POCT) Negative Negative mg/dL [facility] LEUKOCYTES UA (POCT) Negative Negative [facility] NITRITE UA (POCT) Negative Negative [facility] PH UA (POCT) 6.0 4.5 - 8.0 [facility] Protein Ql (U) Negative Negative mg/dL [facility] SPECIFIC GRAVITY UA (POCT) 1.015 1.005 - 1.030 [facility] UROBILINOGEN UA (POCT) 0.2 E.U./dL Raina l E.U./dL [facility] XR RIBS/CHEST 3V AP RIB/OBLS /CXR RIGHTon 03-31-2023 [facility] XR Ribs - right Views and Ch est PAon 03-31-2023 IMPRESSION: No acute radiographic abnormality. Field Marketing Representative: WILY Transcribe Date/Time: Mar 31 2023 10:40A Dictated by : KAJAL BILLS MD This examination was interpreted and the report reviewed and electronically signed by: KAJAL BILLS MD on Mar 31 2023 10:44AM [facility] DIVISION OF RADIOLOGY * * *Final Report* * * DATE OF EXAM: Mar 31 2023 10:36AM WOX [id number] - XR RIB/CHST 3V AP RIB/OBL/CHST R / PROCEDURE REASON: Pain in rib * * * * Physician Interpretation * * * * EXAMINATION: X-ray chest and right ribs Clinical History: Pain in rib M: XC1_4 Comparison: Chest x-ray 05/06/2019 RESULT: Lines, tubes, and devices: None. Lungs and pleura: No acute airspace disease. Stable scarring in the right lung base. No lung mass. No pleural effusion. Cardiomediastinal silhouette: Stable cardiomediastinal silhouette Musculoskeletal: No acute fracture DIVISION OF RADIOLOGY Provider, [facility] * * *Final Report* * * DATE OF EXAM: Mar 31 2023 10:36AM WOX [id number] - XR RIB/CHST 3V AP RIB/OBL/CHST R / PROCEDURE REASON: Pain in rib * * * * Physician Interpretation * * * * EXAMINATION: X-ray chest and right ribs Clinical History: Pain in rib M: XC1_4 Comparison: Chest x-ray 05/06/2019 RESULT: Lines, tubes, and devices: None. Lungs and pleura: No acute airspace disease. Stable scarring in the right lung base. No lung mass. No pleural effusion. Cardiomediastinal silhouette: Stable cardiomediastinal silhouette Musculoskeletal: No acute fracture IMPRESSION IMPRESSION: No acute radiographic abnormality. Field Marketing Representative: [facility] Transcribe Date/Time: Mar 31 2023 10:40A Dictated by : KAJAL BILLS MD This examination was interpreted and the report reviewed and electronically signed by: KAJAL BILLS MD on Mar 31 2023 10:44AM EST [facility] Radiology Study observation (narrative) [facility] XR Ribs - right Views and Ch est PAOrdered By: Ccf Provider on 03-31-2023 [facility] STREP A MOLECULAR (POC)on Procedural Control Valid [facility] Strep A (POCT) Negative Negative [facility] Vital Signs Date Time Vital Sign Value Performing Clinician Facility 01-25-2025 08:45-0400 Diastolic blood pressure 72 mm[Hg] Raquel Stoll APRN.CNP Work Phone: [facility] 01-25-2025 08:45-0400 Heart rate 84 /min Raquel Stoll APRN.CNP Work Phone: [facility] 01-25-2025 08:45-0400 Respiratory rate 16 /min Raquel Stoll APRN.CNP Work Phone: [facility] 01-25-2025 08:45-0400 SaO2% (BldA) [Mass fraction] 93 % Raquel Stoll APRN.CNP Work Phone: [facility] Comment on above: O2 @ 3lpm via [place] 01-25-2025 08:45-0400 Systolic blood pressure 138 mm[Hg] Raqule Stoll APRN.CMO & PRESIDENT Work Phone: [facility] 01-13-2025 11:02-0400 Body height 167.64 cm Raquel Stoll BO[employer]PENTER MECH[employer]IC-C Work Phone: [facility] 01-13-2025 11:02-0400 Body mass index (BMI) [Ratio] 51.6 kg/m2 Raquel Habelinda [employer]ENTER MECH[employer]IC-C Work Phone: [facility] 01-13-2025 11:02-0400 Body temperature 96.7 [degF] Raquel Stoll BOAT CARPENTER MECHANIC-C Work Phone: 9(702)765-765344 [place] [address] 01-13-2025 11:02-0400 Body weight 145.14 kg Raquel Stoll BOAT CARPENTER MECHANIC-C Work Phone: [facility] 01-13-2025 11:02-0400 Diastolic blood pressure 78 mm[Hg] Raquel Stoll BOAT CARPENTER MECHANIC-C Work Phone: 9(400)109-689844 [place] [address] 01-13-2025 11:02-0400 Heart rate 89 /min Raquel Stoll BO[employer] CARPENTER MECHANIC-C Work Phone: 3(080)411-017144 [place] [address] 01-13-2025 11:02-0400 Inhaled oxygen flow rate 2 L/min Raquel Stoll BOAT CARPENTER MECHANIC-C Work Phone: [facility] 01-13-2025 11:02-0400 Respiratory rate 18 /min Raquel Stoll BOAT CARPENTER MECHANIC-C Work Phone: [facility] 01-13-2025 11:02-0400 SaO2% (BldA) [Mass fraction] 92 % Raquel Stoll BO[employer] CARPENTER MECHANIC-C Work Phone: [facility] 01-13-2025 11:02-0400 Systolic blood pressure 145 mm[Hg] Raquel Stoll BOAT CARPENTER MECHANIC-C Work Phone: 1(051)451-858044 [place] [address] 12-16-2024 10:58-0400 Body height 167.64 cm Raquel Stoll BO[employer] CARPENTER MECHANIC-C Work Phone: 1(618)117-826694 [place] [address] 12-16-2024 10:58-0400 Body mass index (BMI) [Ratio] 54.8 kg/m2 Raquel Stoll [employer]PENTER MECHANIC-C Work Phone: 8(396)192-449694 [place] [address] 12-16-2024 10:58-0400 Body temperature 96.3 [degF] Raquel Haagen [employer]PENTER MECHANIC-C Work Phone: 3(928)665-760094 [place] [address] 12-16-2024 10:58-0400 Body weight 154.22 kg Raquel Haagen BOAT CARPENTER MECHANIC-C Work Phone: 9(936)018-687444 [place] [address] 12-16-2024 10:58-0400 Diastolic blood pressure 66 mm[Hg] Raquel Haagen BOAT CARPENTER MECHANIC-C Work Phone: 5(447)367-550444 [place] [address] 12-16-2024 10:58-0400 Heart rate 85 /min Raquel Haagen BO[employer] CARPENTER MECHANIC-C Work Phone: 2(128)658-513844 [place] [address] 12-16-2024 10:58-0400 Inhaled oxygen flow rate 2 L/min Raquel Habelinda BOAT CARPENTER MECHANIC-C Work Phone: 5(771)258-717044 [place] [address] 12-16-2024 10:58-0400 Respiratory rate 16 /min Raquel Kaushalbelinda [employer] CARPENTER MECHANIC-C Work Phone: 2(697)395-772144 [place] [address] 12-16-2024 10:58-0400 SaO2% (BldA) [Mass fraction] 96 % Raquel Habelinda [employer]PENTER MECHANIC-C Work Phone: 3(316)595-502944 [place] [address] 12-16-2024 10:58-0400 Systolic blood pressure 142 mm[Hg] Raquel Stoll BOAT CARPENTER MECHANIC-C Work Phone: 1(156)175-289344 [place] [address] 11-24-2024 07:01-0400 Body mass index (BMI) [Ratio] 55.7 kg/m2 Raquel Stoll BO[employer] CARPENTER MECHANIC-C Work Phone: 8(426)967-733344 [place] [address] 11-24-2024 07:01-0400 Body temperature 97.6 [degF] Raquel Haagen BOAT CARPENTER MECHANIC-C Work Phone: 2(228)048-729044 [place] [address] 11-24-2024 07:01-0400 Body weight 156.48 kg Raquel Stoll BOAT CARPENTER MECHANIC-C Work Phone: 8(394)208-037644 [place] [address] 11-24-2024 07:01-0400 Diastolic blood pressure 79 mm[Hg] Raquel Stoll BOAT CARPENTER MECHANIC-C Work Phone: 2(743)190-496944 [place] [address] 11-24-2024 07:01-0400 Heart rate 87 /min Raquel Stoll BO[employer] CARPENTER MECHANIC-C Work Phone: 8(577)055-669344 [place] [address] 11-24-2024 07:01-0400 Inhaled oxygen flow rate 2 L/min Raquel Easleyagen [employer]PENTER MECHANIC-C Work Phone: 4(107)742-050344 [place] [address] 11-24-2024 07:01-0400 Respiratory rate 18 /min Raquel Stoll BO[employer] CARPENTER MECHANIC-C Work Phone: 7(243)385-823344 [place] [address] 11-24-2024 07:01-0400 SaO2% (BldA) [Mass fraction] 94 % Raquel Stoll BO[employer] CARPENTER MECHANIC-C Work Phone: 9(924)626-083144 [place] [address] 11-24-2024 07:01-0400 Systolic blood pressure 152 mm[Hg] Raquel Stoll BOAT CARPENTER MECHANIC-C Work Phone: 3(204)793-190744 [place] [address] 11-16-2024 08:41-0400 Body height 167.64 cm Raquel Stoll BO[employer] CARPENTER MECHANIC-C Work Phone: 4(793)167-267844 [place] [address] 11-16-2024 08:41-0400 Body mass index (BMI) [Ratio] 54.8 kg/m2 Raquel Easleyagen [employer]ENTER MECHANIC-C Work Phone: 8(858)501-890144 [place] [address] 11-16-2024 08:41-0400 Body temperature 97.2 [degF] Raquel Stoll BO[employer] CARPENTER MECHANIC-C Work Phone: 1(868)551-312744 [place] [address] 11-16-2024 08:41-0400 Body weight 154.22 kg Raquel Stoll [employer]PENTER MECHANIC-C Work Phone: 5(297)219-831544 [place] [address] 11-16-2024 08:41-0400 Diastolic blood pressure 70 mm[Hg] Raquel Easleyagen [employer]PENTER MECHANIC-C Work Phone: 5(448)899-517844 [place] [address] 11-16-2024 08:41-0400 Heart rate 78 /min Raquel Stoll [employer]ENTER MECH[employer]IC-C Work Phone: 8(080)772-256044 [place] [address] 11-16-2024 08:41-0400 Inhaled oxygen flow rate 2 L/min Raquel Haagen [employer]ENTER MECH[employer]IC-C Work Phone: 4(182)279-791544 [place] [address] 11-16-2024 08:41-0400 Respiratory rate 18 /min Raquel Haagen [employer]ENTER MECH[employer]IC-C Work Phone: 8(959)262-701244 [place] [address] 11-16-2024 08:41-0400 SaO2% (BldA) [Mass fraction] 95 % Raquel Haagen [employer]PENTER MECHANIC-C Work Phone: 8(541)965-577144 [place] [address] 11-16-2024 08:41-0400 Systolic blood pressure 138 mm[Hg] Raquel Haagen BO[employer] CARPENTER MECHANIC-C Work Phone: 4(909)908-711644 [place] [address] 10-19-2024 08:26-0400 Body height 167.64 cm Raquel Haagen [employer]PENTER MECHANIC-C Work Phone: 9(831)888-027344 [place] [address] 10-19-2024 08:26-0400 Body mass index (BMI) [Ratio] 56.5 kg/m2 Raquel Haagen [employer]PENTER MECHANIC-C Work Phone: 2(580)050-592444 [place] [address] 10-19-2024 08:26-0400 Body temperature 96.6 [degF] Raquel Haagen BOAT CARPENTER MECHANIC-C Work Phone: 4(502)126-579244 [place] [address] 10-19-2024 08:26-0400 Body weight 158.75 kg Raquel Haagen BOAT CARPENTER MECHANIC-C Work Phone: 6(794)771-866544 [place] [address] 10-19-2024 08:26-0400 Diastolic blood pressure 66 mm[Hg] Raquel Haagen BOAT CARPENTER MECHANIC-C Work Phone: 2(502)558-027344 [place] [address] 10-19-2024 08:26-0400 Heart rate 87 /min Raquel Haagen BO[employer]PENTER MECHANIC-C Work Phone: 4(765)949-415344 [place] [address] 10-19-2024 08:26-0400 Inhaled oxygen flow rate 3 L/min Raquel Haagen [employer]PENTER MECHANIC-C Work Phone: 5(620)910-030544 [place] [address] 10-19-2024 08:26-0400 Respiratory rate 18 /min Raquel Haagen [employer]PENTER MECHANIC-C Work Phone: 2(028)491-776544 [place] [address] 10-19-2024 08:26-0400 SaO2% (BldA) [Mass fraction] 94 % Raquel Stoll BOAT CARPENTER MECHANIC-C Work Phone: [facility] 10-19-2024 08:26-0400 Systolic blood pressure 145 mm[Hg] Raquel Stoll BO[employer] CARPENTER MECHANIC-C Work Phone: [facility] 10-17-2024 07:12-0400 Body mass index (BMI) [Ratio] 54.45 kg/m2 Scout Perry APRN.CMO & PRESIDENT Work Phone: [facility] 10-17-2024 07:12-0400 Body temperature 97.81 [degF] Scout Perry APRN.[employer] & PRESIDENT Work Phone: [facility] 10-17-2024 07:12-0400 Body weight 157.7 kg Scout Perry APRN.[employer] & PRESIDENT Work Phone: [facility] 10-17-2024 07:12-0400 Diastolic blood pressure 88 mm[Hg] Scout Perry APRN.[employer]O & PRESIDENT Work Phone: [facility] 10-17-2024 07:12-0400 Heart rate 98 /min Scout Perry APRN.[employer]O & PRESIDENT Work Phone: [facility] 10-17-2024 07:12-0400 Respiratory rate 18 /min Scout Perry APRN.[employer] PRESIDENT Work Phone: [facility] 10-17-2024 07:12-0400 SaO2% (BldA) [Mass fraction] 90 % Scout Perry APRN.[employer] PRESIDENT Work Phone: [facility] 10-17-2024 07:12-0400 Systolic blood pressure 142 mm[Hg] Scout Perry APRN.[employer] & PRESIDENT Work Phone: [facility] 10-11-2024 09:25-0400 Body temperature 97.3 [degF] Raquel Stoll BO[employer]PENTER MECHANIC-C Work Phone: [facility] 10-11-2024 09:25-0400 Diastolic blood pressure 75 mm[Hg] Raquel Stoll BOAT CARPENTER MECHANIC-C Work Phone: [facility] 10-11-2024 09:25-0400 Heart rate 93 /min Raquel Haagen BO[employer] CARPENTER MECHANIC-C Work Phone: [facility] 10-11-2024 09:25-0400 Respiratory rate 22 /min Raquel Haagen BOAT CARPENTER MECHANIC-C Work Phone: [facility] 10-11-2024 09:25-0400 SaO2% (BldA) [Mass fraction] 95 % Raquel Haagen BO[employer] CARPENTER MECHANIC-C Work Phone: 5(429)561-876194 [place] [address] 10-11-2024 09:25-0400 Systolic blood pressure 148 mm[Hg] Raquel Haagen [employer] CARPENTER MECHANIC-C Work Phone: 0(833)103-225444 [place] [address] 09-27-2024 09:53-0400 Body height 167.64 cm Raquel Haagen BOAT CARPENTER MECHANIC-C Work Phone: 2(985)548-971144 [place] [address] 09-27-2024 09:53-0400 Body temperature 97.4 [degF] Arquel Haagen BO[employer]PENTER MECHANIC-C Work Phone: 3(790)122-314644 [place] [address] 09-27-2024 09:53-0400 Diastolic blood pressure 88 mm[Hg] Raquel Haagen BO[employer] CARPENTER MECHANIC-C Work Phone: 9(078)595-110144 [place] [address] 09-27-2024 09:53-0400 Heart rate 83 /min Raquel Haagen [employer]PENTER MECHANIC-C Work Phone: 2(661)048-412144 [place] [address] 09-27-2024 09:53-0400 Inhaled oxygen flow rate 3 L/min Raquel Haagen [employer]PENTER MECHANIC-C Work Phone: 1(633)472-231044 [place] [address] 09-27-2024 09:53-0400 Respiratory rate 20 /min Raquel Haagen BO[employer]PENTER MECHANIC-C Work Phone: 0(391)199-195744 [place] [address] 09-27-2024 09:53-0400 SaO2% (BldA) [Mass fraction] 95 % Raquel Haagen BO[employer] CARPENTER MECHANIC-C Work Phone: 4(377)187-390544 [place] [address] 09-27-2024 09:53-0400 Systolic blood pressure 151 mm[Hg] Raquel Haagen BOAT CARPENTER MECHANIC-C Work Phone: 0(104)846-950694 [place] [address] 09-20-2024 09:53-0400 Diastolic blood pressure 79 mm[Hg] Raquel Haagen BOAT CARPENTER MECHANIC-C Work Phone: 7(438)113-797844 [place] [address] 09-20-2024 09:53-0400 Systolic blood pressure 136 mm[Hg] Raquel Haagen BOAT CARPENTER MECHANIC-C Work Phone: 3(738)619-530344 [place] [address] 09-20-2024 06:19-0400 Body mass index (BMI) [Ratio] 56.6 kg/m2 Raquel Haagen BO[employer] CARPENTER MECHANIC-C Work Phone: 8(507)074-537044 [place] [address] 09-20-2024 06:19-0400 Body weight 159.21 kg Raquel Haagen BOAT CARPENTER MECHANIC-C Work Phone: 6(116)474-636444 [place] [address] 09-20-2024 06:19-0400 Heart rate 69 /min Raquel Haagen [employer]PENTER MECHANIC-C Work Phone: 3(916)627-171544 [place] [address] 09-20-2024 06:19-0400 Respiratory rate 22 /min Raquel Haagen BOAT CARPENTER MECHANIC-C Work Phone: 6(942)709-015144 [place] [address] 09-20-2024 06:19-0400 SaO2% (BldA) [Mass fraction] 94 % Raquel Haagen BO[employer]PENTER MECHANIC-C Work Phone: 1(538)454-264444 [place] [address] 09-13-2024 09:23-0400 Body height 167.64 cm Raquel Haagen BOAT [employer]PENTER MECHANIC-C Work Phone: 8(150)382-647844 [place] [address] 09-13-2024 09:23-0400 Body temperature 97.6 [degF] Raquel Haagen BO[employer] CARPENTER MECHANIC-C Work Phone: 2(843)491-120144 [place] [address] 09-13-2024 09:23-0400 Diastolic blood pressure 81 mm[Hg] Raquel Haagen BOAT CARPENTER MECHANIC-C Work Phone: 0(167)885-894344 [place] [address] 09-13-2024 09:23-0400 Heart rate 80 /min Raquel Haagen BO[employer]PENTER MECHANIC-C Work Phone: 7(833)259-478444 [place] [address] 09-13-2024 09:23-0400 Inhaled oxygen flow rate 3 L/min Raquel Haagen BOAT CARPENTER MECHANIC-C Work Phone: [facility] 09-13-2024 09:23-0400 Respiratory rate 20 /min Raquel Stoll BOAT CARPENTER MECHANIC-C Work Phone: 7(963)814-086344 [place] [address] 09-13-2024 09:23-0400 SaO2% (BldA) [Mass fraction] 90 % Raquel Kaushalbelinda BO[employer] CARPENTER MECHANIC-C Work Phone: 5(621)412-772044 [place] [address] 09-13-2024 09:23-0400 Systolic blood pressure 156 mm[Hg] Raquel Stoll BOAT CARPENTER MECHANIC-C Work Phone: 9(009)725-408144 [place] [address] 09-06-2024 08:15-0400 Body mass index (BMI) [Ratio] 39.9 kg/m2 Raquel Stoll BOAT CARPENTER MECHANIC-C Work Phone: 7(197)425-269744 [place] [address] 09-06-2024 08:15-0400 Body temperature 97.3 [degF] Raquel Stoll BOAT CARPENTER MECHANIC-C Work Phone: 0(410)510-616844 [place] [address] 09-06-2024 08:15-0400 Body weight 112.03 kg Raquel Stoll BOAT CARPENTER MECHANIC-C Work Phone: 1(142)998-391444 [place] [address] 09-06-2024 08:15-0400 Diastolic blood pressure 74 mm[Hg] Raquel Stoll BOAT CARPENTER MECHANIC-C Work Phone: 6(242)854-394544 [place] [address] 09-06-2024 08:15-0400 Heart rate 84 /min Raquel Stoll BOAT CARPENTER MECHANIC-C Work Phone: 1(490)851-030644 [place] [address] 09-06-2024 08:15-0400 Inhaled oxygen flow rate 3 L/min Raquel Stoll BOAT CARPENTER MECHANIC-C Work Phone: 0(606)383-395944 [place] [address] 09-06-2024 08:15-0400 Respiratory rate 20 /min Raquel Easleyagen BO[employer]PENTER MECHANIC-C Work Phone: 1(195)679-404744 [place] [address] 09-06-2024 08:15-0400 SaO2% (BldA) [Mass fraction] 99 % Raquel Stoll BOAT CARPENTER MECHANIC-C Work Phone: 1(230)191-077344 [place] [address] 09-06-2024 08:15-0400 Systolic blood pressure 141 mm[Hg] Raquel Stoll BOAT CARPENTER MECHANIC-C Work Phone: [facility] 08-31-2024 09:18-0400 Diastolic blood pressure 77 mm[Hg] Raquel 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 Work Phone: [facility] Comment on above: [facility] 08-31-2024 09:18-0400 Heart rate 88 /min Raquel 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 Work Phone: [facility] 08-31-2024 09:18-0400 Systolic blood pressure 158 mm[Hg] Raquel 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 Work Phone: [facility] Comment on above: [facility] BP 08-31-2024 08:22-0400 Body mass index (BMI) [Ratio] 56.07 kg/m2 Raquel 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 Work Phone: [facility] 08-31-2024 08:22-0400 Body weight 162.39 kg Raquel 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 Work Phone: [facility] 08-31-2024 08:22-0400 Respiratory rate 16 /min Raquel 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 Work Phone: [facility] 08-31-2024 08:22-0400 SaO2% (BldA) [Mass fraction] 93 % Raquel 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 Work Phone: [facility] 08-30-2024 09:25-0400 Body temperature 97.4 [degF] Raquel Stoll BOAT CARPENTER MECHANIC-C Work Phone: [facility] 08-30-2024 09:25-0400 Diastolic blood pressure 77 mm[Hg] Raquel Stoll BOAT CARPENTER MECHANIC-C Work Phone: [facility] 08-30-2024 09:25-0400 Heart rate 80 /min Raquel Stoll BOAT CARPENTER MECHANIC-C Work Phone: [facility] 08-30-2024 09:25-0400 Inhaled oxygen flow rate 3 L/min Raquel Stoll BOAT CARPENTER MECHANIC-C Work Phone: 5(198)368-130144 [place] [address] 08-30-2024 09:25-0400 Respiratory rate 20 /min Raquel Haagen BOAT CARPENTER MECHANIC-C Work Phone: 8(794)[phone] [place] [address] 08-30-2024 09:25-0400 SaO2% (BldA) [Mass fraction] 91 % Raquel Haagen [employer] Work Phone: [phone] [place] [address] 08-30-2024 09:25-0400 Systolic blood pressure 152 mm[Hg] Raquel Haagen [employer] Work Phone: [phone] [place] [address] 08-16-2024 09:39-0400 Body temperature 97.3 [degF] Raquel Haagen [employer]PENTER MECHANIC-C Work Phone: 8(612)150-485344 [place] [address] 08-16-2024 09:39-0400 Diastolic blood pressure 76 mm[Hg] Raquel Haagen [employer]ENTER MECH[employer]IC[employer]C Work Phone: 5(994)101-377644 [place] [address] 08-16-2024 09:39-0400 Heart rate 85 /min Raquel Haagen [employer] MECH[employer]IC[employer] Work Phone: 5(749)519-458144 [place] [address] 08-16-2024 09:39-0400 Inhaled oxygen flow rate 3 L/min Raquel Haagen [employer]ENTER MECH[employer]IC[employer] Work Phone: 9(532)457-200944 [place] [address] 08-16-2024 09:39-0400 Respiratory rate 20 /min Raquel Haagen [employer]ENTER MECH[employer]IC[employer] Work Phone: 4(195)868-070644 [place] [address] 08-16-2024 09:39-0400 SaO2% (BldA) [Mass fraction] 91 % Raquel Haagen [employer] ME[employer]IC[employer] Work Phone: 2(645)101-757544 [place] [address] 08-16-2024 09:39-0400 Systolic blood pressure 148 mm[Hg] Raquel Haagen [employer]PENTER MECH[employer]IC[employer] Work Phone: 8(798)510-037144 [place] [address] 08-02-2024 10:56-0400 Body height 167.64 cm Raquel Haagen [employer] ME[employer]IC[employer] Work Phone: 2(986)767-223044 [place] [address] 08-02-2024 10:56-0400 Body temperature 97.7 [degF] Raquel Haagen [employer]PENTER MECH[employer]IC[employer]C Work Phone: [facility] 08-02-2024 10:56-0400 Body weight 145.14 kg Raquel Haagen [employer]PENTER MECH[employer]IC[employer] Work Phone: 6(058)895-835394 [place] [address] 08-02-2024 10:56-0400 Diastolic blood pressure 81 mm[Hg] Raquel Haagen [employer]PENTER MECH[employer]IC[employer] Work Phone: 2(106)566-909444 [place] [address] 08-02-2024 10:56-0400 Heart rate 80 /min Raquel Haagen [employer] MECH[employer]IC[employer] Work Phone: 7(039)332-527044 [place] [address] 08-02-2024 10:56-0400 Heart rate 81 /min Raquel Haagen [employer] MECH[employer]IC[employer] Work Phone: 1(341)280-065944 [place] [address] 08-02-2024 10:56-0400 Inhaled oxygen flow rate 2 L/min Raquel Haagen [employer] MECH[employer]IC[employer] Work Phone: 9(897)912-871544 [place] [address] 08-02-2024 10:56-0400 Inhaled oxygen flow rate 3 L/min Raquel Haagen [employer] MECH[employer]IC[employer] Work Phone: 2(403)916-665944 [place] [address] 08-02-2024 10:56-0400 Respiratory rate 20 /min Raquel Haagen [employer] MECH[employer]IC[employer] Work Phone: 4(419)666-086144 [place] [address] 08-02-2024 10:56-0400 SaO2% (BldA) [Mass fraction] 90 % Raquel Haagen [employer] MECH[employer]IC-[employer] Work Phone: 1(328)920-150844 [place] [address] 08-02-2024 10:56-0400 SaO2% (BldA) [Mass fraction] 94 % Raquel Haagen [employer]PENTER MECH[employer]IC[employer]C Work Phone: 0(457)810-147844 [place] [address] 08-02-2024 10:56-0400 Systolic blood pressure 143 mm[Hg] Raquel Haagen [employer]ENTER MECH[employer]IC[employer] Work Phone: 8(807)529-674444 [place] [address] 07-19-2024 07:48-0500 Body mass index (BMI) [Ratio] 53.1 kg/m2 Raquel Haagen [employer] MECH[employer]IC[employer] Work Phone: 7(509)472-378394 [place] [address] 07-19-2024 07:48-0500 Body temperature 97.7 [degF] Raquel Haagen [employer] MECH[employer]IC-C Work Phone: [facility] 07-19-2024 07:48-0500 Body weight 158.75 kg Raquel Haagen BOAT CARPENTER MECH[employer]IC[employer]C Work Phone: [facility] 07-19-2024 07:48-0500 Diastolic blood pressure 88 mm[Hg] Raquel Haagen [employer]AT CARPENTER MECH[employer]IC[employer]C Work Phone: [facility] 07-19-2024 07:48-0500 Heart rate 91 /min Raquel Haagen [employer] MECH[employer]IC[employer] Work Phone: 9(945)635-814694 [place] [address] 07-19-2024 07:48-0500 Inhaled oxygen flow rate 3 L/min Raquel Haagen [employer] MECH[employer]IC[employer] Work Phone: 1(305)801-275544 [place] [address] 07-19-2024 07:48-0500 Respiratory rate 22 /min Raquel Haagen [employer] MECH[employer]IC[employer] Work Phone: 7(112)933-145544 [place] [address] 07-19-2024 07:48-0500 SaO2% (BldA) [Mass fraction] 91 % Raquel Haagen [employer] MECH[employer]IC[employer] Work Phone: 6(978)652-603144 [place] [address] 07-19-2024 07:48-0500 Systolic blood pressure 148 mm[Hg] Raquel Haagen [employer]PENTER MECH[employer]IC[employer]C Work Phone: 7(534)245-685144 [place] [address] 07-05-2024 07:53-0500 Body temperature 97.4 [degF] Raquel Haagen [employer]PENTER MECH[employer]IC-C Work Phone: 0(247)054-865144 [place] [address] 07-05-2024 07:53-0500 Diastolic blood pressure 76 mm[Hg] Raquel Haagen [employer] MECH[employer]IC[employer] Work Phone: 9(383)367-893544 [place] [address] 07-05-2024 07:53-0500 Heart rate 89 /min Raquel Haagen [employer] MECH[employer]IC[employer] Work Phone: 3(686)776-955944 [place] [address] 07-05-2024 07:53-0500 Inhaled oxygen flow rate 3 L/min Raquel Haagen [employer] MECH[employer]IC[employer] Work Phone: 7(501)420-140544 [place] [address] 07-05-2024 07:53-0500 Respiratory rate 20 /min Raquel Haagen [employer] MECH[employer]IC[employer] Work Phone: 6(349)575-900394 [place] [address] 07-05-2024 07:53-0500 SaO2% (BldA) [Mass fraction] 95 % Raquel Habelinda [employer] MECH[employer]IC-C Work Phone: 5(209)784-331194 [place] [address] 07-05-2024 07:53-0500 Systolic blood pressure 163 mm[Hg] Raquel Stoll [employer]ENTER MECH[employer]IC-C Work Phone: 4(874)853-695144 [place] [address] 06-28-2024 07:29-0500 Body mass index (BMI) [Ratio] 37.8 kg/m2 Raquel Habelinda [employer] MECH[employer]IC[employer]C Work Phone: 8(801)739-338444 [place] [address] 06-28-2024 07:29-0500 Body temperature 97.9 [degF] Raquel Stoll [employer]ENTER MECH[employer]IC-C Work Phone: 7(134)073-097144 [place] [address] 06-28-2024 07:29-0500 Body weight 112.94 kg Raquel Stoll [employer] MECH[employer]IC-C Work Phone: 5(669)598-318044 [place] [address] 06-28-2024 07:29-0500 Diastolic blood pressure 81 mm[Hg] Raquel Stoll [employer] MECH[employer]IC-C Work Phone: 3(633)110-819944 [place] [address] 06-28-2024 07:29-0500 Heart rate 78 /min Raquel Stoll [employer] MECH[employer]IC[employer] Work Phone: 2(788)923-564144 [place] [address] 06-28-2024 07:29-0500 Inhaled oxygen flow rate 3 L/min Raquel Stoll [employer] MECH[employer]IC[employer]C Work Phone: 8(934)796-105244 [place] [address] 06-28-2024 07:29-0500 Respiratory rate 20 /min Raquel Haagen [employer] MECH[employer]IC[employer]C Work Phone: 0(457)787-638444 [place] [address] 06-28-2024 07:29-0500 SaO2% (BldA) [Mass fraction] 96 % Raquel Stoll [employer] MECH[employer]IC-C Work Phone: 1(544)413-297144 [place] [address] 06-28-2024 07:29-0500 Systolic blood pressure 160 mm[Hg] Raquel Easleyagen [employer]ENTER MECH[employer]IC-C Work Phone: 2(422)220-963744 [place] [address] 06-21-2024 09:03-0500 Body temperature 97.4 [degF] Raquel Haagen [employer] MECH[employer]IC[employer]C Work Phone: 1(303)958-089744 [place] [address] 06-21-2024 09:03-0500 Diastolic blood pressure 78 mm[Hg] Raquel Haagen [employer]ENTER MECH[employer]IC[employer]C Work Phone: 2(978)591-547244 [place] [address] 06-21-2024 09:03-0500 Heart rate 75 /min Raquel Haagen [employer] MECH[employer]IC[employer] Work Phone: 7(295)892-229744 [place] [address] 06-21-2024 09:03-0500 Inhaled oxygen flow rate 3 L/min Raquel Haagen [employer] MECH[employer]IC[employer] Work Phone: 4(753)346-972744 [place] [address] 06-21-2024 09:03-0500 Respiratory rate 22 /min Raquel Haagen [employer] MECH[employer]IC[employer]C Work Phone: 6(253)005-919144 [place] [address] 06-21-2024 09:03-0500 SaO2% (BldA) [Mass fraction] 90 % Raquel Haagen [employer] MECH[employer]IC-C Work Phone: 0(850)902-905444 [place] [address] 06-21-2024 09:03-0500 Systolic blood pressure 145 mm[Hg] Raquel Haagen [employer] MECH[employer]IC[employer]C Work Phone: 5(297)054-657944 [place] [address] 06-07-2024 09:00-0500 Body temperature 97.4 [degF] Raquel Haagen [employer] MECH[employer]IC[employer]C Work Phone: 5(148)333-166544 [place] [address] 06-07-2024 09:00-0500 Diastolic blood pressure 78 mm[Hg] Raquel Haagen [employer]ENTER MECH[employer]IC[employer]C Work Phone: 4(666)570-813944 [place] [address] 06-07-2024 09:00-0500 Heart rate 78 /min Raquel Haagen [employer] MECH[employer]IC[employer] Work Phone: 3(609)820-991844 [place] [address] 06-07-2024 09:00-0500 Inhaled oxygen flow rate 3 L/min Raquel Haagen [employer] MECH[employer]IC[employer] Work Phone: 9(309)612-356644 [place] [address] 06-07-2024 09:00-0500 Respiratory rate 22 /min Raquel Haagen [employer]ENTER MECH[employer]IC-C Work Phone: 7(761)819-683144 [place] [address] 06-07-2024 09:00-0500 SaO2% (BldA) [Mass fraction] 95 % Raquel Easleyagen [employer] MECH[employer]IC-C Work Phone: 0(237)735-884344 [place] [address] 06-07-2024 09:00-0500 Systolic blood pressure 134 mm[Hg] Raquel Haagen [employer]ENTER MECH[employer]IC-[employer] Work Phone: 1(074)768-800244 [place] [address] 05-24-2024 09:06-0500 Body temperature 97.5 [degF] Raquel Haagen [employer] MECH[employer]IC[employer] Work Phone: 4(021)986-743844 [place] [address] 05-24-2024 09:06-0500 Diastolic blood pressure 85 mm[Hg] Raquel Haagen [employer]ENTER MECH[employer]IC-[employer] Work Phone: 6(302)862-459644 [place] [address] 05-24-2024 09:06-0500 Heart rate 78 /min Raquel Haagen [employer] ME[employer] Work Phone: 0(051)988-682044 [place] [address] 05-24-2024 09:06-0500 Inhaled oxygen flow rate 3 L/min Raquel Easleyagen [employer] MECH[employer]IC[employer] Work Phone: 5(894)971-144244 [place] [address] 05-24-2024 09:06-0500 Respiratory rate 20 /min Raquel Haagen [employer] ME[employer]IC[employer] Work Phone: 1(876)478-440044 [place] [address] 05-24-2024 09:06-0500 SaO2% (BldA) [Mass fraction] 94 % Raquel Habelinda [employer]ENTER MECH[employer]IC-C Work Phone: 6(739)538-135144 [place] [address] 05-24-2024 09:06-0500 Systolic blood pressure 152 mm[Hg] Raquel Easleyagen [employer]ENTER MECH[employer]IC-C Work Phone: 9(872)451-589844 [place] [address] 05-10-2024 07:36-0500 Body mass index (BMI) [Ratio] 51.2 kg/m2 Raquel Haagen [employer] MECH[employer]IC-C Work Phone: 7(702)229-690144 [place] [address] 05-10-2024 07:36-0500 Body temperature 97.5 [degF] Raquel Haagen [employer] MECH[employer]IC-C Work Phone: 5(747)887-944244 [place] [address] 05-10-2024 07:36-0500 Body weight 153.08 kg Raquel Stoll [employer]ENTER MECH[employer]IC-C Work Phone: 9(875)278-748544 [place] [address] 05-10-2024 07:36-0500 Diastolic blood pressure 76 mm[Hg] Raquel Haagen [employer]ENTER MECH[employer]IC-C Work Phone: 6(332)980-103644 [place] [address] 05-10-2024 07:36-0500 Heart rate 78 /min Raquel Haagen [employer] MECH[employer]IC[employer]C Work Phone: 4(445)557-536944 [place] [address] 05-10-2024 07:36-0500 Inhaled oxygen flow rate 3 L/min Raquel Haagen [employer] MECH[employer]IC[employer]C Work Phone: 7(993)886-199644 [place] [address] 05-10-2024 07:36-0500 Respiratory rate 18 /min Raquel Haagen [employer] MECH[employer]IC[employer]C Work Phone: 6(866)106-743344 [place] [address] 05-10-2024 07:36-0500 SaO2% (BldA) [Mass fraction] 96 % Raquel Haagen [employer] MECH[employer]IC-C Work Phone: 8(665)170-545244 [place] [address] 05-10-2024 07:36-0500 Systolic blood pressure 148 mm[Hg] Raquel Haagen [employer]ENTER MECH[employer]IC-C Work Phone: 3(150)789-776744 [place] [address] 04-26-2024 08:58-0500 Body mass index (BMI) [Ratio] 51.2 kg/m2 Raquel Haagen [employer] MECH[employer]IC-C Work Phone: 3(622)389-151944 [place] [address] 04-26-2024 08:58-0500 Body temperature 97.5 [degF] Raquel Haagen [employer]PENTER MECH[employer]IC-C Work Phone: 1(582)520-128444 [place] [address] 04-26-2024 08:58-0500 Body weight 152.86 kg Raquel Haagen [employer] MECH[employer]IC-C Work Phone: 6(414)390-844344 [place] [address] 04-26-2024 08:58-0500 Diastolic blood pressure 82 mm[Hg] Raquel Haagen [employer]PENTER MECH[employer]IC-C Work Phone: 9(595)417-112744 [place] [address] 04-26-2024 08:58-0500 Heart rate 80 /min Raquel Haagen [employer] ME[employer]IC[employer] Work Phone: 1(265)670-371644 [place] [address] 04-26-2024 08:58-0500 Inhaled oxygen flow rate 3 L/min Raquel Haagen BO[employer]PENTER MECH[employer]IC-C Work Phone: [facility] 04-26-2024 08:58-0500 Respiratory rate 20 /min Raquel Haagen [employer]PENTER MECH[employer]IC-C Work Phone: 5(583)856-996994 [place] [address] 04-26-2024 08:58-0500 SaO2% (BldA) [Mass fraction] 92 % Raquel Haagen [employer]PENTER MECH[employer]IC-C Work Phone: 1(962)450-619794 [place] [address] 04-26-2024 08:58-0500 Systolic blood pressure 145 mm[Hg] Raquel Haagen [employer]PENTER MECH[employer]IC-C Work Phone: 1(733)862-577844 [place] [address] 04-12-2024 08:46-0500 Body temperature 97.3 [degF] Raquel Haagen [employer]PENTER MECH[employer]IC-C Work Phone: 0(177)034-567744 [place] [address] 04-12-2024 08:46-0500 Diastolic blood pressure 76 mm[Hg] Raquel Haagen [employer]AT [employer]PENTER MECH[employer]IC-C Work Phone: 6(466)373-938644 [place] [address] 04-12-2024 08:46-0500 Heart rate 76 /min Raquel Haagen [employer]PENTER MECH[employer]IC-C Work Phone: 5(870)710-163244 [place] [address] 04-12-2024 08:46-0500 Inhaled oxygen flow rate 3 L/min Raquel Haagen [employer]AT [employer]PENTER MECH[employer]IC-C Work Phone: 7(159)482-704744 [place] [address] 04-12-2024 08:46-0500 Respiratory rate 20 /min Raquel Haagen [employer]AT [employer]PENTER MECH[employer]IC-C Work Phone: 9(173)551-068244 [place] [address] 04-12-2024 08:46-0500 SaO2% (BldA) [Mass fraction] 92 % Raquel Haagen [employer]PENTER MECH[employer]IC-C Work Phone: 9(906)440-064144 [place] [address] 04-12-2024 08:46-0500 Systolic blood pressure 156 mm[Hg] Raquel Haagen [employer]ENTER MECH[employer]IC-C Work Phone: 5(147)858-555444 [place] [address] 03-02-2024 10:47-0400 Body mass index (BMI) [Ratio] 51.84 kg/m2 Raquel 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 Work Phone: 7(755)026-827708 [place] [address] 03-02-2024 10:47-0400 Body weight 150.14 kg Raquel 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 Work Phone: [facility] 03-02-2024 10:47-0400 Diastolic blood pressure 76 mm[Hg] Raquel 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 Work Phone: [facility] 03-02-2024 10:47-0400 Heart rate 81 /min Raquel 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 Work Phone: [facility] 03-02-2024 10:47-0400 Respiratory rate 16 /min Raquel 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 Work Phone: [facility] 03-02-2024 10:47-0400 SaO2% (BldA) [Mass fraction] 95 % Raquel 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 Work Phone: [facility] Comment on above: O2 @ 2lpm via [place] 03-02-2024 10:47-0400 Systolic blood pressure 138 mm[Hg] Raquel 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 Work Phone: [facility] 10-19-2023 07:25-0400 Body mass index (BMI) [Ratio] 51.1 kg/m2 Denilson Hsu MD Work Phone: [facility] 10-19-2023 07:25-0400 Body temperature 97.2 [degF] Denilson Hsu MD Work Phone: [facility] 10-19-2023 07:25-0400 Body weight 148 kg Denilson Hsu MD Work Phone: [facility] 10-19-2023 07:25-0400 Diastolic blood pressure 68 mm[Hg] Denilson Hsu MD Work Phone: [facility] 10-19-2023 07:25-0400 Heart rate 96 /min Denilson Hsu MD Work Phone: [facility] 10-19-2023 07:25-0400 Respiratory rate 18 /min Denilson Hsu MD Work Phone: [facility] 10-19-2023 07:25-0400 SaO2% (BldA) [Mass fraction] 95 % Denilson Hsu MD Work Phone: [facility] 10-19-2023 07:25-0400 Systolic blood pressure 128 mm[Hg] Denilson Hsu MD Work Phone: [facility] 08-06-2023 10:15-0400 Body weight 143.79 kg NA Jones PA-C Work Phone: [facility] 08-06-2023 10:15-0400 Diastolic blood pressure 72 mm[Hg] NA Jones PA-C Work Phone: [facility] 08-06-2023 10:15-0400 Heart rate 76 /min NA Jones PA-C Work Phone: [facility] 08-06-2023 10:15-0400 Respiratory rate 22 /min NA Jones PA-C Work Phone: [facility] 08-06-2023 10:15-0400 SaO2% (BldA) [Mass fraction] 97 % NA Jones PA-C Work Phone: [facility] 08-06-2023 10:15-0400 Systolic blood pressure 122 mm[Hg] NA Jones PA-C Work Phone: [facility] 07-02-2023 07:16-0500 Body temperature 97.59 [degF] Lynn Athy PA-C Work Phone: [facility] 07-02-2023 07:16-0500 Body weight 143.34 kg Lynn Athy PA-C Work Phone: [facility] 07-02-2023 07:16-0500 Diastolic blood pressure 81 mm[Hg] Lynn Athy PA-C Work Phone: [facility] 07-02-2023 07:16-0500 Heart rate 75 /min Lynn Athy PA-C Work Phone: [facility] 07-02-2023 07:16-0500 Respiratory rate 22 /min Lynn Athy PA-C Work Phone: [facility] 07-02-2023 07:16-0500 SaO2% (BldA) [Mass fraction] 95 % Lynn Athy PA-C Work Phone: [facility] 07-02-2023 07:16-0500 Systolic blood pressure 143 mm[Hg] Lynn Athy PA-C Work Phone: [facility] 06-21-2023 08:22-0500 Body temperature 98.4 [degF] Kelsy Praisler-Wood RECIPROCATING DRILL OPERATOR[employer] Work Phone: [facility] 06-21-2023 08:22-0500 Body weight 146.51 kg Kelsy Praisler-Wood RECIPROCATING DRILL OPERATOR[employer] Work Phone: [facility] 06-21-2023 08:22-0500 Diastolic blood pressure 82 mm[Hg] Kelsy Praisler-Wood RECIPROCATING DRILL OPERATOR[employer] Work Phone: [facility] 06-21-2023 08:22-0500 Heart rate 72 /min Kelsy Praisler-Wood RECIPROCATING DRILL OPERATOR[employer] Work Phone: [facility] 06-21-2023 08:22-0500 Respiratory rate 18 /min Kelsy Praisler-Wood RECIPROCATING DRILL OPERATOR[employer] Work Phone: [facility] 06-21-2023 08:22-0500 SaO2% (BldA) [Mass fraction] 96 % Kelsy Praisler-Wood RECIPROCATING DRILL OPERATOR[employer] Work Phone: [facility] 06-21-2023 08:22-0500 Systolic blood pressure 128 mm[Hg] Kelsy Praisler-Wood RECIPROCATING DRILL OPERATOR[employer] Work Phone: [facility] 04-07-2023 14:10-0500 Body temperature 97 [degF] NA Jones PA-C Work Phone: [facility] 04-07-2023 14:10-0500 Body weight 141.98 kg NA Jones PA-C Work Phone: [facility] 04-07-2023 14:10-0500 Diastolic blood pressure 72 mm[Hg] NA Jones PA-C Work Phone: [facility] 04-07-2023 14:10-0500 Heart rate 87 /min NA Jones PA-C Work Phone: [facility] 04-07-2023 14:10-0500 Respiratory rate 16 /min NA Jones PA-C Work Phone: [facility] 04-07-2023 14:10-0500 SaO2% (BldA) [Mass fraction] 92 % NA Jones PA-C Work Phone: [facility] 04-07-2023 14:10-0500 Systolic blood pressure 128 mm[Hg] NA Jones PA-C Work Phone: [facility] 04-02-2023 08:13-0500 Body temperature 97 [degF] Tommy James RECIPROCATING DRILL OPERATOR[employer] Work Phone: [facility] 04-02-2023 08:13-0500 Body weight 143.79 kg Tommy James RECIPROCATING DRILL OPERATOR[employer] Work Phone: [facility] 04-02-2023 08:13-0500 Diastolic blood pressure 72 mm[Hg] Tommy James RECIPROCATING DRILL OPERATOR[employer] Work Phone: [facility] 04-02-2023 08:13-0500 Heart rate 85 /min Tommy James RECIPROCATING DRILL OPERATOR[employer] Work Phone: [facility] 04-02-2023 08:13-0500 Respiratory rate 18 /min Tommy James RECIPROCATING DRILL OPERATOR[employer] Work Phone: [facility] 04-02-2023 08:13-0500 SaO2% (BldA) [Mass fraction] 97 % Tommy James RECIPROCATING DRILL OPERATOR[employer] PRESIDENT Work Phone: [facility] 04-02-2023 08:13-0500 Systolic blood pressure 138 mm[Hg] Tommy James RECIPROCATING DRILL OPERATOR[employer] Work Phone: [facility] 03-31-2023 10:04-0500 Body temperature 98.1 [degF] Tommy James RECIPROCATING DRILL OPERATOR[employer] Work Phone: [facility] 03-31-2023 10:04-0500 Body weight 144.7 kg Tommy Ramirez RECIPROCATING DRILL OPERATOR[employer] Work Phone: [facility] 03-31-2023 10:04-0500 Diastolic blood pressure 70 mm[Hg] Tommy Ramirez RECIPROCATING DRILL OPERATOR[employer] Work Phone: [facility] 03-31-2023 10:04-0500 Heart rate 80 /min Tommy Ramirez RECIPROCATING DRILL OPERATOR[employer] Work Phone: [facility] 03-31-2023 10:04-0500 Respiratory rate 18 /min Tommy Ramirez RECIPROCATING DRILL OPERATOR[employer] Work Phone: [facility] 03-31-2023 10:04-0500 SaO2% (BldA) [Mass fraction] 95 % Tommy Ramirez RECIPROCATING DRILL OPERATOR[employer] Work Phone: [facility] 03-31-2023 10:04-0500 Systolic blood pressure 126 mm[Hg] Tommy Ramirez RECIPROCATING DRILL OPERATOR[employer] Work Phone: [facility] 03-17-2023 09:59-0400 Body height 172.72 cm PA NA Jones PA Work Phone: [facility] 03-17-2023 09:59-0400 Body temperature 95.3 [degF] PA NA Jones PA Work Phone: [facility] 03-17-2023 09:59-0400 Diastolic blood pressure 67 mm[Hg] PA NA Jones PA Work Phone: [facility] 03-17-2023 09:59-0400 Heart rate 80 /min PA NA Jones PA Work Phone: [facility] 03-17-2023 09:59-0400 Inhaled oxygen flow rate 2 L/min PA NA Jones PA Work Phone: [facility] 03-17-2023 09:59-0400 Respiratory rate 20 /min PA NA Jones PA Work Phone: [facility] 03-17-2023 09:59-0400 SaO2% (BldA) [Mass fraction] 94 % PA NA Jones PA Work Phone: 3(638)797-773694 [place] [address] 03-17-2023 09:59-0400 Systolic blood pressure 125 mm[Hg] PA NA Jones PA Work Phone: 6(933)516-999094 [place] [address] 03-03-2023 08:54-0400 Body temperature 97.3 [degF] PA NA Jones PA Work Phone: 5(309)214-082544 [place] [address] 03-03-2023 08:54-0400 Diastolic blood pressure 77 mm[Hg] PA NA Jones PA Work Phone: 5(976)[phone] [place] [address] 03-03-2023 08:54-0400 Heart rate 80 /min PA NA Jones PA Work Phone: 5(651)[phone] [place] [address] 03-03-2023 08:54-0400 Inhaled oxygen flow rate 2 L/min PA NA Jones PA Work Phone: 1(675)[phone] [place] [address] 03-03-2023 08:54-0400 Respiratory rate 20 /min PA NA Jones PA Work Phone: 3(915)[phone] [place] [address] 03-03-2023 08:54-0400 SaO2% (BldA) [Mass fraction] 95 % PA NA Jones PA Work Phone: 8(870)[phone] [place] [address] 03-03-2023 08:54-0400 Systolic blood pressure 132 mm[Hg] PA NA Jones PA Work Phone: 3(759)[phone] [place] [address] 02-23-2023 06:00-0400 Body mass index (BMI) [Ratio] 33.4 kg/m2 PA NA Jones PA Work Phone: 3(384)[phone] [place] [address] 02-23-2023 06:00-0400 Body temperature 97.4 [degF] PA NA Jones PA Work Phone: 2(775)[phone] [place] [address] 02-23-2023 06:00-0400 Body weight 99.79 kg PA NA Jones PA Work Phone: 5(889)095-108594 [place] [address] 02-23-2023 06:00-0400 Diastolic blood pressure 77 mm[Hg] PA NA Jones PA Work Phone: [facility] [facility] 02-23-2023 06:00-0400 Heart rate 78 /min PA NA Jones PA Work Phone: [facility] 02-23-2023 06:00-0400 Inhaled oxygen flow rate 2 L/min PA NA Jones PA Work Phone: 3(704)161-770544 [place] [address] 02-23-2023 06:00-0400 Respiratory rate 18 /min PA NA Jones PA Work Phone: [facility] 02-23-2023 06:00-0400 SaO2% (BldA) [Mass fraction] 96 % PA NA Jones PA Work Phone: 6(337)012-595144 [place] [address] 02-23-2023 06:00-0400 Systolic blood pressure 132 mm[Hg] PA NA Jones PA Work Phone: 9(158)166-653644 [place] [address] 02-17-2023 09:14-0400 Body temperature 97.2 [degF] PA NA Jones PA Work Phone: 4(776)433-860744 [place] [address] 02-17-2023 09:14-0400 Diastolic blood pressure 75 mm[Hg] PA NA Jones PA Work Phone: 9(063)438-867244 [place] [address] 02-17-2023 09:14-0400 Heart rate 82 /min PA NA Jones PA Work Phone: 3(896)912-168444 [place] [address] 02-17-2023 09:14-0400 Inhaled oxygen flow rate 5 L/min PA NA Jones PA Work Phone: 1(002)086-785344 [place] [address] 02-17-2023 09:14-0400 Respiratory rate 20 /min PA NA Jones PA Work Phone: 2(736)141-785944 [place] [address] 02-17-2023 09:14-0400 SaO2% (BldA) [Mass fraction] 94 % PA NA Jones PA Work Phone: 7(803)961-361244 [place] [address] 02-17-2023 09:14-0400 Systolic blood pressure 135 mm[Hg] PA NA Jones PA Work Phone: 4(478)818-177504 [address] 02-03-2023 09:15-0400 Body temperature 97.2 [degF] PA NA Jones PA Work Phone: [facility] 02-03-2023 09:15-0400 Heart rate 88 /min PA NA Jones PA Work Phone: [facility] 02-03-2023 09:15-0400 Inhaled oxygen flow rate 5 L/min PA NA Jones PA Work Phone: [facility] 02-03-2023 09:15-0400 Respiratory rate 20 /min PA NA Jones PA Work Phone: [facility] 02-03-2023 09:15-0400 SaO2% (BldA) [Mass fraction] 95 % PA NA Jones PA Work Phone: [facility] 01-20-2023 09:48-0400 Body temperature 96.2 [degF] PA NA Jones PA Work Phone: [facility] 01-20-2023 09:48-0400 Diastolic blood pressure 74 mm[Hg] PA NA Jones PA Work Phone: [facility] 01-20-2023 09:48-0400 Heart rate 88 /min PA NA Jones PA Work Phone: [facility] 01-20-2023 09:48-0400 Inhaled oxygen flow rate 5 L/min PA NA Jones PA Work Phone: [facility] 01-20-2023 09:48-0400 Respiratory rate 20 /min PA NA Jones PA Work Phone: [facility] 01-20-2023 09:48-0400 SaO2% (BldA) [Mass fraction] 95 % PA NA Jones PA Work Phone: [facility] 01-20-2023 09:48-0400 Systolic blood pressure 147 mm[Hg] PA NA Jones PA Work Phone: [facility] 01-06-2023 07:57-0400 Body temperature 96.2 [degF] PA NA Jones PA Work Phone: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 04-03-2028 Lipid 1996 panel - Serum or Plasma Lipid Screening [facility] Start: 08-16-2026 Screening for malignant neoplasm of colon [facility] Start: 04-03-2026 Diabetes Screening Diabetes Screening [facility] Start: 01-25-2026 Annual PCP Team Chronic Disease Visit Annual PCP Team Chronic Disease Visit [facility] Start: 08-31-2025 Annual PCP Team Chronic Disease Visit Annual PCP Team Chronic Disease Visit [facility] Start: 08-31-2025 Diabetic foot examination Diabetic Foot Exam [facility] Start: 08-31-2025 Hepatitis B surface antibody level LDL Cholesterol [facility] Start: 08-31-2025 HIV screening HIV Screening [facility] Comment on above: Postponed from 1980 (Declined at t his time) Start: 04-04-2025 Screening for malignant neoplasm of colon Fecal Occult Blood [facility] Start: 03-07-2025 Hepatitis B screening Urine Albumin:Creatinine Ratio [facility] Start: 03-07-2025 Hepatitis B surface antibody level LDL Cholesterol [facility] Start: 03-02-2025 Annual PCP Team Chronic Disease Visit Annual PCP Team Chronic Disease Visit [facility] Start: 03-02-2025 Anxiety Screening Anxiety Screening [facility] Comment on above: Postponed from 1980 (Declined at t his time) Postponed from 08/05 (Declined at this time) Start: 03-02-2025 Hemoglobin A1c measurement HbA1C [facility] Start: 03-02-2025 Prostate specific antigen measurement Prostate Cancer Screening Discussion [facility] Comment on above: Postponed from 12/07/2023 (Declined at t his time) Start: 01-16-2025 Influenza vaccination Influenza Vaccine (#1) [facility] Start: 10-18-2024 BP Controlled (<130/80) BP Controlled (<130/80) [facility] Start: 09-30-2024 End: 09-30-2024 Patient encounter procedure 09/30/2024 9:20 AM EDT Office Visit [facility] [place] [address], [place] [phone] Raquel Stoll APRN.CMO & PRESIDENT [address], [place] [id number] 1 month follow up [facility] Comment on above: 1 month follow up Start: 09-09-2024 Patient referral [facility] Work Phone: Start: 09-05-2024 Hemoglobin A1c measurement HbA1C [facility] Start: 09-05-2024 End: 09-05-2024 Patient encounter procedure 09/05/2024 9:15 AM EDT Appointment [facility] [address] [facility] [place], [place] [address] Dysphagia, unspecified type [R13.10] Radiology Comment on above: Dysphagia, unspecified type [R13.10] Start: 08-31-2024 End: 11-30-2024 Comprehensive metabolic 2000 panel - Serum or Plasma [facility] Comment on above: Expected: 08/31/2024, Expires: Start: 08-31-2024 End: 11-30-2024 LIPID PANEL, NONFASTING [facility] Work Phone: Comment on above: Expected: 08/31/2024, Expires: Start: 08-31-2024 End: 11-30-2024 Thyrotropin [Units/volume] in Serum or Plasma [facility] Comment on above: Expected: 08/31/2024, Expires: Start: 08-31-2024 End: 11-30-2024 Thyroxine (T4) free [Mass/volume] in Serum or Plasma [facility] Comment on above: Expected: 08/31/2024, Expires: Start: 08-31-2024 End: 08-31-2024 Patient encounter procedure [facility] Comment on above: 6 month follow up Start: 08-23-2024 End: 08-23-2024 Patient encounter procedure 08/23/2024 9:30 AM EDT Office Visit Vascular Surgery [address] [place] [address] Terra Poole, DO [address] [place] [address] Aortic root dilation [I77.810] Vascular Surgery Comment on above: Aortic root dilation [I77.810] Start: 08-05-2024 Annual PCP Team Chronic Disease Visit Annual PCP Team Chronic Disease Visit [facility] Start: 08-05-2024 BP Controlled (<130/80) BP Controlled (<130/80) [facility] Start: 08-05-2024 Depression Screening Depression Screening [facility] Start: 08-05-2024 Diabetic foot examination Diabetic Foot Exam [facility] Start: 08-05-2024 HIV screening HIV Screening [facility] Comment on above: Postponed from 1980 (Declined at t his time) Start: 07-26-2024 Hepatitis B surface antibody level LDL Cholesterol [facility] Start: 05-08-2024 Annual PCP Team Chronic Disease Visit Annual PCP Team Chronic Disease Visit [facility] Start: 05-06-2024 End: 08-05-2024 CBC W Auto Differential panel - Blood COMPLETE BLOOD COUNT AND DIFFERENTIAL Lab Routine Anemia, unspecified type Expected: 05/06/2024, Expires: 08/05/2024 [facility] Work Phone: Comment on above: Expected: 05/06/2024, Expires: Start: 05-04-2024 Hepatitis B screening Urine Albumin:Creatinine Ratio [facility] Start: 04-07-2024 Annual PCP Team Chronic Disease Visit Annual PCP Team Chronic Disease Visit [facility] Start: 04-07-2024 BP Controlled (<130/80) BP Controlled (<130/80) [facility] Start: 04-07-2024 Diabetic foot examination Diabetic Foot Exam [facility] Start: 04-03-2024 Hepatitis B surface antibody level LDL Cholesterol [facility] Start: 03-31-2024 BP Controlled (<130/80) BP Controlled (<130/80) [facility] Start: 03-25-2024 End: 03-25-2025 CBC W Auto Differential panel - Blood COMPLETE BLOOD COUNT AND DIFFERENTIAL Lab Routine Anemia, unspecified type Expected: 03/25/2024, Expires: 03/25/2025 [facility] Comment on above: Expected: 03/25/2024, Expires: Start: 03-25-2024 End: 03-25-2025 Cobalamin (Vitamin B12) [Mass/volume] in Serum or Plasma VITAMIN B12 Lab Routine Anemia, unspecified type Expected: 03/25/2024, Expires: 03/25/2025 [facility] Comment on above: Expected: 03/25/2024, Expires: Start: 03-25-2024 End: 03-25-2025 Ferritin [Mass/volume] in Serum or Plasma FERRITIN Lab Routine Anemia, unspecified type Expected: 03/25/2024, Expires: 03/25/2025 [facility] Work Phone: Comment on above: Expected: 03/25/2024, Expires: Start: 03-25-2024 End: 03-25-2025 Folate [Mass/volume] in Serum or Plasma FOLATE, SERUM Lab Routine Anemia, unspecified type Expected: 03/25/2024, Expires: 03/25/2025 [facility] Comment on above: Expected: 03/25/2024, Expires: Start: 03-25-2024 End: 03-25-2025 Hemoglobin.gastrointesti nal.lower [Presence] in Stool by Immunoassay IMMUNOCHEMICAL FECAL OCCULT BLOOD TEST Lab Routine Anemia, unspecified type Expected: 03/25/2024, Expires: 03/25/2025 [facility] Comment on above: Expected: 03/25/2024, Expires: Start: 03-25-2024 End: 03-25-2025 Iron and Iron binding capacity panel - Serum or Plasma IRON AND TIBC Lab Routine Anemia, unspecified type Expected: 03/25/2024, Expires: 03/25/2025 [facility] Comment on above: Expected: 03/25/2024, Expires: Start: 03-25-2024 End: 03-25-2025 RETICULOCYTE COUNT RETICULOCYTE COUNT Lab Routine Anemia, unspecified type Expected: 03/25/2024, Expires: 03/25/2025 [facility] Comment on above: Expected: 03/25/2024, Expires: Start: 03-07-2024 End: 03-07-2024 Patient encounter procedure 03/07/2024 8:50 AM EDT Office Visit Cardiology [address] [place] [address] Aortic root dilation (HCC) [I77.810] Cardiology Comment on above: Aortic root dilation (HCC) [I77.810] Start: 03-02-2024 End: 06-01-2024 CBC W Auto Differential panel - Blood COMPLETE BLOOD COUNT AND DIFFERENTIAL Lab Routine Controlled type 2 diabetes mellitus without complication, without long-term current use of insulin (HCC) Primary hypertension Expected: 03/02/2024, Expires: 06/01/2024 [facility] Comment on above: Expected: 03/02/2024, Expires: Start: 03-02-2024 End: 06-01-2024 Comprehensive metabolic 2000 panel - Serum or Plasma COMPREHENSIVE METABOLIC PANEL Lab Routine Hyperlipidemia, mixed Expected: 03/02/2024, Expires: 06/01/2024 [facility] Comment on above: Expected: 03/02/2024, Expires: Start: 03-02-2024 End: 06-01-2024 Hemoglobin A1c in Blood HEMOGLOBIN A1C Lab Routine Controlled type 2 diabetes mellitus without complication, without long-term current use of insulin (HCC) Expected: 03/02/2024, Expires: 06/01/2024 [facility] Work Phone: Comment on above: Expected: 03/02/2024, Expires: Start: 03-02-2024 End: 06-01-2024 Lipid 1996 panel - Serum or Plasma LIPID PANEL BASIC Lab Routine Primary hypertension Hyperlipidemia, mixed Expected: 03/02/2024, Expires: 06/01/2024 [facility] Comment on above: Expected: 03/02/2024, Expires: 5 Start: 03-02-2024 End: 06-01-2024 Microalbumin/Creatinine [Mass Ratio] in Urine ALBUMIN/CREATININE RATIO, URINE Lab Routine Controlled type 2 diabetes mellitus without complication, without long-term current use of insulin (HCC) Expected: 03/02/2024, Expires: 06/01/2024 [facility] Comment on above: Expected: 03/02/2024, Expires: Start: 02-09-2024 End: 02-09-2024 Patient encounter procedure [facility] [place] Comment on above: 6 month follow up Start: 02-06-2024 End: 05-07-2024 CBC W Auto Differential panel - Blood CBC + DIFF Lab Routine Controlled type 2 diabetes mellitus without complication, without long-term current use of insulin (HCC) Expected: 02/06/2024, Expires: 05/07/2024 [facility] Work Phone: Comment on above: Expected: 02/06/2024, Expires: 4 Start: 02-06-2024 End: 05-07-2024 Comprehensive metabolic 2000 panel - Serum or Plasma COMP METABOLIC PANEL Lab Routine Primary hypertension Hyperlipidemia, mixed Controlled type 2 diabetes mellitus without complication, without long-term current use of insulin (HCC) COPD with hypoxia (HCC) Cat scratch left hand, penetrated Expected: 02/06/2024, Expires: 05/07/2024 [facility] Work Phone: Comment on above: Expected: 02/06/2024, Expires: 4 Start: 02-06-2024 End: 05-07-2024 Hemoglobin A1c in Blood HGB A1C Lab Routine Controlled type 2 diabetes mellitus without complication, without long-term current use of insulin (HCC) Expected: 02/06/2024, Expires: 05/07/2024 [facility] Work Phone: Comment on above: Expected: 02/06/2024, Expires: Start: 02-06-2024 End: 05-07-2024 Lipid 1996 panel - Serum or Plasma LIPID PANEL BASIC Lab Routine Hyperlipidemia, mixed Hypertriglyceridemia Controlled type 2 diabetes mellitus without complication, without long-term current use of insulin (HCC) Expected: 02/06/2024, Expires: 05/07/2024 [facility] Work Phone: Comment on above: Expected: 02/06/2024, Expires: Start: 02-02-2024 Lipid 1996 panel - Serum or Plasma Lipid Screening [facility] Start: 02-02-2024 LIPID SCREEN LIPID SCREEN [facility] Start: 01-27-2024 Hemoglobin A1c measurement HbA1C [facility] Start: 01-17-2024 Influenza [facility] Start: 12-07-2023 PROSTATE CANCER SCREENING DISCUSSION PROSTATE CANCER SCREENING DISCUSSION [facility] Start: 12-07-2023 Prostate specific antigen measurement Prostate Cancer Screening Discussion [facility] Start: 11-16-2023 End: 11-16-2023 Patient encounter procedure 11/16/2023 2:30 PM EDT Office Visit Podiatry [address] [place] [address] Regulo Christensen [address] [place], [place] [phone] New podi for toe - referred by express [facility] - last seen in 2019 Podiatry Comment on above: New podi for toe - referred by [facility] - last seen in 2019 Start: 10-28-2023 End: 01-27-2024 Hemoglobin A1c in Blood HGB A1C Lab Routine Controlled type 2 diabetes mellitus without complication, without long-term current use of insulin (HCC) Expected: 10/28/2023, Expires: 01/27/2024 [facility] Work Phone: Comment on above: Expected: 10/28/2023, Expires: Start: 08-18-2023 Screening for malignant neoplasm of colon Colorectal Cancer Screening [facility] Start: 07-04-2023 Hemoglobin A1c measurement HbA1C [facility] Start: 05-18-2023 Behavioral Health Screening Behavioral Health Screening [facility] Start: 05-18-2023 Depression Assessment Depression Assessment [facility] Start: 04-07-2023 End: 07-07-2023 ALBUMIN/CREAT RATIO RND UR ALBUMIN/CREAT RATIO RND UR Lab Routine Uncontrolled type 2 diabetes mellitus with hyperglycemia (HCC) Expected: 04/07/2023, Expires: 07/07/2023 [facility] Work Phone: Comment on above: Expected: 04/07/2023, Expires: Start: 03-31-2023 End: 06-30-2023 ALBUMIN/CREAT RATIO RND UR ALBUMIN/CREAT RATIO RND UR Lab Routine Hyperglycemia Expected: 03/31/2023, Expires: 06/30/2023 [facility] Work Phone: Comment on above: Expected: 03/31/2023, Expires: 4 Start: 03-31-2023 End: 06-30-2023 CBC panel - Blood by Automated count CBC Lab Routine Hyperglycemia Primary hypertension Expected: 03/31/2023, Expires: 06/30/2023 [facility] Work Phone: Comment on above: Expected: 03/31/2023, Expires: 4 Start: 03-31-2023 End: 06-30-2023 Comprehensive metabolic 2000 panel - Serum or Plasma COMP METABOLIC PANEL Lab Routine Hyperglycemia Primary hypertension Expected: 03/31/2023, Expires: 06/30/2023 [facility] Work Phone: Comment on above: Expected: 03/31/2023, Expires: 4 Start: 03-31-2023 End: 06-30-2023 Hemoglobin A1c in Blood HGB A1C Lab Routine Hyperglycemia Expected: 03/31/2023, Expires: 06/30/2023 [facility] Work Phone: Comment on above: Expected: 03/31/2023, Expires: 4 Start: 03-31-2023 End: 06-30-2023 Lipid 1996 panel - Serum or Plasma LIPID PANEL BASIC Lab Routine Hyperglycemia High serum low density lipoprotein (LDL) cholesterol Expected: 03/31/2023, Expires: 06/30/2023 [facility] Work Phone: Comment on above: Expected: 03/31/2023, Expires: 4 Start: 01-16-2023 Covid-19 Vaccine (2022- season) Covid-19 Vaccine (2022- season) [facility] Start: 2022 RSV Vaccine (1 - 1-dose 60+ series) RSV Vaccine (1 - 1-dose 60+ series) [facility] Start: 2022 RSV Vaccine (1 - Risk 60-74 years 1-dose series) RSV Vaccine (1 - Risk 60-74 years 1-dose series) [facility] Start: 05-25-2022 DIABETES SCREEN DIABETES SCREEN [facility] Start: 05-25-2022 Diabetes Screening Diabetes Screening [facility] Start: 05-18-2022 DEPRESSION ASSESSMENT DEPRESSION ASSESSMENT [facility] Start: 01-16-2022 Influenza vaccination INFLUENZA (#1) [facility] Start: 12-28-2021 ANNUAL PCP TEAM CHRONIC DISEASE VISIT ANNUAL PCP TEAM CHRONIC DISEASE VISIT [facility] Start: 05-18-2021 DEPRESSION ASSESSMENT DEPRESSION ASSESSMENT [facility] Start: 04-17-2021 Colonoscopy COLONOSCOPY [facility] Start: 04-17-2021 COLORECTAL CANCER SCREENING COLORECTAL CANCER SCREENING [facility] Start: 04-17-2021 Screening for malignant neoplasm of colon [facility] Start: 03-13-2021 PNEUMOCOCCAL (2 - PCV) PNEUMOCOCCAL (2 - PCV) [facility] Start: 03-13-2021 Pneumococcal vaccination [facility] Start: 05-08-2020 SHINGRIX VACCINE (2 of 2) SHINGRIX VACCINE (2 of 2) [facility] Start: 04-17-2012 Screening for malignant neoplasm of colon Colonoscopy [facility] Start: 07-23-2007 COLOGUARD (FIT-DNA) COLOGUARD (FIT-DNA) [facility] Start: 07-23-[address] COLONOGRAPHY [facility] Start: 07-23-2007 FECAL OCCULT BLOOD FECAL OCCULT BLOOD [facility] Start: 07-23-2007 Screening for malignant neoplasm of colon [facility] Start: 07-23-2007 SIGMOIDOSCOPY SIGMOIDOSCOPY [facility] Start: 1992 Zoledronic acid therapy ALPHA-1 ANTITRYPSIN DEFICIENCY SCREENING [facility] Start: 1981 Urine microalbumin profile [facility] Start: 1980 Anxiety Screening Anxiety Screening [facility] Start: 1980 BP CONTROLLED (<130/80) BP CONTROLLED (<130/80) [facility] Start: 1980 Depression Screening Depression Screening [facility] Start: 1980 HIV SCREENING HIV SCREENING [facility] Start: 1980 HIV screening HIV Screening [facility] Start: 1972 Glaucoma screening Dilated Retinal Exam [facility] Start: 01-22-1963 COVID-19 VACCINE (#1) COVID-19 VACCINE (#1) [facility] CBC W Auto Different ial panel - Blood [facility] COLOGUARD COLOGUARD Lab Ro utiwy Screening for colon cancer Ordered: 08/06/2023 [facility] Work Phone: Comment on above: Ordered: 08/06/2023 CT Chest [facility] End: 03-02-2025 Echocardiography ECHO Cardiology Routine Aortic root dilation (HCC) 1 Occurrences starting 03/02/2024 until 03/02/2025 [facility] Comment on above: 1 Occurrences starting 03/02/2024 until 03/02/2025 Patient referral [facility] Work Phone: End: 09-30-2025 US Thyroid gland US THYROID/PARATHYROID Radiology Routine Dysphagia, unspecified type 1 Occurrences starting 08/31/2024 until 09/30/2025 [facility] Comment on above: 1 Occurrences starting 08/31/2024 until 09/30/2025 XR Foot - left AP an d Lateral and oblique XR FOOT GENERAL 3V AP/LAT/OBL LEFT Radiology Routine Pain in left foot 11/16/2023 2:00 PM EDT [facility] Work Phone: End: 07-31-2025 XR Toes - left 3 Views XR TOE AP/LAT/OBL LEFT Radiology Routine Closed displaced fracture of phalanx of left great toe, unspecified phalanx, initial encounter 1 Occurrences starting 11/16/2023 until 12/15/2024 [facility] Work Phone: Comment on above: 1 Occurrences starting 11/16/2023 until 12/15/2024 [facility] Immunizations Immunization Date Immunization Notes Care Provider Jenny vazquez 03-02-2024 influenza, seasonal, injectable Raquel 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 Work Phone: [facility] 03-02-2024 influenza virus vacc ine, unspecified formulation Raquel 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 Work Phone: [facility] 08-06-2023 pneumococcal conjuga te (PCV20) vaccine, 20 valent (PREVNAR 20) NA Jones PA-C Work Phone: [facility] 08-06-2023 tetanus toxoid, redu raeann diphtheria toxoid, and acellular pertussis vaccine, adsorbed NA Jones PA-C Work Phone: [facility] 08-06-2023 pneumococcal Conjuga te, unspecified formulation NA Jones PA-C Work Phone: [facility] Work Phone: 02-23-2023 influenza, injectabl e, quadrivalent, preservative free PA NA Jones PA Work Phone: [facility] 02-23-2023 influenza virus vacc ine, unspecified formulation Xr Mob Work Phone: [facility] 03-04-2022 influenza, injectabl e, quadrivalent, preservative free PA NA Jones PA Work Phone: [facility] 03-04-2022 influenza, seasonal, injectable NA Jones PA-C Work Phone: [facility] 03-07-2021 Influenza, injectabl e, Madin Katrin Canine Kidney, preservative free, quadrivalent NA Jones PA-C Work Phone: [facility] 03-13-2020 pneumococcal polysaccharide vaccine, 23 valent NA Jones PA-C Work Phone: [facility] 03-13-2020 zoster vaccine recombinant NA Jones PA-C Work Phone: [facility] 02-09-2020 influenza, injectable,quadrivalent, preservative free, pediatric PA NA Jones PA Work Phone: [facility] 02-09-2020 influenza, seasonal, injectable, preservative free NA Jones PA-C Work Phone: [facility] 03-12-2019 influenza, injectabl e, quadrivalent, contains preservative NA Jones PA-C Work Phone: [facility] 07-21-2018 influenza, injectabl e, quadrivalent, preservative free PA NA Jones PA Work Phone: [facility] 07-21-2018 influenza, seasonal, injectable, preservative free NA Jones PA-C Work Phone: [facility] Payers Date Payer Category Payer Self-pay [id number] 2021 Unknown [id number] 2018 Medicaid [id number] 2011 Unknown [id number] Unknown [id number] 2.16.8 40.1.232872.3.579.2.462 Unknown [id number] 2.16.8 40.1.240737.3.579.2.462 Unknown [id number] 2.16.8 40.1.531985.3.579.2.462 Unknown [id number] 2.16.8 40.1.287121.3.579.2.462 Unknown [id number] 2.16.8 40.1.770585.3.579.2.462 Unknown [id number] 2.16.8 40.1.645798.3.579.2.462 Unknown [id number] 2.16.8 40.1.639884.3.579.2.462 Unknown [id number] 2.16.8 40.1.288011.3.579.2.462 Unknown [id number] 2.16.8 40.1.368678.3.579.2.462 Unknown [id number] 2.16.8 40.1.728983.3.579.2.462 Unknown [id number] 2.16.8 40.1.838320.3.579.2.462 Unknown [id number] 2.16.8 40.1.870739.3.579.2.462 Unknown [id number] 2.16.8 40.1.489367.3.579.2.462 Unknown [id number] 2.16.8 40.1.785940.3.579.2.462 Unknown [id number] 2.16.8 40.1.427658.3.579.2.462 Unknown [id number] 2.16.8 40.1.185692.3.579.2.462 Unknown [id number] 2.16.8 40.1.546428.3.579.2.462 Unknown [id number] 2.16.8 40.1.044701.3.579.2.462 Unknown [id number] 2.16.8 40.1.376350.3.579.2.462 Unknown [id number] 2.16.8 40.1.536622.3.579.2.462 Unknown [id number] 2.16.8 40.1.649167.3.579.2.462 Unknown [id number] 2.16.8 40.1.597133.3.579.2.462 Unknown [id number] 2.16.8 40.1.603755.3.579.2.462 Unknown [id number] 2.16.8 40.1.908898.3.579.2.462 Unknown [id number] 2.16.8 40.1.766376.3.579.2.462 Unknown [id number] 2.16.8 40.1.606403.3.579.2.462 Unknown [id number] 2.16.8 40.1.337852.3.579.2.462 Unknown [id number] 2.16.8 40.1.853143.3.579.2.462 Unknown [id number] 2.16.8 40.1.466859.3.579.2.462 Unknown [id number] 2.16.8 40.1.872574.3.579.2.462 Unknown [id number] 2.16.8 40.1.894131.3.579.2.462 Unknown [id number] 2.16.8 40.1.161735.3.579.2.462 Unknown [id number] 2.16.8 40.1.018614.3.579.2.462 Unknown [id number] 2.16.8 40.1.580166.3.579.2.462 Unknown [id number] 2.16.8 40.1.794846.3.579.2.462 Unknown [id number] 2.16.8 40.1.976619.3.579.2.462 Unknown [id number] 2.16.8 40.1.107347.3.579.2.462 Social History Date Type Detail Facility Start: 10-08-2017 End: 03-02-2024 Tobacco smoking status NHIS Ex-smoker [facility] Start: 08-16-1997 End: 08-16-2017 History of tobacco use Current smoker [facility] Start: 08-16-1997 End: 08-16-2017 History of tobacco use Cigarette Smoker [facility] Start: 10-08-2017 End: 04-22-2020 Cigarettes smoked current (pack per day) - Reported 0.5 [facility] Start: 10-08-2017 End: 03-02-2024 Tobacco use and exposure Smokeless tobacco non-user [facility] Start: 12-28-2020 End: 01-25-2025 Alcohol intake Current drinker of alcohol (finding) [facility] Start: 03-01-2018 Alcohol Comment beer 3 beers/ day, heavy in youth [facility] Start: 1960 Sex Assigned At Not on file [facility] Start: 03-17-2023 Tobacco smoking stat [facility] Unknown if ever smoked [facility] Start: 10-23-2018 Occasional [facility] Start: 10-23-2018 None [facility] Start: 10-23-2018 Alone [facility] Start: 10-24-2018 Non-smoker [facility] Start: 1960 Sex Assigned At Male [facility] Start: 04-22-2020 End: 07-15-2022 Tobacco use panel [facility] Start: 04-18-2012 Adult Depression Screening Assessment 0 [facility] Start: 11-16-2023 [facility] Start: 08-06-2024 End: 08-10-2024 Sex Male (finding) [facility] Medical Equipment Procedure Code Equipment Code Equipment Origin al Text Equipment Identifier Dates Test blood sugar (s) 4 times daily. Dx: Type 2 DM - Uncontrolled E11.65 Insulin: Yes [id number], [id number], [id number], [id number] Start: 04-07-2023 End: 03-02-2024 Comment on above: Test blood sugar(s) 4 times daily. Dx: Type 2 DM - Uncontrolled E11.65 Insulin: Yes Blood Sugar Diagnostic (True Metrix Glucose Test Strip) strip Start: 05-10-2024 Lancets (Unilet Lancet) 33 gauge misc Start: 05-10-2024 Blood Sugar Diagnostic (True Metrix Glucose Test Strip) strip Start: 05-10-2024 Lancets (Unilet Lancet) 33 gauge misc Start: 05-10-2024 Blood Sugar Diagnostic (True Metrix Glucose Test Strip) strip Start: 05-10-2024 Lancets (Unilet Lancet) 33 gauge misc Start: 05-10-2024 Blood Sugar Diagnostic (True Metrix Glucose Test Strip) strip Start: 05-10-2024 Lancets (Unilet Lancet) 33 gauge misc Start: 05-10-2024 Blood Sugar Diagnostic (True Metrix Glucose Test Strip) strip Start: 05-10-2024 Lancets (Unilet Lancet) 33 gauge misc Start: 05-10-2024 Blood Sugar Diagnostic (True Metrix Glucose Test Strip) strip Start: 05-10-2024 Lancets (Unilet Lancet) 33 gauge misc Start: 05-10-2024 Blood Sugar Diagnostic (True Metrix Glucose Test Strip) strip Start: 05-10-2024 Lancets (Unilet Lancet) 33 gauge misc Start: 05-10-2024 Blood Sugar Diagnostic (True Metrix Glucose Test Strip) strip Start: 05-10-2024 Lancets (Unilet Lancet) 33 gauge misc Start: 05-10-2024 Blood Sugar Diagnostic (True Metrix Glucose Test Strip) strip Start: 05-10-2024 Lancets (Unilet Lancet) 33 gauge misc Start: 05-10-2024 Blood Sugar Diagnostic (True Metrix Glucose Test Strip) strip Start: 05-10-2024 Lancets (Unilet Lancet) 33 gauge misc Start: 05-10-2024 Mental Status Date Assessment Result Facility 01-13-2025 Cognitive function Level Of Cons ciousness Awake;Alert;Appropriate;Follow s Commands [facility] Work Phone: 12-16-2024 Cognitive function Voice/Name [facility] Work Phone: 11-16-2024 Cognitive function Level Of Cons ciousness Awake;Alert;Appropriate;Follow s Commands [facility] Work Phone: 10-19-2024 Cognitive function Voice/Name [facility] Work Phone: Clinical Notes 01-09-2012 to 01-25-2025 Raquel Stoll APRN.CMO & PRESIDENT - 01/25/2025 5:39 PM EDTPatient InstructionsTeleJessy Bush RN - 12/05/2024 8:06 AM Scout Mehta APRN.CMO & PRESIDENT - 10/17/2024 7:31 AM EDT Note Date & Type Note Facility 01-25-2025 Note HNO ID: [id number] Author: RAQUEL STOLL APRN.VENKATA Service: ? Author Type: Nurse Practitioner Type: Progress Notes Filed: 01/25/2025 17:42 Note Text: This is a 64 year old male who presents today with: The patient is a 64-year-old male with psoriasis, presenting for evaluation of worsening psoriatic lesions on his hands, feet, and scalp with associated pruritus and burning. HISTORY OF PRESENT ILLNESS: Psoriasis: - Chronic psoriasis with lesions on the scalp, hands, and feet. - Lesions on hands and feet are worsening, with skin feeling like it's shrinking and going to rip. - Abdoul describes pruritus as similar to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 uncomplicated August 01, 2024 9:18am Severe persistent asthma, uncomplicated August 02, 2024 10:16am Asthma- Severe Persistent Asthma July 162024 11:25am Severe persistent asthma, uncomplicated August 10, 2024 11:15am Asthma- Severe Persistent Asthma August 162024 9:19am Asthma- Severe Persistent Asthma August 162024 9:22am 6 wk FU September 06, 2024 12: 37pm PEP DEVICE September 07, 2024 7:1 3am Asthma- Severe Persistent Asthma August 172024 9:14am Thoracic aortic aneurysm September 16, 2024 6 :43am 4 WK FU PER JR September 20, 2024 9:09am Acute/injection September 27, 2024 9:45a m Asthma Severe Persistent Asthma September 9:15am Reason for Visit Admit Date Severe persistent asthma June 28, 2024 9:12am Asthma-chronic obstructive p ulmonary disease overlap syndrome June 28, 2024 9:12am Chronic hypoxemic respiratory failure Fe bruary 2024 9:12am Obesity June 28, 2024 9:12am Smoking greater than 20 pack years Febru isabel 2024 9:12am Severe persistent asthma July 19, 2024 8:35am Asthma-chronic obstructive p ulmonary disease overlap syndrome July 19, 2024 8:35am Chronic hypoxemic respiratory failure [facility] 2024 8:35am Obesity July 19, 2024 8:35 am Smoking greater than 20 pack years July 19, 2024 8:35am Severe persistent asthma August 02 11:25am Severe persistent asthma September 06 12:37pm Asthma-chronic obstructive p ulmonary disease overlap syndrome September 06, 2024 12:37pm Chronic hypoxemic respiratory failure Ap ril 2024 12:37pm Obesity September 06, 2024 12: 37pm Smoking greater than 20 pack years September 06, 2024 12:37pm Ascending aortic aneurysm September 20, 2024 9:09am Severe persistent asthma September 27, 2024 9:45am Asthma-chronic obstructive p ulmonary disease overlap syndrome September 27, 2024 9:45am Chronic hypoxemic respiratory failure Ma y 2024 9:45am Obesity September 27, 2024 9:45a m Smoking greater than 20 pack years September 152024 9:45am Chief Complaint Admit Date Asthma June 28, 2024 9:12am Asthma- Severe Persistent Asthma ua2024 8:44am 3-4 W F/U / Injection July 19, 2024 8: 35am Severe persistent asthma, uncomplicated August 01, 2024 9:18am Severe persistent asthma, uncomplicated August 02, 2024 10:16am Asthma- Severe Persistent Asthma July 162024 11:25am Severe persistent asthma, uncomplicated August 10, 2024 11:15am Asthma- Severe Persistent Asthma August 162024 9:19am Asthma- Severe Persistent Asthma August 162024 9:22am 6 wk FU September 06, 2024 12: 37pm PEP DEVICE September 07, 2024 7:1 3am Asthma- Severe Persistent Asthma August 172024 9:14am Thoracic aortic aneurysm September 16, 2024 6 :43am 4 WK FU PER JR September 20, 2024 9:09am Acute/injection September 27, 2024 9:45a m Asthma Severe Persistent Asthma September 9:15am TEZSPIRE October 19, 2024 8:16a m Chief Complaint Admit Date Severe persistent asthma, uncomplicated August 01, 2024 9:18am Severe persistent asthma, uncomplicated August 01, 2024 9:29am Severe persistent asthma, uncomplicated August 02, 2024 10:16am Asthma- Severe Persistent Asthma July 162024 11:25am Severe persistent asthma, uncomplicated August 10, 2024 11:15am Asthma- Severe Persistent Asthma August 162024 9:19am Asthma- Severe Persistent Asthma August 162024 9:22am 6 wk FU September 06, 2024 12: 37pm PEP DEVICE September 07, 2024 7:1 3am Asthma- Severe Persistent Asthma August 172024 9:14am Thoracic aortic aneurysm September 16, 2024 6 :43am 4 WK FU PER JR September 20, 2024 9:09am Acute/injection September 27, 2024 9:45a m Asthma Severe Persistent Asthma September 9:15am TEZSPIRE October 19, 2024 8:16a m TEZSPIRE November 16, 2024 8:19a m Reason for Visit Admit Date Severe persistent asthma August 02 11:25am Severe persistent asthma September 06 12:37pm Asthma-chronic obstructive p ulmonary disease overlap syndrome September 06, 2024 12:37pm Chronic hypoxemic respiratory failure Ap ril 2024 12:37pm Obesity September 06, 2024 12: 37pm Smoking greater than 20 pack years September 06, 2024 12:37pm Ascending aortic aneurysm September 20, 2024 9:09am Severe persistent asthma September 27, 2024 9:45am Asthma-chronic obstructive p ulmonary disease overlap syndrome September 27, 2024 9:45am Chronic hypoxemic respiratory failure Ma y 2024 9:45am Obesity September 27, 2024 9:45a m Smoking greater than 20 pack years September 152024 9:45am Chief Complaint Admit Date Severe persistent asthma, uncomplicated August 01, 2024 9:18am Severe persistent asthma, uncomplicated August 01, 2024 9:29am Severe persistent asthma, uncomplicated August 02, 2024 10:16am Asthma- Severe Persistent Asthma July 162024 11:25am Severe persistent asthma, uncomplicated August 10, 2024 11:15am Asthma- Severe Persistent Asthma August 162024 9:19am Asthma- Severe Persistent Asthma August 162024 9:22am 6 wk FU September 06, 2024 12: 37pm PEP DEVICE September 07, 2024 7:1 3am Asthma- Severe Persistent Asthma August 172024 9:14am Thoracic aortic aneurysm September 16, 2024 6 :43am 4 WK FU PER JR September 20, 2024 9:09am Acute/injection September 27, 2024 9:45a m Asthma Severe Persistent Asthma September 9:15am TEZSPIRE October 19, 2024 8:16a m TEZSPIRE November 16, 2024 8:19a m 6 wk fu November 24, 2024 9:37 am Reason for Visit Admit Date Severe persistent asthma August 02 11:25am Severe persistent asthma September 06 12:37pm Asthma-chronic obstructive p ulmonary disease overlap syndrome September 06, 2024 12:37pm Chronic hypoxemic respiratory failure Ap ril 2024 12:37pm Obesity September 06, 2024 12: 37pm Smoking greater than 20 pack years September 06, 2024 12:37pm Ascending aortic aneurysm September 20, 2024 9:09am Severe persistent asthma September 27, 2024 9:45am Asthma-chronic obstructive p ulmonary disease overlap syndrome September 27, 2024 9:45am Chronic hypoxemic respiratory failure Ma y 2024 9:45am Obesity September 27, 2024 9:45a m Smoking greater than 20 pack years September 152024 9:45am Asthma-chronic obstructive p ulmonary disease overlap syndrome November 24, 2024 9:37am Chronic hypoxemic respiratory failure Ju ly 2024 9:37am Nicotine dependence, cigarettes, in jase ssion November 24, 2024 9:37am Obesity November 24, 2024 9:37 am Chief Complaint Admit Date Asthma- Severe Persistent Asthma August 162024 9:22am 6 wk FU September 06, 2024 12: 37pm PEP DEVICE September 07, 2024 7:1 3am Asthma- Severe Persistent Asthma August 172024 9:14am Thoracic aortic aneurysm September 16, 2024 6 :43am 4 WK FU PER JR September 20, 2024 9:09am Acute/injection September 27, 2024 9:45a m Asthma Severe Persistent Asthma September 9:15am TEZSPIRE October 19, 2024 8:16a m TEZSPIRE November 16, 2024 8:19a m 6 wk fu November 24, 2024 9:37 am TEZSPIRE December 16, 2024 10: 51am Reason for Visit Admit Date Severe persistent asthma September 06 12:37pm Asthma-chronic obstructive p ulmonary disease overlap syndrome September 06, 2024 12:37pm Chronic hypoxemic respiratory failure Ap ril 2024 12:37pm Obesity September 06, 2024 12: 37pm Smoking greater than 20 pack years September 06, 2024 12:37pm Ascending aortic aneurysm September 20, 2024 9:09am Severe persistent asthma September 27, 2024 9:45am Asthma-chronic obstructive p ulmonary disease overlap syndrome September 27, 2024 9:45am Chronic hypoxemic respiratory failure Ma y 2024 9:45am Obesity September 27, 2024 9:45a m Smoking greater than 20 pack years September 152024 9:45am Asthma-chronic obstructive p ulmonary disease overlap syndrome November 24, 2024 9:37am Chronic hypoxemic respiratory failure Ju ly 2024 9:37am Nicotine dependence, cigarettes, in jase ssion November 24, 2024 9:37am Obesity November 24, 2024 9:37 am Chief Complaint Admit Date Thoracic aortic aneurysm September 16, 2024 6 :43am 4 WK FU PER JR September 20, 2024 9:09am Acute/injection September 27, 2024 9:45a m Asthma Severe Persistent Asthma September 9:15am TEZSPIRE October 19, 2024 8:16a m TEZSPIRE November 16, 2024 8:19a m 6 wk fu November 24, 2024 9:37 am TEZSPIRE December 16, 2024 10: 51am TEZSPIRE January 13, 2025 10 :54am Reason for Visit Admit Date Ascending aortic aneurysm September 20, 2024 9:09am Severe persistent asthma September 27, 2024 9:45am Asthma-chronic obstructive pulmonary dis ease overlap syndrome September 27, 2024 9:45am Chronic hypoxemic respiratory failure Ma y 2024 9:45am Obesity September 27, 2024 9:45a m Smoking greater than 20 pack years September 152024 9:45am Asthma-chronic obstructive pulmonary dis ease overlap syndrome November 24, 2024 9:37am Chronic hypoxemic respiratory failure Ju ly 2024 9:37am Nicotine dependence, cigarettes, in jase ssion November 24, 2024 9:37am Obesity November 24, 2024 9:37 am Advance Directives No Advanced Directives Records Found Advance Directive Response Recorded Date/ Time Living Will No December 09, 2020 12:42pm Power of Estate Administrator No December 09 12:42pm Advance Directive Response Recorded Date/ Time Living Will No December 09, 2020 1:42pm Do you have a Healthcare Power of Estate Administrator? No December 09, 2020 1:42pm Reason for Referral Specialty Diagnoses / Procedures Referred By Contac t Referred To Contact Jeffrey Jones PA-C [address] [place] [address] Referral ID Status Reason Start Date Expiration Date V isits Requested Visits Authorized [id number] Pending Review 1 1 Specialty Diagnoses / Procedures Referred By Contac t Referred To Contact Diagnoses Uncontrolled type 2 diabetes mellitus with hyperglycemia (HCC) Jeffrey Jones PA-C [address] [place] [address] Referral ID Status Reason Start Date Expiration Date V isits Requested Visits Authorized [id number] Authorized 04/07/2023 04/06/2024 1 1 Specialty Diagnoses / Procedures Referred By Contac [place] [address] [place] [id number] Referral ID Status Reason Start Date Expiration Date V isits Requested Visits Authorized [id number] Pending Review 1 1 Specialty Diagnoses / Procedures Referred By Contac t Referred To Contact Dermatology Diagnoses Psoriasis Procedures CONSULT TO DERMATOLOGY Jeffrey Jones PA-C [address] [place] [address] Referral ID Status Reason Start Date Expiration Date Visits Requested Visits Authorized [id number] Ref Not Required PCP Requested Referral 08/06/2023 08/05/2024 1 1 Specialty Diagnoses / Procedures Referred By Contac t Referred To Contact Ophthalmology Diagnoses Screening for diabetic retinopathy Procedures CONSULT TO OPHTHALMOLOGY OFFICE/OUTPATIENT [facility] 60 MINUTES Jeffrey Jones PA-C [address] [place] [address] Referral ID Status Reason Start Date Expiration Date Visits Requested Visits Authorized [id number] Authorized PCP Requested Referral 08/06/2023 08/05/2024 1 1 Referral ID Status Reason Start Date Expiration Date V isits Requested Visits Authorized [id number] Pending Review 1 1 Summary Purpose Family History No Family History Records Found Additional Source Comments Source Comments (unrecognize d section and content) In the event this informatio n is protected by the Federal Confidentiality of Alcohol and Drug Abuse Patient Records regulations: The Federal rules restrict any use of the information to criminally investigate or prosecute any alcohol or drug abuse patient.[facility] CenterIn the event this information is protected by the Federal Confidentiality of Alcohol and Drug Abuse Patient Records regulations: The Federal rules restrict any use of the information to criminally investigate or prosecute any alcohol or drug abuse patient.[facility] CenterIn the event this information is protected by the Federal Confidentiality of Alcohol and Drug Abuse Patient Records regulations: The Federal rules restrict any use of the information to criminally investigate or prosecute any alcohol or drug abuse patient.[facility] CenterIn the event this information is protected by the Federal Confidentiality of Alcohol and Drug Abuse Patient Records regulations: The Federal rules restrict any use of the information to criminally investigate or prosecute any alcohol or drug abuse patient.[facility] CenterIn the event this information is protected by the Federal Confidentiality of Alcohol and Drug Abuse Patient Records regulations: The Federal rules restrict any use of the information to criminally investigate or prosecute any alcohol or drug abuse patient.[facility] CenterIn the event this information is protected by the Federal Confidentiality of Alcohol and Drug Abuse Patient Records regulations: The Federal rules restrict any use of the information to criminally investigate or prosecute any alcohol or drug abuse patient.[facility] CenterIn the event this information is protected by the Federal Confidentiality of Alcohol and Drug Abuse Patient Records regulations: The Federal rules restrict any use of the information to criminally investigate or prosecute any alcohol or drug abuse patient.[facility] CenterIn the event this information is protected by the Federal Confidentiality of Alcohol and Drug Abuse Patient Records regulations: The Federal rules restrict any use of the information to criminally investigate or prosecute any alcohol or drug abuse patient.[facility] CenterIn the event this information is protected by the Federal Confidentiality of Alcohol and Drug Abuse Patient Records regulations: The Federal rules restrict any use of the information to criminally investigate or prosecute any alcohol or drug abuse patient.[facility] CenterIn the event this information is protected by the Federal Confidentiality of Alcohol and Drug Abuse Patient Records regulations: The Federal rules restrict any use of the information to criminally investigate or prosecute any alcohol or drug abuse patient.[facility] CenterIn the event this information is protected by the Federal Confidentiality of Alcohol and Drug Abuse Patient Records regulations: The Federal rules restrict any use of the information to criminally investigate or prosecute any alcohol or drug abuse patient.[facility] CenterIn the event this information is protected by the Federal Confidentiality of Alcohol and Drug Abuse Patient Records regulations: The Federal rules restrict any use of the information to criminally investigate or prosecute any alcohol or drug abuse patient.[facility] CenterIn the event this information is protected by the Federal Confidentiality of Alcohol and Drug Abuse Patient Records regulations: The Federal rules restrict any use of the information to criminally investigate or prosecute any alcohol or drug abuse patient.[facility] CenterIn the event this information is protected by the Federal Confidentiality of Alcohol and Drug Abuse Patient Records regulations: The Federal rules restrict any use of the information to criminally investigate or prosecute any alcohol or drug abuse patient.[facility] CenterIn the event this information is protected by the Federal Confidentiality of Alcohol and Drug Abuse Patient Records regulations: The Federal rules restrict any use of the information to criminally investigate or prosecute any alcohol or drug abuse patient.[facility] CenterIn the event this information is protected by the Federal Confidentiality of Alcohol and Drug Abuse Patient Records regulations: The Federal rules restrict any use of the information to criminally investigate or prosecute any alcohol or drug abuse patient.[facility] CenterIn the event this information is protected by the Federal Confidentiality of Alcohol and Drug Abuse Patient Records regulations: The Federal rules restrict any use of the information to criminally investigate or prosecute any alcohol or drug abuse patient.[facility] CenterIn the event this information is protected by the Federal Confidentiality of Alcohol and Drug Abuse Patient Records regulations: The Federal rules restrict any use of the information to criminally investigate or prosecute any alcohol or drug abuse patient.[facility] CenterIn the event this information is protected by the Federal Confidentiality of Alcohol and Drug Abuse Patient Records regulations: The Federal rules restrict any use of the information to criminally investigate or prosecute any alcohol or drug abuse patient.[facility] CenterIn the event this information is protected by the Federal Confidentiality of Alcohol and Drug Abuse Patient Records regulations: The Federal rules restrict any use of the information to criminally investigate or prosecute any alcohol or drug abuse patient.[facility] CenterIn the event this information is protected by the Federal Confidentiality of Alcohol and Drug Abuse Patient Records regulations: The Federal rules restrict any use of the information to criminally investigate or prosecute any alcohol or drug abuse patient.[facility] CenterIn the event this information is protected by the Federal Confidentiality of Alcohol and Drug Abuse Patient Records regulations: The Federal rules restrict any use of the information to criminally investigate or prosecute any alcohol or drug abuse patient.[facility] CenterIn the event this information is protected by the Federal Confidentiality of Alcohol and Drug Abuse Patient Records regulations: The Federal rules restrict any use of the information to criminally investigate or prosecute any alcohol or drug abuse patient.[facility] CenterIn the event this information is protected by the Federal Confidentiality of Alcohol and Drug Abuse Patient Records regulations: The Federal rules restrict any use of the information to criminally investigate or prosecute any alcohol or drug abuse patient.[facility] CenterIn the event this information is protected by the Federal Confidentiality of Alcohol and Drug Abuse Patient Records regulations: The Federal rules restrict any use of the information to criminally investigate or prosecute any alcohol or drug abuse patient.[facility] CenterIn the event this information is protected by the Federal Confidentiality of Alcohol and Drug Abuse Patient Records regulations: The Federal rules restrict any use of the information to criminally investigate or prosecute any alcohol or drug abuse patient.[facility] CenterIn the event this information is protected by the Federal Confidentiality of Alcohol and Drug Abuse Patient Records regulations: The Federal rules restrict any use of the information to criminally investigate or prosecute any alcohol or drug abuse patient.[facility] CenterIn the event this information is protected by the Federal Confidentiality of Alcohol and Drug Abuse Patient Records regulations: The Federal rules restrict any use of the information to criminally investigate or prosecute any alcohol or drug abuse patient.[facility] CenterIn the event this information is protected by the Federal Confidentiality of Alcohol and Drug Abuse Patient Records regulations: The Federal rules restrict any use of the information to criminally investigate or prosecute any alcohol or drug abuse patient.[facility] CenterIn the event this information is protected by the Federal Confidentiality of Alcohol and Drug Abuse Patient Records regulations: The Federal rules restrict any use of the information to criminally investigate or prosecute any alcohol or drug abuse patient.[facility] CenterIn the event this information is protected by the Federal Confidentiality of Alcohol and Drug Abuse Patient Records regulations: The Federal rules restrict any use of the information to criminally investigate or prosecute any alcohol or drug abuse patient.[facility] CenterIn the event this information is protected by the Federal Confidentiality of Alcohol and Drug Abuse Patient Records regulations: The Federal rules restrict any use of the information to criminally investigate or prosecute any alcohol or drug abuse patient.[facility] CenterIn the event this information is protected by the Federal Confidentiality of Alcohol and Drug Abuse Patient Records regulations: The Federal rules restrict any use of the information to criminally investigate or prosecute any alcohol or drug abuse patient.[facility] CenterIn the event this information is protected by the Federal Confidentiality of Alcohol and Drug Abuse Patient Records regulations: The Federal rules restrict any use of the information to criminally investigate or prosecute any alcohol or drug abuse patient.[facility] CenterIn the event this information is protected by the Federal Confidentiality of Alcohol and Drug Abuse Patient Records regulations: The Federal rules restrict any use of the information to criminally investigate or prosecute any alcohol or drug abuse patient.[facility] CenterIn the event this information is protected by the Federal Confidentiality of Alcohol and Drug Abuse Patient Records regulations: The Federal rules restrict any use of the information to criminally investigate or prosecute any alcohol or drug abuse patient.[facility] CenterIn the event this information is protected by the Federal Confidentiality of Alcohol and Drug Abuse Patient Records regulations: The Federal rules restrict any use of the information to criminally investigate or prosecute any alcohol or drug abuse patient.[facility] CenterIn the event this information is protected by the Federal Confidentiality of Alcohol and Drug Abuse Patient Records regulations: The Federal rules restrict any use of the information to criminally investigate or prosecute any alcohol or drug abuse patient.[facility] CenterIn the event this information is protected by the Federal Confidentiality of Alcohol and Drug Abuse Patient Records regulations: The Federal rules restrict any use of the information to criminally investigate or prosecute any alcohol or drug abuse patient.[facility] CenterIn the event this information is protected by the Federal Confidentiality of Alcohol and Drug Abuse Patient Records regulations: The Federal rules restrict any use of the information to criminally investigate or prosecute any alcohol or drug abuse patient.[facility] CenterIn the event this information is protected by the Federal Confidentiality of Alcohol and Drug Abuse Patient Records regulations: The Federal rules restrict any use of the information to criminally investigate or prosecute any alcohol or drug abuse patient.[facility] Reason for Visit (unrecogniz ed section and content) Reason Comments Patient Update Reason Comments Cough Pt reported chest co ngestion x3 days, presented on 2L oxygen (pulse ox reading 95%) Reason Comments Ear Problem Pt c/o (RT) ear decr eased hearing, pressure, reported appt with Dr. Vann 07/2022, chest congestion. Reason Comments Ear Pain Pt reported (RT) ear pain rated 6, swollen glands, throat swelling, redness, x2 days. Reason Comments Low Back Pain right side low back pain x 10 days Reason Comments Edema Left lower leg with burning Reason Comments Results Reason Comments Patient Update Reason Comments Insurance Authorization [employer] Reason Comments Insurance Authorization [employer] Reason Comments Sinus Problem Sinus,head pressure and EASLEY x 7 days Reason Comments Head Congestion Runny nose, sinus pa in and pressure, EASLEY x weeks Reason Comments Follow Up 3 month Reason Comments Pain (foot) left x 3 weeks, fell down and foot hit steps Reason Onset Date Comments Refill Request 10/28/2023 Reason Comments New Pain Fracture Reason Onset Date Comments Refill Request 11/24/2023 Reason Comments Insurance Authorization Reason Onset Date Comments Recheck 6 month follow u p Immunizations 03/02/2024 Flu vaccination Reason Comments Results Orders Reason Comments Patient Question Reason Comments Results Reason Comments 6 Month Exam Reason Comments Radiology US Specialty Diagnoses / Procedures Referred By Yan t Referred To Contact [facility] Diagnoses Dysphagia, unspecified type Procedures US THYROID/PARATHYROID US SOFT TISSUE HEAD & NECK REAL TIME IMGE KEARAM Raquel Stoll, PASCUAL.[employer] [address] [place] [address] Phone: tel: fax: [place] [phone] Referral ID Status Reason Start Date Expiration Date V isits Requested Visits Authorized [id number] Closed Auto-Generate d Referral 08/31/2024 09/30/2025 1 1 Reason Comments Chest Congestion cough, wheezing x 1 month, treated for pneumonia on 10/07 Reason Onset Date Comments Refill Request 12/01/2024 Reason Onset Date Comments Refill Request 12/05/2024 Reason Comments Acute Visit Psoriasis flare up; no longer following with Dermatology; Dupixent was switched to [employer] Care Teams (unrecognized sec tion and content) First Coat Operator Relationship Specialty Start Date End Date Jeffrey Jones PA-C [address] [place], [place] [id number] PCP - General Family Medicine 03/03/18 First Coat Operator Relationship Specialty Start Date End Date Jeffrey Jones PA-C [address] [place], [place] [id number] PCP - General Family Medicine 03/03/18 First Coat Operator Relationship Specialty Start Date End Date Jeffrey Jones PA-C [address] [place], [place] [id number] PCP - General Family Medicine 03/03/18 First Coat Operator Relationship Specialty Start Date End Date Jeffrey Jones PA-C [address] [place], [place] [address] PCP - General Family Medicine 03/03/18 Team Status: Active Member Role Status Dates FLAVIO Snyder Family Provider Active Jeffrey MUNIZ PA Primary Care Provider Active Team Status: Inactive Member Role Status Dates Jeffrey MUNIZ PA Primary Care Provider, Referri ng Provider Active Gina Romero BOAT CARPENTER MECHANIC, BOAT CARPENTER MECHANIC-C Attending Provider Active Team Status: Inactive Member Role Status Dates FLAVIO Snyder Primary Care Provider, Referri ng Provider Active Dr. Darek Vences MD Attending Provider Active Team Status: Inactive Member Role Status Dates FLAVIO Snyder Primary Care Provider Active Gina Romero BOAT CARPENTER MECHANIC, BOAT CARPENTER MECHANIC-C Attending Provider Active First Coat Operator Relationship Specialty Start Date End Date Jeffrey Jones PA-C [address] [place] [address] PCP - General Family Medicine 03/03/18 First Coat Operator Relationship Specialty Start Date End Date Jeffrey Jones PA-C [address] [place], [place] [id number] PCP - General Family Medicine 03/03/18 First Coat Operator Relationship Specialty Start Date End Date Jeffrey Jones PA-C [address] [place] [address] PCP - General Family Medicine 03/03/18 First Coat Operator Relationship Specialty Start Date End Date Jeffrey Jones PA-C [address] [place], [place] [address] PCP - General Family Medicine 03/03/18 First Coat Operator Relationship Specialty Start Date End Date Jeffrey Jones PA-C [address] [place], [place] [address] PCP - General Family Medicine 03/03/18 First Coat Operator Relationship Specialty Start Date End Date Jeffrey Jones PA-C [address] [facility] [place] [address] PCP - General Family Medicine 03/03/18 First Coat Operator Relationship Specialty Start Date End Date Jeffrey Jones PA-C [address] [place] [address] PCP - General Family Medicine 03/03/18 First Coat Operator Relationship Specialty Start Date End Date Jeffrey Jones PA-C [address] [place] [address] PCP - General Family Medicine 03/03/18 First Coat Operator Relationship Specialty Start Date End Date Jeffrey Jones PA-C [address] [place] [address] PCP - General Family Medicine 03/03/18 First Coat Operator Relationship Specialty Start Date End Date Jeffrey Jones PA-C [address] [place] [address] PCP - General Family Medicine 03/03/18 First Coat Operator Relationship Specialty Start Date End Date Jeffrey Jones PA-C [address] [facility] [place] [address] PCP - General Family Medicine 03/03/18 First Coat Operator Relationship Specialty Start Date End Date Jeffrey Jones PA-C [address] [facility] [place] [address] PCP - General Family Medicine 03/03/18 First Coat Operator Relationship Specialty Start Date End Date Jeffrey Jones PA-C [address] [facility] [place] [address] PCP - General Family Medicine 03/03/18 First Coat Operator Relationship Specialty Start Date End Date Jeffrey Jones PA-C [address] [facility] [place] [address] PCP - General Family Medicine 03/03/18 First Coat Operator Relationship Specialty Start Date End Date Jeffrey Jones PA-C [address] [facility] [place] [address] PCP - General Family Medicine 03/03/18 First Coat Operator Relationship Specialty Start Date End Date Jeffrey Jones PA-C [address] [facility] [place] [address] PCP - General Family Medicine 03/03/18 First Coat Operator Relationship Specialty Start Date End Date Jeffrey Jones PA-C [address] [facility] [place] [address] PCP - General Family Medicine 03/03/18 First Coat Operator Relationship Specialty Start Date End Date Jeffrey Jones PA-C [address] [facility] [place] [address] PCP - General Family Medicine 03/03/18 First Coat Operator Relationship Specialty Start Date End Date Jeffrey Jones PA-C [address] [facility] [place] [address] PCP - General Family Medicine 03/03/18 First Coat Operator Relationship Specialty Start Date End Date Jeffrey Jones PA-C [address] [facility] [place] [address] PCP - General Family Medicine 03/03/18 First Coat Operator Relationship Specialty Start Date End Date Raquel Stoll, RECIPROCATING DRILL OPERATOR.[employer] [address] [facility] [place] [address] PCP - General Family Medicine 03/02/24 First Coat Operator Relationship Specialty Start Date End Date Raquel Stoll, RECIPROCATING DRILL OPERATOR.[employer] [address] [facility] [place] [address] PCP - General Family Medicine 03/02/24 First Coat Operator Relationship Specialty Start Date End Date Raquel Stoll, RECIPROCATING DRILL OPERATOR.[employer] [address] [facility] [place] [address] PCP - General Family Medicine 03/02/24 First Coat Operator Relationship Specialty Start Date End Date Raquel Stoll, RECIPROCATING DRILL OPERATOR.[employer] PRES[employer] [address] [facility] [place] [address] PCP - General Family Medicine 03/02/24 First Coat Operator Relationship Specialty Start Date End Date Raquel Stoll, RECIPROCATING DRILL OPERATOR.[employer] PRES[employer] [address] [facility] [place] [address] PCP - General Family Medicine 03/02/24 Team Status: Active Member Role Status Dates Raquel Stoll NP, BOAT CARPENTER MECHANIC-C Primary Care Provider Active Team Status: Inactive Member Role Status Dates Raquel Stoll NP, BOAT CARPENTER MECHANIC-C Primary Care Provider Active Start: April 12, 2024 End: April 12, 2024 Raquel Stoll NP, BOAT CARPENTER MECHANIC-C Referring Provider Active Start: April 12, 2024 End: April 12, 2024 Gina Romero BOAT CARPENTER MECHANIC, BOAT CARPENTER MECHANIC-C Attending Provider Active Start: April 12, 2024 End: April 12, 2024 Team Status: Inactive Member Role Status Dates Raquel Stoll NP, BOAT CARPENTER MECHANIC-C Primary Care Provider Active Start: April 26, 2024 End: April 26, 2024 Raquel Stoll BOAT CARPENTER MECHANIC, BOAT CARPENTER MECHANIC-C Referring Provider Active Start: April 26, 2024 End: April 26, 2024 Gina Romero NP, BOAT CARPENTER MECHANIC-C Attending Provider Active Start: April 26, 2024 End: April 26, 2024 Team Status: Inactive Member Role Status Dates Jeffrey Jones PA, PA Referring Provider Active Start: May 10, 2024 End: May 10, 2024 Gina Romero BOAT CARPENTER MECHANIC, BOAT CARPENTER MECHANIC-C Attending Provider Active Start: May 10, 2024 End: May 10, 2024 Raquel Stoll BOAT CARPENTER MECHANIC, BOAT CARPENTER MECHANIC-C Primary Care Provider Active Start: May 10, 2024 End: May 10, 2024 Team Status: Inactive Member Role Status Dates Raquel Stoll BOAT CARPENTER MECHANIC, BOAT CARPENTER MECHANIC-C Primary Care Provider Active Start: May 24, 2024 End: May 24, 2024 Raquel Stoll BOAT CARPENTER MECHANIC, BOAT CARPENTER MECHANIC-C Referring Provider Active Start: May 24, 2024 End: May 24, 2024 Gaby Sanders BOAT CARPENTER MECHANIC-C Attending Provider Active Start: May 24, 2024 End: May 24, 2024 Team Status: Inactive Member Role Status Dates Raquel Stoll BOAT CARPENTER MECHANIC, BOAT CARPENTER MECHANIC-C Primary Care Provider Active Start: June 07, 2024 End: June 07, 2024 Raquel Stoll BOAT CARPENTER MECHANIC, BOAT CARPENTER MECHANIC-C Referring Provider Active Start: June 07, 2024 End: June 07, 2024 Gaby Sanders NP-C Attending Provider Active Start: June 07, 2024 End: June 07, 2024 Team Status: Inactive Member Role Status Dates Raquel Stoll BOAT CARPENTER MECHANIC, BOAT CARPENTER MECHANIC-C Primary Care Provider Active Start: June 21, 2024 End: June 21, 2024 Raquel Stoll NP, BOAT CARPENTER MECHANIC-C Referring Provider Active Start: June 21, 2024 End: June 21, 2024 Gaby Sanders NP-C Attending Provider Active Start: June 21, 2024 End: June 21, 2024 Team Status: Inactive Member Role Status Dates Raquel Stoll BOAT CARPENTER MECHANIC, BOAT CARPENTER MECHANIC-C Primary Care Provider Active Start: June 28, 2024 End: June 28, 2024 Raquel Stoll BOAT CARPENTER MECHANIC, BOAT CARPENTER MECHANIC-C Referring Provider Active Start: June 28, 2024 End: June 28, 2024 Gaby Sanders NP-C Attending Provider Active Start: June 28, 2024 End: June 28, 2024 Team Status: Inactive Member Role Status Dates Raquel Stoll BOAT CARPENTER MECHANIC, BOAT CARPENTER MECHANIC-C Primary Care Provider Active Start: June 28, 2024 End: June 28, 2024 Gaby Sanders BOAT CARPENTER MECHANIC-C Attending Provider Active Start: June 28, 2024 End: June 28, 2024 Gaby Sanders BOAT CARPENTER MECHANIC-C Referring Provider Active Start: June 28, 2024 End: June 28, 2024 Team Status: Inactive Member Role Status Ariella Stoll BOAT CARPENTER MECHANIC, BOAT CARPENTER MECHANIC-C Primary Care Provider Active Start: July 05, 2024 End: July 05, 2024 Raquel Stoll NP, BOAT CARPENTER MECHANIC-C Referring Provider Active Start: July 05, 2024 End: July 05, 2024 Gina Romero NP, BOAT CARPENTER MECHANIC-C Attending Provider Active Start: July 05, 2024 End: July 05, 2024 Team Status: Inactive Member Role Status Ariella Stoll BOAT CARPENTER MECHANIC, BOAT CARPENTER MECHANIC-C Primary Care Provider Active Start: July 19, 2024 End: July 19, 2024 Raquel Stoll NP, BOAT CARPENTER MECHANIC-C Referring Provider Active Start: July 19, 2024 End: July 19, 2024 Gaby Sanders BOAT CARPENTER MECHANIC-C Attending Provider Active Start: July 19, 2024 End: July 19, 2024 Team Status: Inactive Member Role Status Ariella Stoll NP, BOAT CARPENTER MECHANIC-C Primary Care Provider Active Start: August 01, 2024 End: August 01, 2024 Gaby Sanders BOAT CARPENTER MECHANIC-C Attending Provider Active Start: August 01, 2024 End: August 01, 2024 Gaby Sanders BOAT CARPENTER MECHANIC-C Referring Provider Active Start: August 01, 2024 End: August 01, 2024 Team Status: Active Member Role Status Ariella Stoll NP, BOAT CARPENTER MECHANIC-C Primary Care Provider Active Start: August 02, 2024 Gaby Sanders BOAT CARPENTER MECHANIC-C Attending Provider Active Start: August 02, 2024 Gaby Sanders BOAT CARPENTER MECHANIC-C Referring Provider Active Start: August 02, 2024 Team Status: Inactive Member Role Status Ariella Stoll BOAT CARPENTER MECHANIC, BOAT CARPENTER MECHANIC-C Primary Care Provider Active Start: August 02, 2024 End: August 02, 2024 Raquel Stoll NP, BOAT CARPENTER MECHANIC-C Referring Provider Active Start: August 02, 2024 End: August 02, 2024 Gina Romero NP, BOAT CARPENTER MECHANIC-C Attending Provider Active Start: August 02, 2024 End: August 02, 2024 Team Status: Inactive Member Role Status Dates Raquel Stoll NP, NP-C Primary Care Provider Active Start: August 02, 2024 End: August 02, 2024 MARGOT Hall Attending Provider Active Start: August 02, 2024 End: August 02, 2024 MARGOT Hall Referring Provider Active Start: August 02, 2024 End: August 02, 2024 First Coat Operator Relationship Specialty Start Date End Date Raquel Stoll, RECIPROCATING DRILL OPERATOR.[facility] [address] [place], [place] [id number] PCP - General Family Medicine 03/02/24 Mary Jimenez RECIPROCATING DRILL OPERATOR.[employer] [address] [place], [place] [id number] [facility] 04/24/24 08/08/24 Farhan Starr MD [address] [place], [place] [id number] [facility] 04/24/24 08/08/24 First Coat Operator Relationship Specialty Start Date End Date Raquel Stoll, RECIPROCATING DRILL OPERATOR.[facility] [address] [place], [place] [id number] PCP - General Family Medicine 03/02/24 First Coat Operator Relationship Specialty Start Date End Date Raquel Stoll, RECIPROCATING DRILL OPERATOR.[facility] [address] [place], [place] [id number] PCP - General Family Medicine 03/02/24 Team Status: Active Member Role Status Dates Raquel Stoll NP, NP-C Primary Care Provider Active Start: August 10, 2024 MARGOT Hall Referring Provider Active Start: August 10, 2024 Gaby M Rufener , BOAT CARPENTER MECHANIC-C Other Provider Active St art: August 10, 2024 Dr. Enrrique Rincon , DO Attending Provider Active S tart: August 10, 2024 Team Status: Inactive Member Role Status Dates Raquel Stoll BOAT CARPENTER MECHANIC, BOAT CARPENTER MECHANIC-C Primary Care Provider Active Start: August 16, 2024 End: August 16, 2024 Raquel Stoll BOAT CARPENTER MECHANIC, BOAT CARPENTER MECHANIC-C Referring Provider Active Start: August 16, 2024 End: August 16, 2024 Gina Romero BOAT CARPENTER MECHANIC, BOAT CARPENTER MECHANIC-C Attending Provider Active Start: August 16, 2024 End: August 16, 2024 Team Status: Inactive Member Role Status Dates Raquel Stoll BOAT CARPENTER MECHANIC, BOAT CARPENTER MECHANIC-C Primary Care Provider Active Start: August 30, 2024 End: August 30, 2024 Raquel Stoll BOAT CARPENTER MECHANIC, BOAT CARPENTER MECHANIC-C Referring Provider Active Start: August 30, 2024 End: August 30, 2024 Gina Romero BOAT CARPENTER MECHANIC, BOAT CARPENTER MECHANIC-C Attending Provider Active Start: August 30, 2024 End: August 30, 2024 Team Status: Inactive Member Role Status Dates Raquel Stoll BOAT CARPENTER MECHANIC, BOAT CARPENTER MECHANIC-C Primary Care Provider Active Start: September 01, 2024 End: September 01, 2024 Gaby Sanders BOAT CARPENTER MECHANIC-C Attending Provider Active Start: September 01, 2024 End: September 01, 2024 Gaby Sanders BOAT CARPENTER MECHANIC-C Referring Provider Active Start: September 01, 2024 End: September 01, 2024 Team Status: Inactive Member Role Status Dates Raquel Stoll NP, BOAT CARPENTER MECHANIC-C Primary Care Provider Active Start: September 06, 2024 End: September 06, 2024 Raquel Stoll NP, BOAT CARPENTER MECHANIC-C Referring Provider Active Start: September 06, 2024 End: September 06, 2024 Gaby Sanders BOAT CARPENTER MECHANIC-C Attending Provider Active Start: September 06, 2024 End: September 06, 2024 Team Status: Inactive Member Role Status Dates Raquel Stoll BOAT CARPENTER MECHANIC, BOAT CARPENTER MECHANIC-C Primary Care Provider Active Start: September 07, 2024 End: September 07, 2024 Gaby Sanders BOAT CARPENTER MECHANIC-C Attending Provider Active Start: September 07, 2024 End: September 07, 2024 Gaby Sanders BOAT CARPENTER MECHANIC-C Referring Provider Active Start: September 07, 2024 End: September 07, 2024 Team Status: Inactive Member Role Status Dates Raquel Stoll NP, BOAT CARPENTER MECHANIC-C Primary Care Provider Active Start: September 13, 2024 End: September 13, 2024 Raquel Stoll BOAT CARPENTER MECHANIC, BOAT CARPENTER MECHANIC-C Referring Provider Active Start: September 13, 2024 End: September 13, 2024 Gaby Sanders BOAT CARPENTER MECHANIC-C Attending Provider Active Start: September 13, 2024 End: September 13, 2024 Team Status: Inactive Member Role Status Dates Raquel Stoll BOAT CARPENTER MECHANIC, BOAT CARPENTER MECHANIC-C Primary Care Provider Active Start: September 16, 2024 End: September 16, 2024 Blanquita Mckinney BOAT CARPENTER MECHANIC, BOAT CARPENTER MECHANIC-C Attending Provider Active S tart: September 16, 2024 End: September 16, 2024 Blanquita Mckinney BOAT CARPENTER MECHANIC, BOAT CARPENTER MECHANIC-C Referring Provider Active S tart: September 16, 2024 End: September 16, 2024 Team Status: Inactive Member Role Status Dates Raquel Stoll BOAT CARPENTER MECHANIC, BOAT CARPENTER MECHANIC-C Primary Care Provider Active Start: September 20, 2024 End: September 20, 2024 Raquel Stoll BOAT CARPENTER MECHANIC, BOAT CARPENTER MECHANIC-C Referring Provider Active Start: September 20, 2024 End: September 20, 2024 Amber Heart BOAT CARPENTER MECHANIC, BOAT CARPENTER MECHANIC-C Attending Provider Active Start: September 20, 2024 End: September 20, 2024 Team Status: Inactive Member Role Status Dates Raquel Stoll NP, BOAT CARPENTER MECHANIC-C Primary Care Provider Active Start: September 27, 2024 End: September 27, 2024 Raquel Stoll BOAT CARPENTER MECHANIC, BOAT CARPENTER MECHANIC-C Referring Provider Active Start: September 27, 2024 End: September 27, 2024 Gaby Sanders BOAT CARPENTER MECHANIC-C Attending Provider Active Start: September 27, 2024 End: September 27, 2024 Team Status: Inactive Member Role Status Dates Raquel Stoll BOAT CARPENTER MECHANIC, BOAT CARPENTER MECHANIC-C Primary Care Provider Active Start: October 11, 2024 End: October 11, 2024 Raquel Stoll BOAT CARPENTER MECHANIC, BOAT CARPENTER MECHANIC-C Referring Provider Active Start: October 11, 2024 End: October 11, 2024 Gina Romero NP, BOAT CARPENTER MECHANIC-C Attending Provider Active Start: October 11, 2024 End: October 11, 2024 First Coat Operator Relationship Specialty Start Date End Date Raquel Stoll APRN.[facility] [address] [place] [address] PCP - General Family Medicine 03/02/24 Team Status: Inactive Member Role Status Dates Raquel Stoll NP, BOAT CARPENTER MECHANIC-C Primary Care Provider Active Start: October 19, 2024 End: October 19, 2024 Gaby Sanders NP-C Attending Provider Active Start: October 19, 2024 End: October 19, 2024 Gaby Sanders BOAT CARPENTER MECHANIC-C Referring Provider Active Start: October 19, 2024 End: October 19, 2024 First Coat Operator Relationship Specialty Start Date End Date Raquel Stoll APRN.[facility] [address] [place] [address] PCP - General Family Medicine 03/02/24 Team Status: Active Member Role/Relationship Status Dates Raquel Stoll NP, BOAT CARPENTER MECHANIC-C Primary Care Provider Active Team Status: Inactive Member Role/Relationship Status Dates Raquel Stoll NP, BOAT CARPENTER MECHANIC-C Primary Care Provider Active Start: August 01, 2024 End: August 01, 2024 Gaby Sanders NP-C Attending Provider Active Start: August 01, 2024 End: August 01, 2024 Gaby Sanders NP-C Referring Provider Active Start: August 01, 2024 End: August 01, 2024 Team Status: Active Member Role/Relationship Status Dates Raquel Stoll NP, BOAT CARPENTER MECHANIC-C Primary Care Provider Active Start: August 01, 2024 Dr. Enrrique Rincon , Attending Provider Active S tart: August 01, 2024 Gaby Sanders NP-C Referring Provider Active Start: August 01, 2024 Team Status: Inactive Member Role/Relationship Status Dates Raquel Stoll NP, BOAT CARPENTER MECHANIC-C Primary Care Provider Active Start: August 02, 2024 End: August 02, 2024 Gaby Sanders NP-C Attending Provider Active Start: August 02, 2024 End: August 02, 2024 Gaby Sanders NP-C Referring Provider Active Start: August 02, 2024 End: August 02, 2024 Team Status: Inactive Member Role/Relationship Status Dates Raquel Stoll NP, BOAT CARPENTER MECHANIC-C Primary Care Provider Active Start: August 02, 2024 End: August 02, 2024 Raquel Stoll NP, BOAT CARPENTER MECHANIC-C Referring Provider Active Start: August 02, 2024 End: August 02, 2024 Gina Romero BOAT CARPENTER MECHANIC, BOAT CARPENTER MECHANIC-C Attending Provider Active Start: August 02, 2024 End: August 02, 2024 Team Status: Active Member Role/Relationship Status Dates Raquel Stoll BOAT CARPENTER MECHANIC, BOAT CARPENTER MECHANIC-C Primary Care Provider Active Start: August 10, 2024 Gaby Sanders , BOAT CARPENTER MECHANIC-C Referring Provider Active Start: August 10, 2024 Gaby Sanders BOAT CARPENTER MECHANIC-C Other Provider Active St art: August 10, 2024 Dr. Enrrique Rincon , DO Attending Provider Active S tart: August 10, 2024 Team Status: Inactive Member Role/Relationship Status Dates Raquel Stoll BOAT CARPENTER MECHANIC, BOAT CARPENTER MECHANIC-C Primary Care Provider Active Start: August 16, 2024 End: August 16, 2024 Raquel Stoll BOAT CARPENTER MECHANIC, BOAT CARPENTER MECHANIC-C Referring Provider Active Start: August 16, 2024 End: August 16, 2024 Gina Romero BOAT CARPENTER MECHANIC, BOAT CARPENTER MECHANIC-C Attending Provider Active Start: August 16, 2024 End: August 16, 2024 Team Status: Inactive Member Role/Relationship Status Dates Raquel Stoll BOAT CARPENTER MECHANIC, BOAT CARPENTER MECHANIC-C Primary Care Provider Active Start: August 30, 2024 End: August 30, 2024 Raquel Stoll BOAT CARPENTER MECHANIC, BOAT CARPENTER MECHANIC-C Referring Provider Active Start: August 30, 2024 End: August 30, 2024 Gina Romero NP, BOAT CARPENTER MECHANIC-C Attending Provider Active Start: August 30, 2024 End: August 30, 2024 Team Status: Inactive Member Role/Relationship Status Dates Raquel Stoll NP, BOAT CARPENTER MECHANIC-C Primary Care Provider Active Start: September 01, 2024 End: September 01, 2024 Gaby Sanders BOAT CARPENTER MECHANIC-C Attending Provider Active Start: September 01, 2024 End: September 01, 2024 Gaby Sanders BOAT CARPENTER MECHANIC-C Referring Provider Active Start: September 01, 2024 End: September 01, 2024 Team Status: Inactive Member Role/Relationship Status Dates Raquel Stoll BOAT CARPENTER MECHANIC, BOAT CARPENTER MECHANIC-C Primary Care Provider Active Start: September 06, 2024 End: September 06, 2024 Raquel Stoll NP, BOAT CARPENTER MECHANIC-C Referring Provider Active Start: September 06, 2024 End: September 06, 2024 Gaby M Rufener , BOAT CARPENTER MECHANIC-C Attending Provider Active Start: September 06, 2024 End: September 06, 2024 Team Status: Inactive Member Role/Relationship Status Dates Raquel Stoll NP, BOAT CARPENTER MECHANIC-C Primary Care Provider Active Start: September 07, 2024 End: September 07, 2024 Gaby Sanders , BOAT CARPENTER MECHANIC-C Attending Provider Active Start: September 07, 2024 End: September 07, 2024 Gaby Sanders BOAT CARPENTER MECHANIC-C Referring Provider Active Start: September 07, 2024 End: September 07, 2024 Team Status: Inactive Member Role/Relationship Status Dates Raquel Stoll BOAT CARPENTER MECHANIC, BOAT CARPENTER MECHANIC-C Primary Care Provider Active Start: September 13, 2024 End: September 13, 2024 Raquel Stoll BOAT CARPENTER MECHANIC, BOAT CARPENTER MECHANIC-C Referring Provider Active Start: September 13, 2024 End: September 13, 2024 Gaby Sanders , BOAT CARPENTER MECHANIC-C Attending Provider Active Start: September 13, 2024 End: September 13, 2024 Team Status: Inactive Member Role/Relationship Status Dates Raquel Stoll NP, BOAT CARPENTER MECHANIC-C Primary Care Provider Active Start: September 16, 2024 End: September 16, 2024 Blanquita Mckinney BOAT CARPENTER MECHANIC, BOAT CARPENTER MECHANIC-C Attending Provider Active S tart: September 16, 2024 End: September 16, 2024 Blanquita Mckinney BOAT CARPENTER MECHANIC, BOAT CARPENTER MECHANIC-C Referring Provider Active S tart: September 16, 2024 End: September 16, 2024 Team Status: Inactive Member Role/Relationship Status Dates Raquel Stoll NP, BOAT CARPENTER MECHANIC-C Primary Care Provider Active Start: September 20, 2024 End: September 20, 2024 Raquel Stoll NP, BOAT CARPENTER MECHANIC-C Referring Provider Active Start: September 20, 2024 End: September 20, 2024 Amber Heart NP, BOAT CARPENTER MECHANIC-C Attending Provider Active Start: September 20, 2024 End: September 20, 2024 Team Status: Inactive Member Role/Relationship Status Dates Raquel Stoll NP, BOAT CARPENTER MECHANIC-C Primary Care Provider Active Start: September 27, 2024 End: September 27, 2024 Raquel Stoll BOAT CARPENTER MECHANIC, BOAT CARPENTER MECHANIC-C Referring Provider Active Start: September 27, 2024 End: September 27, 2024 Gaby Sanders BOAT CARPENTER MECHANIC-C Attending Provider Active Start: September 27, 2024 End: September 27, 2024 Team Status: Inactive Member Role/Relationship Status Dates Raquel Stoll BOAT CARPENTER MECHANIC, BOAT CARPENTER MECHANIC-C Primary Care Provider Active Start: October 11, 2024 End: October 11, 2024 Raquel Stoll BOAT CARPENTER MECHANIC, BOAT CARPENTER MECHANIC-C Referring Provider Active Start: October 11, 2024 End: October 11, 2024 Gina Romero BOAT CARPENTER MECHANIC, BOAT CARPENTER MECHANIC-C Attending Provider Active Start: October 11, 2024 End: October 11, 2024 Team Status: Inactive Member Role/Relationship Status Dates Raquel Stoll BOAT CARPENTER MECHANIC, BOAT CARPENTER MECHANIC-C Primary Care Provider Active Start: October 19, 2024 End: October 19, 2024 Gaby Sanders BOAT CARPENTER MECHANIC-C Attending Provider Active Start: October 19, 2024 End: October 19, 2024 Gaby Sanders BOAT CARPENTER MECHANIC-C Referring Provider Active Start: October 19, 2024 End: October 19, 2024 Team Status: Inactive Member Role/Relationship Status Dates Raquel Stoll BOAT CARPENTER MECHANIC, BOAT CARPENTER MECHANIC-C Primary Care Provider Active Start: November 16, 2024 End: November 16, 2024 Gaby Sanders BOAT CARPENTER MECHANIC-C Attending Provider Active Start: November 16, 2024 End: November 16, 2024 Gaby Sanders BOAT CARPENTER MECHANIC-C Referring Provider Active Start: November 16, 2024 End: November 16, 2024 Team Status: Inactive Member Role/Relationship Status Dates Raquel Stoll BOAT CARPENTER MECHANIC, BOAT CARPENTER MECHANIC-C Primary Care Provider Active Start: November 24, 2024 End: November 24, 2024 Raquel Stoll BOAT CARPENTER MECHANIC, BOAT CARPENTER MECHANIC-C Referring Provider Active Start: November 24, 2024 End: November 24, 2024 Dr. Enrrique Rincon , DO Attending Provider Active S tart: November 24, 2024 End: November 24, 2024 First Coat Operator Relationship Specialty Start Date End Date Raquel Stoll APRN.[facility] [address] [place] [address] PCP - General Family Medicine 03/02/24 First Coat Operator Relationship Specialty Start Date End Date Raquel Stoll APRN.[facility] [employer] [address] [place] [address] PCP - General Family Medicine 03/02/24 Team Status: Inactive Member Role/Relationship Status Dates Raquel Haagen BOAT CARPENTER MECHANIC, BOAT CARPENTER MECHANIC-C Primary Care Provider Active Start: August 30, 2024 End: August 30, 2024 Raquel Stoll NP, BOAT CARPENTER MECHANIC-C Referring Provider Active Start: August 30, 2024 End: August 30, 2024 Gina Romero BOAT CARPENTER MECHANIC, BOAT CARPENTER MECHANIC-C Attending Provider Active Start: August 30, 2024 End: August 30, 2024 Team Status: Inactive Member Role/Relationship Status Dates Raquel Stoll BOAT CARPENTER MECHANIC, BOAT CARPENTER MECHANIC-C Primary Care Provider Active Start: September 01, 2024 End: September 01, 2024 Gaby Sanders BOAT CARPENTER MECHANIC-C Attending Provider Active Start: September 01, 2024 End: September 01, 2024 Gaby Sanders BOAT CARPENTER MECHANIC-C Referring Provider Active Start: September 01, 2024 End: September 01, 2024 Team Status: Inactive Member Role/Relationship Status Dates Raquel Stoll BOAT CARPENTER MECHANIC, BOAT CARPENTER MECHANIC-C Primary Care Provider Active Start: September 06, 2024 End: September 06, 2024 Raquel Stoll BOAT CARPENTER MECHANIC, BOAT CARPENTER MECHANIC-C Referring Provider Active Start: September 06, 2024 End: September 06, 2024 Gaby Sanders BOAT CARPENTER MECHANIC-C Attending Provider Active Start: September 06, 2024 End: September 06, 2024 Team Status: Inactive Member Role/Relationship Status Dates Raquel Stoll BOAT CARPENTER MECHANIC, BOAT CARPENTER MECHANIC-C Primary Care Provider Active Start: September 07, 2024 End: September 07, 2024 Gaby Sanders BOAT CARPENTER MECHANIC-C Attending Provider Active Start: September 07, 2024 End: September 07, 2024 Gaby Sanders BOAT CARPENTER MECHANIC-C Referring Provider Active Start: September 07, 2024 End: September 07, 2024 Team Status: Inactive Member Role/Relationship Status Dates Raquel Stoll BOAT CARPENTER MECHANIC, BOAT CARPENTER MECHANIC-C Primary Care Provider Active Start: September 13, 2024 End: September 13, 2024 Raquel Stoll BOAT CARPENTER MECHANIC, BOAT CARPENTER MECHANIC-C Referring Provider Active Start: September 13, 2024 End: September 13, 2024 Gaby Sanders BOAT CARPENTER MECHANIC-C Attending Provider Active Start: September 13, 2024 End: September 13, 2024 Team Status: Inactive Member Role/Relationship Status Dates Raquel Stoll BOAT CARPENTER MECHANIC, BOAT CARPENTER MECHANIC-C Primary Care Provider Active Start: September 16, 2024 End: September 16, 2024 Blanquita Mckinney BOAT CARPENTER MECHANIC, BOAT CARPENTER MECHANIC-C Attending Provider Active S tart: September 16, 2024 End: September 16, 2024 Blanquita Mckinney BOAT CARPENTER MECHANIC, BOAT CARPENTER MECHANIC-C Referring Provider Active S tart: September 16, 2024 End: September 16, 2024 Team Status: Inactive Member Role/Relationship Status Dates Raquel Stoll BOAT CARPENTER MECHANIC, BOAT CARPENTER MECHANIC-C Primary Care Provider Active Start: September 20, 2024 End: September 20, 2024 Raquel Stoll BOAT CARPENTER MECHANIC, BOAT CARPENTER MECHANIC-C Referring Provider Active Start: September 20, 2024 End: September 20, 2024 Amber Heart BOAT CARPENTER MECHANIC, BOAT CARPENTER MECHANIC-C Attending Provider Active Start: September 20, 2024 End: September 20, 2024 Team Status: Inactive Member Role/Relationship Status Dates Raquel Stoll BOAT CARPENTER MECHANIC, BOAT CARPENTER MECHANIC-C Primary Care Provider Active Start: September 27, 2024 End: September 27, 2024 Raquel Stoll BOAT CARPENTER MECHANIC, BOAT CARPENTER MECHANIC-C Referring Provider Active Start: September 27, 2024 End: September 27, 2024 Gaby Sanders BOAT CARPENTER MECHANIC-C Attending Provider Active Start: September 27, 2024 End: September 27, 2024 Team Status: Inactive Member Role/Relationship Status Dates Raquel Stoll BOAT CARPENTER MECHANIC, BOAT CARPENTER MECHANIC-C Primary Care Provider Active Start: October 11, 2024 End: October 11, 2024 Raquel Stoll NP, BOAT CARPENTER MECHANIC-C Referring Provider Active Start: October 11, 2024 End: October 11, 2024 Gina Romero NP, BOAT CARPENTER MECHANIC-C Attending Provider Active Start: October 11, 2024 End: October 11, 2024 Team Status: Inactive Member Role/Relationship Status Dates Raquel Stoll NP, BOAT CARPENTER MECHANIC-C Primary Care Provider Active Start: October 19, 2024 End: October 19, 2024 Gaby Sanders NP-C Attending Provider Active Start: October 19, 2024 End: October 19, 2024 Gaby Sanders NP-C Referring Provider Active Start: October 19, 2024 End: October 19, 2024 Team Status: Inactive Member Role/Relationship Status Dates Raquel Stoll BOAT CARPENTER MECHANIC, BOAT CARPENTER MECHANIC-C Primary Care Provider Active Start: November 16, 2024 End: November 16, 2024 Gaby Sanders NP-C Attending Provider Active Start: November 16, 2024 End: November 16, 2024 Gaby M Rufener , BOAT CARPENTER MECHANIC-C Referring Provider Active Start: November 16, 2024 End: November 16, 2024 Team Status: Inactive Member Role/Relationship Status Dates Raquel Stoll BOAT CARPENTER MECHANIC, BOAT CARPENTER MECHANIC-C Primary Care Provider Active Start: November 24, 2024 End: November 24, 2024 Raquel Stoll BOAT CARPENTER MECHANIC, BOAT CARPENTER MECHANIC-C Referring Provider Active Start: November 24, 2024 End: November 24, 2024 Dr. Enrrique Rincon , DO Attending Provider Active S tart: November 24, 2024 End: November 24, 2024 Team Status: Inactive Member Role/Relationship Status Dates Raquel Stoll BOAT CARPENTER MECHANIC, BOAT CARPENTER MECHANIC-C Primary Care Provider Active Start: December 16, 2024 End: December 16, 2024 Gaby Sanders BOAT CARPENTER MECHANIC-C Attending Provider Active Start: December 16, 2024 End: December 16, 2024 Gaby Sanders , BOAT CARPENTER MECHANIC-C Referring Provider Active Start: December 16, 2024 End: December 16, 2024 Team Status: Inactive Member Role/Relationship Status Dates Raquel Stoll BOAT CARPENTER MECHANIC, BOAT CARPENTER MECHANIC-C Primary Care Provider Active Start: September 16, 2024 End: September 16, 2024 Blanquita Mckinney BOAT CARPENTER MECHANIC, BOAT CARPENTER MECHANIC-C Attending Provider Active S tart: September 16, 2024 End: September 16, 2024 Blanquita Mckinney BOAT CARPENTER MECHANIC, BOAT CARPENTER MECHANIC-C Referring Provider Active S tart: September 16, 2024 End: September 16, 2024 Team Status: Inactive Member Role/Relationship Status Dates Raquel Stoll BOAT CARPENTER MECHANIC, BOAT CARPENTER MECHANIC-C Primary Care Provider Active Start: September 20, 2024 End: September 20, 2024 Raquel Stoll BOAT CARPENTER MECHANIC, BOAT CARPENTER MECHANIC-C Referring Provider Active Start: September 20, 2024 End: September 20, 2024 Amber Heart NP, BOAT CARPENTER MECHANIC-C Attending Provider Active Start: September 20, 2024 End: September 20, 2024 Team Status: Inactive Member Role/Relationship Status Dates Raquel Stoll BOAT CARPENTER MECHANIC, BOAT CARPENTER MECHANIC-C Primary Care Provider Active Start: September 27, 2024 End: September 27, 2024 Raquel Stoll [employer], [employer]-C Referring Provider Active Start: September 27, 2024 End: September 27, 2024 Gaby Sanders [employer]-C Attending Provider Active Start: September 27, 2024 End: September 27, 2024 Team Status: Inactive Member Role/Relationship Status Dates Raquel Stoll [employer], [employer]IC-C Primary Care Provider Active Start: October 11, 2024 End: October 11, 2024 Raquel Stoll NP, [employer]-C Referring Provider Active Start: October 11, 2024 End: October 11, 2024 Gina Romero [employer], [employer]-C Attending Provider Active Start: October 11, 2024 End: October 11, 2024 Team Status: Inactive Member Role/Relationship Status Dates Raquel Stoll [employer]CH[employer]IC, [employer]IC-C Primary Care Provider Active Start: October 19, 2024 End: October 19, 2024 Gaby Sanders [employer]-C Attending Provider Active Start: October 19, 2024 End: October 19, 2024 Gaby Sanders [employer]-C Referring Provider Active Start: October 19, 2024 End: October 19, 2024 Team Status: Inactive Member Role/Relationship Status Dates Raquel Stoll [employer], [employer]IC-C Primary Care Provider Active Start: November 16, 2024 End: November 16, 2024 Gaby Sanders [employer]-C Attending Provider Active Start: November 16, 2024 End: November 16, 2024 Gaby Sanders [employer]-C Referring Provider Active Start: November 16, 2024 End: November 16, 2024 Team Status: Inactive Member Role/Relationship Status Dates Raquel Stoll [employer], [employer]IC-C Primary Care Provider Active Start: November 24, 2024 End: November 24, 2024 Raquel Stoll [employer], [employer]IC-C Referring Provider Active Start: November 24, 2024 End: November 24, 2024 Dr. Enrrique Rincon , DO Attending Provider Active S tart: November 24, 2024 End: November 24, 2024 Team Status: Inactive Member Role/Relationship Status Dates Raquel Stoll NP, [employer]-C Primary Care Provider Active Start: December 16, 2024 End: December 16, 2024 Gaby Sanders [employer]-C Attending Provider Active Start: December 16, 2024 End: December 16, 2024 Gaby Sanders [employer]-C Referring Provider Active Start: December 16, 2024 End: December 16, 2024 Team Status: Inactive Member Role/Relationship Status Dates Raquel Stoll [employer]CH[employer], [employer]IC-C Primary Care Provider Active Start: January 13, 2025 End: January 13, 2025 Gaby Sanders [employer]-C Attending Provider Active Start: January 13, 2025 End: January 13, 2025 Gaby Sanders HUSSAIN-C Referring Provider Active Start: January 13, 2025 End: January 13, 2025 Goals (unrecognized section and content) Goals may be documented in a n alternate sectionGoals may be documented in an alternate sectionGoals may be documented in an alternate sectionGoals may be documented in an alternate sectionGoals may be documented in an alternate sectionGoals may be documented in an alternate sectionGoals may be documented in an alternate sectionGoals may be documented in an alternate sectionGoals may be documented in an alternate sectionGoals may be documented in an alternate sectionGoals may be documented in an alternate section (unrecognized sect ion and content) No Status Records FoundNo Status Records Found INFORMATION SOURCE (unrecogn ized section and content) DATE CREATED AUTHOR 01/27/2025 [facility] DATE CREATED AUTHOR AUTHOR'S CHERI FUNES 02/06/2025 [facility] FOR RECORDS PERTAINING TO PATIENTS WHO ARE OR HAVE BEEN ENROLLED IN A CHEMICAL DEPENDENCY/SUBSTANCEABUSE PROGRAM, SOME INFORMATION MAY BE OMITTED. This clinical summary was aggregated from multiple sources. Caution should be exercised in using it in the provision of clinical care. This summary normalizes information from multiple sources, and as a consequence, information in this document may materially change the coding, format and clinical context of patient data. In addition, data may be omitted in some cases. CLINICAL DECISIONS SHOULD BE BASED ON THE PRIMARY CLINICAL RECORDS. [employer] provides no warranty or guarantee of the accuracy or completeness of information in this document.
== END 2025-02-10 23:59 | disposition home or self-care (01) ==
LOC: MEDOUTP 10:50
PROVIDERS: PCP Registered Nurse; Referring Provider Nurse Practitioner Family; Visit Provider Nurse Practitioner Family
DX: J45.50 Severe persistent asthma, uncomplicated (principal)
CPT/HCPCS: 96372; J2356

== ENCOUNTER 2025-03-17 09:49 | Outpatient (CLI) | payer MEDICAID, SELFPAY ==
[2025-03-17 10:05] VITALS: BP 154/63; PULSE 78; RESP 16; TEMP 35.8; O2SAT 96; BMI 53.2
== END 2025-03-17 23:59 | disposition home or self-care (01) ==
LOC: MEDOUTP 09:49
PROVIDERS: PCP Registered Nurse; Referring Provider Nurse Practitioner Family; Visit Provider Nurse Practitioner Family
DX: J45.50 Severe persistent asthma, uncomplicated (principal)
CPT/HCPCS: 96372; J2356

== ENCOUNTER 2025-04-07 09:49 | Outpatient (CLI) | payer MEDICAID, SELFPAY ==
[2025-04-07 09:56] VITALS: BP 147/75; PULSE 87; RESP 18; TEMP 35.8; O2SAT 94; BMI 53.2
== END 2025-04-07 23:59 | disposition home or self-care (01) ==
LOC: MEDOUTP 09:49
PROVIDERS: PCP Registered Nurse; Referring Provider Nurse Practitioner Family; Visit Provider Nurse Practitioner Family
DX: J45.50 Severe persistent asthma, uncomplicated (principal)
CPT/HCPCS: 96372; J2356

== ENCOUNTER 2025-05-05 09:49 | Outpatient (CLI) | payer MEDICAID, SELFPAY ==
[2025-05-05 10:23] VITALS: PULSE 81; RESP 16; TEMP 36.1; O2SAT 93
== END 2025-05-05 23:59 | disposition home or self-care (01) ==
LOC: MEDOUTP 09:49
PROVIDERS: PCP Registered Nurse; Referring Provider Nurse Practitioner Family; Visit Provider Nurse Practitioner Family
DX: J45.50 Severe persistent asthma, uncomplicated (principal)
CPT/HCPCS: 96372; J2356